=== PATIENT | female | born 1950 | race Caucasian/White ===

== ENCOUNTER → 2017-10-12 11:05 | Outpatient (CLI) | payer MEDICARE, SELFPAY ==
[2017-10-12 12:17] LABS: Absolute Lymphocyte Count 1.22 X10^3/ul (0.83-4.51); Basophil# 0.05 X10^3/uL; Eosinophil# 0.14 X10^3/uL; Eosinophils% 2.8 % (0-5); Hematocrit 42.9 % (37-47); Hemoglobin 14.4 g/dl (12.0-15.0); Lymphocyte # 1.22 X10^3/ul (4.0); Lymphocyte % 24.7 % (19-41); Mean Corp Hgb Conc 33.6 g/gl (32-36); Mean Corpuscular Hgb 34.4 pg (27.0-32.0); Mean Corpuscular Volume 102.4 fL (81-99); Mean Platelet Vol. 11.2 fl (6.2-12.0); Monocyte# 0.52 X10^3/uL; Monocyte% 10.5 % (0-10); Platelet Count 234 K/mm3 (150-450); RBC Distribution Width CV 14.5 % (11.6-14.6); RBC Distribution Width SD 53.6 fl (35.1-43.9); Red Blood Count 4.19 M/mm3 (4.2-5.4); White Blood Count 4.9 K/mm3 (4.4-11.0)
[2017-10-12 12:18] LABS: POSITIVE COUNT NO; POSITIVE DIFFERENTIAL NO; POSITIVE MORPHOLOGY NO
[2017-10-12 12:38] LABS: AST(SGOT) 18 U/L (15-37); Alanine Aminotransfer ALT/SGPT 19 U/L (13-56); Albumin, Serum 3.5 g/dL (3.2-5.0); Alkaline Phosphatase 55 U/L (45-117); Anion Gap 7 (5-15); BUN 15 mg/dL (7-18); BUN/Creat Ratio 20.1 RATIO (10-20); Calcium,Total 8.7 mg/dL (8.5-10.1); Chloride 107 mmol/L (98-107); Creatinine, Serum 0.75 mg/dL (0.55-1.02); EST Glomerular Filtration Rate 82 mL/min (>60); Est Glom Filt Rate - Afr Amer 99 mL/min (>60); Globulin 3.5 g/dL (2.2-4.2); Glucose 90 mg/dL (74-106); Potassium 3.6 mmol/L (3.5-5.1); Sodium Level 142 mmol/L (136-145)
== END ==
PROVIDERS: Visit Provider Internal Medicine Rheumatology
DX: M05.70 Rheumatoid arthritis with rheumatoid factor of unspecified site without organ or systems involvement (principal); M21.40 Flat foot [pes planus] (acquired), unspecified foot; I10 Essential (primary) hypertension; E78.5 Hyperlipidemia, unspecified; Z79.899 Other long term (current) drug therapy
CPT/HCPCS: 36415; 80053; 85025

== ENCOUNTER → 2017-12-27 12:41 | Outpatient (CLI) | payer MEDICARE, SELFPAY ==
--- NOTE | 2017-12-27 12:41 | DT_ITS ---
This patient was seen during an EMR downtime December 20, 2017 - December 27, 2017. This patient may have a combination of paper and electronic documentation or all paper documentation. All documentation is viewable within the e-chart portion of [facility] for each patient visit.
[2017-12-27 14:02] LABS: Absolute Lymphocyte Count 1.22 X10^3/ul (0.83-4.51); Absolute Neutrophil Count 3.7 X10^3/uL (2.0-7.7); Basophil# 0.04 X10^3/uL; Basophil% 0.7 % (0-1); Eosinophil# 0.16 X10^3/uL; Eosinophils% 2.8 % (0-5); Hematocrit 42.4 % (37-47); Hemoglobin 14.1 g/dl (12.0-15.0); Lymphocyte # 1.22 X10^3/ul (4.0); Lymphocyte % 21.3 % (19-41); Mean Corp Hgb Conc 33.3 g/gl (32-36); Mean Corpuscular Hgb 34.7 pg (27.0-32.0); Mean Corpuscular Volume 104.4 fL (81-99); Mean Platelet Vol. 11.1 fl (6.2-12.0); Monocyte# 0.66 X10^3/uL; Monocyte% 11.5 % (0-10); Neutrophil # 3.65 X10^3/uL (2.7-7.7); Neutrophil % 63.5 % (47-70); Platelet Count 219 K/mm3 (150-450); RBC Distribution Width CV 14.6 % (11.6-14.6); RBC Distribution Width SD 55.6 fl (35.1-43.9); Red Blood Count 4.06 M/mm3 (4.2-5.4); White Blood Count 5.7 K/mm3 (4.4-11.0)
[2017-12-27 14:05] LABS: POSITIVE COUNT NO; POSITIVE DIFFERENTIAL NO; POSITIVE MORPHOLOGY NO
[2017-12-27 14:16] LABS: ALB/GLOB Ratio 1.1 RATIO (0.9-2.4); AST(SGOT) 24 U/L (15-37); Alanine Aminotransfer ALT/SGPT 22 U/L (13-56); Albumin, Serum 3.7 g/dL (3.2-5.0); Alkaline Phosphatase 45 U/L (45-117); Anion Gap 8 (5-15); BUN 13 mg/dL (7-18); BUN/Creat Ratio 14.8 RATIO (10-20); Calcium,Total 9.4 mg/dL (8.5-10.1); Chloride 105 mmol/L (98-107); Creatinine, Serum 0.88 mg/dL (0.55-1.02); EST Glomerular Filtration Rate 68 mL/min (>60); Est Glom Filt Rate - Afr Amer 83 mL/min (>60); Globulin 3.5 g/dL (2.2-4.2); Glucose 88 mg/dL (74-106); Potassium 3.6 mmol/L (3.5-5.1); Protein, Total 7.2 g/dL (6.4-8.2); Sodium Level 142 mmol/L (136-145)
== END ==
PROVIDERS: Visit Provider Internal Medicine Rheumatology
DX: M05.70 Rheumatoid arthritis with rheumatoid factor of unspecified site without organ or systems involvement (principal); Z79.899 Other long term (current) drug therapy; M21.40 Flat foot [pes planus] (acquired), unspecified foot; I10 Essential (primary) hypertension; E78.5 Hyperlipidemia, unspecified
CPT/HCPCS: 36415; 80053; 85025

== ENCOUNTER → 2018-02-23 17:13 | Outpatient (CLI) | payer MEDICARE, SELFPAY ==
--- NOTE | 2018-02-23 17:16 | CT_ITS ---
STUDY: CT RIGHT SHOULDER REASON FOR EXAM: Female, 68 years old. Right shoulder pain. Impingement. RADIATION DOSAGE (If Supplied By Facility): CTDIvol = ( 26.03 ) mGy, DLP = ( 508.91 ) mGycm TECHNIQUE: The patient was scanned in a multi detector CT scanner. High resolution transaxial imaging was performed without the administration of intravenous contrast material. Sagittal and coronal images were reconstructed. Individualized dose optimization techniques were used for this CT. COMPARISON: None. 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 There is decreased subacromial space consistent with chronic rotator cuff tear. Normal glenoid rim, neck and visualized scapula. There is flattening of the superior medial humeral head with possible reverse Hill-Sachs deformity. There is spurring of the inferior medial humeral head Normal coracoid process. Normal visualized lateral clavicle. There is arthrosis with spurring of the acromioclavicular articulation. There is a Type II morphology (curved) acromion, with a neutral orientation. Normal visualized muscles and soft tissue structures. There is right lung granuloma and calcified mediastinal and right hilar lymph nodes. CT/Extremity Upper without Contra IMPRESSION: Glenohumeral and acromioclavicular arthrosis with decreased subacromial space consistent with chronic rotator cuff tear. Electronically Signed: Al Alvarado MD at 17:07 EDT , Service support ,
== END ==
PROVIDERS: Visit Provider Orthopaedic Surgery
DX: M75.41 Impingement syndrome of right shoulder (principal); M25.511 Pain in right shoulder; S43.421D Sprain of right rotator cuff capsule, subsequent encounter
CPT/HCPCS: 73200

== ENCOUNTER → 2018-03-24 10:43 | Outpatient (CLI) | payer MEDICARE, SELFPAY ==
[2018-03-24 12:29] LABS: Absolute Lymphocyte Count 0.99 X10^3/ul (0.83-4.51); Absolute Neutrophil Count 2.4 X10^3/uL (2.0-7.7); Basophil# 0.02 X10^3/uL; Basophil% 0.5 % (0-1); Eosinophils% 2.6 % (0-5); Hemoglobin 14.1 g/dl (12.0-15.0); Lymphocyte # 0.99 X10^3/ul (4.0); Lymphocyte % 25.9 % (19-41); Mean Corpuscular Hgb 32.8 pg (27.0-32.0); Mean Corpuscular Volume 102.3 fL (81-99); Mean Platelet Vol. 11.1 fl (6.2-12.0); Monocyte# 0.34 X10^3/uL; Monocyte% 8.9 % (0-10); Neutrophil # 2.37 X10^3/uL (2.7-7.7); Neutrophil % 62.1 % (47-70); Platelet Count 244 K/mm3 (150-450); RBC Distribution Width CV 14.7 % (11.6-14.6); White Blood Count 3.8 K/mm3 (4.4-11.0)
[2018-03-24 12:35] LABS: POSITIVE COUNT NO; POSITIVE DIFFERENTIAL NO; POSITIVE MORPHOLOGY NO
[2018-03-24 12:49] LABS: ALB/GLOB Ratio 1.1 RATIO (0.9-2.4); AST(SGOT) 32 U/L (15-37); Alanine Aminotransfer ALT/SGPT 29 U/L (13-56); Albumin, Serum 3.7 g/dL (3.2-5.0); Alkaline Phosphatase 50 U/L (45-117); Anion Gap 8 (5-15); BUN 13 mg/dL (7-18); BUN/Creat Ratio 15.6 RATIO (10-20); Calcium,Total 9.4 mg/dL (8.5-10.1); Chloride 104 mmol/L (98-107); Creatinine, Serum 0.83 mg/dL (0.55-1.02); EST Glomerular Filtration Rate 72 mL/min (>60); Est Glom Filt Rate - Afr Amer 87 mL/min (>60); Globulin 3.5 g/dL (2.2-4.2); Glucose 99 mg/dL (74-106); Potassium 3.8 mmol/L (3.5-5.1); Protein, Total 7.2 g/dL (6.4-8.2); Sodium Level 141 mmol/L (136-145)
[2018-03-26 16:07] LABS: Immunoglobulin E 5 IU/mL (0-100)
[2018-03-27 08:36] LABS: Eosinophil Ct. Urine No Eosinophils Seen % (.)
== END ==
PROVIDERS: Internal Medicine Pulmonary Disease; Visit Provider Internal Medicine Rheumatology
DX: M05.70 Rheumatoid arthritis with rheumatoid factor of unspecified site without organ or systems involvement (principal); M21.40 Flat foot [pes planus] (acquired), unspecified foot; I10 Essential (primary) hypertension; E78.5 Hyperlipidemia, unspecified; R05 Cough; Z79.899 Other long term (current) drug therapy
CPT/HCPCS: 36415; 80053; 82785; 85025; 87205

== ENCOUNTER 2018-06-21 10:36 | Outpatient (RCR) | payer MEDICARE, SELFPAY ==
[2018-05-04 13:48] VITALS: BMI 31.8
[2018-06-21 12:16] LABS: Absolute Lymphocyte Count 1.17 X10^3/ul (0.83-4.51); Absolute Neutrophil Count 3.2 X10^3/uL (2.0-7.7); Basophil# 0.03 X10^3/uL; Basophil% 0.6 % (0-1); Eosinophil# 0.16 X10^3/uL; Eosinophils% 3.2 % (0-5); Hematocrit 40.5 % (37-47); Hemoglobin 12.8 g/dl (12.0-15.0); Lymphocyte # 1.17 X10^3/ul (4.0); Lymphocyte % 23.1 % (19-41); Mean Corp Hgb Conc 31.6 g/gl (32-36); Mean Corpuscular Hgb 32.3 pg (27.0-32.0); Mean Corpuscular Volume 102.3 fL (81-99); Mean Platelet Vol. 10.9 fl (6.2-12.0); Monocyte% 9.9 % (0-10); Neutrophil % 63.2 % (47-70); Platelet Count 379 K/mm3 (150-450); RBC Distribution Width CV 14.8 % (11.6-14.6); RBC Distribution Width SD 55.8 fl (35.1-43.9); Red Blood Count 3.96 M/mm3 (4.2-5.4); White Blood Count 5.1 K/mm3 (4.4-11.0)
[2018-06-21 12:23] LABS: POSITIVE COUNT NO; POSITIVE DIFFERENTIAL NO; POSITIVE MORPHOLOGY NO
[2018-06-21 12:58] LABS: ALB/GLOB Ratio 0.9 RATIO (0.9-2.4); AST(SGOT) 24 U/L (15-37); Alanine Aminotransfer ALT/SGPT 20 U/L (13-56); Albumin, Serum 3.6 g/dL (3.2-5.0); Alkaline Phosphatase 57 U/L (45-117); Anion Gap 11 (5-15); BUN 16 mg/dL (7-18); BUN/Creat Ratio 21.3 RATIO (10-20); Calcium,Total 9.3 mg/dL (8.5-10.1); Chloride 103 mmol/L (98-107); Creatinine, Serum 0.75 mg/dL (0.55-1.02); EST Glomerular Filtration Rate 82 mL/min (>60); Est Glom Filt Rate - Afr Amer 99 mL/min (>60); Globulin 3.8 g/dL (2.2-4.2); Glucose 99 mg/dL (74-106); Potassium 3.7 mmol/L (3.5-5.1); Protein, Total 7.4 g/dL (6.4-8.2); Sodium Level 136 mmol/L (136-145)
== END 2018-06-21 11:00 | disposition home or self-care (01) ==
LOC: MTLAB 10:36
PROVIDERS: Referring Provider Internal Medicine Rheumatology; Visit Provider Internal Medicine Rheumatology
DX: M05.70 Rheumatoid arthritis with rheumatoid factor of unspecified site without organ or systems involvement (principal); M21.40 Flat foot [pes planus] (acquired), unspecified foot; I10 Essential (primary) hypertension; E78.5 Hyperlipidemia, unspecified; Z79.899 Other long term (current) drug therapy
CPT/HCPCS: 36415; 80053; 85025

== ENCOUNTER 2018-06-30 05:55 | Day surgery (SDC) | payer MEDICARE, SELFPAY ==
[2018-05-04 13:48] VITALS: BMI 31.8
--- NOTE | 2018-06-29 22:06 | HP.PCM_ITS ---
History and Physical Date of Admission: 06/30/18 HISTORY OF PRESENT ILLNESS 68 year old woman presents with lesions on her dorsum left hand near ulnar wrist by ring finger and small finger, on her volar ulnar aspect left forearm, proximal, and volar ulnar aspect left forearm, proximal and distal to other lesion that have increased in size over the last several months. Recent biopsy was done on 04/08/18. Pathology showed the lesion on the dorsum left hand near ulnar wrist by ring finger and small finger was a squamous cell carcinoma in situ. The lesion on her volar ulnar aspect left forearm, proximal, was an actinic keratosis. 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 On 04/19/18, the squamous cell carcinoma lesion volar ulnar aspect left forearm, proximal and distal to the actinic keratosis lesion, was re-excised by her PCP with a 4 mm margin. Repeat pathology showed no residual carcinoma seen. Since then the patient has noticed an erythematous lesion just ulnar to the healing incision. She presents today for further evaluation and treatment. PAST MEDICAL HISTORY Cancer of skin of forearm HTN (hypertension) Hypercholesterolemia Rheumatoid arthritis PAST SURGICAL HISTORY Left knee replacement Cataract surgery Left rotator cuff repair Right knee replacement brain aneurysm repair d & c MEDICATIONS Aspirin Methotrexate Triamterene Lisinopril albuterol sulfate benzonatate folic acid hydroxychloroquine metoprolol tartrate mirabegron ER omeprazole ALLERGIES No Known Allergies. FAMILY HISTORY Son - Hypertension SOCIAL HISTORY Smoking Status: Former smoker quit date: 07/19/90 pack-years: 30 second hand exposure: No alcohol intake: current alcohol intake frequency: holidays/special occasions only substance use type: does not use REVIEW OF SYSTEMS General - Denies fever and weight loss. Has fatigue. Eyes - Denies cataracts and glaucoma. ENT - Denies nasal congestion and sore throat. Endocrine - Denies excessive thirst and urination. Skin - Denies skin cancer. 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 Had recent shave biopsy lesion volar ulnar aspect left forearm, proximal, on 04/08/18 which showed an actinic keratosis. Had recent sha ve biopsy lesion volar ulnar aspect left forearm, proximal and distal to actinic keratosis lesion, on 04/08/18 which showed a squamous cell carcinoma. The squamous cell carcinoma lesion was re-excised 04/19/18. Musculoskeletal - Denies joint pain, joint stiffness, weakness of muscles and joints, back pain, and arthritis. Neuro - Denies headaches. Cardiovascular - Denies chest pain, fatigue, and shortness of breath with exertion. Psych - Denies anxiety and depression. Respiratory - Denies chronic cough and shortness of breath. Patient is a former smoker. Gastrointestinal - Denies nausea, vomiting, diarrhea, and constipation. Hematologic - Denies abnormal bruising and bleeding. Genitourinary - Denies hematuria and urinary frequency. PHYSICAL EXAMINATION General - Alert and Oriented. HEENT - PERRL. EOMI. Throat is clear. No suspicious lesions noted. Neck - Supple and nontender. No cervical adenopathy. No suspicious lesions noted. Lungs - Clear to auscultation. Heart - Regular rate and rhythm. Abdomen - Soft and nondistended. Extremities - FROM. No axillary adenopathy. Radial pulses are palpable. On the dorsum left hand near ulnar wrist by ring finger and small finger is a 1 cm healing scar from recent shave biopsy that showed a squamous cell carcinoma. On the volar ulnar aspect left forearm, proximal, is a 6 mm healing scar from recent shave biopsy that showed an actinic keratosis. On the volar ulnar aspect left forearm, proximal and distal to actinic keratosis lesion, is a 1.5 cm healing incision from recent re-excision squamous cell ca rcinoma. Just ulnar to this incision is an erythematous lesion that measures 4 mm. Slightly raised in configuration. Has irregular borders. No ulceration. Lesion is nontender. Neuro - CN II-XII grossly intact. Psych - Normal mood and affect. ASSESSMENT 1. 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 2. 6 mm actinic keratosis volar ulnar aspect left forearm, proximal. 3. 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 4. 4 mm erythematous lesion ulnar to squamous cell carcinoma scar left forearm. 5. Former smoker. 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 Reconstruction will be with skin grafting. Recommend re-excision of the actinic keratosis lesion volar ulnar aspect left forearm, proximal, and send it to Pathology for analysis to rule out carcinoma. If carcinoma is present then further excision will be done with skin flap reconstruction. The squamous cell carcinoma scar on volar ulnar aspect left forearm, proximal and distal to actinic keratosis lesion, was re-excised with a 4 mm margin and pathology showed no residual carcinoma seen. No further excision needs to be done. There is a new erythematous lesion just ulnar to the squamous cell carcinoma scar. Will excise this lesion as well and send to Pathology for analysis to rule out carcinoma. If carcinoma is present, then further excision will be done with skin flap reconstruction. Surgery will be done under local anesthesia and IV sedation on an outpatient basis. Patient was informed of the risks and complications of the procedure including alternatives to surgery. These were discussed with the patient personally. Patient voices understanding and wishes to proceed. Some of the risks and complications were included in a form from the [employer].
[2018-06-30] VITALS (8 sets, daily range): BP systolic 93–135; BP diastolic 55–78; PULSE 57–66; RESP 14–16; TEMP 36.7–36.8; O2SAT 99–100; BMI 31.4
--- NOTE | 2018-06-30 | LES_PTH ---
PATIENT: GEE BLAS LOC: [facility] [place] U#:[id number] AGE/SX: 68/F ROOM: RE06/30/[address]: Dr. Shaun Oneal MD : 1950 BED: DIS: 06/30/2018 SPEC #: [id number] RECD: 06/30/18 13:10 STATUS: LUCAS HERCULES #: [id number] TATI: 06/30/18 00:[address]: Shaun Oneal DEPT: SURGICAL PATHOLOGY RECD BY: Jalil Gamez ENTERED: 06/30/18 13:10 SP TYPE: Lesion OTHR DR: Antwon Licona Tissues: A - Skin of hand and finger, NOS B - Skin of forearm, NOS Procedures: Surgery Specimen Level IV HEADER OPERATION: Excision squamous cell cancer in situ dorsum left hand PRE-OP DIAGNOSIS: Squamous cell carcinoma in situ dorsum left hand near ulnar wrist; actinic keratosis left proximal volar ulnar forearm TISSUE SUBMITTED: A - Squamous cell carcinoma in situ dorsum left hand, B - Actinic keratosis left proximal volar ulnar forearm MICROSCOPIC DIAGNOSIS A. Squamous cell carcinoma in situ dorsum left hand, excisional biopsy: Actinic keratosis and hyperkeratosis. Extensive solar elastosis. Negative for malignancy. B. Actinic keratosis left proximal volar ulnar forearm, biopsy: Actinic keratosis and solar elastosis. Dermal fibrosis consistent with scar. SJ:lorie 07/01/18 MICROSCOPIC DESCRIPTION Slides are reviewed. 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 The specimen consists of a piece of ribera-white skin measuring 2.5 x 1.7 cm and up to 0.2 cm in thickness. A suture is noted presumed to be 12 o'clock position. The specimen is inked as follows: 12 o'clock margin - green, 6 o'clock margin - yellow, 3 o'clock margin - black and 9 o'clock margin - blue. The specimen is serially sectioned and submitted entirely in two cassettes as follows: 1 - 12 and 6 o'clock margin, 2 - rest of the specimen. B - Received in fixative is one container labeled with the patient's name and designated actinic keratosis left proximal volar ulnar forearm. The specimen consists of a fran-shaped piece of ribera-white skin measuring 1.8 x 1.5 cm and 0.3 cm in thickness. A suture is noted at presumed to be 12 o'clock margin. The specimen is inked as follows: 12 to 3 o'clock margin - black, 3 to 6 o'clock margin - blue, 6 to 9 o'clock margin - green and 9 to 12 o'clock margin - yellow. The specimen is serially sectioned and submitted entirely in two cassettes as follows: 1 - 3 and 9 o'clock tip, 2 - rest of the specimen. / SJ:rg 06/30/18 TC:5 CPT: 47205 x2
[2018-06-30] MEDS: Cefazolin 2 GM in 0.9% Normal Saline 100 ML IV (08:14)
[2018-06-30] MEDS: Mupirocin Ointment 22gm Tube 1 APPLIC (09:20)
--- NOTE | 2018-06-30 09:30 | OP.PN_ITS ---
Immediate Post-Op Note Date of Procedure: 06/30/18 Primary Surgeon/Physician: Shaun Oneal windows security analyst: Zachary White. Pre-Operative Diagnosis: 1. 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 2. 6 mm actinic keratosis volar ulnar aspect left forearm, proximal. 3. Former smoker. Post-Operative Diagnosis: Same. Surgery/Procedure Performed:: 1. 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 2. Excision 6 mm ac tinic keratosis volar ulnar aspect left forearm, proximal, with rhomboid transposition skin flap reconstruction (4 cm2). Description of Surgical Findings:: 68 year old woman presents with lesions on her dorsum left hand near ulnar wrist by ring finger and small finger, on her volar ulnar aspect left forearm, proximal, and volar ulnar aspect left forearm, proximal and distal to other lesion that have increased in size over the last several months. Recent biopsy was done on 04/08/18. Pathology showed the lesion on the dorsum left hand near ulnar wrist by ring finger and small finger was a squamous cell carcinoma in situ. The lesion on her volar ulnar aspect left forearm, proximal, was an actinic keratosis. 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 On 04/19/18, the squamous cell carcinoma lesion volar ulnar aspect left forearm, proximal and distal to the actinic keratosis lesion, was re-excised by her PCP with a 4 mm margin. Repeat pathology showed no residual carcinoma seen. Since then the patient has noticed an erythematous lesion just ulnar to the healing incision. Today that erythematous lesion has resolved. Today the patient underwent excision 1 cm 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 small finger with FTSG reconstruction from left lateral abdominal wall (5.5 cm2) and excision 6 mm actinic keratosis volar ulnar aspect left forearm, proximal, with rhomboid roland sposition skin flap reconstruction (4 cm2). Size of skin graft dorsum left hand near ulnar wrist by ring finger and small finger - 2.2 x 2.5 cm. Estimated Blood Loss: 10 ml. Specimen's removed: 1. Squamous cell carcinoma in situ dorsum left hand. 2. Actinic keratosis Drains: None. Type of Anesthesia:: Local MAC - xylocaine with epinephrine and IV sedation. - Admit VTE Documentation VTE Present on Admission: No VTE Mechan Device Prophylaxis: SCD's VTE Pharm Prophylaxis ordered?: No
--- NOTE | 2018-06-30 09:35 | PCM.DC ---
You will use the following diet at home:: No restrictions Discharge Activity: May not drive while taking narcotic pain medications., May Shower - in two days. wear plastic bag over left hand when showering., - - keep left arm elevated. no heavy lifting with left hand. May shower in (days): 2 - wear plastic bag over left hand when showering. May resume sexual activity in: No Restrictions Weight Bearing Status: Weight bearing as tolerated Lifting Restrictions: 10 lbs. Keep extremity elevated above heart level: Left Arm Call your doctor if your incision/area has: Continuous Slow Oozing, Sudden Increased Bleeding, Increased Pain/ Swelling, Increased Redness, Foul Smelling Discharge, Swelling at the incision site Call your doctor if you observe: Fever of 101 or Higher, Coldness, Increased Pain, Shortness of breath, Chest pain, Calf discomfort, Uncontrolled pain Suture Line Care: - - dry dressing daily to left lateral abdominal wall after operative dressing is removed in two days. Change Dressing in (Days):: 6 - will change left hand dressing in office. Allergies/Adverse Reactions: Allergies No Known Allergies Allergy (Verified 06/30/18 06:18) Medications to take at Discharge Methotrexate 15 mg PO QWEEK 02/04/14 Triamterene 75MG/Hctz 50MG [Maxzide] 0.5 tab PO DAILY 02/04/14 Lisinopril [Zestril] 10 mg PO DAILY 01/06/16 hydroxychloroquine 200 mg tablet 200 mg PO DAILY tab 03/30/18 metoprolol tartrate 100 mg tablet 100 mg PO DAILY tab 03/30/18 omeprazole 40 mg capsule,delayed release 40 mg PO DAILY 03/30/18 Oxybutynin [Ditropan] 5 mg PO BID 06/23/18 Cefadroxil [Duricef] 500 mg PO BID #14 cap 06/30/18 Lactobacillus Acidophilus [Acidophilus] 1 ea PO BID #20 cap 06/30/18 Oxycodone HCl/Acetaminophen [Percocet 5/325] 1 tab PO 4X/DAY PRN PRN 7 Days #30 tab 06/30/18 The following prescriptions were given: Oxycodone HCl/Acetaminophen [Percocet 5/325] 1 tab PO 4X/DAY PRN PRN 7 Days #30 tab PRN Reason: Pain Cefadroxil [Duricef] 500 mg PO BID #14 cap Lactobacillus Acidophilus [Acidophilus] 1 ea PO BID #20 cap Primary Care Physician: Antwon Licona [Primary Care Provider] - Test Results: Test results from this visit will be discussed in further detail at your follow-up appointment, if applicable. Please Follow Up With: Shaun Oneal MD When: one week. call [phone] for appt. Proposed Discharge Date: 06/30/18
--- NOTE | 2018-06-30 09:39 | DCINST_ITS ---
You will use the following diet at home:: No restrictions Discharge Activity: May not drive while taking narcotic pain medications., May Shower - in two days. wear plastic bag over left hand when showering., - - keep left arm elevated. no heavy lifting with left hand. May shower in (days): 2 - wear plastic bag over left hand when showering. May resume sexual activity in: No Restrictions Weight Bearing Status: Weight bearing as tolerated Lifting Restrictions: 10 lbs. Keep extremity elevated above heart level: Left Arm Call your doctor if your incision/area has: Continuous Slow Oozing, Sudden Increased Bleeding, Increased Pain/ Swelling, Increased Redness, Foul Smelling Discharge, Swelling at the incision site Call your doctor if you observe: Fever of 101 or Higher, Coldness, Increased Pain, Shortness of breath, Chest pain, Calf discomfort, Uncontrolled pain Suture Line Care: - - dry dressing daily to left lateral abdominal wall after operative dressing is removed in two days. Change Dressing in (Days):: 6 - will change left hand dressing in office. Allergies/Adverse Reactions: Allergies No Known Allergies Allergy (Verified 06/30/18 06:18) Medications to take at Discharge Methotrexate 15 mg PO QWEEK 02/04/14 Triamterene 75MG/Hctz 50MG [Maxzide] 0.5 tab PO DAILY 02/04/14 Lisinopril [Zestril] 10 mg PO DAILY 01/06/16 hydroxychloroquine 200 mg tablet 200 mg PO DAILY tab 03/30/18 metoprolol tartrate 100 mg tablet 100 mg PO DAILY tab 03/30/18 omeprazole 40 mg capsule,delayed release 40 mg PO DAILY 03/30/18 Oxybutynin [Ditropan] 5 mg PO BID 06/23/18 Cefadroxil [Duricef] 500 mg PO BID #14 cap 06/30/18 Lactobacillus Acidophilus [Acidophilus] 1 ea PO BID #20 cap 06/30/18 Oxycodone HCl/Acetaminophen [Percocet 5/325] 1 tab PO 4X/DAY PRN PRN 7 Days #30 tab 06/30/18 The following prescriptions were given: Oxycodone HCl/Acetaminophen [Percocet 5/325] 1 tab PO 4X/DAY PRN PRN 7 Days #30 tab PRN Reason: Pain Cefadroxil [Duricef] 500 mg PO BID #14 cap Lactobacillus Acidophilus [Acidophilus] 1 ea PO BID #20 cap Primary Care Physician: Antwon Licona [Primary Care Provider] - Test Results: Test results from this visit will be discussed in further detail at your follow- up appointment, if applicable. Please Follow Up With: Shaun Oneal MD When: one week. call [phone] for appt. Proposed Discharge Date: 06/30/18
--- NOTE | 2018-06-30 23:48 | PCM.OPRPT ---
Report of Operation Date of Procedure: 06/30/18 Pre-Operative Diagnosis: 1. 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 2. 6 mm actinic keratosis volar ulnar aspect left forearm, proximal. 3. Former smoker. Post-Operative Diagnosis: Same. Surgery/Procedure Performed:: 1. 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 2. Excision 6 mm actinic keratosis volar ulnar aspect left forearm, proximal, with rhomboid transposition skin flap reconstruction (4 cm2). Description of Surgical Findings:: 68 year old woman presents with lesions on her dorsum left hand near ulnar wrist by ring finger and small finger, on her volar ulnar aspect left forearm, proximal, and volar ulnar aspect left forearm, proximal and distal to other lesion that have increased in size over the last several months. Recent biopsy was done on 04/08/18. Pathology showed the lesion on the dorsum left hand near ulnar wrist by ring finger and small finger was a squamous cell carcinoma in situ. The lesion on her volar ulnar aspect left forearm, proximal, was an actinic keratosis. 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 On 04/19/18, the squamous cell carcinoma lesion volar ulnar aspect left forearm, proximal and distal to the actinic keratosis lesion, was re-excised by her PCP with a 4 mm margin. Repeat pathology showed no residual carcinoma seen. Since then the patient has noticed an erythematous lesion just ulnar to the healing incision. Today that erythematous lesion has resolved. Patient was informed of the risks and complications of the procedure including alternatives to surgery. These were discussed with the patient personally. Patient voices understanding and wishes to proceed. Some of the risks and complications were included in a form from the [employer]. Size of skin graft dorsum left hand near ulnar wrist by ring finger and small finger - 2.2 x 2.5 cm. 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 Type of Anesthesia:: Local MAC - xylocaine with epinephrine and IV sedation. Specimen's removed: 1. Squamous cell carcinoma in situ dorsum left hand. 2. Actinic keratosis Drains: None. Estimated Blood Loss (mL): 10 ml. Description of Procedure: Patient was taken to OR in supine position and was given IV sedation. The left hand and forearm and left lateral abdominal wall areas were prepped and draped in the usual fashion. SCD's were placed for DVT prophylaxis. Perioperative antibiotics were given intravenously. The lesions dorsum left hand near ulnar wrist by ring finger and small finger and volar ulnar aspect left forearm, proximal, and the donor area left lateral abdominal wall were infiltrated with xylocaine and epinephrine. After waiting 5 minutes for the anesthetic to take effect, the lesion dorsum left hand near ulnar wrist by ring finger and small finger was excised with a 6 mm margin down into the subcutaneous tissue. A suture was placed at 12 oclock position for pathology orientation and was sent to pathology for analysis to rule out carcinoma at the margins. Hemostasis was obtained with electrocautery. The size of the wound defect for the skin graft was 2.2 x 2.5 cm or 5.5 cm2. The lesion volar ulnar aspect left forearm, proximal, was excised in a rhomboid fashion with a 4 mm margin in all directions in case there is a focus of carcinoma on the pathology report. The rhomboid excision was done because of the proximity of the lesion to the antecubital area. A suture was placed at 12 oclock position for pathology orientation and was sent to Pathology for analysis to rule out carcinoma. A rhomboid flap was designed adjacent to the defect. Incisions were made and the rhomboid flap was raised on a subcutaneous pedicle. It was easily transposed into the defect with minimal tension and minimal distortion. Hemostasis was obtained with electrocautery. The flap was transposed into the defect and the wound was closed in a layered fashion with 4-0 Monocryl interrupted sutures for the deep dermis and subcutaneous tissue. The skin was approximated with 4-0 Prolene simple interrupted sutures. The size of the wound and the size of the flap needed to close the defect was about 4 cm2. Antibiotic ointment was applied to the suture line followed by gauze dressing. I then made an elliptical incision on the left lateral abdominal wall down into the subcutaneous tissue. The subcutaneous tissue was removed from the undersurface of the dermis thus fashioning a full thickness skin graft. The skin graft was placed in saline. Some additional subcutaneous tissue was removed to aid in wound closure. Hemostasis was obtained with electrocautery. The donor incision was closed in a layered fashion with 3-0 Monocryl figure of eight interrupted sutures for the Rachel's fascial layer. The deep dermis and subcutaneous tissue was approximated with 3-0 Monocryl interrupted sutures. The skin was approximated with 3-0 V lock unidirectional barbed running subcuticular suture. This was followed by Histoacryl skin tissue adhesive. A dry gauze dressing was applied. The skin graft was applied to the wound dorsum left hand near ulnar wrist by ring finger and small finger and secured to the skin edge with 3-0 Chromic simple interrupted sutures. 3-0 Chromic interrupted sutures were also used for central quilting stabilization. Xeroform gauze was applied to the skin graft followed by antibiotic ointment and cotton balls soaked in saline and secured with 3-0 Nylon tie over stent suture dressing. Gauze dressing was applied over the skin graft dressing followed by a compression FRANCES wrap. Patient tolerated the procedure well and was sent to PACU in satisfactory condition. Patient will be sent home on antibiotics and pain medication. She will keep her left hand elevated during the inital postop period. Patient will followup in a week for a wound check and for takedown of the skin graft dressing and for discussion of the pathology report and for removal of the sutures. Grafts/Implants Used: None. - Complications None. - Admit VTE Documentation VTE Present on Admission: No VTE Mechan Device Prophylaxis: SCD's VTE Pharm Prophylaxis ordered?: No Code Visit Surgery Charges CPT - 41908 ICD-10 - D04.62, Z87.891 71712 D04.62, Z87.891 80099 L57.0, Z85.828, Z87.891
--- OUTSIDE RECORDS SUMMARY | 2018-08-16 00:13 | XMS RPT_ITS ---
:1950 Author Organization OHIP Support Name Relationship Address Phone DEVORA MCNALLY Unavailable [address] + [place] [address] FATZINGER, JOEL Unavailable [address] [place] [address] + [place] [address] R Unavailable Unavailable Unavailable FATZINGER DEVORA Unavailable [address] + [place] [address] FATZINGER, JOEL Unavailable [address] [place] [address] + [place] [address] R Unavailable Unavailable Unavailable FATZINGER DEVORA Unavailable [address] + [place] [address] FATZINGER, JOEL Unavailable [address] [place] [address] + [place] [address] R Unavailable Unavailable Unavailable FATZINGER DEVORA Unavailable [address] + [place] [address] FATZINGER, JOEL Unavailable [address] [place] [address] + [place] [address] R Unavailable Unavailable Unavailable FATZINGER, DEVORA Unavailable [address] + [place] [address] FATZINGER, JOEL Unavailable [address] [place] [address] + [place] [address] R Unavailable Unavailable Unavailable FATZINGER, DEVORA Unavailable [address] + [place] [address] FATZINGER, JOEL Unavailable [address] [place] [address] + [place] [address] R Unavailable Unavailable Unavailable FATZINGER, DEVORA Unavailable [address] + [place] [address] FATZINGER, JOEL Unavailable [address] [place] [address] + [place] [address] R Unavailable Unavailable Unavailable FATZINGER, DEVORA Unavailable [address] + [place] [address] FATZINGER, JOEL Unavailable [address] [place] [address] + [place] [address] R Unavailable Unavailable Unavailable FATZINGER, DEVORA Unavailable [address] + [place] [address] FATZINGER, JOEL Unavailable [address] [place] [address] + [place] [address] R Unavailable Unavailable Unavailable FATZINGER, DEVORA Unavailable [address] + [place] [address] FATZINGER, JOEL Unavailable [address] [place] [address] + [place] [address] R Unavailable Unavailable Unavailable FATZINGER, DEVORA Unavailable [address] + [place] [address] FATZINGER, JOEL Unavailable [address] [place] [address] + [place] [address] R Unavailable Unavailable Unavailable FATZINGER, DEVORA Unavailable [address] + [place] [address] FATZINGER, JOEL Unavailable [address] [place] [address] + [place] [address] R Unavailable Unavailable Unavailable FATZINGER, DEVORA Unavailable [address] + [place] [address] FATZINGER, JOEL Unavailable [address] [place] [address] + [place] [address] R Unavailable Unavailable Unavailable FATZINGER, DEVORA Unavailable [address] + [place] [address] FATZINGER, JOEL Unavailable [address] [place] [address] + [place] [address] R Unavailable Unavailable Unavailable Care Team Providers Name Role Phone Ranjana Tristan Attending Unavailable Ranjana Tristan Referring Unavailable Antwon Licona Primary Care Unavailable Ranjana Tristan Attending Unavailable Vellanki, Ranjana Referring Unavailable Livan, Antwon Primary Care Unavailable AVERY KIRBY Attending Unavailable MIRTA, AVERY Referring Unavailable Livan, Antwon Primary Care Unavailable Vellanki, Ranjana Attending Unavailable Vellanki, Ranjana Referring Unavailable Livan, Antwon Primary Care Unavailable Olbrych, Nadia Consulting Unavailable Xiomara Davalos Attending Unavailable Ethan Morris Attending Unavailable Livan, Antwon Referring Unavailable Slaby, Shaun Attending Unavailable Livan, Antwon Referring Unavailable Slaby, Shaun Attending Unavailable Slaby, Shaun Referring Unavailable Livan, Antwon Primary Care Unavailable Vellanki, Ranjana Attending Unavailable Vellanki, Ranjana Referring Unavailable Livan, Antwon Primary Care Unavailable Slaby, Shaun Attending Unavailable Slaby, Shaun Referring Unavailable Livan, Antwon Primary Care Unavailable Slaby, Shaun Consulting Unavailable Slaby, Shaun Attending Unavailable Livan, Antwon Primary Care Unavailable Slaby, Shaun Consulting Unavailable Livan, Antwon Referring Unavailable Slaby, Shaun Attending Unavailable Livan, Antwon Referring Unavailable Denise Beck Attending Unavailable Livan, Antwon Referring Unavailable Vellanki, Ranjana Attending Unavailable Vellanki, Ranjana Referring Unavailable Livan, Antwon Primary Care Unavailable HILDA ROLDAN (DANYELL) Referring Unavailable NADIA GIL Attending Unavailable OLBRYCH, NADIA Referring Unavailable MirtaAvery gallegos Attending Unavailable Livan, Antwon G Primary Care Unavailable Avery Kirby L Admitting Unavailable MirtaAvery gallegos Attending Unavailable Livan, Antwon G Primary Care Unavailable Livan, Antwon G Attending Unavailable Livan, Antwon G Attending Unavailable Mirta, Avery L Attending Unavailable Livan, Antwon G Primary Care Unavailable PROBLEMS PROBLEMS DATE TYPE CONDITION / CODE ATTENDING STATUS SOURCE 07/06/2018 Unknown D04.62 - Carcinoma Shaun Oneal Active [place] in situ of skin of [facility] left upper limb, Hospital including shoulder / Repository D04.62(ICD-10) 07/03/2018 Unknown G89.18 - Other acute Shaun Oneal Active [place] postprocedural pain [facility] / G89.18(ICD-10) Hospital Repository 07/18/2018 Unknown M05.70 - Rheumatoid Kun Active [place] arthritis with [facility] rheumatoid factor of Hospital unspecified site Repository without organ or systems involvement / M05.70(ICD-10) 07/18/2018 Unknown M21.40 - Flat foot Vellanki, Active [place] [pes planus] [facility] (acquired), Hospital unspecified foot / Repository M21.40(ICD-10) 07/18/2018 Unknown I10 - Essential Vellanleandro, Active [place] (primary) [facility] hypertension / Hospital I10(ICD-10) Repository 07/18/2018 Unknown E78.5 - Vellanleandro, Active [place] Hyperlipidemia, [facility] unspecified / Hospital E78.5(ICD-10) Repository 06/01/2018 Admitting Unknown / Mirta, Active [facility] Medical diagnosis UNK(Unknown) [facility] Repository 04/13/2018 Active Cough / R05(ICD-10) NA Active [facility] Other [place] Repository 03/24/2018 Unknown Z79.899 - Other long Kun, Active [place] term (current) drug [facility] therapy / Hospital Z79.899(ICD-10) Repository 03/24/2018 Active Chronic obstructive NA Active [place] pulmonary disease, [facility] unspecified / [place] J44.9(ICD-10) Repository PROCEDURES PROCEDURES No Procedure Records FoundRESULTS RESULTS PLASTIC SURGERY Observed: 07/20/2018 Status: F Source: [facility] VISIT REPORT 11:44 AM [facility] REPOSITORY [facility] [address] [place] [address] OFFICE VISIT Date of Service: 07/15/18 MR#: [id number] Acct: [id number] Name: MAYRA MCNALLY Rep #: [id number] : 1950 Provider: HUONG Beck Age/Sex: 68/F Location: [facility] Status: Signed Intake Vital Signs07/15/18 Body Mass Index (BMI) 31.4 07/15/18 Weight: 189 lb 4 oz 07/15/18 Blood Pressure 127/84 H 07/15/18 Blood Pressure Location Lt brachial 07/15/18 Blood Pressure Position Sitting Intake Visit Reasons: post op surgery 06/30/18 Allergies No Known Allergies Allergy (Verified 07/07/18 13:27) Medications Methotrexate 15 mg PO QWEEK 02/04/14 [History Confirmed 07/07/18] Triamterene 75MG/Hctz 50MG [Maxzide] 0.5 tab PO DAILY 02/04/14 [History Confirmed 07/07/18] Lisinopril [Zestril] 10 mg PO DAILY 01/06/16 [History Confirmed 07/07/18] hydroxychloroquine 200 mg tablet 200 mg PO DAILY tab 03/30/18 [History Confirmed 07/07/18] metoprolol tartrate 100 mg tablet 100 mg PO DAILY tab 03/30/18 [History Confirmed 07/07/18] omeprazole 40 mg capsule,delayed release 40 mg PO DAILY 03/30/18 [History Confirmed 07/07/18] Oxybutynin [Ditropan] 5 mg PO BID 06/23/18 [History Confirmed 07/07/18] Cefadroxil [Duricef] 500 mg PO BID #14 cap 06/30/18 [Rx Confirmed 07/07/18] Lactobacillus Acidophilus [Acidophilus] 1 ea PO BID #20 cap 06/30/18 [Rx Confirmed 07/07/18] PFSH Medical History Cancer of skin of forearm (Acute) HTN (hypertension) (Chronic) Hypercholesterolemia (Chronic) Rheumatoid arthritis (Chronic) Surgical History History of left knee replacement (Resolved) Hx of cataract surgery (Resolved) S/P left rotator cuff repair (Resolved) Status post right knee replacement (Resolved) brain aneurysm repair (Resolved) d AND c (Resolved) Family History Son Hypertension Social History Smoking Status: Former smoker quit date: 07/19/90 pack-years: 30 second hand exposure: No alcohol intake: current alcohol intake frequency: holidays/special occasions only substance use type: does not use HPI post op surgery 06/30/18: Details: Postop visit from her recent surgery on 06/30/18 where she underwent excision 1 cm 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 Patient denies any complaints. Skin graft is healing well. Apply antibiotic ointment daily to the skin graft for another couple of weeks. Left lateral abdominal wall donor incision is dry and intact and healing satisfactory. She will keep it covered with gauze so that her clothes do not rub against it causing discomfort. Incision volar ulnar aspect left forearm, proximal, is dry and intact. Flap is healing satisfactory. She has good range of motion of left hand and forearm. Pathology showed squamous cell carcinoma in situ lesion dorsum left hand near ulnar wrist by ring finger and small finger showed an actinic keratosis and hyperkeratosis with extensive solar elastosis and negative for residual malignancy. The lesion volar ulnar aspect left forearm, proximal, showed actinic keratosis and solar elastosis and dermal fibrosis consistent with scar. Massage the skin flap volar ulnar aspect left forearm, proximal, and the donor incision left lateral abdominal wall with skin lotion daily to help soften up the scars. Followup two weeks if she is still in town. She has plans to go to [place] until the Spring. If she has already left for [place] at that time, then she will follow up in the Spring (September or October) for a TBSE. Assessment AND Plan Problems 1. 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 Actinic keratosis L57.0 3. Personal history of skin cancer Z85.828 4. 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 Actinic keratosis L57.0 Personal history of skin cancer Z85.828 Former smoker Z87.891 07/20/18 1144 <Electronically signed by Denise BORJA> Date Denise BORJA 07/19/182120<Electronically signed by Shaun Oneal MD> Cosigner Signature: Date (if applicable) Shaun Oneal MD CC: PLASTIC SURGERY Observed: 07/12/2018 Status: F Source: [facility] VISIT REPORT 8:00 PM [facility] REPOSITORY [facility] [address] [place] [address] OFFICE VISIT Date of Service: 07/07/18 MR#: [id number] Acct: [id number] Name: MAYRA MCNALLY Rep #: [id number] : 1950 Provider: Shaun Oneal MD Age/Sex: 68/F [place] [facility] Status: Signed Intake Vital Signs07/07/18 Body Mass Index (BMI) 31.4 07/07/18 Respiratory Rate 16 Intake Visit Reasons: post op surgery 06/30/18 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 Accompanied by: None Is patient in pain?: No Allergies No Known Allergies Allergy (Verified 07/07/18 13:27) Medications Methotrexate 15 mg PO QWEEK 02/04/14 [History Confirmed 07/07/18] Triamterene 75MG/Hctz 50MG [Maxzide] 0.5 tab PO DAILY 02/04/14 [History Confirmed 07/07/18] Lisinopril [Zestril] 10 mg PO DAILY 01/06/16 [History Confirmed 07/07/18] hydroxychloroquine 200 mg tablet 200 mg PO DAILY tab 03/30/18 [History Confirmed 07/07/18] metoprolol tartrate 100 mg tablet 100 mg PO DAILY tab 03/30/18 [History Confirmed 07/07/18] omeprazole 40 mg capsule,delayed release 40 mg PO DAILY 03/30/18 [History Confirmed 07/07/18] Oxybutynin [Ditropan] 5 mg PO BID 06/23/18 [History Confirmed 07/07/18] Cefadroxil [Duricef] 500 mg PO BID #14 cap 06/30/18 [Rx Confirmed 07/07/18] Lactobacillus Acidophilus [Acidophilus] 1 ea PO BID #20 cap 06/30/18 [Rx Confirmed 07/07/18] Is last menstrual period known: No Post menopausal: Yes Patient : No PFSH Medical History Cancer of skin of forearm (Acute) HTN (hypertension) (Chronic) Hypercholesterolemia (Chronic) Rheumatoid arthritis (Chronic) Surgical History History of left knee replacement (Resolved) Hx of cataract surgery (Resolved) S/P left rotator cuff repair (Resolved) Status post right knee replacement (Resolved) brain aneurysm repair (Resolved) d AND c (Resolved) Family History Son Hypertension Social History Smoking Status: Former smoker quit date: 07/19/90 pack-years: 30 second hand exposure: No alcohol intake: current alcohol intake frequency: holidays/special occasions only substance use type: does not use HPI post op surgery 06/30/18: Details: Postop visit from her recent surgery on 06/30/18 where she underwent excision 1 cm 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 Patient denies any complaints. Skin graft dressing removed from dorsum left hand. Skin graft shows 100% take and good adherence and good vascular ingrowth. Apply antibiotic ointment daily to the skin graft. Left lateral abdominal wall donor incision is dry and intact and healing satisfactory. She will keep it covered with gauze so that her clothes do not rub against it. Incision volar ulnar aspect left forearm, proximal, is dry and intact. Flap is healing satisfactory. Discussed pathology with the patient. The squamous cell carcinoma in situ lesion dorsum left hand near ulnar wrist by ring finger and small finger showed an actinic keratosis and hyperkeratosis with extensive solar elastosis and negative for residual malignancy. The lesion volar ulnar aspect left forearm, proximal, showed actinic keratosis and solar elastosis and dermal fibrosis consistent with scar. Sutures were removed today without difficulty. Massage the skin flap volar ulnar aspect left forearm, proximal, and the donor incision left lateral abdominal wall with skin lotion daily to help soften up the scars. Followup one week as she will be leaving for [place] in early July for the Winter. Assessment AND Plan Problems 1. 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 Actinic keratosis L57.0 3. Personal history of skin cancer Z85.828 4. 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 Actinic keratosis L57.0 Personal history of skin cancer Z85.828 Former smoker Z87.891 07/12/18 1337 <Electronically signed by Shaun Oneal MD> Date Shaun Oneal MD 07/12/181999<Electronically signed by Denise BORJA> Cosigner Signature: Date (if applicable) Denise Beck CC: OPERATIVE REPORT Observed: 07/04/2018 Status: F Source: [facility] 5:40 PM [facility] REPOSITORY [facility] Medical Records Department [address] [facility] [place] [address] Operative Report 06/30/18 2348 MR#: [id number] Acct: [id number] Name: MAYRA MCNALLY Rep #: [id number] : 1950 68 From: Shaun Oneal MD PCP: Antwon Licona Status: [facility] Location[place] [facility] [place] Report of Operation Date of Procedure: 06/30/18 Pre-Operative Diagnosis: 1. 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 2. 6 mm actinic keratosis volar ulnar aspect left forearm, proximal. 3. Former smoker. Post-Operative Diagnosis: Same. Surgery/Procedure Performed:: 1. 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 2. Excision 6 mm actinic keratosis volar ulnar aspect left forearm, proximal, with rhomboid transposition skin flap reconstruction (4 cm2). Description of Surgical Findings:: 68 year old woman presents with lesions on her dorsum left hand near ulnar wrist by ring finger and small finger, on her volar ulnar aspect left forearm, proximal, and volar ulnar aspect left forearm, proximal and distal to other lesion that have increased in size over the last several months. Recent biopsy was done on 04/08/18. Pathology showed the lesion on the dorsum left hand near ulnar wrist by ring finger and small finger was a squamous cell carcinoma in situ. The lesion on her volar ulnar aspect left forearm, proximal, was an actinic keratosis. 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 On 04/19/18, the squamous cell carcinoma lesion volar ulnar aspect left forearm, proximal and distal to the actinic keratosis lesion, was re-excised by her PCP with a 4 mm margin. Repeat pathology showed no residual carcinoma seen. Since then the patient has noticed an erythematous lesion just ulnar to the healing incision. Today that erythematous lesion has resolved. Patient was informed of the risks and complications of the procedure including alternatives to surgery. These were discussed with the patient personally. Patient voices understanding and wishes to proceed. Some of the risks and complications were included in a form from the [employer]. Size of skin graft dorsum left hand near ulnar wrist by ring finger and small finger - 2.2 x 2.5 cm. hyster machine operator: Zachary White. Type of Anesthesia:: Local MAC - xylocaine with epinephrine and IV sedation. Specimen's removed: 1. Squamous cell carcinoma in situ dorsum left hand. 2. Actinic keratosis Drains: None. Estimated Blood Loss (mL): 10 ml. Description of Procedure: Patient was taken to OR in supine position and was given IV sedation. The left hand and forearm and left lateral abdominal wall areas were prepped and draped in the usual fashion. SCD's were placed for DVT prophylaxis. Perioperative antibiotics were given intravenously. The lesions dorsum left hand near ulnar wrist by ring finger and small finger and volar ulnar aspect left forearm, proximal, and the donor area left lateral abdominal wall were infiltrated with xylocaine and epinephrine. After waiting 5 minutes for the anesthetic to take effect, the lesion dorsum left hand near ulnar wrist by ring finger and small finger was excised with a 6 mm margin down into the subcutaneous tissue. A suture was placed at 12 oclock position for pathology orientation and was sent to pathology for analysis to rule out carcinoma at the margins. Hemostasis was obtained with electrocautery. The size of the wound defect for the skin graft was 2.2 x 2.5 cm or 5.5 cm2. The lesion volar ulnar aspect left forearm, proximal, was excised in a rhomboid fashion with a 4 mm margin in all directions in case there is a focus of carcinoma on the pathology report. The rhomboid excision was done because of the proximity of the lesion to the antecubital area. A suture was placed at 12 oclock position for pathology orientation and was sent to Pathology for analysis to rule out carcinoma. A rhomboid flap was designed adjacent to the defect. Incisions were made and the rhomboid flap was raised on a subcutaneous pedicle. It was easily transposed into the defect with minimal tension and minimal distortion. Hemostasis was obtained with electrocautery. The flap was transposed into the defect and the wound was closed in a layered fashion with 4-0 Monocryl interrupted sutures for the deep dermis and subcutaneous tissue. The skin was approximated with 4-0 Prolene simple interrupted sutures. The size of the wound and the size of the flap needed to close the defect was about 4 cm2. Antibiotic ointment was applied to the suture line followed by gauze dressing. I then made an elliptical incision on the left lateral abdominal wall down into the subcutaneous tissue. The subcutaneous tissue was removed from the undersurface of the dermis thus fashioning a full thickness skin graft. The skin graft was placed in saline. Some additional subcutaneous tissue was removed to aid in wound closure. Hemostasis was obtained with electrocautery. The donor incision was closed in a layered fashion with 3-0 Monocryl figure of eight interrupted sutures for the Rachel's fascial layer. The deep dermis and subcutaneous tissue was approximated with 3-0 Monocryl interrupted sutures. The skin was approximated with 3-0 V lock unidirectional barbed running subcuticular suture. This was followed by Histoacryl skin tissue adhesive. A dry gauze dressing was applied. The skin graft was applied to the wound dorsum left hand near ulnar wrist by ring finger and small finger and secured to the skin edge with 3-0 Chromic simple interrupted sutures. 3-0 Chromic interrupted sutures were also used for central quilting stabilization. Xeroform gauze was applied to the skin graft followed by antibiotic ointment and cotton balls soaked in saline and secured with 3-0 Nylon tie over stent suture dressing. Gauze dressing was applied over the skin graft dressing followed by a compression FRANCES wrap. Patient tolerated the procedure well and was sent to PACU in satisfactory condition. Patient will be sent home on antibiotics and pain medication. She will keep her left hand elevated during the inital postop period. Patient will followup in a week for a wound check and for takedown of the skin graft dressing and for discussion of the pathology report and for removal of the sutures. Grafts/Implants Used: None. - Complications None. - Admit VTE Documentation VTE Present on Admission: No VTE Mechan Device Prophylaxis: SCD's VTE Pharm Prophylaxis ordered?: No Code Visit Surgery Charges CPT - 97175 ICD-10 - D04.62, Z87.891 52054 D04.62, Z87.891 71787 L57.0, Z85.828, Z87.891 07/04/18 1740 <Electronically signed by Shaun Oneal MD> Date Shaun Oneal MD CC: Antwon Licona; Shaun Oneal MD; Antwon Licona MD Signed HISTORY AND PHYSICAL Observed: 07/03/2018 Status: F Source: [facility] EXAM 1:03 AM [facility] REPOSITORY [facility] Medical Records Department [address] [place] [address] History and Physical 06/29/18 2205 MR#: [id number] Acct: [id number] Name: MAYRA MCNALLY Rep #: [id number] : 1950 68 From: Shaun Oneal MD PCP: Antwon Licona Status: [facility] Location[place] [facility] [place] History and Physical Date of Admission: 06/30/18 HISTORY OF PRESENT ILLNESS 68 year old woman presents with lesions on her dorsum left hand near ulnar wrist by ring finger and small finger, on her volar ulnar aspect left forearm, proximal, and volar ulnar aspect left forearm, proximal and distal to other lesion that have increased in size over the last several months. Recent biopsy was done on 04/08/18. Pathology showed the lesion on the dorsum left hand near ulnar wrist by ring finger and small finger was a squamous cell carcinoma in situ. The lesion on her volar ulnar aspect left forearm, proximal, was an actinic keratosis. 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 On 04/19/18, the squamous cell carcinoma lesion volar ulnar aspect left forearm, proximal and distal to the actinic keratosis lesion, was re-excised by her PCP with a 4 mm margin. Repeat pathology showed no residual carcinoma seen. Since then the patient has noticed an erythematous lesion just ulnar to the healing incision. She presents today for further evaluation and treatment. PAST MEDICAL HISTORY Cancer of skin of forearm HTN (hypertension) Hypercholesterolemia Rheumatoid arthritis PAST SURGICAL HISTORY Left knee replacement Cataract surgery Left rotator cuff repair Right knee replacement brain aneurysm repair d AND c MEDICATIONS Aspirin Methotrexate Triamterene Lisinopril albuterol sulfate benzonatate folic acid hydroxychloroquine metoprolol tartrate mirabegron ER omeprazole ALLERGIES No Known Allergies. FAMILY HISTORY Son - Hypertension SOCIAL HISTORY Smoking Status: Former smoker quit date: 07/19/90 pack-years: 30 second hand exposure: No alcohol intake: current alcohol intake frequency: holidays/special occasions only substance use type: does not use REVIEW OF SYSTEMS General - Denies fever and weight loss. Has fatigue. Eyes - Denies cataracts and glaucoma. ENT - Denies nasal congestion and sore throat. Endocrine - Denies excessive thirst and urination. Skin - Denies skin cancer. 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 Had recent shave biopsy lesion volar ulnar aspect left forearm, proximal, on 04/08/18 which showed an actinic keratosis. Had recent shave biopsy lesion volar ulnar aspect left forearm, proximal and distal to actinic keratosis lesion, on 04/08/18 which showed a squamous cell carcinoma. The squamous cell carcinoma lesion was re-excised 04/19/18. Musculoskeletal - Denies joint pain, joint stiffness, weakness of muscles and joints, back pain, and arthritis. Neuro - Denies headaches. Cardiovascular - Denies chest pain, fatigue, and shortness of breath with exertion. Psych - Denies anxiety and depression. Respiratory - Denies chronic cough and shortness of breath. Patient is a former smoker. Gastrointestinal - Denies nausea, vomiting, diarrhea, and constipation. Hematologic - Denies abnormal bruising and bleeding. Genitourinary - Denies hematuria and urinary frequency. PHYSICAL EXAMINATION General - Alert and Oriented. HEENT - PERRL. EOMI. Throat is clear. No suspicious lesions noted. Neck - Supple and nontender. No cervical adenopathy. No suspicious lesions noted. Lungs - Clear to auscultation. Heart - Regular rate and rhythm. Abdomen - Soft and nondistended. Extremities - FROM. No axillary adenopathy. Radial pulses are palpable. On the dorsum left hand near ulnar wrist by ring finger and small finger is a 1 cm healing scar from recent shave biopsy that showed a squamous cell carcinoma. On the volar ulnar aspect left forearm, proximal, is a 6 mm healing scar from recent shave biopsy that showed an actinic keratosis. On the volar ulnar aspect left forearm, proximal and distal to actinic keratosis lesion, is a 1.5 cm healing incision from recent re-excision squamous cell carcinoma. Just ulnar to this incision is an erythematous lesion that measures 4 mm. Slightly raised in configuration. Has irregular borders. No ulceration. Lesion is nontender. Neuro - CN II-XII grossly intact. Psych - Normal mood and affect. ASSESSMENT 1. 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 2. 6 mm actinic keratosis volar ulnar aspect left forearm, proximal. 3. 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 4. 4 mm erythematous lesion ulnar to squamous cell carcinoma scar left forearm. 5. Former smoker. 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 Reconstruction will be with skin grafting. Recommend re-excision of the actinic keratosis lesion volar ulnar aspect left forearm, proximal, and send it to Pathology for analysis to rule out carcinoma. If carcinoma is present then further excision will be done with skin flap reconstruction. The squamous cell carcinoma scar on volar ulnar aspect left forearm, proximal and distal to actinic keratosis lesion, was re-excised with a 4 mm margin and pathology showed no residual carcinoma seen. No further excision needs to be done. There is a new erythematous lesion just ulnar to the squamous cell carcinoma scar. Will excise this lesion as well and send to Pathology for analysis to rule out carcinoma. If carcinoma is present, then further excision will be done with skin flap reconstruction. Surgery will be done under local anesthesia and IV sedation on an outpatient basis. Patient was informed of the risks and complications of the procedure including alternatives to surgery. These were discussed with the patient personally. Patient voices understanding and wishes to proceed. Some of the risks and complications were included in a form from the [employer]. 07/03/18 0103 <Electronically signed by Shaun Oneal MD> Date Shaun Oneal MD Cosigner Signature: Date (if applicable) CC: Antwon Licona; Shaun Oneal MD; Antwon Licona MD Signed DISCHARGE INSTRUCTION Observed: 06/30/2018 Status: F Source: [place] 9:39 AM [facility] REPOSITORY [facility] Medical Records Department [address] [place] [id number] Instructions for Home/Discharge Instructions 06/30/18 0935 MR#: [id number] Acct: [id number] Name: MAYRA MCNALLY Rep #: [id number] : 1950 68 From: Shaun Oneal MD PCP: Antwon Licona Status: [place] [facility] [place] You will use the following diet at home:: No restrictions Discharge Activity: May not drive while taking narcotic pain medications., May Shower - in two days. wear plastic bag over left hand when showering., - - keep left arm elevated. no heavy lifting with left hand. May shower in (days): 2 - wear plastic bag over left hand when showering. May resume sexual activity in: No Restrictions Weight Bearing Status: Weight bearing as tolerated Lifting Restrictions: 10 lbs. Keep extremity elevated above heart level: Left Arm Call your doctor if your incision/area has: Continuous Slow Oozing, Sudden Increased Bleeding, Increased Pain/ Swelling, Increased Redness, Foul Smelling Discharge, Swelling at the incision site Call your doctor if you observe: Fever of 101 or Higher, Coldness, Increased Pain, Shortness of breath, Chest pain, Calf discomfort, Uncontrolled pain Suture Line Care: - - dry dressing daily to left lateral abdominal wall after operative dressing is removed in two days. Change Dressing in (Days):: 6 - will change left hand dressing in office. Allergies/Adverse Reactions: Allergies No Known Allergies Allergy (Verified 06/30/18 06:18) Medications to take at Discharge Methotrexate 15 mg PO QWEEK 02/04/14 Triamterene 75MG/Hctz 50MG [Maxzide] 0.5 tab PO DAILY 02/04/14 Lisinopril [Zestril] 10 mg PO DAILY 01/06/16 hydroxychloroquine 200 mg tablet 200 mg PO DAILY tab 03/30/18 metoprolol tartrate 100 mg tablet 100 mg PO DAILY tab 03/30/18 omeprazole 40 mg capsule,delayed release 40 mg PO DAILY 03/30/18 Oxybutynin [Ditropan] 5 mg PO BID 06/23/18 Cefadroxil [Duricef] 500 mg PO BID #14 cap 06/30/18 Lactobacillus Acidophilus [Acidophilus] 1 ea PO BID #20 cap 06/30/18 Oxycodone HCl/Acetaminophen [Percocet 5/325] 1 tab PO 4X/DAY PRN PRN 7 Days #30 tab 06/30/18 The following prescriptions were given: Oxycodone HCl/Acetaminophen [Percocet 5/325] 1 tab PO 4X/DAY PRN PRN 7 Days #30 tab PRN Reason: Pain Cefadroxil [Duricef] 500 mg PO BID #14 cap Lactobacillus Acidophilus [Acidophilus] 1 ea PO BID #20 cap Primary Care Physician: Antwon Licona [Primary Care Provider] - Test Results: Test results from this visit will be discussed in further detail at your follow-up appointment, if applicable. Please Follow Up With: Shaun Oneal MD When: one week. call [phone] for appt. Proposed Discharge Date: 06/30/18 06/30/18938 <Electronically signed by Shaun Oneal MD> Date Shaun Oneal MD CC: Antwon Licona; Antwon Licona MD LESION (CHOOSE SITE) Observed: 06/30/2018 Status: F Source: [place] 12:00 AM [facility] REPOSITORY Patient: MAYRA MCNALLY : 1950 (68/F) Acct Num: [id number] Phys: Kimmy VÁZQUEZ,Shaun Unit Num: [id number] Loc: [facility] [place] Specimen: [id number] Received: 06/30/181309 Spec Type: Lesion TISSUES 1 TISSUES: A. Skin of hand and finger, NOS B. 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 The specimen consists of a piece of riebra-white skin measuring 2.5 x 1.7 cm and up to 0.2 cm in thickness. A suture is noted presumed to be 12 o'clock position. The specimen is inked as follows: 12 o'clock margin - green, 6 o'clock margin - yellow, 3 o' clock margin - black and 9 o'clock margin - blue. The specimen is serially sectioned and submitted entirely in two cassettes as follows: 1 - 12 and 6 o' clock margin, 2 - rest of the specimen. B - Received in fixative is one container labeled with the patient's name and designated actinic keratosis left proximal volar ulnar forearm. The specimen consists of a fran-shaped piece of ribera-white skin measuring 1.8 x 1.5 cm and 0.3 cm in thickness. A suture is noted at presumed to be 12 o'clock margin. The specimen is inked as follows: 12 to 3 o'clock margin - black, 3 to 6 o' clock margin - blue, 6 to 9 o'clock margin - green and 9 to 12 o'clock margin - yellow. The specimen is serially sectioned and submitted entirely in two cassettes as follows: 1 - 3 and 9 o'clock tip, 2 - rest of the specimen. / YAMILE: lorie 06/30/18 TC:5 CPT: 81526 x2 HEADER OPERATION: Excision squamous cell cancer in situ dorsum left hand PRE-OP DIAGNOSIS: Squamous cell carcinoma in situ dorsum left hand near ulnar wrist; actinic keratosis left proximal volar ulnar forearm TISSUE SUBMITTED: A - Squamous cell carcinoma in situ dorsum left hand, B - Actinic keratosis left proximal volar ulnar forearm MICROSCOPIC DESCRIPTION Slides are reviewed. MICROSCOPIC DIAGNOSIS A. Squamous cell carcinoma in situ dorsum left hand, excisional biopsy: Actinic keratosis and hyperkeratosis. Extensive solar elastosis. Negative for malignancy. B. Actinic keratosis left proximal volar ulnar forearm, biopsy: Actinic keratosis and solar elastosis. Dermal fibrosis consistent with scar. SJ:lorie 07/01/18 Signed Gama Burns 07/01/18 <signature on file> Performed By: #### PLES #### [facility] [address] [place], [address] CBC W/DIFF, AUTOMATED Collected: 06/21/2018 Status: F Source: [place] 10:45 AM [facility] REPOSITORY TYPE CODE TESTS RESULT OUT OF RANGE REFERENCE UNITS LAB L100.1000 4.4-11.0 K/mm3 Normal WBC 5.1 LAB L100.1200 4.2-5.4 M/mm3 Low RBC 3.96 LAB L100.1300 12.0-15.0 g/dl Normal HGB 12.8 LAB L100.1400 37-47 % Normal HCT 40.5 LAB L100.1500 81-99 fL High MCV 102.3 LAB L100.1600 27.0-32.0 pg High MCH 32.3 LAB L100.1700 32-36 g/gl Low MCHC 31.6 LAB L100.1810 11.6-14.6 % High RDW CV 14.8 LAB L100.1820 35.1-43.9 fl High RDW SD 55.8 LAB L100.1900 150-450 K/mm3 Normal PLT 379 LAB L100.2000 6.2-12.0 fl Normal MPV 10.9 LAB L100.2100 47-70 % Normal NEUT% 63.2 LAB L100.2200 19-41 % Normal LY% 23.1 LAB L100.2300 0-10 % Normal MONO% 9.9 LAB L100.2400 0-5 % Normal EO% 3.2 LAB L100.2500 0-1 % Normal BASO% 0.6 LAB L100.2550 0.0-0.9 % Normal IM GRAN % 0.000 Result Comment: IG% - Immature Granulocytes (promyelocytes, myelocytes and metamyelocytes) > 1% indicates that a LEFT SHIFT is Present. LAB L100.2620 2.0-7.7 X10 3/uL Normal Absolute Neut 3.2 LAB L100.2720 0.83-4.51 X10 3/ul Normal Absolute Lymph 1.17 Performed By: #### L100.0100 #### [facility] [address] [place], [address] COMPREHENSIVE METABOLIC Collected: 06/21/2018 Status: F Source: [facility] 10:45 AM [facility] REPOSITORY TYPE CODE TESTS RESULT OUT OF RANGE REFERENCE UNITS LAB L501.0100 74-106 mg/dL Normal GLU 99 Result Comment: Please note revised GLUCOSE reference range effective 2017. LAB L501.1000 7-18 mg/dL Normal BUN 16 LAB L501.1100 0.55-1.02 mg/dL Normal CREAT,SERUM 0.75 Result Comment: The validity of the calculated GFR AND GFRAA in patients over 70 years has not been determined. Clinical correlation is essential. LAB L501.1110 >60 mL/min Normal EST GFR 82 Result Comment: Non- GFR Calc LAB L501.1115 >60 mL/min Normal EST GFR - AA 99 Result Comment: GFR Calc LAB L501.1300 10-20 RATIO High BUN/CRE 21.3 LAB L501.1500 6.4-8.2 g/dL T Normal PROT 7.4 LAB L501.1800 3.2-5.0 g/dL Normal ALB 3.6 LAB L501.1950 2.2-4.2 g/dL Normal GLOB 3.8 LAB L501.2000 0.9-2.4 RATIO Normal A/G 0.9 LAB L501.2200 8.5-10.1 mg/dL CA Normal 9.3 LAB L501.4100 15-37 U/L Normal AST 24 LAB L501.4305 45-117 U/L Normal ALK P 57 LAB L501.4405 13-56 U/L Normal ALT 20 LAB L501.4600 0.20-1.00 mg/dL T Normal BILI 0.70 LAB L501.5300 136-145 mmol/L NA Normal 136 LAB L501.5600 3.5-5.1 mmol/L K Normal 3.7 LAB L501.5900 98-107 mmol/L CL Normal 103 LAB L501.6100 21.0-32.0 mmol/L Normal CO2 22.0 LAB L501.6200 5-15 Normal GAP 11 Performed By: #### L500.4050 #### [facility] [address] [place], [address] OTDS Observed: 06/03/2018 Status: UNK Source: [facility] 10:56 AM [facility] Occupational Therapy Inpatient Last Visit Note The inpatient Occupational Therapy care is discontinued at this time for the following reasons: Discharge from hospital. Goals Met. FOR HOMEGOING W/ AND 24 HOUR ASSIST AM-PAC Daily Activities: Putting On/Taking Off Lower Body Clothing: A little help needed Bathing:: A little help needed Toileting: A little help needed Putting On/Taking Off Upper Body Clothing: A lot of help needed Grooming: A little help needed Eating a Meal: No help needed Raw Score = 18 , AM-PAC t-Scale Score = 38.66and G-Code Modifier = CK Interventions: Self Care/Home Management: TRANSFERS, TOILETING, ADAPTIVE BATHING / DRESSING IN STREET CLOTHES, SOCKS, SHOES, FAMILY INSTRUCTION W/ Therapeutic Exercise: PENDULLUM EXS DEMONSTRATION, EXS PROGRESSING EDUCATION, PATIENT COMPL;ETED EXS X 10 REPS W/ REST BREAKS, MAX V/CS FOR NOT ACTIVELY MOVING SHOULDER ALLOWING BODY TO MOVE SHOULDER, RUE NWB EDUCATION, SLING MANAGEMENT, Education: Education Provided: Precautions. Plan of care. Safety issues and interventions. Fall protocol. Impulsivity. Repeated re-orientation. Altered mental status. Supervision requirements. Use of adaptive devices. Activities of daily living. Bed mobility. Functional transfers. Home exercise/activity plan. Audience: Patient and significant other. Mode: Explanation. Demonstration. Response: Needs practice. Needs reinforcement. Applied knowledge. Verbalized understanding. Recommendations: Upon acute care discharge, the following is currently recommended: Home exercise program. Activity/Participation Problem List and Goals: No updates at this time. Treatment Goals: TREATMENT GOAL REVIEW: 1. UBD adls min A - Not Met: ONGOING 2. toileting with set up A - Met 3. functional mobility and transfers with sba (no LOB) - Met 4. sba with HEP to increase strength and activity tolerance to good for increased (I) with adls and functional mobility - Not Met ONGOING Time frame to achieve treatment goal(s): 1 wk If there are any questions regarding this service, please contact the Acute [facility] REC #: [id number] [place] [address] ADMIT DATE: 06/01/18 SERVICE DATE: 06/03/18 Occup. Therapy Discharge Summary ATTENDING PHY: Avery Kirby DO Therapy Department at extension [phone] Services: Total Billed: 60 minutes (Timed: 60, Untimed: 0) 45.00 Timed: [34490] ADL-HOME MANAGEMENT EA 15 MIN 15.00 Timed: [24669] THERAPEUTIC EXERCISE EA 15 MIN 0.00 Untimed: [] OT Treatment General ORDER Signed by: KRISTIE CLAUDIO/Leoncio 06/03/2018 11:34:09 - CoSigned By: AMANDA RANDOLPH/Leoncio 06/03/2018 12:38:49 PM [facility] PATIENT NAME: MAYRA MCNALLY Selina Shaikh MEDICAL REC #: [id number] [place] [address] ADMIT DATE: 06/01/18 SERVICE DATE: 06/03/18 Occup. Therapy Discharge Summary ATTENDING PHY: Avery Kirby DO CBC Collected: 06/03/2018 Status: F Source: [facility] 8:23 AM [facility] Order Comment: [place]: M TYPE CODE TESTS RESULT OUT OF RANGE REFERENCE UNITS LAB L200.03260 4.5-11.0 K/CU MM Normal WBC 6.9 LAB L200.23848 3.90-5.30 M/CU MM Low RBC 2.98 LAB L200.43281 11.5-15.5 G/DL Low HGB 10.0 LAB L200.69946 35.0-47.0 % Low HCT 29.9 LAB L200.63417 80.0-99.0 fl High MCV 100.3 LAB L200.60050 32.0-36.0 GM/DL Normal MCHC 33.4 LAB L200.51977 11-14.5 High RDW 14.8 LAB L200.79612 9.4-12.4 Normal MPV 10.7 LAB L200.54479 150-450 K/CU MM Normal PLT 186 LAB L200.66519 Less than 1 % Normal NRBC 0.0 Performed By: #### L200.62172 #### [facility] [address] [place] [address]# [phone] OTPN Observed: 06/02/2018 Status: UNK Source: [facility] 3:59 PM [facility] Occupational Therapy Inpatient Treatment Note Medical Diagnosis: s/p right reverse TSA performed by Dr. Kirby on 06/01/2018 OCCUPATIONAL PROFILE AND HISTORY Demographics: Age: 68Y Gender: Female Primary Language: Bangladeshi Preferred Language: Bangladeshi Referring Service/Team: Orthopedics Rehabilitation Precautions/Restrictions: No restrictions in ROM, NWB RUE, Sling and swathe except for exercise Patient Report: I am just in so much pain Patient/Caregiver Goals: To go home Pain: Patient currently has pain. Patient reports a pain level of 10 out of 10. Interventions: Repositioned patient. Patient medicated. pt provided pain meds prior to OT tx session OBJECTIVE / OCCUPATIONAL PERFORMANCE General Observation: pt was greeted while sitting UIC. pt with sling donned to RUE and pilliow supporting Activities of Daily Living: Current Status Previous Status ADLs Feeding Modified independent Modified independent Grooming Supervision Supervision Bathing-UE Moderate assistance Maximal assistance Bathing-LE Supervision Maximal assistance Dressing-UE Maximal assistance Maximal assistance Dressing-LE Supervision Maximal assistance Toileting Supervision Maximal assistance Homemaking Minimal assistance Maximal assistance AM-PAC Daily Activities: Putting On/Taking Off Lower Body Clothing: A little help needed Bathing:: A lot of help needed Toileting: A little help needed Putting On/Taking Off Upper Body Clothing: A lot of help needed Grooming: A little help needed Eating a Meal: No help needed Raw Score = 17 , AM-PAC t-Scale Score = 37.26 and G-Code Modifier = CK [facility] PATIENT NAME: MAYRA MCNALLY [address] [facility] [facility] [address] Shaikh MEDICAL REC #: [id number] [place] [address] ADMIT DATE: 06/01/18 SERVICE DATE: 06/02/18 Occupational Therapy Progress Note ATTENDING PHY: Avery Kirby DO Functional Mobility: Bed Mobility: Not assessed. pt greeted while seated [facility]. pt reported limited diffiuclty with bed mobility Transfers: Patient transferred sit to/from stand requiring stand by assistance. No equipment was used. Locomotion/Gait/Ambulation: Not assessed/applicable Interventions: Therapeutic Exercise: pt completed RUE ther ex/HEP to increase RUE strength to good and increase mobility (1x10). pt required increased v/c's and increased encouragment to participate; pt with increased pain 10/10 R shoulder. Pain Reassessment: Increase in pain during session. R shoulder pain, limited pt during OT tx session Education: Learning Preference: Explanation, Demonstration, Printed materials Barriers to Learning: R shoulder pain Learning Needs: Functional activities/mobility, Pain management, Precautions, Rehabilitation techniques and procedures, Safety Education Provided: Activities of daily living. Functional transfers. Precautions. Safety issues and interventions. Fall protocol. Pain management. Pain scale. Audience: Patient. Mode: Explanation. Response: Needs practice. ASSESSMENT Response to Visit: pt tolerated OT eval session fair. pt educated on pacing, additional ECTs, RUE NWB, and safety awareness. pt will require reinforcement of education. Functional t/f's with sba (no device). pt is limited by decreased activity tolerance, R shoulder pain and generalized muscle weakness which is impacting the pt performance with adls and functional mobility. OT will follow while in house. Activity/Participation Problem List and Goals: No updates at this time. Progress Toward Goals: TREATMENT GOAL REVIEW: 1. UBD adls min A - Not Met: ongoing 2. toileting with set up A - Met 3. functional mobility and transfers with sba (no LOB) - Met 4. sba with HEP to increase strength and activity tolerance to good for increased (I) with adls and functional mobility - Not Met increased R shoulder pain Time frame to achieve treatment goal(s): 1 wk PLAN [facility] PATIENT NAME: MAYRA MCNALLY [address] [facility] [address] Shaikh MEDICAL REC #: [id number] [place] [address] ADMIT DATE: 06/01/18 SERVICE DATE: 06/02/18 Occupational Therapy Progress Note ATTENDING PHY: Avery Kirby DO Treatment Frequency, Duration and Interventions: Occupational Therapy is recommended for 5x/wk Occupational Therapy treatment is to include: ther ex, ther act, adls and neuro re-ed Recommended Occupational Therapy Follow Up: Upon acute care discharge, the following is currently recommended: Outpatient Occupational Therapy. Equipment Recommended: TBD Recommended Consults: None currently. Development of Plan of Care: Patient participated in plan of care development today. If there are any questions regarding this service, please contact the Acute Therapy Department at extension [phone] Communication to Nursing: No updates at this time. Location of Patient at End of Therapy Session: In chair, call light within reach Services: Total Billed: 20 minutes (Timed: 20, Untimed: 0) 20.00 Timed: [98426] THERAPEUTIC EXERCISE EA 15 MIN Signed by: Avery Anderson, 06/02/2018 16:15:29 [facility] PATIENT NAME: MAYRA MCNALLY [address] [facility] [address] Shaikh MEDICAL REC #: [id number] [place] [address] ADMIT DATE: 06/01/18 SERVICE DATE: 06/02/18 Occupational Therapy Progress Note ATTENDING PHY: Avery Kirby DO PTDS Observed: 06/02/2018 Status: UNK Source: [facility] 3:29 PM [facility] Physical Therapy Inpatient Last Visit Note The inpatient Physical Therapy services are discontinued at this time for the following reasons: Goals Met. [employer] has assisted with documenting discharge plan and recommendations under the direction of supervising therapist. Therapist's co-signature denotes agreement with planned discharge from acute physical therapy. AM-PAC Basic Mobility: Turning Over in Bed: A little difficulty Sitting/Standing Chair with Arms: No difficulty Lying on Back to Sitting on Side of Bed: No difficulty Moving To/From Bed to Chair: No help needed Walking in Hospital Room: A little help needed Climbing 3-5 Steps with Railing: A little help needed Raw Score = 21 , AM-PAC t-Scale Score = 50.25 and G-Code Modifier = CJ Interventions: Gait Training: Functional transfers: supine to sit- supervision, sit to stand- Mod Independent, toilet transfer- Mod I, independent hygiene; gait training: pt ambulated 100' x 2 w/ no assistive device, step negotiation: 2-3 training steps x 2 trials w/ one rail- SBA Educated on home safety. No pt questions, limited by pain. . Education: Education Provided: Stair/curb/environmental barrier negotiation. Functional transfers. Gait. Audience: Patient. Mode: Explanation. Response: Verbalized understanding. Demonstrated skill. Recommendations: Upon acute care discharge, the following is currently recommended: Outpatient Physical Therapy. Activity/Participation Problem List and Goals: No updates at this time. Treatment Goals: Time frame to achieve treatment goal(s): 2 weeks 1. Complete 50 feet supv MET 2. Complete 2 steps with SBA MET Discharge Plan: The patient's status and plan was discussed with patient and agreed upon. If there are any questions regarding this service, please contact the Acute Therapy Department at extension [phone] [facility] PATIENT NAME: MAYRA [facility] [facility] MED[facility] REC #: [id number] [place] [address] ADMIT DATE: 06/01/18 SERVICE DATE: 06/02/18 Physical Therapy Discharge Summary ATTENDING PHY: Avery Kirby DO Services: Total Billed: 18 minutes (Timed: 18, Untimed: 0) 18.00 Timed: [72666] GAIT TRAIN EA 15 MIN 0.00 Untimed: [] PT Treatment- General ORDER Signed by: Xiomara Raygoza, 06/02/2018 15:54:01 - CoSigned By: SIERRA CRANDALL PTA 06/02/2018 3:58:31 PM - CoSigned By: Allison Garsia 06/02/2018 4:36:41 PM [facility] PAT[facility]: [id number] [place] [address] ADMIT DATE: 06/01/18 SERVICE DATE: 06/02/18 Physical Therapy Discharge Summary ATTENDING PHY: Avery Kirby Observed: 06/02/2018 Status: UNK Source: [facility] 1:30 PM [facility] REPOSITORY Occupational Therapy Inpatient Evaluation Medical Diagnosis: s/p right reverse TSA performed by Dr. Kirby on 06/01/2018 OCCUPATIONAL PROFILE AND HISTORY Therapy Diagnosis: Rank Code Description 1 Z74.1 Need for assistance with personal care 2 R26.81 Unsteadiness on feet 3 M62.81 Muscle weakness (generalized) Demographics: Age: 68Y Gender: Female Primary Language: Bangladeshi Preferred Language: Bangladeshi Referring Service/Team: Orthopedics Past Medical History: hypertension, hyperlipidemia, rheumatoid arthritis, acid reflux, brain aneurysms Past Surgical History Right and left knee replacements, left shoulder replacement, two brain aneurysm surgeries. History of Present Illness: Date of Surgery: 06/01/18. Additional Information: This is a pleasent 68yo female patient of Dr Licona with history of hypertension, hyperlipidemia, rheumatoid arthritis, acid reflux, brain aneurysms, who presented to [facility] for a right reverse total shoulder by Dr Kirby. We have been asked to see for medical management. Patient was evaluated in the PACU. States that she had right shoulder pain for a year unresolved with conservative management. She denies any chest pain, shortness of breath, recent fever, chills, nausea or vomiting. Right arm dressing is intact, dry, 1+ edema noted to right shoulder with mild bruising, right arm is in a sling fingers are warm and mobile. (per HandP) Date of Admission: 06/01/2018 6:00:00 AM Rehabilitation Precautions/Restrictions: No restrictions in ROM, NWB RUE, Sling and swathe except for exercise Imaging/Testing Results from Chart: N/A Prior Level of Functioning: Self Care: Patient completed the activities by him/herself, with or without an assistive device, with no assistance from a helper. [facility] PATIENT NAME: MAYRA MCNALLY [address] [facility] [facility] MEDICAL REC #: [id number] [place] [id number] ADMIT DATE: 06/01/18 SERVICE DATE: 06/02/18 Occupational Therapy Assessment ATTENDING DIANNA: Avery Kirby DO Functional Cognition: Patient completed the activities by him/herself, with or without an assistive device, with no assistance from a helper. Branch Patient/Caregiver Goals: Patient's functional goals: To go home Pain: Patient currently has pain. Location: R shoulder Type: Acute Quality: Sharp. Stabbing. Pain Scale: Visual Analog (VAS). Patient reports a pain level of 10 out of 10. Patient's acceptable level of pain 2 out of 10. Interferes with physical activity. Pain is alleviated by: RN provided pt IV pain meds during OT eval session. attempted to reposition pt in recliner Pain is exacerbated by: everything per pt report Interventions: Patient medicated. pls see RN documentaton for full details. pt with limited participation in OT eval session 2/2 increased R shoulder pain Home Environment: Patient lives with , who is able to assist patient at discharge. Patient lives in a single family home. Home is single level. Patient is not required to manage stairs within the home. First floor full bathroom setup available. There are 2 steps to enter the home, with no hand railings. There is no ramp available to enter home. 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 MED[facility] REC #: [id number] [place] [address] ADMIT DATE: 06/01/18 SERVICE DATE: 06/02/18 Occupational Therapy Assessment ATTENDING DIANNA: Avery Kirby DO Bathing:: A lot of help needed Toileting: A lot of help needed Putting On/Taking Off Upper Body Clothing: A lot of help needed Grooming: A little help needed Eating a Meal: No help needed Raw Score = 15 , AM-PAC t-Scale Score = 34.69 and G-Code Modifier = CK (scores Functional Mobility: Bed Mobility: Not assessed. Transfers: Transfers not assessed. Locomotion/Gait/Ambulation: Not assessed/applicable Range of Motion Upper Extremity: Not within functional limits LUE: WFL RUE: in sling Strength Upper Extremity: Not within functional limits LUE: WFL RUE MMT deferred Balance: Dynamic balance in a seated position is good. Tone/Spasticity: Within Functional Limits throughout. Sensation: Grossly intact. Fine Motor Coordination: Bilateral Hands: Fine motor coordination is not impaired. Gross Motor Coordination: Upper extremity gross motor coordination is intact. Edema: No edema is present. Lower Extremity Function: pls see PT documentation for full details Vision: Within functional limits. Cognition: Within functional limits. Perceptual Skills: Within functional limits. Psychosocial: Within normal limits Interventions: Evaluation LOW Complexity No treatment provided today. Pain Reassessment: Increase in pain during session. pt c/o R shoulder pain Education: The patient's preferred learning method is: Explanation, Demonstration Barriers to Learning: Mobility, R shoulder pain Learning Needs: Precautions. Pain management. Plan of care. Rehabilitation techniques and procedures. [facility] PATIENT NAME: [facility]LLY [facility] #: [id number] [place] [address] ADMIT DATE: 06/01/18 SERVICE DATE: 06/02/18 Occupational Therapy Assessment ATTENDING PHY: Avery Kirby DO Functional activities/mobility. Education Provided: Safety issues and interventions. Fall protocol. Precautions. Audience: Patient. Mode: Explanation. Response: Needs practice. ASSESSMENT Clinical Performance Deficits: Impaired ADLs, Impaired instrumental ADLs, Impaired functional mobility, Decreased strength, Decreased ROM, Limited activity tolerance, Impaired balance, Pain, Impaired transfers Equipment Recommended: TBD Rehabilitation Potential: Good Motivation/Commitment to Therapy: Good. Response to Evaluation: pt tolerated OT eval session poor. pt educated on pacing, additional ECTs, RUE NWB, and safety awareness. pt will require reinforcement of education. Functional t/f's not assesssed 2/2 R shoulder pain. pt is limited by decreased activity tolerance, R shoulder pain and generalized muscle weakness which is impacting the pt performance with adls and functional mobility. OT will follow while in house. Activity/Participation Problem List and Goals: Functional Impairment: Self Care Modifier: A2292-LF (at least 80%, but less than 100% impaired, limited, or restricted) Goal: UBD with min A Goal Modifier: G9296-JL (at least 20%, but less than 40% impaired, limited, or restricted) Treatment Goals: Time frame to achieve treatment goal(s): 1 wk 1. UBD adls min A 2. toileting with set up A 3. functional mobility and transfers with sba (no LOB) 4. sba with HEP to increase strength and activity tolerance to good for increased (I) with adls and functional mobility PLAN Treatment Frequency, Duration and Interventions: Occupational Therapy is recommended for 5x/wk Occupational Therapy treatment is to include: ther ex, ther act, adls and neuro re-ed Recommended Occupational Therapy Follow Up: Upon acute care discharge, the following is currently recommended: Outpatient Occupational Therapy. Recommended Consults: None currently. [facility] PATIENT NAME: MAYRA MCNALLY [address] [facility] MEDICAL REC #: [id number] [place] [address] ADMIT DATE: 06/01/18 SERVICE DATE: 06/02/18 Occupational Therapy Assessment ATTENDING PHY: Avery Kirby DO Development of Plan of Care: Patient participated in plan of care development today. If there are any questions regarding this service, please contact the Acute Therapy Department at extension [phone] CARE WILL BE TRANSFERRED TO THE (CHOICE OF ACUTE OR REHAB) OCCUPATIONAL THERAPIST Communication to Nursing: No updates at this time. Location of Patient at End of Therapy Session: In chair, call light within reach Services: Total Billed: 0 minutes (Timed: 0, Untimed: 0) 0.00 Untimed: [97796] OT-EVALUATION LOW COMPLEXITY 0.00 Untimed: [] OT Evaluation ORDER 0.00 Untimed: [] OT Treatment General ORDER 0.00 Untimed: [G8987] OT-Self Care-CM 0.00 Untimed: [G8988] PH-Grgo-Kmqr Care-CJ Signed by: Avery Anderson, 06/02/2018 13:58:46 [facility] PATIENT NAME: [facility]LLY [facility] REC #: [id number] [place] [address] ADMIT DATE: 06/01/18 SERVICE DATE: 06/02/18 Occupational Therapy Assessment ATTENDING PHY: Avery Kirby DO CBC Collected: 06/02/2018 Status: F Source: [facility] 4:41 AM [facility] REPOSITORY Order Comment: [place]: TYPE CODE TESTS RESULT OUT OF RANGE REFERENCE UNITS LAB L200.60620 4.5-11.0 K/CU MM Normal WBC 9.7 LAB L200.69716 3.90-5.30 M/CU MM Low RBC 2.96 LAB L200.36587 11.5-15.5 G/DL Low HGB 9.9 LAB L200.18128 35.0-47.0 % Low HCT 29.8 LAB L200.68590 80.0-99.0 fl High MCV 100.7 LAB L200.43063 32.0-36.0 GM/DL Normal MCHC 33.2 LAB L200.83793 11-14.5 Normal RDW 14.5 LAB L200.67209 9.4-12.4 Normal MPV 10.9 LAB L200.96299 150-450 K/CU MM Normal PLT 181 LAB L200.12588 Less than 1 % Normal NRBC 0.0 Performed By: #### L200.47424 #### [facility] [place] [address] BMP Collected: 06/02/2018 Status: F Source: [facility] 4:41 AM [facility] REPOSITORY Order Comment: [place]: TYPE CODE TESTS RESULT OUT OF RANGE REFERENCE UNITS LAB L500.72770 136-145 MMOL/L Normal NA 143 LAB L500.79403 3.5-5.1 MMOL/L Normal K 3.9 LAB L500.59540 98-107 MMOL/L High CL 110 LAB L500.35178 21-32 MMOL/L Normal CO2 24 LAB L500.50968 5-16 MMOL/L Normal AGAP 9 LAB L500.86423 70-100 MG/DL High GLU 116 Result Comment: 70-100- Normal Fasting; 100-125 Impaired Fasting; greater than 126 on more than one result- Diabetes. ADA guidelines. Results may be falsely elevated after the administration of Sulfapyridine. Results may be falsely depressed after the administration of Sulfasalazine. LAB L500.46531 7-26 MG/DL Normal BUN 14 LAB L500.64686 0.510-0.950 MG/DL Normal CREAT 0.797 Result Comment: Patients receiving either N-Acetylcysteine (NAC) or Metamizole prior to venipuncture, may have falsely depressed results. LAB L500.05008 15-24 Normal BUN/CREA 17 LAB L500.42904 8.5-10.1 MG/DL Normal CALCIUM TOTAL 8.6 Performed By: #### L500.83676, L500.24357, L500.16348, L500.33847 #### [facility] [address] [place] [address] GFR EST Collected: 06/02/2018 Status: F Source: [facility] 4:41 AM [facility] REPOSITORY Order Comment: [place]: M TYPE CODE TESTS RESULT OUT OF RANGE REFERENCE UNITS LAB L500.48112 ML/MIN Normal IF non-AFR Greater than AMER 60 LAB L500.41466 ML/MIN Normal IF Greater than AMER 60 Performed By: #### L500.06780, L500.75396, L500.13832, L500.81828 #### [facility] [address] [place] [address] IRON PANEL Collected: 06/02/2018 Status: F Source: [facility] 4:41 AM [facility] REPOSITORY Order Comment: [place]: M TYPE CODE TESTS RESULT OUT OF RANGE REFERENCE UNITS LAB L500.76677 50-170 UG/DL Low IRON 27 Result Comment: Patients treated with metal-binding drugs (e.g.deferoxamine) may have depressed iron values, as chelated iron may not properly react in the Siemens iron assay. LAB L500.31818 221-481 UG/DL Normal TIBC 259 LAB L500.37861 22-44 % Low IRON SAT 10 Performed By: #### L500.49151, L500.74508, L500.65868, L500.64573 #### [facility] [address] [place] [address] FERR Collected: 06/02/2018 Status: F Source: [facility] 4:41 AM [facility] REPOSITORY Order Comment: [place]: M TYPE CODE TESTS RESULT OUT OF RANGE REFERENCE UNITS LAB L500.06478 8.0-307.0 NG/ML Normal FERR 60.3 Performed By: #### L500.25189, L500.73680, L500.67862, L500.65173 #### [facility] [address] [place] [address] PTAR Observed: 06/01/2018 Status: UNK Source: [facility] 6:27 PM [facility] Physical Therapy Inpatient Evaluation Medical Diagnosis: s/p right reverse TSA performed by Dr. Kirby on 06/01/2018 Therapy Diagnosis: Rank Code Description 1 R26.81 Unsteadiness on feet 2 M62.81 Muscle weakness (generalized) Demographics: Age: 68Y Gender: Female Primary Language: Bangladeshi Preferred Language: Bangladeshi Referring Service/Team: Orthopedics Past Medical History: hypertension, hyperlipidemia, rheumatoid arthritis, acid reflux, brain aneurysms Past Surgical History Right and left knee replacements, left shoulder replacement, two brain aneurysm surgeries. History of Present Illness: Date of Surgery: 06/01/2018 Additional Information: As above Date of Admission: 06/01/2018 6:00:00 AM Rehabilitation Precautions/Restrictions: No restrictions in ROM, NWB RUE, Sling and swathe except for exercise Imaging/Testing Results from Chart: N/a SUBJECTIVE Prior Level of Functioning: Indoor Mobility: Patient completed the activities by him/herself, with or without an assistive device, with no assistance from a helper. Stairs: Patient completed the activities by him/herself, with or without an assistive device, with no assistance from a helper. [employer] indep with ADL. Indep with cooking and cleaning Prior Device Use: Performance GG110. Prior Device None of Above Yes Patient/Caregiver Goals: Patient's functional goals: To go home Pain: Patient currently without complaints of pain. Home Environment: Patient lives with , who is able to assist patient at discharge. Patient lives in a single family home. Home is single level. Patient [facility] PATIENT NAME: MAYRA MCNALLY [facility] [address] [facility] MEDICAL REC #: [id number] [place] [address] ADMIT DATE: 06/01/18 SERVICE DATE: 06/01/18 Physical Therapy Assessment Report ATTENDING PHY: Avery Kirby DO is not required to manage stairs within the home. First floor full bathroom setup available. There are 2 steps to enter the home, with no hand railings. There is no ramp available to enter home. Basement pt does not have to access Equipment Owned: Cane Social History: Marital Status: Children: It is unknown whether patient has children Employment Status: Retired Recreational Activities/Hobbies: TV, OBJECTIVE Cognitive Screen Responsiveness: Alert. Orientation: Oriented to person, place, time, and situation. Following Commands: Patient is able to follow 3-step commands. Range of Motion Upper Extremity: Not within functional limits RUE in sling Lower Extremity: Grossly within functional limits Strength Upper Extremity: Not within functional limits RUE MMT deferred Lower Extremity: Grossly within functional limits Tone/Spasticity: Within Normal Limits throughout. Sensation: RUE numbness Balance: Dynamic balance in a standing position is good. CGA Therapeutic/Functional Activities: Bed Mobility: Not assessed. Transfers: Patient transferred sit to/from stand requiring contact guard assistance of 1 person. Verbal cues for hand placement Locomotion/Gait/Ambulation: Patient was stand by assist with gait/ambulation for 500 feet . No assistive devices were required. Narrow base of support, unsteady with increase lateral translation, Gait Deviations: No gait deviations. Stairs: Not assessed. AM-PAC Basic Mobility: Turning Over in Bed: No difficulty Sitting/Standing Chair with Arms: A little difficulty Lying on Back to Sitting on Side of Bed: No difficulty Moving To/From Bed to Chair: A little help needed Walking in Hospital Room: A little help needed Climbing 3-5 Steps with Railing: A little help needed Raw Score = 20 , AM-PAC t-Scale Score = 47.67 and G-Code Modifier = CJ Vital Signs: [facility] PATIENT NAME: MAYRA MCNALLY [address] [facility] [address] [facility] MEDICAL REC #: [id number] [place] [address] ADMIT DATE: 06/01/18 SERVICE DATE: 06/01/18 Physical Therapy Assessment Report ATTENDING PHY: Avery Kirby DO Not assessed. Interventions: Evaluation LOW Complexity Pain Reassessment: No pain at onset or during treatment, which does not warrant reassessment. Education: The patient's preferred learning method is: Explanation, Demonstration Barriers to Learning: Acuity of illness Learning Needs: Precautions. Pain management. Plan of care. Rehabilitation techniques and procedures. Safety. Education Provided: No education provided this session. ASSESSMENT Problem List: Decreased endurance, Impaired ambulation, Impaired balance, Impaired stair/curb negotiation Strengths: Independent premorbid function Rehabilitation Potential: Excellent Pt agreeable Motivation/Commitment to Therapy: Good. Response to Evaluation: Pt tolerated PT eval well. Pt completed 500 feet ambulation with CGA/SBA with unsteady intermittently. Implement acute care PT to address thera act and balance and steps. Recommend home Activity/Participation Problem List and Goals: Functional Impairment: Mobility: Walking and Moving Around. Modifier: R5649-TN (at least 20%, but less than 40% impaired, limited, or restricted) Goal: Complete 50 feet uspv w Goal Modifier: B4538-AK (at least 1%, but less than 20% impaired, limited or restricted) Treatment Goals: Time frame to achieve treatment goal(s): 2 weeks 1. Complete 50 feet supv 2. Complete 2 steps with SBA PLAN Treatment Frequency, Duration and Interventions: Physical Therapy is recommended for Gait, balance, Physical Therapy treatment is to include: qd Recommended Physical Therapy Follow Up: Upon acute care discharge, the following is currently recommended: Home exercise program. Recommended Equipment: Straight cane. CANE TB . Straight cane. Recommended Consults: None currently. Development of Plan of Care: Patient participated in plan of care development [facility] PATIENT NAME: MAYRA MCNALLY [address] [facility] [address] Shaikh MEDICAL REC #: [id number] [place] [address] ADMIT DATE: 06/01/18 SERVICE DATE: 06/01/18 Physical Therapy Assessment Report ATTENDING PHY: Avery Kirby DO today. Pt agreeable If there are any questions regarding this service, please contact the Acute Therapy Department at extension [phone] Communication to Nursing: Walking: CGA Location of Patient at End of Therapy Session: In chair, call light within reach Services: Total Billed: 0 minutes (Timed: 0, Untimed: 0) 0.00 Untimed: [34842] PT-EVALUATION LOW COMPLEXITY 0.00 Untimed: [] PT Evaluation ORDER 0.00 Untimed: [] PT Treatment- General ORDER 0.00 Untimed: [G8978] PT-Mobility: Walking and Moving Around-CJ 0.00 Untimed: [G8979] HI-Srzr-Ynjqsmpc: Walking and Moving Around-CI Signed by: Allison Garsia, 06/01/2018 18:34:59 [facility] PATIENT NAME: MAYRA MCNALLY [facility] [address] [facility] MEDICAL REC #: [id number] [place] [address] ADMIT DATE: 06/01/18 SERVICE DATE: 06/01/18 Physical Therapy Assessment Report ATTENDING PHY: Avery Kirby DO HP.IMS.CON Observed: 06/01/2018 Status: UNK Source: [facility] 10:39 AM [facility] Patient Name: MAYRA MCNALLY [facility] Date of : [address] [place] [address] Unit Number: [id number] CONSULTATION-HandP Patient Status: ADM IN Attending Doctor: Avery Kirby DO Service Date: 06/01/18 1039 CHLOE ALEXANDRE 06/01/18 1039: History of Present Illness Referring Physician Avery Kirby DO Consulted Provider Brianna Mack MD Reason for Consult MEDICAL MANAGEMENT OF HYPERTENSION, HYPERLIPIDEMIA, RA, ACID REFLUX History of Present Illness This is a pleasent 68yo female patient of Dr Licona with history of hypertension, hyperlipidemia, rheumatoid arthritis, acid reflux, brain aneurysms, who presented to [facility] for a right reverse total shoulder by Dr Kirby. We have been asked to see for medical management. Patient was evaluated in the PACU. States that she had right shoulder pain for a year unresolved with conservative management. She denies any chest pain, shortness of breath, recent fever, chills, nausea or vomiting. Right arm dressing is intact, dry, 1+ edema noted to right shoulder with mild bruising, right arm is in a sling fingers are warm and mobile. Past Medical/Surgical Hx Past Medical History hypertension, hyperlipidemia, rheumatoid arthritis, acid reflux, brain aneurysms Past Surgical History Right and left knee replacements, left shoulder replacement, two brain aneurysm surgeries. Family/Social History Family History FATHER (BLOOD CLOT TO THE BRAIN). . MOTHER (RENAL FAILURE). . Family Hx Other/Comment Father and Moter both . Patient is unsure of their medical history. Social Hx Former smoker, smoked a pack per day and quit 30 years ago. Occasional alcohol use, drinks once a month. Denies any drug use. Lives at home with . Advance Directives Advance Directives Full Code Allergies/Home Medications Home Medications Cyanocobalamin* (Vitamin B12 (1,000MCG) Tab*) 1,000 MCG TABLET 1,000 MCG PO QDAY, Ref 0 (Reported) Entered as Reported by PANCHITO NOLAND on 03/31/18 1506 Last Action: Held on 06/01/181125 by CHLOE ALEXANDRE Folic Acid* (Folvite 1MG Tab*) 1 MG TABLET 1 MG PO BID, Ref 0 (Reported) Entered as Reported by PANCHITO NOLAND on 03/31/18 1502 Last Action: Held on 06/01/18 1127 by CHLOE ALEXANDRE HydroxyCHLOROQUINE SULFATE* (Plaquenil 200MG Tab*) 200 MG TAB 200 MG PO BID, Ref 0 ( Reported) Entered as Reported by PANCHITO NOLAND on 03/31/18 1506 Last Action: Held on 06/01/18 1126 by CHLOE ALEXANDRE Leucovorin Calcium 10 MG TABLET 10 MG PO WEEKLY, Ref 0 (Reported) Entered as Reported by PANCHITO NOLAND on 03/31/18 1505 Last Action: Held on 06/01/181126 by CHLOE ALEXANDRE Lisinopril* (Zestril 10MG Tab*) 10 MG TABLET 10 MG PO QDAY, Ref 0 (Reported) Entered as Reported by PANCHITO NOLAND on 03/31/18 1500 Last Action: Continued on 06/01/181125 by CHLOE ALEXANDRE Methotrexate Sodium* (Methotrexate 2.5MG Tab*) 2.5 MG TABLET 15 MG PO MONDAYS, Ref 0 ( Reported) INSTRUCTED TO CK WITH ORDERING DR ON LAST DOSE Entered as Reported by PANCHITO NOLAND on 03/31/18 1504 Last Action: Held on 06/01/181125 by CHLOE ALEXANDRE metoprolol TARTRATE* (Lopressor 100MG Tab*) 100 MG TABLET 100 MG PO QDAY, Ref 0 ( Reported) Entered as Reported by PANCHITO NOLAND on 03/31/18 1500 Last Taken: 06/01/18 040 Last Action: Continued on 06/01/181125 by CHLOE ALEXANDRE Omeprazole (PrilOSEC cap) 40 MG CAPSULE.DR 40 MG PO QDAY, Ref 0 (Reported) Entered as Reported by PANCHITO NOLAND on 03/31/18 1501 Last Taken: 06/01/18 040 Last Action: Continued on 06/01/181125 by CHLOE ALEXANDRE Oxybutynin Chloride (Ditropan XL) 5 MG TAB.ER.24 5 MG PO BID, Ref 0 (Reported) Entered as Reported by PANCHITO NOLAND on 03/31/18 150 Last Taken: 06/01/18 0400 Last Action: Continued on 06/01/181125 by CHLOE ALEXANDRE Triamterene/Hctz* (Maxzide 75/50 Tab*) 1 UDTAB UDTAB 0.5 TAB PO QDAY, Ref 0 (Reported) Entered as Reported by PANCHITO NOLAND on 03/31/18 1457 Last Action: Continued on 06/01/181125 by CHLOE ALEXANDRE Review of Systems ROS: Other ROS: Constitutional - Denies any fever, chills, fatigue. Eyes - Denies any blurred vision or double vision. HEENT - Denies difficulty hearing, difficulty swallowing, headaches, or sore throat. Cardiovascular - Denies any chest pain, palpitations, chest pressure or dizziness. Respiratory - Denies cough, hemoptysis, shortness of breath. Gastrointestinal - Denies any abdominal pain, diarrhea, nausea, vomiting. Genitourinary - Denies any dysuria, hematuria. Skin - Denies jaundice, rash. Neurologis - Denies any blurred vision, double vision, slurred speech, headaches. Numbness and tingling of the right arm, fingers are warm and mobile. Psychiatric - Deneis any anxiety or depression. Physical Exam Vital Signs Vital Signs in the PACU as follows: HR 71, BP 131/64, 95% on room air. PHYSICAL EXAM: Constitutional - Patient is alert and appropriate lying in bed. Eyes - Anicteric, normal conjunctiva. ENT - Head normocephalic, atraumatic. Oral mucosa pink and moist. Neck supple, trachea midlinle. Cardiovascular - Heart is regular rhythm and rate. No gallops, rubs or murmurs noted. No evidence of carotid bruit heard. Respiratory - Nonlabored, regular, even. Clear to auscultation. Skin - Appears warm, dry intact. Dressing to the right shoulder is clean, dry. Right arm is in a sling and right shoulder has reddness and swelling 1+ Gastrointestinal - Abdomen soft, bowel sounds present, nontender. No guarding or rebounding noted. Genitourinary - Not examined. Lymch - No gross lymphadenopathy noted. Musculoskeletal - Right arm in sling. Fingers are warm and mobile. Reddness and swelling noted to the right shoulder. Pulses are +2. Neurologic - Patient is alert and oriented and appropiate x3. Speech is clear. No facial droop noted. Psychiatric - Patients appears calm, no anxiety or depression noted. Conclusion / Plan Conclusion 1. Hypertension Continue home lisinopril, metoprolol, triamterene/HCTZ. Will add hydralazine as needed for BP> 160. 2. Hyperlipidemia Will continue home lovastatin. 3. Rheumatoid arthritis Will continue home methotrexate when ok with surgeon. 4. Acid reflux Will continue home omeprazole. 5. Arthritis of right shoulder region Status post right shoulder replacement. Surgery is following. DVT and GI prophylaxis per surgeon. Encourage IS. Thank you for allowing us to participate in the medical management of this patient. We will continue to follow as needed. Collaborating Physician Brianna Mack MD, RASHMI 06/01/18 1617: Allergies/Home Medications Allergies Coded Allergies: NO KNOWN DRUG ALLERGIES (06/01/18) Uncoded Allergies: NKA (03/31/18) Disclaimer This dictation was created using voice recognition software. Phonetic and/or minor grammatical errors may exist. eSign Date and Time Brianna Mack MD Verified/Reviewed by 06/01/18 1618 Chloe Alexandre CNVerified/Reviewed by 06/01/18 1128 TS Collected: 06/01/2018 Status: F Source: [facility] 6:25 AM [place] [facility] REPOSITORY Order Comment: [place]: M Patient transfused or in the past 3 months: NO Is This Patient Going To Surgery? Y Surgery Date: 06/01/18 TYPE CODE TESTS RESULT OUT OF RANGE REFERENCE UNITS LAB B100.0400 A Normal BLOOD TYPE POSITIVE LAB B100.0680 Normal ANTIBODY TNP SCREEN Result Comment: Patient was NOT transfused or in the past 3 months. Antibody screen not indicated. OR Observed: 06/01/2018 Status: UNK Source: [facility] 5:15 AM [facility] REPOSITORY DATE OF SERVICE: 06/01/2018 TIME: 9 a.m. PREOPERATIVE DIAGNOSIS: Rotator cuff arthropathy, avascular necrosis of the humeral head, right shoulder. POSTOPERATIVE DIAGNOSIS: Rotator cuff arthropathy, avascular necrosis of the humeral head, right shoulder. OPERATION: Reverse shoulder arthroplasty utilizing Tornier system, size 4 stem, a 36 mm Glenosphere, an offset base, and a 6 mm polyethylene insert, and also multiple screws for the baseplate. SURGEON: Dr. Avery Kirby ROUNDER AND BACKER: Daisy Cespedes PA-C, Dr. Darío Cerna, orthopedic resident, Dr. Evgeny Byrd, orthopedic resident. ANESTHESIA: General with interscalene block for postoperative pain management. BLOOD LOSS: 100 mL. COMPLICATIONS: None. HISTORY: Mayra is a 68-year-old white female who has just been having progressive difficulty with any use of her right shoulder, has avascular necrosis on the humeral head, rotator cuff arthropathy. She is here for a reverse shoulder arthroplasty. We discussed that procedure with her. The risks, the rehabilitation, the benefits, the goals she is aware, and a consent signed. PROCEDURE: The patient was brought down to the OR and placed in a supine position. After induction of general anesthesia, she was placed in a beach chair position. The deltopectoral groove was infiltrated with 0.5% Marcaine with epinephrine 10 mL for bleeding during the initial part of the case. The shoulder was then sterilely prepped and draped in the usual orthopedic fashion. A deltopectoral approach was made approximately 10 cm in length, the same for the split of the deltoid. Conjoint tendon was protected medially. Humeral head retractor was placed laterally. We went through the bicipital groove, reflecting anterior structures medially. We also revealed a severely atrophic and torn supraspinatus and infraspinatus tendons. These were debrided at this time. The shoulder was dislocated. The humeral head was collapsed centrally severely greater than 3 cm. We then used our alignment guide and then did an osteotomy through the head, broached and trialed, and then put a protective baseplate on. We then exposed the glenoid. Once we had the proper placement, we went ahead and reamed it. We attached our baseplate with one 40 mm [facility] PATIENT NAME: MAYRA MCNALLY [address] [facility] [address] Shaikh MEDICAL REC #: [id number] [place] [address] ADMIT DATE: 06/01/18 DISCHARGE DATE: OPERATIVE REPORT ATTENDING DIANNA: Avery Kirby DO centralizing screw and then superior 30 mm locking screw, and a 34 mm inferior locking screw. We then attached the Glenosphere by impacting and fixating with the centralized screw. We trialed and then inserted our No. 4 humeral stem, attached the 6 mm insert, and then reduced the shoulder. Excellent stability, no dislocation. Able to internally rotate to the belly and externally rotate to 45 degrees. We then irrigated with multiple Irrisept solution, saline, and closed the interval with 0 Vicryl suture. The dermis was closed with 2-0 Vicryl, ree, and silver dressing to protect the repair. She was placed in a simple sling, tolerated the procedure well, brought up out of anesthesia, transported to her bed, and to the recovery room in stable condition. Daisy Cespedes PA-C assisted with proper preoperative positioning, determining availability of proper implants, prepping and draping of patient, manipulation placement of instruments, protection of ligaments and vital soft tissue structures, assistance in maintaining hemostasis with assistance with closure of wound. Her skills and knowledge of the steps of the operation and the desired outcome of each surgical step was crucial, allowing for an efficient surgical procedure, and closure of the wound which lead to reduced surgical time, less blood loss, and less risk of complications for the patient. DO BASIL Ragsdale/[id number] SSI File#: [id number] Verified/Reviewed by 06/01/18 Jatin REED [facility] PATIENT NAME: MAYRA MCNALLY [address] [facility] [address] Shaikh MEDICAL REC #: [id number] [place] [address] ADMIT DATE: 06/01/18 DISCHARGE DATE: OPERATIVE REPORT ATTENDING PHY: Avery Kirby DO Observed: 05/16/2018 Status: F Source: [facility] URINE CULTURE 11:55 AM [facility] REPOSITORY Order Comment: [place]: URINE RESULT 20-30,000 COL/ML MIXED KALIE-PLEASE REPEAT-POSSIBLE CONTAMIN Performed By: #### M100.98111 #### [facility] [address] [place] [address] CBC W/DIFF Collected: 05/16/2018 Status: F Source: [facility] 11:45 AM [facility] REPOSITORY Order Comment: [place]: TYPE CODE TESTS RESULT OUT OF RANGE REFERENCE UNITS LAB L200.24417 4.5-11.0 K/CU MM WBC Normal 5.2 LAB L200.30617 3.90-5.30 M/CU MM RBC Normal 4.32 LAB L200.03077 11.5-15.5 G/DL HGB Normal 14.4 LAB L200.77216 35.0-47.0 % HCT Normal 43.3 LAB L200.75493 80.0-99.0 fl High MCV 100.2 LAB L200.99245 32.0-36.0 GM/DL MCHC Normal 33.3 LAB L200.80550 11-14.5 RDW Normal 14.3 LAB L200.78873 9.4-12.4 MPV Normal 10.8 LAB L200.54106 150-450 K/CU MM PLT Normal 229 LAB L200.02556 45-75 % NEUTROPHILS Normal % 58.7 LAB L200.85688 Less than 2 % IMMATURE Normal GRAN % 0.2 LAB L200.59276 20-40 % LYMPH % Normal 23.4 LAB L200.80758 2-10 % High MONOCYTE % 12.3 LAB L200.86566 0-5 % EOSINOPHIL Normal % 4.4 LAB L200.85096 0-2 % BASOPHIL % Normal 1.0 LAB L200.78943 2.0-8.3 K/CU MM NEUTROPHIL Normal ABS 3.10 LAB L200.06952 Less than 2 K/CU MM IMMATR GRAN Normal ABS 0.00 LAB L200.99462 0.9-4.4 K/CU MM LYMPH ABS Normal 1.20 LAB L200.37868 0.1-1.1 K/CU MM MONO ABS Normal 0.60 LAB L200.76528 0-0.5 K/CU MM EOS ABS Normal 0.20 LAB L200.37334 0-0.2 K/CU MM BASO ABS Normal 0.10 LAB L200.10819 Less than 1 % NRBC Normal 0.0 Performed By: #### L200.29818 #### [facility] [address] [place] [address] BMP Collected: 05/16/2018 Status: F Source: [facility] 11:45 AM [facility] REPOSITORY Order Comment: [place]: M TYPE CODE TESTS RESULT OUT OF RANGE REFERENCE UNITS LAB L500.12100 136-145 MMOL/L Normal NA 141 LAB L500.94050 3.5-5.1 MMOL/L Normal K 4.5 LAB L500.99772 98-107 MMOL/L Normal CL 106 LAB L500.32602 21-32 MMOL/L Normal CO2 29 LAB L500.71651 5-16 MMOL/L Normal AGAP 6 LAB L500.12812 70-100 MG/DL Low GLU 68 Result Comment: 70-100- Normal Fasting; 100-125 Impaired Fasting; greater than 126 on more than one result- Diabetes. ADA guidelines. Results may be falsely elevated after the administration of Sulfapyridine. Results may be falsely depressed after the administration of Sulfasalazine. LAB L500.62698 7-26 MG/DL Normal BUN 14 LAB L500.81605 0.510-0.950 MG/DL Normal CREAT 0.925 Result Comment: Patients receiving either N-Acetylcysteine (NAC) or Metamizole prior to venipuncture, may have falsely depressed results. LAB L500.65304 15-24 Normal BUN/CREA 15 LAB L500.34392 8.5-10.1 MG/DL Normal CALCIUM TOTAL 9.9 Performed By: #### L500.94814, L500.82348 #### [facility] [address] [place] [address] GFR EST Collected: 05/16/2018 Status: F Source: [facility] 11:45 AM [facility] REPOSITORY Order Comment: [place]: M TYPE CODE TESTS RESULT OUT OF RANGE REFERENCE UNITS LAB L500.72912 ML/MIN Normal IF non-AFR 60 AMER LAB L500.73356 ML/MIN Normal IF Greater than AMER 60 Performed By: #### L500.34747, L500.51386 #### [facility] [address] [place], [place] [id number] PT Collected: 05/16/2018 Status: F Source: [facility] 11:45 AM [place] [facility] REPOSITORY Order Comment: [place]: M TYPE CODE TESTS RESULT OUT OF RANGE REFERENCE UNITS LAB L300.75442 0.9-1.1 Normal INR 0.99 Result Comment: Recommended PT INR therapeutic range for cyber systems administrator and prophylactic therapy is 2.0 - 3.0. For heart valve and shunt patients the range is 2.5 - 3.5. LAB L300.34973 9.5-12.0 SECONDS Normal PTS 10.6 Performed By: #### L300.27214, L300.63705 #### [facility] [address] [phone] PTT Collected: 05/16/2018 Status: F Source: [facility] 11:45 AM [facility] REPOSITORY Order Comment: [place]: M TYPE CODE TESTS RESULT OUT OF RANGE REFERENCE UNITS LAB L300.55547 22.0-31.5 SECONDS Normal PTT 28.1 Result Comment: Therapeutic Heparin Reference Range: High Dose: 46-75 seconds (DVT/PE) Low Dose: 39-60 seconds (Acute Coronary Syndrome) For low molecular weight heparin or danaparoid, monitoring is often NOT necessary, but the heparin assay, Xa inhibition assay (send-out) may be used in certain circumstances, as the PTT is generally insensitive to the effect of these agents. Direct thrombin inhibitors are becoming more widely utilized and these drugs are often monitored using the PTT. Performed By: #### L300.70861, L300.95419 #### [facility] [address] [phone] ABO/RH NC Collected: 05/16/2018 Status: F Source: [facility] 11:45 AM [facility] REPOSITORY Order Comment: [place]: M Is This Patient Going To Surgery? Y Surgery Date: 06/01/18 TYPE CODE TESTS RESULT OUT OF RANGE REFERENCE UNITS LAB B100.0400 A Normal BLOOD POSITIVE TYPE ANTIBODY SCREEN Collected: 05/16/2018 Status: F Source: [facility] 11:45 AM [facility] REPOSITORY Order Comment: [place]: M Is This Patient Going To Surgery? Y Surgery Date: 06/01/18 TYPE CODE TESTS RESULT OUT OF RANGE REFERENCE UNITS LAB B100.0680 Normal ANTIBODY NEGATIVE SCREEN MRSA PCR Collected: 05/16/2018 Status: F Source: [facility] 11:45 AM [facility] REPOSITORY Order Comment: [place]: M TYPE CODE TESTS RESULT OUT OF RANGE REFERENCE UNITS LAB L770.20122 NEGATIVE Normal MRSA NEGATIVE PCR Result Comment: PLEASE NOTE: TESTING DONE BY [employer]. The SA Nasal complete MRSA assay on the Cepheid GeneXpert has not been validated for use on patients under 21 years of age. All patients under 21 years of age, run on the GeneXpert will be confirmed by a Blood Amistad plate, followed by an JASPREET, to confirm MRSA. LAB L770.78086 NEGATIVE Normal NEGATIVE SA PCR Result Comment: PLEASE NOTE: TESTING DONE BY [employer]. Performed By: #### L770.42395 #### [facility] [address] [place] [address] PLASTIC SURGERY Observed: 05/08/2018 Status: F Source: [facility] VISIT REPORT 6:52 PM [facility] REPOSITORY [facility] [address] [facility] [address] [facility] [address] [place] [address] OFFICE VISIT Date of Service: 05/04/18 MR#: [id number] Acct: [id number] Name: MAYRA MCNALLY Rep #: [id number] : 1950 Provider: Shaun Oneal MD Age/Sex: 68/F Location: [facility] Status: Signed Intake Vital Signs05/04/18 Height 5 ft 5 in 05/04/18 Weight: 191 lb Intake Visit Reasons: evaluation 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 small finger 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 Accompanied by: None Is patient in pain?: No Allergies No Known Allergies Allergy (Verified 05/04/18 13:55) Medications Aspirin [Aspirin, Baby] 81 mg PO DAILY 02/04/14 [History Confirmed 05/04/18] Methotrexate 15 mg PO QWEEK 02/04/14 [History Confirmed 05/04/18] Triamterene 75MG/Hctz 50MG [Maxzide] 0.5 tab PO DAILY 02/04/14 [History Confirmed 05/04/18] Lisinopril [Zestril] 10 mg PO DAILY 01/06/16 [History Confirmed 05/04/18] albuterol sulfate HFA 90 mcg/actuation aerosol inhaler 2 puff INHALATION Q6H PRN 03/30/18 [History Confirmed 05/04/18] benzonatate 200 mg capsule 200 mg PO TID PRN 03/30/18 [History Confirmed 05/04/18] folic acid 800 mcg tablet 1 mg PO ONCE tab 03/30/18 [History Confirmed 05/04/18] hydroxychloroquine 200 mg tablet 200 mg PO DAILY tab 03/30/18 [History Confirmed 05/04/18] metoprolol tartrate 100 mg tablet 100 mg PO ONCE tab 03/30/18 [History Confirmed 05/04/18] mirabegron ER 50 mg tablet,extended release 24 hr 50 mg PO DAILY 03/30/18 [History Confirmed 05/04/18] omeprazole 40 mg capsule,delayed release 40 mg PO DAILY 03/30/18 [History Confirmed 05/04/18] Is last menstrual period known: No Post menopausal: Yes Patient : No PFSH Medical History Cancer of skin of forearm (Acute) HTN (hypertension) (Chronic) Hypercholesterolemia (Chronic) Rheumatoid arthritis (Chronic) Surgical History History of left knee replacement (Resolved) Hx of cataract surgery (Resolved) S/P left rotator cuff repair (Resolved) Status post right knee replacement (Resolved) brain aneurysm repair (Resolved) d AND c (Resolved) Family History Son Hypertension Social History Smoking Status: Former smoker quit date: 07/19/90 pack-years: 30 second hand exposure: No alcohol intake: current alcohol intake frequency: holidays/special occasions only substance use type: does not use HPI evaluation 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 Recent biopsy was done on 04/08/18. Pathology showed the lesion on the dorsum left hand near ulnar wrist by ring finger and small finger was a squamous cell carcinoma in situ. The lesion on her volar ulnar aspect left forearm, proximal, was an actinic keratosis. 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 On 04/19/18, the squamous cell carcinoma lesion volar ulnar aspect left forearm, proximal and distal to the actinic keratosis lesion, was re-excised by her PCP with a 4 mm margin. Repeat pathology showed no residual carcinoma seen. Since then the patient has noticed an erythematous lesion just ulnar to the healing incision. She presents today for further evaluation and treatment. REVIEW OF SYSTEMS General - Denies fever and weight loss. Has fatigue. Eyes - Denies cataracts and glaucoma. ENT - Denies nasal congestion and sore throat. Endocrine - Denies excessive thirst and urination. Skin - Denies skin cancer. 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 Had recent shave biopsy lesion volar ulnar aspect left forearm, proximal, on 04/08/18 which showed an actinic keratosis. Had recent shave biopsy lesion volar ulnar aspect left forearm, proximal and distal to actinic keratosis lesion, on 04/08/18 which showed a squamous cell carcinoma. The squamous cell carcinoma lesion was re-excised 04/19/18. Musculoskeletal - Denies joint pain, joint stiffness, weakness of muscles and joints, back pain, and arthritis. Neuro - Denies headaches. Cardiovascular - Denies chest pain, fatigue, and shortness of breath with exertion. Psych - Denies anxiety and depression. Respiratory - Denies chronic cough and shortness of breath. Patient is a former smoker. Gastrointestinal - Denies nausea, vomiting, diarrhea, and constipation. Hematologic - Denies abnormal bruising and bleeding. Genitourinary - Denies hematuria and urinary frequency. PHYSICAL EXAMINATION General - Alert and Oriented. HEENT - PERRL. EOMI. Throat is clear. No suspicious lesions noted. Neck - Supple and nontender. No cervical adenopathy. No suspicious lesions noted. Lungs - Clear to auscultation. Heart - Regular rate and rhythm. Abdomen - Soft and nondistended. Extremities - FROM. No axillary adenopathy. Radial pulses are palpable. On the dorsum left hand near ulnar wrist by ring finger and small finger is a 1 cm healing scar from recent shave biopsy that showed a squamous cell carcinoma. On the volar ulnar aspect left forearm, proximal, is a 6 mm healing scar from recent shave biopsy that showed an actinic keratosis. On the volar ulnar aspect left forearm, proximal and distal to actinic keratosis lesion, is a 1.5 cm healing incision from recent re-excision squamous cell carcinoma. Just ulnar to this incision is an erythematous lesion that measures 4 mm. Slightly raised in configuration. Has irregular borders. No ulceration. Lesion is nontender. Neuro - CN II-XII grossly intact. Psych - Normal mood and affect. ASSESSMENT 1. 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 2. 6 mm actinic keratosis volar ulnar aspect left forearm, proximal. 3. 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 4. 4 mm erythematous lesion ulnar to squamous cell carcinoma scar left forearm. 5. Former smoker. 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 Reconstruction will be with skin grafting. Recommend re-excision of the actinic keratosis lesion volar ulnar aspect left forearm, proximal, and send it to Pathology for analysis to rule out carcinoma. If carcinoma is present then further excision will be done with skin flap reconstruction. The squamous cell carcinoma scar on volar ulnar aspect left forearm, proximal and distal to actinic keratosis lesion, was re-excised with a 4 mm margin and pathology showed no residual carcinoma seen. No further excision needs to be done. There is a new erythematous lesion just ulnar to the squamous cell carcinoma scar. Will excise this lesion as well and send to Pathology for analysis to rule out carcinoma. If carcinoma is present, then further excision will be done with skin flap reconstruction. Surgery will be done under local anesthesia and IV sedation on an outpatient basis. Patient was informed of the risks and complications of the procedure including alternatives to surgery. These were discussed with the patient personally. Patient voices understanding and wishes to proceed. Some of the risks and complications were included in a form from the [employer]. Assessment AND Plan Problems 1. 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 Actinic keratosis L57.0 3. Squamous cell cancer of skin of left forearm C44.629 4. Neoplasm of skin of forearm D49.2 5. 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 8:00 AM [facility] REPOSITORY Patient: MAYRA MCNALLY F SPECIMEN: [id number] Collection Date: 04/19/18799 Received: 04/20/18 Status: LUCAS Castro Dr.: Antwon Licona MD Ph# Material for Examination: A LEFT LOWER FOREARM LESION PRE-OP DIAGNOSIS: SQUAMOUS CELL CARCINOMA OF LEFT FOREARM POST-OP DIAGNOSIS: INVASIVE SQUAMOUS CELL CARCINOMA SURGICAL PROCEDURE: REPEAT WIDE EXCISION OF LESION DIAGNOSIS A. Left lower forearm lesion (repeat wide excision of lesion): No residual squamous cell carcinoma identified. Previous biopsy site showing ulceration, chronic inflammation and granulation tissue formation. GROSS DESCRIPTION The specimen is received in formalin and labeled with the patient's name, ID and not designated, is a ribera, somewhat irregular, oval-shaped portion of skin, 1.3 x 0.7 x 0.5 cm. On the surface of the skin is a ribera encrusted area, 0.4 x 0.2 cm. The specimen is not oriented. One half of the specimen is inked blue and the other half of the specimen is inked black. The specimen is serially sectioned and is somewhat friable. Cut section has a ribera-hillman appearance. Entirely submitted in cassettes A1 through A2. SECTION SUMMARY: A1. Ends A2. Mid portion MICROSCOPIC DESCRIPTION 4 Helen stained sections examined. Signed Verified/Reviewed by RICHY SERRANO M.D. 04/21/18 This dictation was created using voice recognition software. Phonetic and/or minor grammatical errors may exist. [facility] NAME: FAIZAYASMINEMAYRA Anuradha Pathology and Laboratory Medicine UNIT#: [id number] LOC: MAU Escrow Agent: Karen Rasmussen M.D. [facility] [id number] ROOM/BED: [facility] : 50 AGE/SEX: 68/F ORD.Antwon Ogden MD END OF REPORT PROGRESS Observed: 04/12/2018 Status: COMPLETED Source: [place] 9:36 AM [facility] REPOSITORY HNO ID: [id number] Author: Nadia Gil Service: (none) Author Type: Physician Type: Progress Notes Filed: 04/12/2018 9:38 AM Note Text: [facility], 03/24/2018: Total IgE 5 (0?100 IU.mL) Methacholine Inhalation Challenge scheduled tomorrow. I will communicate both results to patient once JASPREET report available. Nadia Gil MD, [facility] Respiratory [place] SURG Observed: 04/08/2018 Status: F Source: [facility] 9:20 AM [facility] REPOSITORY Patient: MAYRA MCNALLY F SPECIMEN: [id number] Collection Date: 04/08/18919 Received: 04/11/18 Status: LUCAS [address] Dr.: Antwon Licona MD Ph# Material for Examination: A LESION LEFT WRIST B LESION LEFT FOREARM DORSAL C LESION LEFT FOREARM VENTRAL LOWER D LESION LEFT FOREARM VENTRAL UPPER PRE-OP DIAGNOSIS: LEFT FOREARM SKIN LESION, SUSPICIOUS FOR BASAL CELL CARCINOMA POST-OP DIAGNOSIS: SUSPICIOUS SKIN LESION FOR BCC SURGICAL PROCEDURE: NONE GIVEN DIAGNOSIS A. Lesion left wrist, biopsy: SQUAMOUS CELL CARCINOMA IN SITU Carcinoma in situ extends to the margins. Background solar elastosis. B. Lesion left forearm dorsal, biopsy: Squamous papilloma Background solar elastosis. C. Lesion left forearm ventral lower, biopsy: SQUAMOUS CELL CARCINOMA, WELL-DIFFERENTIATED, KERATINIZING, INVASIVE. Carcinoma focally involves the deep margin and one of the lateral margins. Background solar elastosis. D. Lesion left forearm ventral upper, biopsy: Actinic keratosis GROSS DESCRIPTION A. The specimen is received in formalin and labeled with the patient's name, ID and designated left wrist, is a shave biopsy of slightly roughened, unoriented, ribera-brown skin measuring 0.7 cm greatest dimension. The resection margin is inked in black. Specimen is bisected and entirely submitted in cassette A1. B. The specimen is received in formalin, and labeled with the patient's name, ID and designated left FA dorsum, are 2 irregular fragments of ribera tissue measuring 0.3 and 0.4 cm in greatest dimension respectively. Entirely submitted in cassette B1. C. The specimen is received in formalin, and labeled with the patient's name, ID and designated left lower FA ventral, is a small ellipse of white- ribera skin measuring 0.7 x 0.5 x 0.2 cm. Near the center of the skin surface, there is a slightly raised, round hypo-pigmented lesion measuring 0.3 cm greatest dimension. One side of the ellipse is inked in blue, the other in black. It is serially sectioned and entirely submitted in cassette [facility] NAME: MAYRA MCNALLY Pathology and Laboratory Medicine UNIT#: [id number] LOC: [facility] Escrow Agent: Karen Rasmussen M.D. [facility] [id number] ROOM/BED: [employer] [facility] : 50 AGE/SEX: 68/F ORD.Antwon Ogden MD CONTINUED ON NEXT PAGE Patient: MAYRA MCNALLY Unit#: [id number] (continued) SPECIMEN: [id number] GROSS DESCRIPTION C1. D. The specimen is received in formalin, and labeled with the patient's name, ID and designated left upper FA ventral, are 3 friable fragments of white-ribera possible skin ranging in size from 0.1-0.3 cm greatest dimension. Entirely submitted in cassette D1. MICROSCOPIC DESCRIPTION Eight Helen stained slides examined. Signed Verified/Reviewed by BRENDA LEWIS MD 04/13/18 This dictation was created using voice recognition software. Phonetic and/or minor grammatical errors may exist. [facility] NAME: MAYRA MCNALLY Pathology and Laboratory Medicine UNIT#: [id number] LOC: [facility] Escrow Agent: Karen Rasmussen M.D. [facility] [id number] ROOM/BED: [facility] : 50 AGE/SEX: 68/F ORD.DR. Licona,Antwon Ho MD END OF REPORT Observed: 04/05/2018 Status: F Source: [facility] URINE CULTURE 10:40 AM [facility] REPOSITORY Order Comment: [place]: M URINE RESULT >100,000 COL/ML MIXED KALIE-PLEASE REPEAT-POSSIBLE CONTAMIN Performed By: #### M100.64696 #### [facility] [address] [place] [address] HGB A1C GLYCOHB Collected: 04/05/2018 Status: F Source: [facility] 10:00 AM [facility] REPOSITORY Order Comment: [place]: M TYPE CODE TESTS RESULT OUT OF RANGE REFERENCE UNITS LAB L550.90383 4.3-6.0 % Normal HGB A1C 4.7 GLYCOHB Performed By: #### L550.65627 #### [facility] [address] [place] [address] PBNP TEST Collected: 04/05/2018 Status: F Source: [facility] 9:45 AM [facility] REPOSITORY Order Comment: [place]: M TYPE CODE TESTS RESULT OUT OF RANGE REFERENCE UNITS LAB L500.47261 0-900 PG/ML Normal PBNP TEST 261 Result Comment: NT-proBNP results of less than 300 pg/ml effectively rules out acute congestive heart failure with 99% negative predictive value. Performed By: #### L500.38189 #### [facility] [address] [place] [address] ABO/RH NC Collected: 04/05/2018 Status: F Source: [facility] 9:45 AM [facility] REPOSITORY Order Comment: [place]: M Is This Patient Going To Surgery? Y Surgery Date: 04/20/18 TYPE CODE TESTS RESULT OUT OF RANGE REFERENCE UNITS LAB B100.0400 A Normal BLOOD POSITIVE TYPE PATIENT RETYPE Collected: 04/05/2018 Status: F Source: [facility] 9:45 AM [facility] REPOSITORY Order Comment: [place]: M Is This Patient Going To Surgery? Y Surgery Date: 04/20/18 TYPE CODE TESTS RESULT OUT OF RANGE REFERENCE UNITS LAB B100.31090 A Normal RETYPE POSITIVE INTERP ANTIBODY SCREEN Collected: 04/05/2018 Status: F Source: [facility] 9:45 AM [facility] REPOSITORY Order Comment: [place]: M Is This Patient Going To Surgery? Y Surgery Date: 04/20/18 TYPE CODE TESTS RESULT OUT OF RANGE REFERENCE UNITS LAB B100.0680 Normal ANTIBODY NEGATIVE SCREEN PT Collected: 04/05/2018 Status: F Source: [facility] 9:45 AM [facility] REPOSITORY Order Comment: [place]: M TYPE CODE TESTS RESULT OUT OF RANGE REFERENCE UNITS LAB L300.25291 0.9-1.1 Normal INR 0.98 Result Comment: Recommended PT INR therapeutic range for cyber systems administrator and prophylactic therapy is 2.0 - 3.0. For heart valve and shunt patients the range is 2.5 - 3.5. LAB L300.58649 9.5-12.0 SECONDS Normal PTS 10.5 Performed By: #### L300.65651, L300.27617 #### [facility] [address] [place] [address] PTT Collected: 04/05/2018 Status: F Source: [facility] 9:45 AM [facility] REPOSITORY Order Comment: [place]: M TYPE CODE TESTS RESULT OUT OF RANGE REFERENCE UNITS LAB L300.82840 22.0-31.5 SECONDS Normal PTT 26.9 Result Comment: Therapeutic Heparin Reference Range: High Dose: 46-75 seconds (DVT/PE) Low Dose: 39-60 seconds (Acute Coronary Syndrome) For low molecular weight heparin or danaparoid, monitoring is often NOT necessary, but the heparin assay, Xa inhibition assay (send-out) may be used in certain circumstances, as the PTT is generally insensitive to the effect of these agents. Direct thrombin inhibitors are becoming more widely utilized and these drugs are often monitored using the PTT. Performed By: #### L300.97980, L300.05877 #### [facility] [address] [place] [address] # [phone] MRSA PCR Collected: 04/05/2018 Status: F Source: [facility] 9:45 AM [facility] REPOSITORY Order Comment: [place]: M TYPE CODE TESTS RESULT OUT OF RANGE REFERENCE UNITS LAB L770.68977 NEGATIVE Normal MRSA NEGATIVE PCR Result Comment: PLEASE NOTE: TESTING DONE BY PCR [employer]CHN[employer]. The SA Nasal complete MRSA assay on the [employer] GeneXpert has not been validated for use on patients under 21 years of age. All patients under 21 years of age, run on the GeneXpert will be confirmed by a Blood Amistad plate, followed by an JASPREET, to confirm MRSA. LAB L770.85749 NEGATIVE Normal NEGATIVE SA PCR Result Comment: PLEASE NOTE: TESTING DONE BY [employer]. Performed By: #### L770.40826 #### [facility] [address] [place] [address] EKG Observed: 04/05/2018 Status: UNK Source: [facility] 8:44 AM [facility] REPOSITORY Procedure Date and Time: 04/05/18 0949 Test Reason : Blood Pressure : / mmHG Vent. Rate : 058 BPM Atrial Rate : 058 BPM P-R Int : 156 ms QRS Dur : 094 ms QT Int : 456 ms P-R-T Axes : 043 048 052 degrees QTc Int : 447 ms Sinus bradycardia Nonspecific T wave abnormality Abnormal ECG When compared with ECG of 05-SEP-1991 20:24, No significant change was found Confirmed by ROSEANNE DE LEON A. ([id number]) on 04/05/2018 9:14:04 PM Referred By: Avery Kirby Confirmed By:Lorenzo DE LEON M.D.FACC Manuel DDandT: 04/05/18 0949 TDandT: [facility] PATIENT NAME: MAYRA MCNALLY [facility] [address] MEDICAL REC #: [id number] [place] [address] ADMIT DATE: DISCHARGE DATE: ATTENDING PHY: Avery Kirby DO ELECTROCARDIOGRAM REPORT CLB cc: [facility] PATIENT NAME: MAYRA MCNALLY [facility] [address] MEDICAL REC #: [id number] [place] [address] ADMIT DATE: DISCHARGE DATE: ATTENDING PHY: Avery Kirby DO ELECTROCARDIOGRAM REPORT EOSINOPHIL CT. URINE Collected: 03/24/2018 Status: F Source: [place] 10:50 AM [facility] REPOSITORY TYPE CODE TESTS RESULT OUT OF RANGE REFERENCE UNITS LAB L3100.6600 . % No Normal EOS CT Eosinophils Seen [id number] Result Comment: <5% few or none seen Performed at: - [address] [id number] Child Welfare Specialist: Evgeny Jernigan MD, Phone: [phone] Performed at: [facility] [address] [id number] Child Welfare Specialist: Donny Farmer PhD, Phone: [phone] Performed By: #### L3100.6600, L3200.1600 #### [facility] (refer to report for specific site) refer to report for address and phone number IMMUNOGLOBULIN E Collected: 03/24/2018 Status: F Source: [place] 10:50 AM [facility] REPOSITORY TYPE CODE TESTS RESULT OUT OF RANGE REFERENCE UNITS LAB L3200.1600 0-100 IU/mL Normal IMMUNO E 5 Performed By: #### L3100.6600, L3200.1600 #### [facility] (refer to report for specific site) refer to report for address and phone number CBC W/DIFF, AUTOMATED Collected: 03/24/2018 Status: F Source: [place] 10:48 AM [facility] REPOSITORY TYPE CODE TESTS RESULT OUT OF RANGE REFERENCE UNITS LAB L100.1000 4.4-11.0 K/mm3 Low WBC 3.8 LAB L100.1200 4.2-5.4 M/mm3 Normal RBC 4.30 LAB L100.1300 12.0-15.0 g/dl Normal HGB 14.1 LAB L100.1400 37-47 % Normal HCT 44.0 LAB L100.1500 81-99 fL High MCV 102.3 LAB L100.1600 27.0-32.0 pg High MCH 32.8 LAB L100.1700 32-36 g/gl Normal MCHC 32.0 LAB L100.1810 11.6-14.6 % High RDW CV 14.7 LAB L100.1820 35.1-43.9 fl High RDW SD 55.0 LAB L100.1900 150-450 K/mm3 Normal PLT 244 LAB L100.2000 6.2-12.0 fl Normal MPV 11.1 LAB L100.2100 47-70 % Normal NEUT% 62.1 LAB L100.2200 19-41 % Normal LY% 25.9 LAB L100.2300 0-10 % Normal MONO% 8.9 LAB L100.2400 0-5 % Normal EO% 2.6 LAB L100.2500 0-1 % Normal BASO% 0.5 LAB L100.2550 0.0-0.9 % Normal IM GRAN % 0.000 Result Comment: IG% - Immature Granulocytes (promyelocytes, myelocytes and metamyelocytes) > 1% indicates that a LEFT SHIFT is Present. LAB L100.2620 2.0-7.7 X10 3/uL Normal Absolute Neut 2.4 LAB L100.2720 0.83-4.51 X10 3/ul Normal Absolute Lymph 0.99 Performed By: #### L100.0100 #### [facility] [place], [address] COMPREHENSIVE METABOLIC Collected: 03/24/2018 Status: F [facility] REPOSITORY TYPE CODE TESTS RESULT OUT OF RANGE REFERENCE UNITS LAB L501.0100 74-106 mg/dL Normal GLU 99 Result Comment: Please note revised GLUCOSE reference range effective 2017. LAB L501.1000 7-18 mg/dL Normal BUN 13 LAB L501.1100 0.55-1.02 mg/dL Normal CREAT,SERUM 0.83 Result Comment: The validity of the calculated GFR AND GFRAA in patients over 70 years has not been determined. Clinical correlation is essential. LAB L501.1110 >60 mL/min Normal EST GFR 72 Result Comment: Non- GFR Calc LAB L501.1115 >60 mL/min Normal EST GFR - AA 87 Result Comment: GFR Calc LAB L501.1300 10-20 RATIO Normal BUN/CRE 15.6 LAB L501.1500 6.4-8.2 g/dL T Normal PROT 7.2 LAB L501.1800 3.2-5.0 g/dL Normal ALB 3.7 LAB L501.1950 2.2-4.2 g/dL Normal GLOB 3.5 LAB L501.2000 0.9-2.4 RATIO Normal A/G 1.1 LAB L501.2200 8.5-10.1 mg/dL CA Normal 9.4 LAB L501.4100 15-37 U/L Normal AST 32 LAB L501.4305 45-117 U/L Normal ALK P 50 LAB L501.4405 13-56 U/L Normal ALT 29 LAB L501.4600 0.20-1.00 mg/dL T Normal BILI 0.70 LAB L501.5300 136-145 mmol/L NA Normal 141 LAB L501.5600 3.5-5.1 mmol/L K Normal 3.8 LAB L501.5900 98-107 mmol/L CL Normal 104 LAB L501.6100 21.0-32.0 mmol/L Normal CO2 29.0 LAB L501.6200 5-15 Normal GAP 8 Performed By: #### L500.4050 #### [facility] [address] [place], [address] CNOV Observed: 03/24/2018 Status: COMPLETED Source: [place] 9:30 AM [facility] REPOSITORY Office Visit (PULMWS) MAYRA MCNALLY ([id number]) 1950 F Date Time Provider Department 03/24/18 9:30 AM NADIA GIL During your visit today, we recorded the following information about you: Pulse Respiration Blood pressure Weight 80/minute 16/minute 138/78 86.6 kg Height 1.67 m Irina Medina LPN 03/24/2018 8:54 AM Signed Intake information documented in the prior visit with Lizbet Ramirez CRT today. Irina Medina LPN 03/24/2018 9:06 AM Signed ROS: General: Generally feels cough x4 months, dry and hacking. Has used Doxycyline and Zithromax/Prednisone without much relief. Appetite good. Eyes, Ears, nose, throat: denies post nasal drip. denies rhinorrhea. denies purulent nasal discharge. denies epistaxis. denies hoarseness. Vision stable. Cardiac: denies angina, denies edema, denies orthopnea. GI: denies heartburn. denies dysphagia. denies diarrhea. Uro/CYBER SYSTEMS ADMINISTRATOR: denies dysuria. denies hesitancy. denies nocturia. Menses: post menopausal Musculoskeletal: denies pain. Neuro: denies headache, denies focal weakness. denies tremor. Skin: denies rash. Otherwise negative. Nadia Gil MD 03/25/2018 9:21 AM Addendum [facility] Res[facility] [place] Consultation Note, 03/24/18: Introduction: The patient is seen in consultation today for evaluation of cough. This consultation is requested by the patient. A copy of this encounter will be made available as a report to her Primary Care Physician, Antwon Licona MD via letter/FAX. HPI: Just the cough. This is the 3rd year in a row I've got it. Nothing bothers me. Previously attributed to just a bug. No response to ATB from Primary Care Physician. Better relief with Rx from Urgent Care. Cough characteristics: dry, occasionally productive of clear sputum, no hemoptysis, worse at night, I cough all night long, and it will waken from sleep. Triggers include: laying down, laughing. I get it every spring for the last 3 years. No such trouble in years past. Cough is not triggered by animal exposure, dust, weather extremes, espiratory infections, smoke exposure, fumes/colognes, exertion, eating. No short of breath at rest or with exertion. Wheezing overnight. Has noted relief with previously prescribed inhalers (Ventolin), recent prednisone taper and azithromycin. Has not noted relief with over the counter medications. [place] Basement is dry. Gas forced air heat. Central A/C. Bedroom josiane is wall to wall carpet. 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 No farming No stable work. No birding. 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 No asbestos exposure. No work in manufacturing or processing of adhesives, paint, plastics, wood products. No baking. Currently on Methotrexate for 5-6 years secondary to arthritis. No sustained Rx with Amiodarone, Nitrofurantoin, cancer chemotherapy. No external beam radiation therapy. No prior diagnosis of Pulmonary disease. PAST MEDICAL HISTORY Diagnosis Date - Female stress incontinence - Hypercholesterolemia - Hypertension - Urethrocele(618.03) PAST SURGICAL HISTORY Procedure Laterality Date - REMV CATARACT EXTRACAP,INSERT LENS 1999 - REPAIR A-V ANEURYSM,PLASTIC - TOTAL KNEE REPLACEMENT 2007 right knee No family history on file. Social History Marital status: Spouse name: Years of education: Number of children: Social History Main Topics Smoking status: Former Smoker Packs/day: 0.00 Years: 0.00 Smokeless tobacco: Never Used Alcohol use: Yes There is no immunization history on file for this patient. MEDICATIONS and ALLERGIES: Reviewed, updated and reconciled with the patient today, as noted in the medication and allergy sections of the encounter. ROS: General: Generally feels good besides. Appetite good. Weight stable. Eyes, Ears, nose, throat: No post nasal drip, rhinorrhea, purulent nasal discharge, epistaxis. No hoarseness. Vision stable. Cardiac: No angina, edema, orthopnea. GI: No heartburn, dysphagia. No diarrhea. Uro/CYBER SYSTEMS ADMINISTRATOR: Bladder incontinence. Musculoskeletal: No pain. Neuro: No headache, focal weakness, tremor. Skin: No rash. Otherwise negative. Reviewed with patient, confirmed as documented by Irina Medina LPN. TO PHYSICAL EXAMINATION: BP 138/78 Pulse 80 Resp 16 Ht 5' 5.75 (1.67m) Wt 191 lb (86.6kg) SpO2 95% BMI 31.06 kg/(m2). Gen: No acute distress. Cooperative with examination. ENT: Sclerae clear. Nares clear. Oral hygeine and dentition good. Pharynx clear. Resp: No stridor, accessory respiratory muscle use, supra- sternal or intercostal retractions. A-P diameter normal. No crackles, wheezes. CV: Regular rythm. Heart tones normal. No JVP, HJR. No carotid bruit. Radial pulses normal. Abd: Not distended. MSK: No kyphoscoliosis. No joint deformities of the extremities. Ext: Warm and well perfused. No clubbing. No cyanosis. No edema. No sclerodactyly. No Raynaud's. Skin: No rash, eczema, urticaria, telangiectasia. Lymph: No adenopathy in neck, supra-clavicular fossae. Endo: No goiter. No exophthalmos, onycholysis. Neuro: Mental status normal. No tremor. DATA REVIEW: DATE: 03/24/18 FVC 3.06, 93% FEV1 2.60, 104% FEV1/FVC 0.85 CXR, 02/21/18 IMPRESSION: No acute radiographic abnormality. RESULT: Lines, tubes, and devices: ?None. Lungs and pleura: ?Calcified granuloma right upper lung zone. No consolidation. No pleural effusion. No pneumothorax. Cardiomediastinal silhouette: ?Normal cardiomediastinal silhouette. Other: ?Suture anchor left humeral head. I have personally and independently reviewed these CXR images and I concur with the findings as described. TO CT CHEST 02/24/10 Thre is an 8-mm calcified granuloma in the posterior right upper lobe with adjacent scarring. There is a 5-mm calcified granuloma in the left upper lobe. There are peripheral emphysematous blebs in the bilateral upper lobes. There are no pulmonary infiltrates. There are no pleural effusions. There are calcified mediastinal lymph nodes. There are calcified right hilar lymph nodes. There are calcified subcarinal hilar lymph nodes. I have NOT personally and independently reviewed the above chest CT images. TO IMPRESSION/RECOMMEND: I discussed the differential diagnosis of chronic cough: asthma, post nasal drip, gastro-esophageal reflux disease, medications, aspiration, malignancy, infections, cardiac disease, and other less common causes. Chronic bronchitis/COPD unlikely in absence of smoking history. Seasonality and recurrence suggest asthma. Nasal symptoms suggest allergic or non-allergic post nasal drip. Must keep gastroesophageal reflux in differential diagnosis, unless another cause is identified. - Check for asthma with Methacholine Inhalation Challenge. - Screen for allergy with IgE and eosinophil count. - Further recommendations to follow these results. I addressed the questions of the patient, and she expressed understanding and acceptance of my answers. Nadia Gil MD, [facility] [place] [id number] P: [phone] F: [phone] [email or web address] Addendum 03/25/2018: [facility] labs, 03/24/2018: Glucose BUN 13 Creat 0.83 Ca 9.4 Na 141 K 3.8 Cl 104 CO2 29 WBC 3.8 Eos% 2.6 Hgb 14.1 Hct 44.0 Plt 244 I have received and reviewed the outside records noted above. Nadia Gil MD, [facility] Nadia Gil MD 03/24/2018 10:09 AM Signed I discussed the differential diagnosis of chronic cough: asthma, post nasal drip, gastro-esophageal reflux disease, medications, aspiration, malignancy, infections, cardiac disease, and other less common causes. - Check for asthma with Methacholine Inhalation Challenge. - Screen for allergy with IgE and eosinophil count. - Further recommendations to follow these results. Nadia Gil MD, [facility] [address] [address] P: [phone] F: [phone] [email or web address] Referring Provider: SELF [200] Allergies As of Date: 03/24/2018 (No Known Allergies) Date Reviewed: 03/24/2018 Reviewed by: Nadia Gil - Fully Assessed Reason for Visit: Cough [28] Cmt: Every spring for the last 3 years. Primary Visit Diagnosis:Chronic cough [R05] Other Visit Diagnoses:Post-nasal drip [R09.82] Gastroesophageal reflux disease, esophagitis presence not specified [K21.9] Order(s):METHACHOLINE CHALLENGE [[id number]] Order #: [id number] FUTURE IGE BLD [SQIGE] Order #: [id number] FUTURE EOSINOPHIL ABS COUNT [SQABEOS] Order #: [id number] FUTURE COMPOUNDED PRESCRIPTIONPlease draw total eosinophil count and total IgE. Fax results to [phone]: 1 EachRfl: 0 Prescriptions as of 03/24/2018 Sig: VENTOLIN HFA 90 MCG/ACTUATION* OXYBUTYNIN CHLORIDE 5 MG TABL* Take 1 tablet by mouth twice * OMEPRAZOLE 40 MG CAPSULE,OSVALDO* Take 1 capsule by mouth once * METOPROLOL TARTRATE 100 MG TA* Take 1 tablet by mouth once d* METHOTREXATE SODIUM 2.5 MG TA* Take 6 tablets by mouth once * LEUCOVORIN CALCIUM 10 MG TABL* Take 1 tablet by mouth once e* * LOVASTATIN 40 MG TABLET once daily * TRIAMTERENE 75 MG-HYDROCHLORO* 1/2 daily * ADULT ASPIRIN EC LOW STRENGTH* once daily COMPOUNDED PRESCRIPTION Please draw total eosinophil * * MONOPRIL 20 MG TABLET once daily * CALCIUM 500 MG TABLET once daily Problem List As Of Date 03/24/2018 Noted Resolved 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] INVALID FOR*12/09/2007 KNEE JOINT REPLACEMENT STATUS [Z96.659] INVALID FOR*12/09/2007 Female Stress Incontinence [N39.3] INVALID FOR* Urethrocele [N36.8] INVALID FOR* Hypertension [I10] INVALID FOR* Hypercholesterolemia [E78.00] INVALID FOR* Multiple thyroid nodules [E04.2] INVALID FOR* GERD (gastroesophageal reflux disease) [K21.9] INVALID FOR* Dysmetabolic syndrome [E88.81] INVALID FOR* Notes for Staff Call patient with results Other instructions from your clinician: I discussed the differential diagnosis of chronic cough: asthma, post nasal drip, gastro-esophageal reflux disease, medications, aspiration, malignancy, infections, cardiac disease, and other less common causes. - Check for asthma with Methacholine Inhalation Challenge. - Screen for allergy with IgE and eosinophil count. - Further recommendations to follow these results. Nadia Gil MD, [facility] [place] [facility] [address] [place] [id number] P: [phone] F: [phone] Visit Notes: >> Irina Sagepaul GONZALEZ [facility] Mar 24, 2018 8:54 AM Status: Signed Intake information documented in the prior visit with Lizbet Ramirez, SABI today. >> Irina Carol GONZALEZ [facility] Mar 24, 2018 9:04 AM Status: Signed ROS: General: Generally feels cough x4 months, dry and hacking. Has used Doxycyline and Zithromax/Prednisone without much relief. Appetite good. Eyes, Ears, nose, throat: denies post nasal drip. denies rhinorrhea. denies purulent nasal discharge. denies epistaxis. denies hoarseness. Vision stable. Cardiac: denies angina, denies edema, denies orthopnea. GI: denies heartburn. denies dysphagia. denies diarrhea. Uro/CYBER SYSTEMS ADMINISTRATOR: denies dysuria. denies hesitancy. denies nocturia. Menses: post menopausal Musculoskeletal: denies pain. Neuro: denies headache, denies focal weakness. denies tremor. Skin: denies rash. Otherwise negative. Prescriptions ordered this encounter Disp Refills Start End COMPOUNDED PRESCRIPTION 1 Ea* 0 03/24/2018 Class: Print RX Sig: Please draw total eosinophil count and total IgE. Fax results to [phone] Medications Discontinued During This Encounter omeprazole (PRILOSEC) 20 mg ORAL cap* 0 05/09/2010 03/24/2018 Class: OTC Route: ORAL Sig: Take one(1) capsule daily on empty stomach (break up pill before you take it) Disc: Dosage adjustment ACEBUTOLOL 400 MG CAP 0 04/09/2009 03/24/2018 Class: Med Update Route: ORAL Sig: once daily Disc: Course of therapy completed Benzonatate 200 mg capsule 02/08/2018 03/24/2018 Class: Historical Med Route: ORAL Sig: Take 1 capsule by mouth twice daily. Disc: Course of therapy completed Follow Up: Call patient with results Follow-up and Disposition History Recorded Encounter Status:Closed by NADIA GIL MD on 03/24/18 PROGRESS Observed: 03/24/2018 Status: COMPLETED Source: [place] 9:09 AM [facility] REPOSITORY HNO ID: [id number] Author: Nadia Gil Service: (none) Author Type: Physician Type: Progress Notes Filed: 03/25/2018 9:21 AM Note Text: [facility] [place] Consultation Note, 03/24/18: Introduction: The patient is seen in consultation today for evaluation of cough. This consultation is requested by the patient. A copy of this encounter will be made available as a report to her Primary Care Physician, Antwon Licona MD via letter/FAX. HPI: Just the cough. This is the 3rd year in a row I've got it. Nothing bothers me. Previously attributed to just a bug. No response to ATB from Primary Care Physician. Better relief with Rx from Urgent Care. Cough characteristics: dry, occasionally productive of clear sputum, no hemoptysis, worse at night, I cough all night long, and it will waken from sleep. Triggers include: laying down, laughing. I get it every spring for the last 3 years. No such trouble in years past. Cough is not triggered by animal exposure, dust, weather extremes, espiratory infections, smoke exposure, fumes/colognes, exertion, eating. No short of breath at rest or with exertion. Wheezing overnight. Has noted relief with previously prescribed inhalers (Ventolin), recent prednisone taper and azithromycin. Has not noted relief with over the counter medications. [place] Basement is dry. Gas forced air heat. Central A/C. Bedroom josiane is wall to wall carpet. 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 No farming No stable work. No birding. 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 No asbestos exposure. No work in manufacturing or processing of adhesives, paint, plastics, wood products. No baking. Currently on Methotrexate for 5-6 years secondary to arthritis. No sustained Rx with Amiodarone, Nitrofurantoin, cancer chemotherapy. No external beam radiation therapy. No prior diagnosis of Pulmonary disease. PAST MEDICAL HISTORY Diagnosis Date - Female stress incontinence - Hypercholesterolemia - Hypertension - Urethrocele(618.03) PAST SURGICAL HISTORY Procedure Laterality Date - REMV CATARACT EXTRACAP,INSERT LENS 1999 - REPAIR A-V ANEURYSM,PLASTIC - TOTAL KNEE REPLACEMENT 2008 right knee No family history on file. Social History Marital status: Spouse name: Years of education: Number of children: Social History Main Topics Smoking status: Former Smoker Packs/day: 0.00 Years: 0.00 Smokeless tobacco: Never Used Alcohol use: Yes There is no immunization history on file for this patient. MEDICATIONS and ALLERGIES: Reviewed, updated and reconciled with the patient today, as noted in the medication and allergy sections of the encounter. ROS: General: Generally feels good besides. Appetite good. Weight stable. Eyes, Ears, nose, throat: No post nasal drip, rhinorrhea, purulent nasal discharge, epistaxis. No hoarseness. Vision stable. Cardiac: No angina, edema, orthopnea. GI: No heartburn, dysphagia. No diarrhea. Uro/CYBER SYSTEMS ADMINISTRATOR: Bladder incontinence. Musculoskeletal: No pain. Neuro: No headache, focal weakness, tremor. Skin: No rash. Otherwise negative. Reviewed with patient, confirmed as documented by Irina Medina LPN. TO PHYSICAL EXAMINATION: BP 138/78 Pulse 80 Resp 16 Ht 5' 5.75 (1.67m) Wt 191 lb (86.6kg) SpO2 95% BMI 31.06 kg/(m2). Gen: No acute distress. Cooperative with examination. ENT: Sclerae clear. Nares clear. Oral hygeine and dentition good. Pharynx clear. Resp: No stridor, accessory respiratory muscle use, supra- sternal or intercostal retractions. A-P diameter normal. No crackles, wheezes. CV: Regular rythm. Heart tones normal. No JVP, HJR. No carotid bruit. Radial pulses normal. Abd: Not distended. MSK: No kyphoscoliosis. No joint deformities of the extremities. Ext: Warm and well perfused. No clubbing. No cyanosis. No edema. No sclerodactyly. No Raynaud's. Skin: No rash, eczema, urticaria, telangiectasia. Lymph: No adenopathy in neck, supra-clavicular fossae. Endo: No goiter. No exophthalmos, onycholysis. Neuro: Mental status normal. No tremor. DATA REVIEW: DATE: 03/24/18 FVC 3.06, 93% FEV1 2.60, 104% FEV1/FVC 0.85 CXR, 02/21/18 IMPRESSION: No acute radiographic abnormality. RESULT: Lines, tubes, and devices: ?None. Lungs and pleura: ?Calcified granuloma right upper lung zone. No consolidation. No pleural effusion. No pneumothorax. Cardiomediastinal silhouette: ?Normal cardiomediastinal silhouette. Other: ?Suture anchor left humeral head. I have personally and independently reviewed these CXR images and I concur with the findings as described. TO CT CHEST 02/24/10 Thre is an 8-mm calcified granuloma in the posterior right upper lobe with adjacent scarring. There is a 5-mm calcified granuloma in the left upper lobe. There are peripheral emphysematous blebs in the bilateral upper lobes. There are no pulmonary infiltrates. There are no pleural effusions. There are calcified mediastinal lymph nodes. There are calcified right hilar lymph nodes. There are calcified subcarinal hilar lymph nodes. I have NOT personally and independently reviewed the above chest CT images. TO IMPRESSION/RECOMMEND: I discussed the differential diagnosis of chronic cough: asthma, post nasal drip, gastro-esophageal reflux disease, medications, aspiration, malignancy, infections, cardiac disease, and other less common causes. Chronic bronchitis/COPD unlikely in absence of smoking history. Seasonality and recurrence suggest asthma. Nasal symptoms suggest allergic or non-allergic post nasal drip. Must keep gastroesophageal reflux in differential diagnosis, unless another cause is identified. - Check for asthma with Methacholine Inhalation Challenge. - Screen for allergy with IgE and eosinophil count. - Further recommendations to follow these results. I addressed the questions of the patient, and she expressed understanding and acceptance of my answers. Nadia Gil MD, [facility] [place] [facility] [address] [place] [id number] P: [phone] F: [phone] Addendum 03/25/2018: [facility] labs, 03/24/2018: Glucose BUN 13 Creat 0.83 Ca 9.4 Na 141 K 3.8 Cl 104 CO2 29 WBC 3.8 Eos% 2.6 Hgb 14.1 Hct 44.0 Plt 244 I have received and reviewed the outside records noted above. Nadia Gil MD, [facility] Observed: 03/24/2018 Status: COMPLETED Source: [place] 12:00 AM [facility] REPOSITORY Letter Text Mayra Mcnally Nadia Gil MD, [facility] [place] March 24, 2018 Antwon Licona MD RE: Mayra Mcnally : 1950 CC#: [id number] Dear Dr. Licona, It was my pleasure to evaluate your patient today in the [facility] I have enclosed a copy of the visit summary for your review and records. If you have any questions regarding this report, please feel free to contact me. Sincerely, Nadia Gil MD, [facility] [address] [place] [address] P: [phone] F: [phone] [email or web address] Enclosure EXTREMITY UPPER Observed: 02/23/2018 Status: F Source: [place] WITHOUT CONTRA 5:16 PM [facility] REPOSITORY [facility] Imaging Services [address] [place] [address] Extremity Upper without Contra MR#: [id number] Acct: [id number] Name: MAYRA MCNALLY Rep #: [id number] : 1950 F 68 From: Al Alvarado MD PCP: Antwon Licona Status: REG CLI Study: Extremity Upper without Contra Date of Exam: 02/23/18 Exam# [id number] Ordering Dr: AVERY KIRBY DO STUDY: CT RIGHT SHOULDER REASON FOR EXAM: Female, 68 years old. Right shoulder pain. Impingement. RADIATION DOSAGE (If Supplied By Facility): CTDIvol = ( 26.03 ) mGy, DLP = ( 508.91 ) mGycm TECHNIQUE: The patient was scanned in a multi detector CT scanner. High resolution transaxial imaging was performed without the administration of intravenous contrast material. Sagittal and coronal images were reconstructed. Individualized dose optimization techniques were used for this CT. COMPARISON: None. 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 There is decreased subacromial space consistent with chronic rotator cuff tear. Normal glenoid rim, neck and visualized scapula. There is flattening of the superior medial humeral head with possible reverse Hill-Sachs deformity. There is spurring of the inferior medial humeral head Normal coracoid process. Normal visualized lateral clavicle. There is arthrosis with spurring of the acromioclavicular articulation. There is a Type II morphology (curved) acromion, with a neutral orientation. Normal visualized muscles and soft tissue structures. There is right lung granuloma and calcified mediastinal and right hilar lymph nodes. CT/Extremity Upper without Contra IMPRESSION: Glenohumeral and acromioclavicular arthrosis with decreased subacromial space consistent with chronic rotator cuff tear. Electronically Signed: Al Alvarado MD at 17:07 EDT , Service support , CC: Antwon Licona; AVERY KIRBY Video Game Engineer: Signed PROGRESS Observed: 02/21/2018 Status: COMPLETED Source: [place] 1:08 PM [facility] REPOSITORY HNO ID: [id number] Author: Michi Avelar (Tech) Service: (none) Author Type: Director Of Application Development Type: Progress Notes Filed: 02/21/2018 1:08 PM Note Text: Radiology Service Progress Note PATIENT NAME: Mayra Mcnally DATE OF SERVICE: February 21, 2018 TIME: 1:08 PM PATIENT IDENTITY VERIFICATION COMPLETED USING TWO (2) METHODS: Patient confirmed name verbally and Date of . PATIENT GENDER DATA: Female. status: : No status: NO. PATIENT RELEVANT IMPLANT DATA REVIEWED: Not Applicable RADIOLOGY DEPARTMENT: General X-ray: Exam(s) Completed: Chest X-Ray PERIPHERAL IV DATA: Not applicable SIGNED BY: Michi Greenwood February 21, 2018 1:08 PM XR CHEST 2V FRONTAL/LAT Observed: 02/21/2018 Status: F Source: [place] 1:07 PM [facility] REPOSITORY * * *Final Report* * * DATE OF EXAM: Feb 21 2018 1:07PM WOX [id number] - XR CHEST 2V FRONTAL/LAT / PROCEDURE REASON: Cough * * * * Physician Interpretation * * * * EXAMINATION: CHEST RADIOGRAPH (2 VIEW FRONTAL and LATERAL) Clinical History: Cough MQ: XC2_5 Comparison: None. RESULT: Lines, tubes, and devices: None. Lungs and pleura: Calcified granuloma right upper lung zone. No consolidation. No pleural effusion. No pneumothorax. Cardiomediastinal silhouette: Normal cardiomediastinal silhouette. Other: Suture anchor left humeral head. IMPRESSION: No acute radiographic abnormality. Video Game Engineer: PSCPaulie Transcribe Date/Time: Feb 21 2018 1:22P Dictated by : BHUPENDRA RESTREPO MD This examination was interpreted and the report reviewed and electronically signed by: BHUPENDRA RESTREPO MD on Feb 21 2018 1:24PM EST [id number] PROGRESS Observed: 02/21/2018 Status: COMPLETED Source: [place] 11:58 AM [facility] REPOSITORY HNO ID: [id number] Author: Hilda Roldan Service: (none) Author Type: Nurse Practitioner Type: Progress Notes Filed: 02/21/2018 5:43 PM Note Text: Subjective HPI HPI Mayra Nieveser is a 68 year old female who presents today for CC of cough. This started 1 month ago, treated by pcp, rx doxycycline. Symptoms are worsened by nothing known. Risk factors gets this once a year. nonsmoker No new medications .No chief complaint on file. PAST MEDICAL HISTORY Diagnosis Date - Female stress incontinence - Hypercholesterolemia - Hypertension - Urethrocele(618.03) PAST SURGICAL HISTORY Procedure Laterality Date - REMV CATARACT EXTRACAP,INSERT LENS 1999 - REPAIR A-V ANEURYSM,PLASTIC - TOTAL KNEE REPLACEMENT 2007 right knee ALLERGIES Patient has no known allergies. MEDICATIONS VENTOLIN HFA 90 mcg/actuation inhaler oxybutynin (DITROPAN) 5 mg tablet Take 1 tablet by mouth twice daily. Omeprazole 40 mg capsule Take 1 capsule by mouth once daily. metoprolol tartrate, short acting, (LOPRESSOR) 100 mg tablet Take 1 tablet by mouth once daily. methotrexate 2.5 mg tablet Take 6 tablets by mouth once each week. On Wednesday. leucovorin calcium 10 mg tablet Take 1 tablet by mouth once each week. On Wednesday. ACEBUTOLOL 400 MG CAP once daily fosinopril sodium(MONOPRIL 20 MG TAB) once daily TRIAMTERENE-HYDROCHLOROTHIAZIDE 75 MG-50 MG TAB 1/2 daily aspirin(ADULT ASPIRIN EC LOW STRENGTH 81 MG TAB, DELAYED RELEASE) once daily CALCIUM 500 MG TAB once daily doxycycline hyclate (VIBRAMYCIN) 100 mg capsule Take 1 capsule by mouth twice daily. Benzonatate 200 mg capsule Take 1 capsule by mouth twice daily. omeprazole (PRILOSEC) 20 mg ORAL capsule Take one(1) capsule daily on empty stomach (break up pill before you take it) LOVASTATIN 40 MG TAB once daily No family history on file. Social History Substance Use Topics - Smoking status: Former Smoker - Smokeless tobacco: Never Used - Alcohol use Yes Review of Systems Constitutional: Negative for chills, fever and weight loss. HENT: Positive for congestion and sore throat. Negative for ear pain and nosebleeds. Respiratory: Positive for cough. Negative for shortness of breath and wheezing. Musculoskeletal: Negative for neck pain. Objective Blood pressure 110/76, pulse 81, temperature 36.1 ?C (97 ?F), temperature source Right Tympanic, resp. rate 20, weight 85.5 kg (188 lb 9.6 oz), SpO2 97 %. Physical Exam Constitutional: She is oriented to person, place, and time and well-developed, well-nourished, and in no distress. Non-toxic appearance. She does not have a sickly appearance. No distress. HENT: Head: Normocephalic and atraumatic. Right Ear: Hearing, tympanic membrane, external ear and ear canal normal. Left Ear: Hearing, tympanic membrane, external ear and ear canal normal. Nose: Nose normal. Mouth/Throat: Uvula is midline, oropharynx is clear and moist and mucous membranes are normal. Eyes: Conjunctivae and lids are normal. Pupils are equal, round, and reactive to light. Right eye exhibits no discharge. Left eye exhibits no discharge. No scleral icterus. Neck: Trachea normal and normal range of motion. Neck supple. Cardiovascular: Normal rate, regular rhythm and normal heart sounds. Pulmonary/Chest: Effort normal and breath sounds normal. Harsh, loose cough during exam. Lymphadenopathy: She has no cervical adenopathy. Neurological: She is alert and oriented to person, place, and time. Skin: No rash noted. She is not diaphoretic. ASSESSMENT/PLAN: 1. Cough - ICD9: 786.2, ICD10: R05 -will call radiologist read of xray -If you experience chest pain/shortness of breath go to ER - XR CHEST 2V FRONTAL/LAT - Dictated by : BHUPENDRA RESTREPO MD Impression IMPRESSION: No acute radiographic abnormality. Prescription instructions reviewed with patient as applicable. Patient advised if symptoms do not improve or if symptoms worsen sooner, to contact the office for further evaluation by their primary care physician. Potential red flag symptoms discussed with the patient. Reviewed appropriate action plan to take if red flag symptoms occur. Patient agreeable to treatment plan. Hilda Roldan APRN.CNP CNOV Observed: 02/21/2018 Status: COMPLETED Source: [place] 11:45 AM [facility] REPOSITORY Office Visit ([facility]) MAYRA MCNALLY ([id number]) 1950 F Date Time Provider Department 02/21/18 11:45 AM HILDA ROLDAN ([facility]) [facility] During your visit today, we recorded the following information about you: Temperature Pulse Respiration Blood pressure 97 degrees 81/minute 20/minute 110/76 Weight 85.5 kg Hilda Roldan APRN.CNP 02/21/2018 5:43 PM Signed Subjective HPI HPI Mayra Mcnally is a 68 year old female who presents today for CC of cough. This started 1 month ago, treated by pcp, rx doxycycline. Symptoms are worsened by nothing known. Risk factors gets this once a year. nonsmoker No new medications .No chief complaint on file. PAST MEDICAL HISTORY Diagnosis Date - Female stress incontinence - Hypercholesterolemia - Hypertension - Urethrocele(618.03) PAST SURGICAL HISTORY Procedure Laterality Date - REMV CATARACT EXTRACAP,INSERT LENS 1999 - REPAIR A-V ANEURYSM,PLASTIC - TOTAL KNEE REPLACEMENT 2007 right knee ALLERGIES Patient has no known allergies. MEDICATIONS VENTOLIN HFA 90 mcg/actuation inhaler oxybutynin (DITROPAN) 5 mg tablet Take 1 tablet by mouth twice daily. Omeprazole 40 mg capsule Take 1 capsule by mouth once daily. metoprolol tartrate, short acting, (LOPRESSOR) 100 mg tablet Take 1 tablet by mouth once daily. methotrexate 2.5 mg tablet Take 6 tablets by mouth once each week. On Wednesday. leucovorin calcium 10 mg tablet Take 1 tablet by mouth once each week. On Wednesday. ACEBUTOLOL 400 MG CAP once daily fosinopril sodium(MONOPRIL 20 MG TAB) once daily TRIAMTERENE-HYDROCHLOROTHIAZIDE 75 MG-50 MG TAB 1/2 daily aspirin(ADULT ASPIRIN EC LOW STRENGTH 81 MG TAB, DELAYED RELEASE) once daily CALCIUM 500 MG TAB once daily doxycycline hyclate (VIBRAMYCIN) 100 mg capsule Take 1 capsule by mouth twice daily. Benzonatate 200 mg capsule Take 1 capsule by mouth twice daily. omeprazole (PRILOSEC) 20 mg ORAL capsule Take one(1) capsule daily on empty stomach (break up pill before you take it) LOVASTATIN 40 MG TAB once daily No family history on file. Social History Substance Use Topics - Smoking status: Former Smoker - Smokeless tobacco: Never Used - Alcohol use Yes Review of Systems Constitutional: Negative for chills, fever and weight loss. HENT: Positive for congestion and sore throat. Negative for ear pain and nosebleeds. Respiratory: Positive for cough. Negative for shortness of breath and wheezing. Musculoskeletal: Negative for neck pain. Objective Blood pressure 110/76, pulse 81, temperature 36.1 ?C (97 ?F), temperature source Right Tympanic, resp. rate 20, weight 85.5 kg (188 lb 9.6 oz), SpO2 97 %. Physical Exam Constitutional: She is oriented to person, place, and time and well-developed, well-nourished, and in no distress. Non-toxic appearance. She does not have a sickly appearance. No distress. HENT: Head: Normocephalic and atraumatic. Right Ear: Hearing, tympanic membrane, external ear and ear canal normal. Left Ear: Hearing, tympanic membrane, external ear and ear canal normal. Nose: Nose normal. Mouth/Throat: Uvula is midline, oropharynx is clear and moist and mucous membranes are normal. Eyes: Conjunctivae and lids are normal. Pupils are equal, round, and reactive to light. Right eye exhibits no discharge. Left eye exhibits no discharge. No scleral icterus. Neck: Trachea normal and normal range of motion. Neck supple. Cardiovascular: Normal rate, regular rhythm and normal heart sounds. Pulmonary/Chest: Effort normal and breath sounds normal. Harsh, loose cough during exam. Lymphadenopathy: She has no cervical adenopathy. Neurological: She is alert and oriented to person, place, and time. Skin: No rash noted. She is not diaphoretic. ASSESSMENT/PLAN: 1. Cough - ICD9: 786.2, ICD10: R05 -will call radiologist read of xray -If you experience chest pain/shortness of breath go to ER - XR CHEST 2V FRONTAL/LAT - Dictated by : BHUPENDRA RESTREPO MD Impression IMPRESSION: No acute radiographic abnormality. Prescription instructions reviewed with patient as applicable. Patient advised if symptoms do not improve or if symptoms worsen sooner, to contact the office for further evaluation by their primary care physician. Potential red flag symptoms discussed with the patient. Reviewed appropriate action plan to take if red flag symptoms occur. Patient agreeable to treatment plan. Hilda Roldan APRN.TERESA Roldan APRN.CNP 02/21/2018 1:10 PM Signed ASSESSMENT/PLAN: 1. Cough - ICD9: 786.2, ICD10: R05 -will call radiologist read of xray -If you experience chest pain/shortness of breath go to ER - XR CHEST 2V FRONTAL/LAT Referring Provider: SELF [[id number]] Allergies As of Date: 02/21/2018 (No Known Allergies) Date Reviewed: 02/21/2018 Reviewed by: Hilda (Teresa) - Fully Assessed Primary Visit Diagnosis:Bronchitis [J40] Other Visit Diagnosis:Cough [R05] Order(s):XR CHEST 2V FRONTAL/LAT [[id number]] Order #: [id number] #:[id number] azithromycin (ZITHROMAX Z-ANNIE) 250 mg tabletTake 2 tablets day one, then, 1 tablet daily until gone.Disp: 1 PackageRfl: 0 predniSONE (DELTASONE) 20 mg tabletTake 2 tablets by mouth once daily for 5 days.Disp: 10 tabletRfl: 0 Prescriptions as of 02/21/2018 Sig: VENTOLIN HFA 90 MCG/ACTUATION* OXYBUTYNIN CHLORIDE 5 MG TABL* Take 1 tablet by mouth twice * OMEPRAZOLE 40 MG CAPSULE,OSVALDO* Take 1 capsule by mouth once * METOPROLOL TARTRATE 100 MG TA* Take 1 tablet by mouth once d* METHOTREXATE SODIUM 2.5 MG TA* Take 6 tablets by mouth once * LEUCOVORIN CALCIUM 10 MG TABL* Take 1 tablet by mouth once e* * ACEBUTOLOL 400 MG CAPSULE once daily * MONOPRIL 20 MG TABLET once daily * TRIAMTERENE 75 MG-HYDROCHLORO* 1/2 daily * ADULT ASPIRIN EC LOW STRENGTH* once daily * CALCIUM 500 MG TABLET once daily BENZONATATE 200 MG CAPSULE Take 1 capsule by mouth twice* AZITHROMYCIN 250 MG TABLET Take 2 tablets day one, then,* PREDNISONE 20 MG TABLET Take 2 tablets by mouth once * OMEPRAZOLE 20 MG CAPSULE,OSVALDO* Take one(1) capsule daily on * * LOVASTATIN 40 MG TABLET once daily Problem List As Of Date 02/21/2018 Noted Resolved 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 Cough - ICD9: 786.2, ICD10: R05 -will call radiologist read of xray -If you experience chest pain/shortness of breath go to ER - XR CHEST 2V FRONTAL/LAT Prescriptions ordered this encounter Disp Refills Start End AZITHROMYCIN 250 MG TABLET 1 Pa* 0 02/21/2018 02/26/2018 Sig: Take 2 tablets day one, then, 1 tablet daily until gone. PREDNISONE 20 MG TABLET 10 t* 0 02/21/2018 02/26/2018 Route: ORAL Sig: Take 2 tablets by mouth once daily for 5 days. Medications Discontinued During This Encounter doxycycline hyclate (VIBRAMYCIN) 100* 01/18/2018 02/21/2018 Class: Historical Med Route: ORAL Sig: Take 1 capsule by mouth twice daily. Disc: Discontinued by another Health Care Provider Encounter Status:Closed by HILDA ROLDAN CNP on 02/21/18 DOWNTIME REPORT Observed: 01/06/2018 Status: F Source: [place] 1:17 PM [facility] REPOSITORY [facility] Medical Records Department [address] [place] [address] Downtime Report MR#: [id number] Acct: [id number] Name: MAYRA MCNALLY Rep #: [id number] : 1950 67 From: Jerry Carrington PCP: Antwon Licona Status: REG CLI This patient was seen during an EMR downtime December 20, 2017 - December 27, 2017. This patient may have a combination of paper and electronic documentation or all paper documentation. All documentation is viewable within the e-chart portion of [employer] for each patient visit. COMPREHENSIVE METABOLIC Collected: 12/27/2017 Status: F Source: [facility] 12:47 PM [facility] REPOSITORY TYPE CODE TESTS RESULT OUT OF RANGE REFERENCE UNITS LAB L501.0100 74-106 mg/dL Normal GLU 88 Result Comment: Please note revised GLUCOSE reference range effective 2017. LAB L501.1000 7-18 mg/dL Normal BUN 13 LAB L501.1100 0.55-1.02 mg/dL Normal CREAT,SERUM 0.88 Result Comment: The validity of the calculated GFR AND GFRAA in patients over 70 years has not been determined. Clinical correlation is essential. LAB L501.1110 >60 mL/min Normal EST GFR 68 Result Comment: Non- GFR Calc LAB L501.1115 >60 mL/min Normal EST GFR - AA 83 Result Comment: GFR Calc LAB L501.1300 10-20 RATIO Normal BUN/CRE 14.8 LAB L501.1500 6.4-8.2 g/dL T Normal PROT 7.2 LAB L501.1800 3.2-5.0 g/dL Normal ALB 3.7 LAB L501.1950 2.2-4.2 g/dL Normal GLOB 3.5 LAB L501.2000 0.9-2.4 RATIO Normal A/G 1.1 LAB L501.2200 8.5-10.1 mg/dL CA Normal 9.4 LAB L501.4100 15-37 U/L Normal AST 24 LAB L501.4305 45-117 U/L Normal ALK P 45 LAB L501.4405 13-56 U/L Normal ALT 22 LAB L501.4600 0.20-1.00 mg/dL T Normal BILI 0.70 LAB L501.5300 136-145 mmol/L NA Normal 142 LAB L501.5600 3.5-5.1 mmol/L K Normal 3.6 LAB L501.5900 98-107 mmol/L CL Normal 105 LAB L501.6100 21.0-32.0 mmol/L Normal CO2 29.0 LAB L501.6200 5-15 Normal GAP 8 Performed By: #### L500.4050 #### [facility] [address] [place] [address]. [place], [address] CBC W/DIFF, AUTOMATED Collected: 12/27/2017 Status: F Source: [place] 12:47 PM [facility] REPOSITORY TYPE CODE TESTS RESULT OUT OF RANGE REFERENCE UNITS LAB L100.1000 4.4-11.0 K/mm3 Normal WBC 5.7 LAB L100.1200 4.2-5.4 M/mm3 Low RBC 4.06 LAB L100.1300 12.0-15.0 g/dl Normal HGB 14.1 LAB L100.1400 37-47 % Normal HCT 42.4 LAB L100.1500 81-99 fL High MCV 104.4 LAB L100.1600 27.0-32.0 pg High MCH 34.7 LAB L100.1700 32-36 g/gl Normal MCHC 33.3 LAB L100.1810 11.6-14.6 % Normal RDW CV 14.6 LAB L100.1820 35.1-43.9 fl High RDW SD 55.6 LAB L100.1900 150-450 K/mm3 Normal PLT 219 LAB L100.2000 6.2-12.0 fl Normal MPV 11.1 LAB L100.2100 47-70 % Normal NEUT% 63.5 LAB L100.2200 19-41 % Normal LY% 21.3 LAB L100.2300 0-10 % High MONO% 11.5 LAB L100.2400 0-5 % Normal EO% 2.8 LAB L100.2500 0-1 % Normal BASO% 0.7 LAB L100.2550 0.0-0.9 % Normal IM GRAN % 0.200 Result Comment: IG% - Immature Granulocytes (promyelocytes, myelocytes and metamyelocytes) > 1% indicates that a LEFT SHIFT is Present. LAB L100.2620 2.0-7.7 X10 3/uL Normal Absolute Neut 3.7 LAB L100.2720 0.83-4.51 X10 3/ul Normal Absolute Lymph 1.22 Performed By: #### L100.0100 #### [facility] [address] [place], [address] CBC W/DIFF, AUTOMATED Collected: 10/12/2017 Status: F Source: [place] 11:13 AM [facility] REPOSITORY TYPE CODE TESTS RESULT OUT OF RANGE REFERENCE UNITS LAB L100.1000 4.4-11.0 K/mm3 Normal WBC 4.9 LAB L100.1200 4.2-5.4 M/mm3 Low RBC 4.19 LAB L100.1300 12.0-15.0 g/dl Normal HGB 14.4 LAB L100.1400 37-47 % Normal HCT 42.9 LAB L100.1500 81-99 fL High MCV 102.4 LAB L100.1600 27.0-32.0 pg High MCH 34.4 LAB L100.1700 32-36 g/gl Normal MCHC 33.6 LAB L100.1810 11.6-14.6 % Normal RDW CV 14.5 LAB L100.1820 35.1-43.9 fl High RDW SD 53.6 LAB L100.1900 150-450 K/mm3 Normal PLT 234 LAB L100.2000 6.2-12.0 fl Normal MPV 11.2 LAB L100.2100 47-70 % Normal NEUT% 61.0 LAB L100.2200 19-41 % Normal LY% 24.7 LAB L100.2300 0-10 % High MONO% 10.5 LAB L100.2400 0-5 % Normal EO% 2.8 LAB L100.2500 0-1 % Normal BASO% 1.0 LAB L100.2550 0.0-0.9 % Normal IM GRAN % 0.000 Result Comment: IG% - Immature Granulocytes (promyelocytes, myelocytes and metamyelocytes) > 1% indicates that a LEFT SHIFT is Present. LAB L100.2620 2.0-7.7 X10 3/uL Normal Absolute Neut 3.0 LAB L100.2720 0.83-4.51 X10 3/ul Normal Absolute Lymph 1.22 Performed By: #### L100.0100 #### [facility] [address] [place], [address] COMPREHENSIVE METABOLIC Collected: 10/12/2017 Status: F Source: [facility] 11:13 AM [facility] REPOSITORY TYPE CODE TESTS RESULT OUT OF RANGE REFERENCE UNITS LAB L501.0100 74-106 mg/dL Normal GLU 90 Result Comment: Please note revised GLUCOSE reference range effective 2017. LAB L501.1000 7-18 mg/dL Normal BUN 15 LAB L501.1100 0.55-1.02 mg/dL Normal CREAT,SERUM 0.75 Result Comment: The validity of the calculated GFR AND GFRAA in patients over 70 years has not been determined. Clinical correlation is essential. LAB L501.1110 >60 mL/min Normal EST GFR 82 Result Comment: Non- GFR Calc LAB L501.1115 >60 mL/min Normal EST GFR - AA 99 Result Comment: GFR Calc LAB L501.1300 10-20 RATIO High BUN/CRE 20.1 LAB L501.1500 6.4-8.2 g/dL T Normal PROT 7.0 LAB L501.1800 3.2-5.0 g/dL Normal ALB 3.5 LAB L501.1950 2.2-4.2 g/dL Normal GLOB 3.5 LAB L501.2000 0.9-2.4 RATIO Normal A/G 1.0 LAB L501.2200 8.5-10.1 mg/dL CA Normal 8.7 LAB L501.4100 15-37 U/L Normal AST 18 LAB L501.4305 45-117 U/L Normal ALK P 55 LAB L501.4405 13-56 U/L Normal ALT 19 Result Comment: Please note revised ALT reference range effective 2017. LAB L501.4600 0.20-1.00 mg/dL Normal T BILI 0.70 LAB L501.5300 136-145 mmol/L Normal NA 142 LAB L501.5600 3.5-5.1 mmol/L Normal K 3.6 LAB L501.5900 98-107 mmol/L Normal CL 107 LAB L501.6100 21.0-32.0 mmol/L Normal CO2 28.0 LAB L501.6200 5-15 Normal GAP 7 Performed By: #### L500.4050 #### [facility] [address] [place], [address] ALLERGIES ALLERGIES DATE TYPE / CODE NAME / CODE REACTION SEVERITY SOURCE 07/07/2018 Drug No Known Unknown [facility] Allergy/416 Allergies/C29250 [facility] 957644(SNOM 0388(RXNORM) Repository ED CT) Drug NO KNOWN [facility] Class/27706 ALLERGIES Main [place] 1003(SNOMED Repository CT) ENCOUNTERS ENCOUNTERS ADMIT/DISCHARGE ACCOUNT ADMITTING ENCOUNTER LOCATION SOURCE NUMBER CLASS 07/19/2018 [id number] Ambulatory [facility] ing:MTLAB Repository 07/15/2018/07/15/20 [id number] Ambulatory BMSBuilding:Paulie Ramos 18 [facility] [place] 07/07/2018/07/07/20 [id number] Ambulatory BMSBuilding:Paulie Ramos 18 [facility] [place] 06/30/2018 [id number] Ambulatory BMSBuilding:Paulie Ramos MS.[facility] [place] 06/30/2018/06/30/20 [id number] Ambulatory [address] ing:SDCRoom: Repository AC15 06/29/2018 [id number] Ambulatory BMSBuilding:Paulie Ramos MS.CF[facility] [place] 06/21/2018/06/21/20 [id number] [address] [facility] ing:MTLAB Repository 06/01/2018/06/03/20 [id number] [place], Inpatient [facility] [address] RUSTildin [place] g:Ran5BRoom: Repository 5M196Mcv: 01 05/16/2018 [id number] Ambulatory [facility] [place] g:H.PAT Repository 05/04/2018/05/04/20 [id number] Ambulatory BMSBuilding:B Richard 18 MS.S [facility] Repository 04/19/2018 [id number] Ambulatory [facility] g:H.ELS Repository 04/13/2018 [id number] Ambulatory [facility] Repository 04/08/2018 [id number] Ambulatory [facility] g:H.ELS Repository 04/05/2018 [id number] Ambulatory BMSBuilding:B Arnett MS.W [facility] Hospital Repository 04/05/2018 [id number] Ambulatory [facility] g:H.PAT Repository 03/30/2018 [id number] Ambulatory BMSBuilding:B Richard MS.[facility] Hospital Repository 03/24/[id number] [facility] Hospital ing:MTLAB Repository 03/24/2018/03/28/20 [id number] Ambulatory [address] Repository 03/24/2018/03/29/20 [id number] Ambulatory [address] Repository 02/23/2018 [id number] [facility] Repository 02/21/2018/02/22/20 [id number] Ambulatory [address] Repository 02/21/2018/02/23/20 [id number] Ambulatory [address] Repository 12/27/[id number] [facility] Hospital ing:MTLAB Repository 10/12/[id number] [facility] Hospital ing:MTLAB Repository PAYERS PAYERS ENCOUNTER GUARANTOR PAYER SUBSCRIBER SOURCE 07/19/2018 DEVORA Claire Primary MAYRA F Arnett [id number] S Insurance:HUMANA FATZINGERDOB: Community [place] PPOPolicy [id number] Number: Repository [address]Kjo: 330 [id number] [phone] () Date:2623-24-32JJ [address]WP: 07/19/2018 Secondary NOT GIVENUNK Richard Insurance:SELF PAY [facility] Number: Effective Repository Date:2018-07-18 07/15/2018 DEVORA Claire Primary MAYRA F Richard [id number] S Insurance:HUMANA FATZINGERDOB: Community [place] MEDICARE PPOPolicy [id number] Number: Repository [address]Yre: 330 [id number] [phone] () Date:5598-12-95GM [address]4601WP: 07/15/2018 Secondary NOT GIVENUNK Richard Insurance:SELF PAY [facility] Number: Effective Repository Date:2018-07-15 07/07/2018 DEVORA Claire Primary MAYRA F Richard [id number] S Insurance:HUMANA FATZINGERDOB: Community [place] PPOPolicy [id number] [place] Number: Repository [address]Jdy: 330 [id number] [phone] (HP) Date:9397-82-86EG [address] [address]GP: 07/07/2018 Secondary NOT GIVENUNK Richard Insurance:SELF PAY [facility] Number: Effective Repository Date:2018-07-07 06/30/2018 DEVORA Claire Primary MAYRA F Richard [id number] S Insurance:HUMANA FATZINGERDOB: Community [place] PPOPolicy [id number] [place] Number: Repository [address]Fjq: (330 [id number] [phone] (HP) Date:9760-27-36FK [address] [address]AZ: 06/30/2018 Secondary NOT GIVENUNK Richard Insurance:SELF PAY [facility] Number: Effective Repository Date:2018-06-30 06/30/2018 DEVORA Claire Primary MAYRA F Arnett [id number] S Insurance:HUMANA FATZINGERDOB: Community [place] PPOPolicy [id number] [place] Number: Repository [address]Kiw: (330) [id number] [phone] () Date:4369-42-12RR [address] [address]UR: 06/30/2018 Secondary NOT GIVENUNK Richard Insurance:SELF PAY [facility] Number: Effective Repository Date:2018-06-06 06/29/2018 DEVORA Claire Primary MAYRA F Arnett [id number] S Insurance:HUMANA FATZINGERDOB: Community [place] PPOPolicy [id number] Springs Medical [facility] [place] Number: Repository [address]Mvi: (330) [id number] [phone] () Date:2244-07-81AY [address] [address]YA: 06/29/2018 Secondary NOT GIVENUNK Arnett Insurance:SELF PAY [facility] Number: Effective Repository Date:2018-06-29 06/21/2018 DEVORA Claire Primary MAYRA F Richard [id number] S Insurance:HUMANA FATZINGERDOB: Community [place] PPOPolicy [id number] Springs Medical [facility] [place] Number: Repository [address]Rdk: (330) [id number] [phone] () Date:1424-80-45LT [address] [address]AQ: 06/21/2018 Secondary NOT GIVENUNK Richard Insurance:SELF PAY [facility] Number: Effective Repository Date:2018-06-21 06/01/2018 MAYRA F Primary MAYRA F [facility] [id number] S Insurance:[facility]ERSt[facility] [place] Number: [address]Ior: (330 [id number] [phone] (HP) Date:2117-84-52YM [address] [address]WS: 06/01/2018 Secondary NOT GIVENUNK [facility] Insurance:MEDICARE [facility] [place] INDIRECT MED EDPolicy Repository Number: [id number] Date:[address]QGFQ CODE [id number], [place] [address]GX: 05/16/2018 MAYRA F Primary MAYRA F [facility] [id number] S Insurance:HUMANA FATZINGERJackson [facility] CenterO [facility] Repository [place], [place] Number: [address]Uem: (330) [id number] [phone] (HP) Date:1749-14-47OA [address] [address]FO: 05/04/2018 Devora A Primary MAYRA F Richard [id number] S Insurance:HUMANA FATZINGBANNER BAYWOOD MEDICAL CENTERB: Community [place] MEDICARE PPOPolicy [address] [place] Number: Repository [address]Ple: (330 [id number] [phone] (HP) Date:3284-97-54NG [address] [address]WQ: 05/04/2018 Secondary NOT GIVENUNK Richard Insurance:SELF PAY [facility] Number: Effective Repository Date:2018-05-04 04/19/2018 MAYRA F Primary MAYRA F [facility] [id number] S Insurance:HUMANA FATZINGERJackson North Medical CenterO [facility] [place] Number: [id number]: [phone]) [id number] [phone] (HP) Date:8490-16-63IN[place] 48[address]WP: 04/08/2018 MAYRA F Primary MAYRA F [facility] [id number] S Insurance:HUMANA FATZINGERUNK [facility] Repository [place], [place] Number: [address]Owi: 330 [id number] [phone] (HP) Date:5210-09[place]36[place] [address]WP: 04/05/2018 Devora A Primary MAYRA F Arnett [id number] S Insurance:HUMANA FATZINGERDOB: Community [place] MEDICARE PPOPolicy [id number] [place] Number: Repository [address]Mum: (330) [id number] [phone] (HP) Date:3839-71-31NX[address]4601WP: 04/05/2018 Secondary NOT GIVENUNK Arnett Insurance:SELF PAY [facility] Number: Effective Repository Date:2018-02-15 04/05/2018 MAYRA F Primary MAYRA F [facility] [id number] S Insurance:HUMANA FATZINGERUNK [facility] Repository [place], [place] Number: [id number]: (330 [id number] [phone] (HP) Date:6472-28-11ZMPatrick [place] 48[address]WP: 03/30/2018 Devora A Primary MAYRA F Arnett [id number] S Insurance:HUMANA FATZINGERDOB: Community [place] MEDICARE PPOPolicy [id number] [facility] [place] Number: Repository [address]Kei: [phone]) [id number] [phone]) Date:7828-51-20NZ [address] [address]SC: 03/30/2018 Secondary NOT GIVENUNK Richard Insurance:SELF PAY [facility] Number: Effective Repository Date:2018-03-30 03/24/2018 Devora A Primary MAYRA F Richard [id number] S Insurance:HUMANA FATZINGERDOB: Community [place] MEDICARE PPOPolicy [id number] [place] Number: Repository [address]Pvi: 330 [id number] [phone] () Date:3092-77-94[place] [address]WP: 03/24/2018 Secondary NOT GIVENUNK Arnett Insurance:SELF PAY [facility] Number: Effective Repository Date:2018-03-24 02/23/2018 Devora A Primary MAYRA F Richard [id number] S Insurance:HUMANA FATZINGERDOB: Community [place] MEDICARE PPOPolicy [id number] [place] Number: Repository [address]Epc: 330 [id number] [phone] (HP) Date:7335-97-32Q[place] [address]WP: 02/23/2018 Secondary NOT GIVENUNK Richard Insurance:SELF PAY [facility] Number: Effective Repository Date:2018-02-01 12/27/2017 Devora A Primary MAYRA F Richard [id number] S Insurance:HUMANA FATZINGERDOB: Community [place] MEDICARE PPOPolicy [id number] [place] Number: Repository [address]Xfb: (330 [id number] [phone] (HP) Date:6829-50-84YT [address] [address]LO: 12/27/2017 Secondary NOT GIVENUNK Richard Insurance:SELF PAY [facility] Number: Effective Repository Date:2017-12-27 10/12/2017 Devora A Primary MAYRA F Richard [id number] Insurance:HUMANA FATZINGERDOB: Community [place] MEDICARE PPOPolicy [id number] Number: Repository [address]Lnm: (330 [id number] [phone] () Date:7185-73-28GK [address] [address]YDXVRNQXM, [place] [address]RL: 10/12/2017 Secondary NOT GIVENUNK Richard Insurance:SELF PAY [facility]: Effective Repository Date:2017-10-12
== END 2018-06-30 10:51 | disposition home or self-care (01) ==
LOC: SDC 05:56 → AC 05:58
PROVIDERS: Referring Provider Surgery; Visit Provider Surgery
PROC: (CPT 11421; principal; 2018-06-30 07:45)
DX: L57.0 Actinic keratosis (principal); L85.9 Epidermal thickening, unspecified; L57.8 Other skin changes due to chronic exposure to nonionizing radiation; I10 Essential (primary) hypertension; E78.00 Pure hypercholesterolemia, unspecified; M06.9 Rheumatoid arthritis, unspecified; Z79.82 Long term (current) use of aspirin; Z87.891 Personal history of nicotine dependence; Z79.51 Long term (current) use of inhaled steroids; Z79.899 Other long term (current) drug therapy
CPT/HCPCS: 11421; 14020; 15240; 88305; J7120

== ENCOUNTER → 2018-09-29 10:14 | Outpatient (CLI) | payer MEDICARE, SELFPAY ==
[2018-07-15 11:10] VITALS: BMI 31.4
[2018-09-29 12:23] LABS: Absolute Lymphocyte Count 1.22 X10^3/ul (0.83-4.51); Absolute Neutrophil Count 2.9 X10^3/uL (2.0-7.7); Basophil# 0.04 X10^3/uL; Basophil% 0.8 % (0-1); Eosinophil# 0.15 X10^3/uL; Hematocrit 44.4 % (37-47); Lymphocyte # 1.22 X10^3/ul (4.0); Lymphocyte % 24.7 % (19-41); Mean Corp Hgb Conc 31.5 g/gl (32-36); Mean Corpuscular Hgb 31.9 pg (27.0-32.0); Mean Corpuscular Volume 101.1 fL (81-99); Monocyte# 0.66 X10^3/uL; Monocyte% 13.4 % (0-10); Neutrophil # 2.86 X10^3/uL (2.7-7.7); Neutrophil % 58.1 % (47-70); Platelet Count 256 K/mm3 (150-450); RBC Distribution Width CV 15.2 % (11.6-14.6); RBC Distribution Width SD 56.1 fl (35.1-43.9); Red Blood Count 4.39 M/mm3 (4.2-5.4); White Blood Count 4.9 K/mm3 (4.4-11.0)
[2018-09-29 12:27] LABS: POSITIVE COUNT NO; POSITIVE DIFFERENTIAL NO; POSITIVE MORPHOLOGY NO
[2018-09-29 12:37] LABS: ALB/GLOB Ratio 1.1 RATIO (0.9-2.4); AST(SGOT) 19 U/L (15-37); Alanine Aminotransfer ALT/SGPT 18 U/L (13-56); Albumin, Serum 3.7 g/dL (3.2-5.0); Alkaline Phosphatase 48 U/L (45-117); Anion Gap 6 (5-15); BUN 14 mg/dL (7-18); BUN/Creat Ratio 16.4 RATIO (10-20); Calcium,Total 9.5 mg/dL (8.5-10.1); Chloride 104 mmol/L (98-107); Creatinine, Serum 0.86 mg/dL (0.55-1.02); EST Glomerular Filtration Rate 70 mL/min (>60); Est Glom Filt Rate - Afr Amer 85 mL/min (>60); Globulin 3.5 g/dL (2.2-4.2); Glucose 93 mg/dL (74-106); Potassium 3.7 mmol/L (3.5-5.1); Protein, Total 7.2 g/dL (6.4-8.2); Sodium Level 137 mmol/L (136-145)
== END ==
PROVIDERS: Referring Provider Internal Medicine Rheumatology; Visit Provider Internal Medicine Rheumatology
DX: M06.9 Rheumatoid arthritis, unspecified (principal); M21.40 Flat foot [pes planus] (acquired), unspecified foot; I10 Essential (primary) hypertension; E78.5 Hyperlipidemia, unspecified; Z79.899 Other long term (current) drug therapy
CPT/HCPCS: 36415; 80053; 85025

== ENCOUNTER → 2018-12-27 | Outpatient (CLI) | payer MEDICARE, SELFPAY ==
[2018-10-13 13:52] VITALS: BMI 31.4
[2018-12-27 14:20] LABS: Absolute Lymphocyte Count 1.59 X10^3/ul (0.83-4.51); Absolute Neutrophil Count 5.7 X10^3/uL (2.0-7.7); Basophil# 0.04 X10^3/uL; Basophil% 0.5 % (0-1); Eosinophil# 0.16 X10^3/uL; Eosinophils% 1.9 % (0-5); Hematocrit 40.9 % (37-47); Hemoglobin 13.5 g/dl (12.0-15.0); Lymphocyte # 1.59 X10^3/ul (4.0); Lymphocyte % 18.8 % (19-41); Mean Corpuscular Hgb 32.5 pg (27.0-32.0); Mean Corpuscular Volume 98.3 fL (81-99); Mean Platelet Vol. 11.6 fl (6.2-12.0); Monocyte# 0.93 X10^3/uL; Neutrophil # 5.74 X10^3/uL (2.7-7.7); Neutrophil % 67.7 % (47-70); Platelet Count 270 K/mm3 (150-450); RBC Distribution Width CV 14.4 % (11.6-14.6); RBC Distribution Width SD 50.2 fl (35.1-43.9); Red Blood Count 4.16 M/mm3 (4.2-5.4); White Blood Count 8.5 K/mm3 (4.4-11.0)
[2018-12-27 14:21] LABS: POSITIVE COUNT NO; POSITIVE DIFFERENTIAL NO; POSITIVE MORPHOLOGY NO
[2018-12-27 14:33] LABS: ALB/GLOB Ratio 0.9 RATIO (0.9-2.4); AST(SGOT) 19 U/L (15-37); Alanine Aminotransfer ALT/SGPT 23 U/L (13-56); Albumin, Serum 3.4 g/dL (3.2-5.0); Alkaline Phosphatase 49 U/L (45-117); Anion Gap 8 (5-15); BUN 17 mg/dL (7-18); BUN/Creat Ratio 19.3 RATIO (10-20); Calcium,Total 9.6 mg/dL (8.5-10.1); Chloride 103 mmol/L (98-107); Creatinine, Serum 0.88 mg/dL (0.55-1.02); EST Glomerular Filtration Rate 68 mL/min (>60); Est Glom Filt Rate - Afr Amer 82 mL/min (>60); Globulin 3.7 g/dL (2.2-4.2); Glucose 82 mg/dL (74-106); Potassium 3.6 mmol/L (3.5-5.1); Protein, Total 7.1 g/dL (6.4-8.2); Sodium Level 140 mmol/L (136-145)
== END | disposition home or self-care (01) ==
LOC: MTLAB 11:51
PROVIDERS: Referring Provider Internal Medicine Rheumatology; Visit Provider Internal Medicine Rheumatology
DX: M05.70 Rheumatoid arthritis with rheumatoid factor of unspecified site without organ or systems involvement (principal); M21.40 Flat foot [pes planus] (acquired), unspecified foot; I10 Essential (primary) hypertension; E78.5 Hyperlipidemia, unspecified; Z79.899 Other long term (current) drug therapy
CPT/HCPCS: 36415; 80053; 85025

== ENCOUNTER → 2019-01-20 | Outpatient (CLI) | payer MEDICARE, SELFPAY ==
[2018-10-13 13:52] VITALS: BMI 31.4
--- NOTE | 2019-01-20 11:37 | BI_ITS ---
MAMMOGRAPHY - BILATERAL SCREENING REASON FOR EXAM: Female, 68 years old. Routine annual screening examination. PERTINENT HISTORY: Non-contributory. TECHNIQUE: Digital bilateral breast rafa (3D mammographic acquisition) in the CC and MLO projections. 2-D mediolateral oblique (MLO) and craniocaudad (CC) views of both breasts were obtained. CAD: Full Field Digital Mammography with Computer Added Detection was performed. COMPARISON: Comparison is made with prior study dated May 06, 2017 and October 10, 2015. FINDINGS: Breast Composition: There are scattered areas of fibroglandular density. There are no dominant masses or suspicious calcifications. No other significant abnormalities are identified. There has been no significant change since the prior study. BI/SCREEN MAMM (CAD) W/RAFA BILAT IMPRESSION: Stable bilateral screening mammogram. Yearly follow-up mammogram recommended. (A) ASSESSMENT CATEGORY: BIRADS Category 1: Negative. A letter regarding these results will be sent to the patient by the facility within 30 days. Approximately 10% of breast cancers are not detected by mammography. A normal mammogram should not delay biopsy of a clinically suspicious abnormality. [id number] Electronically Signed: Reji Jaramillo, at 13:17 EDT , Service support ,
== END | disposition home or self-care (01) ==
LOC: OPBI 11:35
PROVIDERS: Referring Provider Family Medicine; Visit Provider Family Medicine
DX: Z12.31 Encounter for screening mammogram for malignant neoplasm of breast (principal)
CPT/HCPCS: 77063; 77067

== ENCOUNTER → 2019-03-21 | Outpatient (CLI) | payer MEDICARE, SELFPAY ==
[2018-10-13 13:52] VITALS: BMI 31.4
[2019-03-21 15:26] LABS: Absolute Lymphocyte Count 1.34 X10^3/uL (0.83-4.51); Basophil# 0.06 X10^3/uL; Eosinophils% 3.3 % (0-5); Hematocrit 41.4 % (37-47); Hemoglobin 13.2 g/dL (12.0-15.0); Lymphocyte # 1.34 X10^3/ul (4.0); Lymphocyte % 21.8 % (19-41); Mean Corp Hgb Conc 31.9 g/dL (32-36); Mean Corpuscular Hgb 32.3 pg (27.0-32.0); Mean Corpuscular Volume 101.2 fL (81-99); Mean Platelet Vol. 11.4 fl (6.2-12.0); Monocyte# 0.55 X10^3/uL; Monocyte% 8.9 % (0-10); NRBC Flagged by Analyzer 0 % (0-5); Neutrophil # 3.98 X10^3/uL (2.7-7.7); Neutrophil % 64.7 % (47-70); Platelet Count 241 K/mm3 (150-450); RBC Distribution Width CV 14.8 % (11.6-14.6); RBC Distribution Width SD 55.7 fl (35.1-43.9); Red Blood Count 4.09 M/mm3 (4.2-5.4); White Blood Count 6.2 K/mm3 (4.4-11.0)
[2019-03-21 15:59] LABS: ALB/GLOB Ratio 1.1 RATIO (0.9-2.4); AST(SGOT) 19 U/L (15-37); Alanine Aminotransfer ALT/SGPT 21 U/L (13-56); Albumin, Serum 3.6 g/dL (3.2-5.0); Alkaline Phosphatase 46 U/L (45-117); Anion Gap 7 (5-15); BUN 15 mg/dL (7-18); BUN/Creat Ratio 15.8 RATIO (10-20); Calcium,Total 9.4 mg/dL (8.5-10.1); Chloride 104 mmol/L (98-107); Creatinine, Serum 0.95 mg/dL (0.55-1.02); EST Glomerular Filtration Rate 62 mL/min (>60); Est Glom Filt Rate - Afr Amer 75 mL/min (>60); Globulin 3.4 g/dL (2.2-4.2); Glucose 78 mg/dL (74-106); Potassium 3.3 mmol/L (3.5-5.1); Sodium Level 139 mmol/L (136-145)
== END | disposition home or self-care (01) ==
LOC: MTLAB 13:35
PROVIDERS: Referring Provider Internal Medicine Rheumatology; Visit Provider Internal Medicine Rheumatology
DX: M05.70 Rheumatoid arthritis with rheumatoid factor of unspecified site without organ or systems involvement (principal); M21.40 Flat foot [pes planus] (acquired), unspecified foot; I10 Essential (primary) hypertension; E78.5 Hyperlipidemia, unspecified; Z79.899 Other long term (current) drug therapy
CPT/HCPCS: 36415; 80053; 85025

== ENCOUNTER → 2019-05-18 | Outpatient (CLI) | payer MEDICARE, SELFPAY ==
[2018-10-13 13:52] VITALS: BMI 31.4
[2019-05-18 09:48] LABS: Absolute Lymphocyte Count 1.39 X10^3/uL (0.83-4.51); Absolute Neutrophil Count 3.7 X10^3/uL (2.0-7.7); Basophil# 0.03 X10^3/uL; Basophil% 0.5 % (0-1); Eosinophil# 0.13 X10^3/uL; Eosinophils% 2.3 % (0-5); Hemoglobin 13.7 g/dL (12.0-15.0); Lymphocyte # 1.39 X10^3/ul (4.0); Lymphocyte % 24.4 % (19-41); Mean Corp Hgb Conc 33.4 g/dL (32-36); Mean Corpuscular Hgb 33.7 pg (27.0-32.0); Monocyte# 0.43 X10^3/uL; Monocyte% 7.6 % (0-10); NRBC Flagged by Analyzer 0 % (0-5); Platelet Count 214 K/mm3 (150-450); RBC Distribution Width CV 15.2 % (11.6-14.6); RBC Distribution Width SD 57.5 fl (35.1-43.9); Red Blood Count 4.06 M/mm3 (4.2-5.4); White Blood Count 5.7 K/mm3 (4.4-11.0)
[2019-05-18 10:43] LABS: Vitamin B12 650 pg/mL (211-911)
[2019-05-18 11:06] LABS: AST(SGOT) 21 U/L (15-37); Alanine Aminotransfer ALT/SGPT 28 U/L (13-56); Albumin, Serum 3.6 g/dL (3.2-5.0); Alkaline Phosphatase 48 U/L (45-117); Anion Gap 10 (5-15); BUN 16 mg/dL (7-18); Calcium,Total 9.7 mg/dL (8.5-10.1); Chloride 106 mmol/L (98-107); Cholesterol 187 mg/dL (200); EST Glomerular Filtration Rate 76 mL/min (>60); Est Glom Filt Rate - Afr Amer 92 mL/min (>60); Globulin 3.7 g/dL (2.2-4.2); Glucose 94 mg/dL (74-106); High Density Lipoprotein 61 mg/dL; Potassium 3.3 mmol/L (3.5-5.1); Protein, Total 7.3 g/dL (6.4-8.2); Sodium Level 144 mmol/L (136-145); Triglycerides 88 mg/dL; Very Low Density Lipoprotein 18 mg/dL (5-40)
== END | disposition home or self-care (01) ==
LOC: MTLAB 08:29
DX: Z00.00 Encounter for general adult medical examination without abnormal findings (principal); I10 Essential (primary) hypertension; E78.00 Pure hypercholesterolemia, unspecified; D75.89 Other specified diseases of blood and blood-forming organs
CPT/HCPCS: 36415; 80053; 80061; 81002; 82607; 82746; 85025

== ENCOUNTER → 2019-06-20 10:29 | Outpatient (CLI) | payer MEDICARE, SELFPAY ==
[2018-10-13 13:52] VITALS: BMI 31.4
[2019-06-20 12:47] LABS: Absolute Lymphocyte Count 0.97 X10^3/uL (0.83-4.51); Basophil# 0.06 X10^3/uL; Eosinophil# 0.15 X10^3/uL; Eosinophils% 2.6 % (0-5); Hematocrit 41.4 % (37-47); Hemoglobin 13.7 g/dL (12.0-15.0); Lymphocyte # 0.97 X10^3/ul (4.0); Lymphocyte % 16.8 % (19-41); Mean Corp Hgb Conc 33.1 g/dL (32-36); Mean Corpuscular Hgb 34.3 pg (27.0-32.0); Mean Corpuscular Volume 103.8 fL (81-99); Mean Platelet Vol. 11.1 fl (6.2-12.0); Monocyte# 0.53 X10^3/uL; Monocyte% 9.2 % (0-10); NRBC Flagged by Analyzer 0 % (0-5); Neutrophil # 4.04 X10^3/uL (2.7-7.7); Neutrophil % 70.1 % (47-70); Platelet Count 241 K/mm3 (150-450); RBC Distribution Width SD 57.2 fl (35.1-43.9); Red Blood Count 3.99 M/mm3 (4.2-5.4); White Blood Count 5.8 K/mm3 (4.4-11.0)
[2019-06-20 13:15] LABS: ALB/GLOB Ratio 1.1 RATIO (0.9-2.4); AST(SGOT) 18 U/L (15-37); Alanine Aminotransfer ALT/SGPT 20 U/L (13-56); Albumin, Serum 3.7 g/dL (3.2-5.0); Alkaline Phosphatase 49 U/L (45-117); Anion Gap 8 (5-15); BUN 12 mg/dL (7-18); BUN/Creat Ratio 12.2 RATIO (10-20); Calcium,Total 9.7 mg/dL (8.5-10.1); Chloride 109 mmol/L (98-107); Creatinine, Serum 0.98 mg/dL (0.55-1.02); EST Glomerular Filtration Rate 60 mL/min (>60); Est Glom Filt Rate - Afr Amer 72 mL/min (>60); Globulin 3.5 g/dL (2.2-4.2); Glucose 95 mg/dL (74-106); Potassium 3.6 mmol/L (3.5-5.1); Protein, Total 7.2 g/dL (6.4-8.2); Sodium Level 140 mmol/L (136-145)
== END ==
PROVIDERS: Referring Provider Internal Medicine Rheumatology; Visit Provider Internal Medicine Rheumatology
DX: M05.70 Rheumatoid arthritis with rheumatoid factor of unspecified site without organ or systems involvement (principal); M47.897 Other spondylosis, lumbosacral region; M21.40 Flat foot [pes planus] (acquired), unspecified foot; I10 Essential (primary) hypertension; E78.5 Hyperlipidemia, unspecified; Z79.899 Other long term (current) drug therapy
CPT/HCPCS: 36415; 80053; 85025

== ENCOUNTER → 2019-11-03 | Outpatient (CLI) | payer MEDICARE, SELFPAY ==
[2019-09-13 10:01] VITALS: BMI 31.2
[2019-11-03 12:25] LABS: Absolute Lymphocyte Count 1.34 X10^3/uL (0.83-4.51); Absolute Neutrophil Count 3.4 X10^3/uL (2.0-7.7); Basophil# 0.05 X10^3/uL; Basophil% 0.9 % (0-1); Eosinophil# 0.15 X10^3/uL; Eosinophils% 2.7 % (0-5); Hematocrit 43.1 % (37-47); Lymphocyte # 1.34 X10^3/ul (4.0); Lymphocyte % 24.5 % (19-41); Mean Corp Hgb Conc 32.5 g/dL (32-36); Mean Corpuscular Hgb 33.6 pg (27.0-32.0); Mean Corpuscular Volume 103.4 fL (81-99); Mean Platelet Vol. 11.3 fl (6.2-12.0); Monocyte# 0.51 X10^3/uL; Monocyte% 9.3 % (0-10); NRBC Flagged by Analyzer 0 % (0-5); Neutrophil # 3.36 X10^3/uL (2.7-7.7); Neutrophil % 61.3 % (47-70); Platelet Count 251 K/mm3 (150-450); RBC Distribution Width CV 14.7 % (11.6-14.6); Red Blood Count 4.17 M/mm3 (4.2-5.4); White Blood Count 5.5 K/mm3 (4.4-11.0)
[2019-11-03 12:31] LABS: AST(SGOT) 25 U/L (15-37); Alanine Aminotransfer ALT/SGPT 26 U/L (13-56); Albumin, Serum 3.6 g/dL (3.2-5.0); Alkaline Phosphatase 51 U/L (45-117); Anion Gap 6 (5-15); BUN 17 mg/dL (7-18); BUN/Creat Ratio 18.5 RATIO (10-20); Calcium,Total 9.5 mg/dL (8.5-10.1); Chloride 105 mmol/L (98-107); Creatinine, Serum 0.92 mg/dL (0.55-1.02); EST Glomerular Filtration Rate 64 mL/min (>60); Est Glom Filt Rate - Afr Amer 78 mL/min (>60); Globulin 3.6 g/dL (2.2-4.2); Glucose 70 mg/dL (74-106); Potassium 3.6 mmol/L (3.5-5.1); Protein, Total 7.2 g/dL (6.4-8.2); Sodium Level 138 mmol/L (136-145)
== END | disposition home or self-care (01) ==
LOC: MTLAB 10:22
PROVIDERS: Referring Provider Internal Medicine Rheumatology; Visit Provider Internal Medicine Rheumatology
DX: M05.70 Rheumatoid arthritis with rheumatoid factor of unspecified site without organ or systems involvement (principal); M47.897 Other spondylosis, lumbosacral region; M21.40 Flat foot [pes planus] (acquired), unspecified foot; I10 Essential (primary) hypertension; E78.5 Hyperlipidemia, unspecified; Z79.899 Other long term (current) drug therapy
CPT/HCPCS: 36415; 80053; 85025

== ENCOUNTER → 2020-02-19 | Outpatient (CLI) | payer MEDICARE, SELFPAY ==
[2019-09-13 10:01] VITALS: BMI 31.2
[2020-02-19 12:12] LABS: Absolute Lymphocyte Count 1.03 X10^3/uL (0.83-4.51); Absolute Neutrophil Count 3.6 X10^3/uL (2.0-7.7); Basophil# 0.06 X10^3/uL; Basophil% 1.1 % (0-1); Eosinophil# 0.11 X10^3/uL; Hematocrit 43.7 % (37-47); Hemoglobin 14.3 g/dL (12.0-15.0); Lymphocyte # 1.03 X10^3/ul (4.0); Lymphocyte % 18.8 % (19-41); Mean Corp Hgb Conc 32.7 g/dL (32-36); Mean Corpuscular Hgb 33.8 pg (27.0-32.0); Mean Corpuscular Volume 103.3 fL (81-99); Mean Platelet Vol. 11.2 fl (6.2-12.0); Monocyte# 0.65 X10^3/uL; Monocyte% 11.9 % (0-10); NRBC Flagged by Analyzer 0 % (0-5); Neutrophil # 3.61 X10^3/uL (2.7-7.7); Neutrophil % 65.8 % (47-70); Platelet Count 212 K/mm3 (150-450); RBC Distribution Width SD 53.4 fl (35.1-43.9); Red Blood Count 4.23 M/mm3 (4.2-5.4); White Blood Count 5.5 K/mm3 (4.4-11.0)
[2020-02-19 12:40] LABS: AST(SGOT) 17 U/L (15-37); Alanine Aminotransfer ALT/SGPT 25 U/L (13-56); Albumin, Serum 3.7 g/dL (3.2-5.0); Alkaline Phosphatase 54 U/L (45-117); Anion Gap 4 (5-15); BUN 14 mg/dL (7-18); Calcium,Total 9.5 mg/dL (8.5-10.1); Chloride 104 mmol/L (98-107); Creatinine, Serum 0.78 mg/dL (0.55-1.02); EST Glomerular Filtration Rate 78 mL/min (>60); Est Glom Filt Rate - Afr Amer 94 mL/min (>60); Globulin 3.7 g/dL (2.2-4.2); Glucose 81 mg/dL (74-106); Potassium 3.3 mmol/L (3.5-5.1); Protein, Total 7.4 g/dL (6.4-8.2); Sodium Level 138 mmol/L (136-145)
== END | disposition home or self-care (01) ==
LOC: MTLAB 10:18
PROVIDERS: Referring Provider Internal Medicine Rheumatology; Visit Provider Internal Medicine Rheumatology
DX: M05.70 Rheumatoid arthritis with rheumatoid factor of unspecified site without organ or systems involvement (principal); M47.897 Other spondylosis, lumbosacral region; M21.40 Flat foot [pes planus] (acquired), unspecified foot; I10 Essential (primary) hypertension; E78.5 Hyperlipidemia, unspecified; Z79.899 Other long term (current) drug therapy
CPT/HCPCS: 36415; 80053; 85025

== ENCOUNTER → 2020-02-23 14:33 | Outpatient (CLI) | payer MEDICARE, SELFPAY ==
[2019-09-13 10:01] VITALS: BMI 31.2
--- NOTE | 2020-02-23 15:17 | BI_ITS ---
MAMMOGRAPHY - BILATERAL SCREENING REASON FOR EXAM: Female, 70 years old. Routine annual screening examination. PERTINENT HISTORY: Non-contributory. TECHNIQUE: Digital bilateral breast rafa (3D mammographic acquisition) in the CC and MLO projections. 2-D mediolateral oblique (MLO) and craniocaudad (CC) views of both breasts were obtained. CAD: Full Field Digital Mammography with Computer Added Detection was performed. COMPARISON: Comparison is made with prior study dated 01/20/2019 and 05/06/2014. FINDINGS: Breast Composition: There are scattered areas of fibroglandular density. There are no dominant masses or suspicious calcifications. Stable benign-appearing bilateral axillary lymph nodes. No other significant abnormalities are identified. There has been no significant change since the prior study. BI/SCREEN MAMM (CAD) W/RAFA BILAT IMPRESSION: Stable bilateral screening mammogram. Yearly follow-up mammogram recommended. (A) ASSESSMENT CATEGORY: BIRADS Category 2: Benign. A letter regarding these results will be sent to the patient by the facility within 30 days. Approximately 10% of breast cancers are not detected by mammography. A normal mammogram should not delay biopsy of a clinically suspicious abnormality. [id number] Electronically Signed: Reji Jaramillo, at 7:58 EDT , Service support ,
== END ==
PROVIDERS: Referring Provider Family Medicine; Visit Provider Family Medicine
DX: Z12.31 Encounter for screening mammogram for malignant neoplasm of breast (principal)
CPT/HCPCS: 77063; 77067

== ENCOUNTER → 2020-05-13 | Outpatient (CLI) | payer MEDICARE, SELFPAY ==
[2019-09-13 10:01] VITALS: BMI 31.2
[2020-05-13 15:20] LABS: AST(SGOT) 21 U/L (15-37); Alanine Aminotransfer ALT/SGPT 22 U/L (13-56); Albumin, Serum 3.6 g/dL (3.2-5.0); Alkaline Phosphatase 47 U/L (45-117); Anion Gap 7 (5-15); BUN 13 mg/dL (7-18); BUN/Creat Ratio 14.7 RATIO (10-20); Calcium,Total 9.6 mg/dL (8.5-10.1); Chloride 106 mmol/L (98-107); Creatinine, Serum 0.88 mg/dL (0.55-1.02); EST Glomerular Filtration Rate 67 mL/min (>60); Est Glom Filt Rate - Afr Amer 81 mL/min (>60); Globulin 3.7 g/dL (2.2-4.2); Glucose 96 mg/dL (74-106); Potassium 3.7 mmol/L (3.5-5.1); Protein, Total 7.3 g/dL (6.4-8.2); Sodium Level 140 mmol/L (136-145)
[2020-05-13 15:21] LABS: Absolute Lymphocyte Count 0.97 X10^3/uL (0.83-4.51); Absolute Neutrophil Count 2.6 X10^3/uL (2.0-7.7); Basophil# 0.06 X10^3/uL; Basophil% 1.4 % (0-1); Eosinophil# 0.15 X10^3/uL; Eosinophils% 3.5 % (0-5); Hematocrit 40.6 % (37-47); Hemoglobin 13.2 g/dL (12.0-15.0); Lymphocyte # 0.97 X10^3/ul (4.0); Lymphocyte % 22.4 % (19-41); Mean Corp Hgb Conc 32.5 g/dL (32-36); Mean Corpuscular Hgb 34.1 pg (27.0-32.0); Mean Corpuscular Volume 104.9 fL (81-99); Mean Platelet Vol. 11.6 fl (6.2-12.0); Monocyte# 0.54 X10^3/uL; Monocyte% 12.5 % (0-10); NRBC Flagged by Analyzer 0 % (0-5); Platelet Count 246 K/mm3 (150-450); RBC Distribution Width CV 14.6 % (11.6-14.6); RBC Distribution Width SD 56.9 fl (35.1-43.9); Red Blood Count 3.87 M/mm3 (4.2-5.4); White Blood Count 4.3 K/mm3 (4.4-11.0)
== END | disposition home or self-care (01) ==
LOC: MTLAB 12:13
PROVIDERS: Referring Provider Internal Medicine Rheumatology; Visit Provider Internal Medicine Rheumatology
DX: M05.70 Rheumatoid arthritis with rheumatoid factor of unspecified site without organ or systems involvement (principal); M47.897 Other spondylosis, lumbosacral region; M21.40 Flat foot [pes planus] (acquired), unspecified foot; I10 Essential (primary) hypertension; E78.5 Hyperlipidemia, unspecified; Z79.899 Other long term (current) drug therapy
CPT/HCPCS: 36415; 80053; 85025

== ENCOUNTER → 2020-07-31 11:42 | Outpatient (CLI) | payer MEDICARE, SELFPAY ==
[2019-09-13 10:01] VITALS: BMI 31.2
[2020-07-31 14:49] LABS: Absolute Neutrophil Count 3.6 X10^3/uL (2.0-7.7); Basophil# 0.06 X10^3/uL; Basophil% 1.2 % (0-1); Eosinophil# 0.19 X10^3/uL; Eosinophils% 3.7 % (0-5); Hematocrit 37.8 % (37-47); Hemoglobin 12.2 g/dL (12.0-15.0); Lymphocyte % 13.8 % (19-41); Mean Corp Hgb Conc 32.3 g/dL (32-36); Mean Corpuscular Hgb 33.3 pg (27.0-32.0); Mean Corpuscular Volume 103.3 fL (81-99); Mean Platelet Vol. 10.9 fl (6.2-12.0); Monocyte# 0.53 X10^3/uL; Monocyte% 10.5 % (0-10); NRBC Flagged by Analyzer 0 % (0-5); Neutrophil # 3.58 X10^3/uL (2.7-7.7); Neutrophil % 70.6 % (47-70); Platelet Count 322 K/mm3 (150-450); RBC Distribution Width CV 15.4 % (11.6-14.6); RBC Distribution Width SD 58.4 fl (35.1-43.9); Red Blood Count 3.66 M/mm3 (4.2-5.4); White Blood Count 5.1 K/mm3 (4.4-11.0)
[2020-07-31 15:06] LABS: ALB/GLOB Ratio 0.8 RATIO (0.9-2.4); AST(SGOT) 17 U/L (15-37); Alanine Aminotransfer ALT/SGPT 18 U/L (13-56); Albumin, Serum 3.1 g/dL (3.2-5.0); Alkaline Phosphatase 62 U/L (45-117); Anion Gap 4 (5-15); BUN 10 mg/dL (7-18); Calcium,Total 9.4 mg/dL (8.5-10.1); Chloride 106 mmol/L (98-107); Creatinine, Serum 0.71 mg/dL (0.55-1.02); EST Glomerular Filtration Rate 86 mL/min (>60); Est Glom Filt Rate - Afr Amer 104 mL/min (>60); Globulin 4.1 g/dL (2.2-4.2); Glucose 75 mg/dL (74-106); Protein, Total 7.2 g/dL (6.4-8.2); Sodium Level 138 mmol/L (136-145)
== END ==
PROVIDERS: Referring Provider Internal Medicine Rheumatology; Visit Provider Internal Medicine Rheumatology
DX: M05.70 Rheumatoid arthritis with rheumatoid factor of unspecified site without organ or systems involvement (principal); M47.897 Other spondylosis, lumbosacral region; M21.40 Flat foot [pes planus] (acquired), unspecified foot; I10 Essential (primary) hypertension; E78.5 Hyperlipidemia, unspecified; Z79.899 Other long term (current) drug therapy
CPT/HCPCS: 36415; 80053; 85025

== ENCOUNTER → 2020-08-05 12:50 | Outpatient (CLI) | payer MEDICARE, SELFPAY ==
[2019-09-13 10:01] VITALS: BMI 31.2
--- NOTE | 2020-08-05 12:51 | CT_ITS ---
STUDY: CT PELVIS WITHOUT CONTRAST REASON FOR EXAM: Female, 70 years old. HIP PAIN SINCE SEPTEMBER. RADIATION DOSAGE (If Supplied By Facility): CTDIvol = ( 25.74 ) mGy, DLP = ( 648.19 ) mGycm TECHNIQUE: Transaxial imaging of the pelvis was performed with oral contrast, and without intravenous administration of contrast material. Multiplanar coronal and sagittal images were reformatted. Individualized dose optimization techniques were used for this CT. COMPARISON: None. FINDINGS: Normal urinary bladder. Normal visualized small intestine. There is mild to moderate stool in the colon. There is no pelvic fluid. There is no pelvic mass lesion or lymphadenopathy. There is atrophy of the uterus. There is diffuse atherosclerotic calcification of the pelvic arteries. Normal abdominal wall. At L4-L5 there is a broad disc osteophyte with moderate neural foramina narrowing moderate central stenosis facet arthropathy. At L5-S1 there is a broad disc bulge and moderate neural foramina narrowing. There is degenerative change of the SI joints. There is [id number]-mj-[id number] degenerative change of the hip joints without visualized fracture. There is posterior osteophytosis. There is degenerative change in the SI joints. There is no definitive large joint effusion. CT/Pelvis without IV Contrast IMPRESSION: Degenerative change of the lumbar spine and both hips. If pain persists recommend consideration for follow-up MRI. Moderate constipation and atherosclerotic disease of the aorta. Electronically Signed: Karli Abarca MD at 2:00 EST Tel , Service support ,
== END ==
PROVIDERS: Referring Provider Orthopaedic Surgery; Visit Provider Orthopaedic Surgery
DX: M70.62 Trochanteric bursitis, left hip (principal); M16.12 Unilateral primary osteoarthritis, left hip; M25.552 Pain in left hip
CPT/HCPCS: 72192

== ENCOUNTER → 2020-10-14 11:47 | Outpatient (CLI) | payer MEDICARE, SELFPAY ==
[2019-09-13 10:01] VITALS: BMI 31.2
[2020-10-14 14:55] LABS: Absolute Lymphocyte Count 1.19 X10^3/uL (0.83-4.51); Absolute Neutrophil Count 3.7 X10^3/uL (2.0-7.7); Basophil# 0.05 X10^3/uL; Basophil% 0.9 % (0-1); Eosinophil# 0.13 X10^3/uL; Eosinophils% 2.3 % (0-5); Hematocrit 43.7 % (37-47); Hemoglobin 14.1 g/dL (12.0-15.0); Lymphocyte # 1.19 X10^3/ul (4.0); Lymphocyte % 20.6 % (19-41); Mean Corp Hgb Conc 32.3 g/dL (32-36); Mean Corpuscular Hgb 33.1 pg (27.0-32.0); Mean Corpuscular Volume 102.6 fL (81-99); Mean Platelet Vol. 10.9 fl (6.2-12.0); Monocyte# 0.65 X10^3/uL; Monocyte% 11.3 % (0-10); NRBC Flagged by Analyzer 0 % (0-5); Neutrophil # 3.74 X10^3/uL (2.7-7.7); Neutrophil % 64.7 % (47-70); Platelet Count 270 K/mm3 (150-450); RBC Distribution Width CV 14.3 % (11.6-14.6); RBC Distribution Width SD 54.2 fl (35.1-43.9); Red Blood Count 4.26 M/mm3 (4.2-5.4); White Blood Count 5.8 K/mm3 (4.4-11.0)
[2020-10-14 15:32] LABS: ALB/GLOB Ratio 0.9 RATIO (0.9-2.4); AST(SGOT) 20 U/L (15-37); Alanine Aminotransfer ALT/SGPT 22 U/L (13-56); Albumin, Serum 3.7 g/dL (3.2-5.0); Alkaline Phosphatase 57 U/L (45-117); Anion Gap 6 (5-15); BUN 15 mg/dL (7-18); BUN/Creat Ratio 17.3 RATIO (10-20); Calcium,Total 10.1 mg/dL (8.5-10.1); Chloride 103 mmol/L (98-107); Creatinine, Serum 0.87 mg/dL (0.55-1.02); EST Glomerular Filtration Rate 69 mL/min (>60); Est Glom Filt Rate - Afr Amer 83 mL/min (>60); Glucose 91 mg/dL (74-106); Potassium 3.5 mmol/L (3.5-5.1); Protein, Total 7.7 g/dL (6.4-8.2); Sodium Level 137 mmol/L (136-145)
== END ==
PROVIDERS: Referring Provider Internal Medicine Rheumatology; Visit Provider Internal Medicine Rheumatology
DX: M05.70 Rheumatoid arthritis with rheumatoid factor of unspecified site without organ or systems involvement (principal); M47.897 Other spondylosis, lumbosacral region; M21.40 Flat foot [pes planus] (acquired), unspecified foot; I10 Essential (primary) hypertension; E78.5 Hyperlipidemia, unspecified; Z79.899 Other long term (current) drug therapy
CPT/HCPCS: 36415; 80053; 85025

== ENCOUNTER → 2021-01-23 10:03 | Outpatient (CLI) | payer MEDICARE, SELFPAY ==
[2019-09-13 10:01] VITALS: BMI 31.2
[2021-01-23 12:25] LABS: Absolute Lymphocyte Count 1.43 X10^3/uL (0.83-4.51); Absolute Neutrophil Count 2.9 X10^3/uL (2.0-7.7); Basophil# 0.06 X10^3/uL; Basophil% 1.2 % (0-1); Eosinophil# 0.14 X10^3/uL; Eosinophils% 2.7 % (0-5); Hematocrit 41.3 % (37-47); Hemoglobin 13.7 g/dL (12.0-15.0); Lymphocyte # 1.43 X10^3/ul (0.83-4.51); Mean Corp Hgb Conc 33.2 g/dL (32-36); Mean Corpuscular Volume 102.5 fL (81-99); Mean Platelet Vol. 10.8 fl (6.2-12.0); Monocyte# 0.58 X10^3/uL; Monocyte% 11.4 % (0-10); NRBC Flagged by Analyzer 0 % (0-5); Neutrophil # 2.87 X10^3/uL (2.7-7.7); Neutrophil % 56.3 % (47-70); Platelet Count 271 K/mm3 (150-450); RBC Distribution Width CV 14.5 % (11.6-14.6); RBC Distribution Width SD 54.6 fl (35.1-43.9); Red Blood Count 4.03 M/mm3 (4.2-5.4); White Blood Count 5.1 K/mm3 (4.4-11.0)
[2021-01-23 13:06] LABS: ALB/GLOB Ratio 0.9 RATIO (0.9-2.4); AST(SGOT) 20 U/L (15-37); Alanine Aminotransfer ALT/SGPT 22 U/L (13-56); Albumin, Serum 3.5 g/dL (3.2-5.0); Alkaline Phosphatase 52 U/L (45-117); Anion Gap 8 (5-15); BUN 13 mg/dL (7-18); BUN/Creat Ratio 16.9 RATIO (10-20); Calcium,Total 9.4 mg/dL (8.5-10.1); Chloride 97 mmol/L (98-107); Creatinine, Serum 0.77 mg/dL (0.55-1.02); EST Glomerular Filtration Rate 78 mL/min (>60); Est Glom Filt Rate - Afr Amer 95 mL/min (>60); Globulin 3.7 g/dL (2.2-4.2); Glucose 79 mg/dL (74-106); Potassium 3.5 mmol/L (3.5-5.1); Protein, Total 7.2 g/dL (6.4-8.2); Sodium Level 135 mmol/L (136-145)
== END ==
PROVIDERS: Referring Provider Internal Medicine Rheumatology; Visit Provider Internal Medicine Rheumatology
DX: M05.70 Rheumatoid arthritis with rheumatoid factor of unspecified site without organ or systems involvement (principal); M47.897 Other spondylosis, lumbosacral region; M21.40 Flat foot [pes planus] (acquired), unspecified foot; I10 Essential (primary) hypertension; E78.5 Hyperlipidemia, unspecified; Z79.899 Other long term (current) drug therapy
CPT/HCPCS: 36415; 80053; 85025

== ENCOUNTER → 2021-04-21 | Outpatient (CLI) | payer MEDICARE, SELFPAY | END | disposition home or self-care (01) | LOC: LABSPEC 16:00 | PROVIDERS: Visit Provider Urology | DX: N30.01 Acute cystitis with hematuria (principal) | CPT/HCPCS: 87086; 87088; 87186 ==

== ENCOUNTER → 2021-04-22 10:55 | Outpatient (CLI) | payer MEDICARE, SELFPAY ==
[2021-04-22 11:59] LABS: Absolute Neutrophil Count 3.7 X10^3/uL (2.0-7.7); Basophil# 0.05 X10^3/uL; Basophil% 0.9 % (0-1); Eosinophil# 0.15 X10^3/uL; Eosinophils% 2.7 % (0-5); Hematocrit 41.1 % (37-47); Hemoglobin 13.4 g/dL (12.0-15.0); Lymphocyte % 20.1 % (19-41); Mean Corp Hgb Conc 32.6 g/dL (32-36); Mean Corpuscular Hgb 34.3 pg (27.0-32.0); Mean Corpuscular Volume 105.1 fL (81-99); Mean Platelet Vol. 10.4 fl (6.2-12.0); Monocyte# 0.46 X10^3/uL; Monocyte% 8.4 % (0-10); NRBC Flagged by Analyzer 0 % (0-5); Neutrophil # 3.71 X10^3/uL (2.7-7.7); Neutrophil % 67.7 % (47-70); Platelet Count 264 K/mm3 (150-450); RBC Distribution Width CV 13.5 % (11.6-14.6); RBC Distribution Width SD 52.8 fl (35.1-43.9); Red Blood Count 3.91 M/mm3 (4.2-5.4); White Blood Count 5.5 K/mm3 (4.4-11.0)
[2021-04-22 12:20] LABS: ALB/GLOB Ratio 0.8 RATIO (0.9-2.4); AST(SGOT) 18 U/L (15-37); Alanine Aminotransfer ALT/SGPT 20 U/L (13-56); Albumin, Serum 3.1 g/dL (3.2-5.0); Alkaline Phosphatase 51 U/L (45-117); Anion Gap 8 (5-15); BUN 17 mg/dL (7-18); BUN/Creat Ratio 18.7 RATIO (10-20); Calcium,Total 9.4 mg/dL (8.5-10.1); Chloride 103 mmol/L (98-107); Creatinine, Serum 0.91 mg/dL (0.55-1.02); EST Glomerular Filtration Rate 65 mL/min (>60); Est Glom Filt Rate - Afr Amer 79 mL/min (>60); Globulin 3.9 g/dL (2.2-4.2); Glucose 121 mg/dL (74-106); Potassium 3.7 mmol/L (3.5-5.1); Sodium Level 139 mmol/L (136-145)
== END ==
PROVIDERS: Referring Provider Internal Medicine Rheumatology; Visit Provider Internal Medicine Rheumatology
DX: M05.70 Rheumatoid arthritis with rheumatoid factor of unspecified site without organ or systems involvement (principal); M47.897 Other spondylosis, lumbosacral region; M21.40 Flat foot [pes planus] (acquired), unspecified foot; I10 Essential (primary) hypertension; E78.5 Hyperlipidemia, unspecified; Z79.899 Other long term (current) drug therapy
CPT/HCPCS: 36415; 80053; 85025

== ENCOUNTER 2021-08-26 13:37 | Outpatient (CLI) | payer MEDICARE, SELFPAY ==
[2021-08-26 15:24] LABS: Absolute Lymphocyte Count 1.18 X10^3/uL (0.83-4.51); Absolute Neutrophil Count 3.4 X10^3/uL (2.0-7.7); Basophil# 0.07 X10^3/uL; Basophil% 1.2 % (0-1); Eosinophil# 0.32 X10^3/uL; Eosinophils% 5.7 % (0-5); Hematocrit 39.8 % (37-47); Hemoglobin 13.1 g/dL (12.0-15.0); Lymphocyte # 1.18 X10^3/ul (0.83-4.51); Lymphocyte % 20.9 % (19-41); Mean Corp Hgb Conc 32.9 g/dL (32-36); Mean Corpuscular Hgb 33.9 pg (27.0-32.0); Mean Corpuscular Volume 102.8 fL (81-99); Mean Platelet Vol. 11.1 fl (6.2-12.0); Monocyte% 12.4 % (0-10); NRBC Flagged by Analyzer 0 % (0-5); Neutrophil # 3.36 X10^3/uL (2.7-7.7); Neutrophil % 59.6 % (47-70); Platelet Count 258 K/mm3 (150-450); RBC Distribution Width CV 14.6 % (11.6-14.6); RBC Distribution Width SD 55.5 fl (35.1-43.9); Red Blood Count 3.87 M/mm3 (4.2-5.4); White Blood Count 5.6 K/mm3 (4.4-11.0)
[2021-08-26 15:55] LABS: AST(SGOT) 21 U/L (15-37); Alanine Aminotransfer ALT/SGPT 21 U/L (13-56); Albumin, Serum 3.4 g/dL (3.2-5.0); Alkaline Phosphatase 53 U/L (45-117); Anion Gap 6 (5-15); BUN 18 mg/dL (7-18); Calcium,Total 9.2 mg/dL (8.5-10.1); Chloride 107 mmol/L (98-107); Creatinine, Serum 0.78 mg/dL (0.55-1.02); EST Glomerular Filtration Rate 77 mL/min (>60); Est Glom Filt Rate - Afr Amer 93 mL/min (>60); Globulin 3.3 g/dL (2.2-4.2); Glucose 89 mg/dL (74-106); Potassium 3.9 mmol/L (3.5-5.1); Protein, Total 6.7 g/dL (6.4-8.2); Sodium Level 140 mmol/L (136-145)
== END 2021-08-26 23:59 | disposition home or self-care (01) ==
LOC: MTLAB 13:40
PROVIDERS: Referring Provider Internal Medicine Rheumatology; Visit Provider Internal Medicine Rheumatology
DX: M05.70 Rheumatoid arthritis with rheumatoid factor of unspecified site without organ or systems involvement (principal); M47.897 Other spondylosis, lumbosacral region; M21.40 Flat foot [pes planus] (acquired), unspecified foot; I10 Essential (primary) hypertension; E78.5 Hyperlipidemia, unspecified; Z79.899 Other long term (current) drug therapy
CPT/HCPCS: 36415; 80053; 85025

== ENCOUNTER 2021-10-24 12:19 | Outpatient (CLI) | payer MEDICARE, SELFPAY ==
--- NOTE | 2021-10-24 12:21 | BI_ITS ---
MAMMOGRAPHY - BILATERAL SCREENING REASON FOR EXAM: Female, 71 years old. Routine annual screening examination. PERTINENT HISTORY: Non-contributory. TECHNIQUE: Digital bilateral breast rafa (3D mammographic acquisition) in the CC and MLO projections. 2-D mediolateral oblique (MLO) and craniocaudad (CC) views of both breasts were obtained. CAD: Full Field Digital Mammography with Computer Added Detection was performed. COMPARISON: Comparison is made with prior examination in 02/23/2020 and 01/20/2019. FINDINGS: Breast Composition: There are scattered areas of fibroglandular density. There are no dominant masses or suspicious calcifications. Stable benign-appearing bilateral axillary lymph nodes. No other significant abnormalities are identified. There has been no significant change since the prior study. BI/SCRN MAMM (CAD)W/RAFA BILAT IMPRESSION: Stable bilateral screening mammogram. Yearly follow-up mammogram recommended. (A) ASSESSMENT CATEGORY: BIRADS Category 2: Benign. A letter regarding these results will be sent to the patient by the facility within 30 days. Approximately 10% of breast cancers are not detected by mammography. A normal mammogram should not delay biopsy of a clinically suspicious abnormality. [id number] Electronically Signed: Reji Jaramillo MD at 13:40 EDT ,
== END 2021-10-24 23:59 | disposition home or self-care (01) ==
LOC: OPBI 12:20
PROVIDERS: Referring Provider Family Medicine; Visit Provider Family Medicine
DX: Z12.31 Encounter for screening mammogram for malignant neoplasm of breast (principal)
CPT/HCPCS: 77063; 77067

== ENCOUNTER → 2021-11-24 | Outpatient (CLI) | payer MEDICARE, SELFPAY ==
[2021-11-24 15:25] LABS: Absolute Lymphocyte Count 1.36 X10^3/uL (0.83-4.51); Absolute Neutrophil Count 4.2 X10^3/uL (2.0-7.7); Basophil# 0.08 X10^3/uL; Basophil% 1.2 % (0-1); Eosinophil# 0.25 X10^3/uL; Eosinophils% 3.8 % (0-5); Hematocrit 41.9 % (37-47); Hemoglobin 13.7 g/dL (12.0-15.0); Lymphocyte # 1.36 X10^3/ul (0.83-4.51); Lymphocyte % 20.8 % (19-41); Mean Corp Hgb Conc 32.7 g/dL (32-36); Mean Corpuscular Hgb 33.5 pg (27.0-32.0); Mean Corpuscular Volume 102.4 fL (81-99); Mean Platelet Vol. 11.5 fl (6.2-12.0); Monocyte# 0.68 X10^3/uL; Monocyte% 10.4 % (0-10); NRBC Flagged by Analyzer 0 % (0-5); Neutrophil # 4.15 X10^3/uL (2.7-7.7); Neutrophil % 63.6 % (47-70); Platelet Count 252 K/mm3 (150-450); RBC Distribution Width CV 14.3 % (11.6-14.6); RBC Distribution Width SD 54.2 fl (35.1-43.9); Red Blood Count 4.09 M/mm3 (4.2-5.4); White Blood Count 6.5 K/mm3 (4.4-11.0)
[2021-11-24 15:34] LABS: ALB/GLOB Ratio 0.9 RATIO (0.9-2.4); AST(SGOT) 29 U/L (15-37); Alanine Aminotransfer ALT/SGPT 25 U/L (13-56); Albumin, Serum 3.5 g/dL (3.2-5.0); Alkaline Phosphatase 51 U/L (45-117); Anion Gap 9 (5-15); BUN 13 mg/dL (7-18); BUN/Creat Ratio 14.7 RATIO (10-20); Calcium,Total 9.9 mg/dL (8.5-10.1); Chloride 103 mmol/L (98-107); Creatinine, Serum 0.88 mg/dL (0.55-1.02); EST Glomerular Filtration Rate 67 mL/min (>60); Est Glom Filt Rate - Afr Amer 81 mL/min (>60); Globulin 3.7 g/dL (2.2-4.2); Glucose 102 mg/dL (74-106); Potassium 3.9 mmol/L (3.5-5.1); Protein, Total 7.2 g/dL (6.4-8.2); Sodium Level 136 mmol/L (136-145)
== END | disposition home or self-care (01) ==
LOC: MTLAB 11:30
PROVIDERS: Referring Provider Internal Medicine Rheumatology; Visit Provider Internal Medicine Rheumatology
DX: M05.70 Rheumatoid arthritis with rheumatoid factor of unspecified site without organ or systems involvement (principal); M47.897 Other spondylosis, lumbosacral region; M21.40 Flat foot [pes planus] (acquired), unspecified foot; I10 Essential (primary) hypertension; E78.5 Hyperlipidemia, unspecified
CPT/HCPCS: 36415; 80053; 85025

== ENCOUNTER → 2021-12-12 | Outpatient (CLI) | payer MEDICARE, SELFPAY ==
[2021-12-12 10:19] LABS: Absolute Lymphocyte Count 0.55 X10^3/uL (0.83-4.51); Absolute Neutrophil Count 4.1 X10^3/uL (2.0-7.7); Basophil# 0.02 X10^3/uL; Basophil% 0.4 % (0-1); Hematocrit 39.2 % (37-47); Hemoglobin 12.9 g/dL (12.0-15.0); Lymphocyte # 0.55 X10^3/ul (0.83-4.51); Lymphocyte % 11.1 % (19-41); Mean Corp Hgb Conc 32.9 g/dL (32-36); Mean Corpuscular Hgb 33.2 pg (27.0-32.0); Mean Platelet Vol. 11.5 fl (6.2-12.0); Monocyte# 0.29 X10^3/uL; Monocyte% 5.9 % (0-10); NRBC Flagged by Analyzer 0 % (0-5); Neutrophil # 4.07 X10^3/uL (2.7-7.7); Neutrophil % 82.4 % (47-70); POSITIVE DIFFERENTIAL YES; Platelet Count 184 K/mm3 (150-450); RBC Distribution Width CV 14.5 % (11.6-14.6); RBC Distribution Width SD 54.2 fl (35.1-43.9); Red Blood Count 3.88 M/mm3 (4.2-5.4); White Blood Count 4.9 K/mm3 (4.4-11.0)
[2021-12-12 10:24] LABS: Differential Indicated SCAN CRITERIA MET
[2021-12-12 10:42] LABS: ALB/GLOB Ratio 0.9 RATIO (0.9-2.4); AST(SGOT) 26 U/L (15-37); Alanine Aminotransfer ALT/SGPT 23 U/L (13-56); Albumin, Serum 3.2 g/dL (3.2-5.0); Alkaline Phosphatase 45 U/L (45-117); Anion Gap 6 (5-15); BUN 14 mg/dL (7-18); BUN/Creat Ratio 16.4 RATIO (10-20); Calcium,Total 8.8 mg/dL (8.5-10.1); Chloride 104 mmol/L (98-107); Cholesterol 137 mg/dL (200); Creatinine, Serum 0.86 mg/dL (0.55-1.02); EST Glomerular Filtration Rate 69 mL/min (>60); Est Glom Filt Rate - Afr Amer 84 mL/min (>60); Globulin 3.4 g/dL (2.2-4.2); Glucose 104 mg/dL (74-106); High Density Lipoprotein 49 mg/dL; Potassium 3.3 mmol/L (3.5-5.1); Protein, Total 6.6 g/dL (6.4-8.2); Sodium Level 136 mmol/L (136-145); Triglycerides 91 mg/dL; Very Low Density Lipoprotein 18 mg/dL (5-40)
[2021-12-12 10:58] LABS: Platelet Estimate ADEQUATE (ADEQ); Red Cell Morphology NORM C+C NORMAL (NORM C&C)
== END | disposition home or self-care (01) ==
LOC: MTLAB 07:42
PROVIDERS: PCP Family Medicine; Referring Provider Family Medicine; Visit Provider Family Medicine
DX: I10 Essential (primary) hypertension (principal); K21.9 Gastro-esophageal reflux disease without esophagitis; E78.5 Hyperlipidemia, unspecified
CPT/HCPCS: 36415; 80053; 80061; 85025

== ENCOUNTER → 2022-02-23 | Outpatient (CLI) | payer MEDICARE, SELFPAY ==
[2022-02-23 15:29] LABS: Absolute Lymphocyte Count 0.95 X10^3/uL (0.83-4.51); Absolute Neutrophil Count 3.1 X10^3/uL (2.0-7.7); Basophil# 0.05 X10^3/uL; Eosinophil# 0.22 X10^3/uL; Eosinophils% 4.4 % (0-5); Hematocrit 38.9 % (37-47); Hemoglobin 13.4 g/dL (12.0-15.0); Lymphocyte # 0.95 X10^3/ul (0.83-4.51); Mean Corp Hgb Conc 34.4 g/dL (32-36); Mean Corpuscular Hgb 34.8 pg (27.0-32.0); Mean Platelet Vol. 11.2 fl (6.2-12.0); Monocyte# 0.66 X10^3/uL; Monocyte% 13.2 % (0-10); NRBC Flagged by Analyzer 0 % (0-5); Neutrophil # 3.13 X10^3/uL (2.7-7.7); Neutrophil % 62.4 % (47-70); Platelet Count 228 K/mm3 (150-450); RBC Distribution Width CV 14.5 % (11.6-14.6); RBC Distribution Width SD 53.9 fl (35.1-43.9); Red Blood Count 3.85 M/mm3 (4.2-5.4)
[2022-02-23 15:55] LABS: AST(SGOT) 23 U/L (15-37); Alanine Aminotransfer ALT/SGPT 24 U/L (13-56); Albumin, Serum 3.5 g/dL (3.2-5.0); Alkaline Phosphatase 51 U/L (45-117); Anion Gap 6 (5-15); BUN 11 mg/dL (7-18); BUN/Creat Ratio 13.4 RATIO (10-20); Calcium,Total 9.4 mg/dL (8.5-10.1); Chloride 100 mmol/L (98-107); Creatinine, Serum 0.82 mg/dL (0.55-1.02); EST Glomerular Filtration Rate 73 mL/min (>60); Est Glom Filt Rate - Afr Amer 88 mL/min (>60); Globulin 3.5 g/dL (2.2-4.2); Glucose 95 mg/dL (74-106); Potassium 3.9 mmol/L (3.5-5.1); Sodium Level 134 mmol/L (136-145)
== END | disposition home or self-care (01) ==
LOC: MTLAB 11:09
PROVIDERS: PCP Family Medicine; Referring Provider Internal Medicine Rheumatology; Visit Provider Internal Medicine Rheumatology
DX: M05.70 Rheumatoid arthritis with rheumatoid factor of unspecified site without organ or systems involvement (principal); M47.897 Other spondylosis, lumbosacral region; M21.40 Flat foot [pes planus] (acquired), unspecified foot; I10 Essential (primary) hypertension; E78.5 Hyperlipidemia, unspecified; Z79.899 Other long term (current) drug therapy
CPT/HCPCS: 36415; 80053; 85025

== ENCOUNTER → 2022-05-18 | Outpatient (CLI) | payer MEDICARE, SELFPAY ==
[2022-05-18 12:42] LABS: Absolute Lymphocyte Count 1.05 X10^3/uL (0.83-4.51); Absolute Neutrophil Count 3.6 X10^3/uL (2.0-7.7); Basophil# 0.05 X10^3/uL; Basophil% 0.9 % (0-1); Eosinophil# 0.17 X10^3/uL; Eosinophils% 3.2 % (0-5); Hematocrit 41.3 % (37-47); Hemoglobin 14.1 g/dL (12.0-15.0); Lymphocyte # 1.05 X10^3/ul (0.83-4.51); Lymphocyte % 19.7 % (19-41); Mean Corp Hgb Conc 34.1 g/dL (32-36); Mean Corpuscular Hgb 34.4 pg (27.0-32.0); Mean Corpuscular Volume 100.7 fL (81-99); Mean Platelet Vol. 11.7 fl (6.2-12.0); Monocyte# 0.43 X10^3/uL; Monocyte% 8.1 % (0-10); NRBC Flagged by Analyzer 0 % (0-5); Neutrophil # 3.61 X10^3/uL (2.7-7.7); Neutrophil % 67.9 % (47-70); Platelet Count 259 K/mm3 (150-450); RBC Distribution Width SD 51.6 fl (35.1-43.9); White Blood Count 5.3 K/mm3 (4.4-11.0)
[2022-05-18 12:51] LABS: ALB/GLOB Ratio 0.9 RATIO (0.9-2.4); AST(SGOT) 22 U/L (15-37); Alanine Aminotransfer ALT/SGPT 20 U/L (13-56); Albumin, Serum 3.7 g/dL (3.2-5.0); Alkaline Phosphatase 53 U/L (45-117); Anion Gap 7 (5-15); BUN 16 mg/dL (7-18); BUN/Creat Ratio 18.2 RATIO (10-20); Calcium,Total 10.2 mg/dL (8.5-10.1); Chloride 106 mmol/L (98-107); Creatinine, Serum 0.88 mg/dL (0.55-1.02); EST Glomerular Filtration Rate 67 mL/min (>60); Est Glom Filt Rate - Afr Amer 82 mL/min (>60); Globulin 3.9 g/dL (2.2-4.2); Glucose 106 mg/dL (74-106); Potassium 3.5 mmol/L (3.5-5.1); Protein, Total 7.6 g/dL (6.4-8.2); Sodium Level 140 mmol/L (136-145)
== END | disposition home or self-care (01) ==
LOC: MTLAB 09:38
PROVIDERS: PCP Family Medicine; Referring Provider Internal Medicine Rheumatology; Visit Provider Internal Medicine Rheumatology
DX: M05.70 Rheumatoid arthritis with rheumatoid factor of unspecified site without organ or systems involvement (principal); M47.897 Other spondylosis, lumbosacral region; M21.40 Flat foot [pes planus] (acquired), unspecified foot; I10 Essential (primary) hypertension; E78.5 Hyperlipidemia, unspecified; Z79.899 Other long term (current) drug therapy
CPT/HCPCS: 36415; 80053; 85025

== ENCOUNTER → 2022-07-30 | Outpatient (CLI) | payer MEDICARE, SELFPAY ==
--- NOTE | 2022-07-30 13:50 | BD_ITS ---
STUDY: DUAL ENERGY X-RAY ABSORPTIOMETRY / DXA REASON FOR EXAM: Female, 72 years old. M810 TECHNIQUE: Bone Mineral Density (BMD) measurements of lumbar spine and bilateral hips were obtained. COMPARISON: Comparison is made with prior study dated 12/04/2015. FINDINGS: Lumbar Spine (L1-L4): g/cm2 (0.907) / T-score (-0.7) / Z-score (1.5) Findings are suggestive of normal bone density with a low fracture risk. Left Femur Total: g/cm2 (0.873) / T-score (-0.6) / Z-score (1.1) Left Femoral Neck: g/cm2 (0.658) / T-score (-1.7) / Z-score (0.2) Right Femur Total: g/cm2 (0.871) / T-score (-0.6) / Z-score (1.1) Right Femoral Neck: g/cm2 (0.692) / T-score (-1.4) / Z-score (0.5) The T-Scores on the most recent prior examination were: Lumbar Spine (L1-L4): There has been worsening of bone density since the previous examination. Left Femur Total: which represents a worsening of 12.4%. Right Femur Total: which represents a worsening of 14.2%. BD/Dexa Bone Density Study IMPRESSION: The patient is considered osteopenic as outlined below according to World Javan Organization (WHO) criteria with a moderate fracture risk. There has been worsening of bone density since the previous examination. Reference Information: The T-score is the number of standard deviations above or below the standard which is normal for young adults at their peak bone mineral density. The World Health Organization (WHO) interprets the T-scores as follows: Above -1 Normal bone density Between -1 and -2.5 Osteopenia Equal to / or below -2.5 Osteoporosis As a practical clinical guideline, osteopenia may be graded as follows: Mild -1 through -1.5 Moderate -1.6 through -2.0 Severe -2.1 through -2.4 The Z-score is the number of standard deviations above or below age-matched controls. A Z-score of less than -1.5 would be considered abnormal. References: 1. NIH Osteoporosis and Related Bone Diseases www osteo.org 2. International Society for Clinical Densitometry www iscd.org 3. National Osteoporosis Foundation www nof.org Electronically Signed: Reji Jaramillo MD at 15:14 EST ,
== END | disposition home or self-care (01) ==
LOC: OPBD 13:43
PROVIDERS: PCP Family Medicine
DX: M81.0 Age-related osteoporosis without current pathological fracture (principal)
CPT/HCPCS: 77080

== ENCOUNTER 2022-08-12 12:43 | Inpatient (IN) | payer MEDICARE, SELFPAY ==
[2022-08-12 12:58] VITALS: BP 129/68; BP 136/73; PULSE 80; PULSE 88; RESP 17; TEMP 36.6; O2SAT 98; O2SAT 99; BMI 33.8
[2022-08-12 13:30] VITALS: RESP 16; O2SAT 97
[2022-08-12] MEDS: oxyCODONE 5 MG Tablet PO ×2 (14:26→20:39)
--- NOTE | 2022-08-12 14:53 | HP.PCM_ITS ---
HPI - General General Date of Admission: 08/12/22 Date of Service: 08/12/22 Chief Complaint: Here for rehabilitation. HPI Ree BLAS, is a 72 Female who presents with followin08/04/2022 Admit to [facility]. Dr. Hamilton, Dr. Conner performed lumbar spine surgery. Large output from surgical drain required intermittent clamping. Hemoglobin and Hematocrit monitored closely postoperatively. Tachycardic. 08/10/2022 Echo showed LVEF 50%. Urinary retention after hook removal. Urology stopped Oxybutynin, started Tamsulosin. PT/OT recommended SNF. 08/12/2022 Admit to TCU with debility, here for rehabilitation, strengthening, prior to discharge home with . [facility] Medical History (Updated 08/12/22 @ 14:[address] 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 Home Medications methotrexate sodium 2.5 mg tablet 15 mg PO QWEEK arthritis 02/04/14 [History Last Taken 06/02/18] triamterene 75 mg-hydrochlorothiazide 50 mg tablet 0.5 tab PO DAILY BP 02/04/14 [History Last Taken Unknown] lisinopril 10 mg tablet 10 mg PO DAILY BP 01/06/16 [History Last Taken 06/30/18] hydroxychloroquine 200 mg tablet (Plaquenil) 200 mg PO DAILY 03/30/18 [History Last Taken Unknown] metoprolol tartrate 100 mg tablet (Lopressor) 100 mg PO DAILY BP 03/30/18 [History Last Taken 06/30/18] omeprazole 40 mg capsule,delayed release 40 mg PO DAILY GERD 03/30/18 [History Last Taken Unknown] oxybutynin chloride 5 mg tablet 5 mg PO BID bladder 06/23/18 [History Last Taken Unknown] Lactobacillus acidophilus 1 ea PO BID #20 caps 06/30/18 [Rx Last Taken Unknown] imiquimod 5 % topical cream packet 1 applic topical 5XW #30 ea 09/15/19 [Rx Last Taken Unknown] aluminum-mag hydroxide-simethicone 200 mg-200 mg-20 mg/5 mL oral susp 30 ml PO Q6H PRN PRN Constipation 08/12/22 [History Last Taken Unknown] bisacodyl 5 mg OTHER DAILY PRN PRN Constipation 08/12/22 [History Last Taken Unknown] cyclobenzaprine 10 mg PO/SL Q8H PRN PRN muscle spasms 08/12/22 [History Last Taken Unknown] cyclobenzaprine muscle relaxer 08/12/22 [History Last Taken Unknown] diphenhydramine citrate 25 mg sleep 08/12/22 [History Last Taken Unknown] docusate sodium 100 mg PO/SL constipation 08/12/22 [History Last Taken Unknown] ferrous sulfate 325 mg PO/SL BID supplement 08/12/22 [History Last Taken Unknown] ferrous sulfate supplement 08/12/22 [History Last Taken Unknown] leucovorin calcium 10 mg PO/SL QWEEK w/ methotrexate 08/12/22 [History Last Taken Unknown] ondansetron 4 mg PO/SL Q6H PRN PRN Nausea 08/12/22 [History Last Taken Unknown] oxycodone 5 mg PO/SL Q4H PRN PRN Pain 08/12/22 [History Last Taken Unknown] polyethylene glycol 3350 17 g PO/SL DAILY constipation 08/12/22 [History Last Taken Unknown] tamsulosin 0.4 mg PO/SL QHS bladder 08/12/22 [History Last Taken Unknown] Allergy/AdvReac Type Severity Reaction Status Date / Time No Known Allergies Allergy Verified 09/13/19 10:03 Family History Son Hypertension Surgical History brain aneurysm repair d & c History of left knee replacement History of squamous cell carcinoma in situ (SCCIS) of skin Hx of cataract surgery S/P left rotator cuff repair Status post right knee replacement Social History (Updated 08/12/22 @ 14:[address] Zane Rosenberg MD) household members: spouse Smoking Status: Former smoker quit date: 07/19/90 pack-years: 30 second hand exposure: No alcohol intake: current alcohol intake frequency: holidays/special occasions only substance use type: does not use ROS Constitutional Constitutional: Denies chills, fever(s) or weight gain ENT HEENT: Denies headache(s), nasal congestion or nasal discharge Cardiovascular Cardiovascular: Denies chest pain or palpitations Respiratory/Chest Respiratory/Chest: Denies cough, excessive phlegm production or shortness of breath with exertion Gastrointestinal Gastrointestinal: Denies abdominal pain, nausea or vomiting Genitourinary Genitourinary: Denies dysuria Musculoskeletal Musculoskeletal: Reports back pain; Denies joint pain or joint swelling Integumentary Integumentary: Denies rash or wounds Neurologic Neurologic: Denies focal weakness, numbness or tingling Psychiatric Psychiatric: Denies anxiety, auditory hallucinations, depression, homicidal ideation or suicidal ideation Vital Signs Vital Signs Vital Signs: 08/12/22 12:58 Temperature 97.9 F Temperature Source Oral Pulse Rate 88 Respiratory Rate 17 Blood Pressure 136/73 H Blood Pressure Mean 94 Blood Pressure Source Monitor Blood Pressure Position Sitting Blood Pressure Location Left Arm Pulse Ox 99 Oxygen Delivery Method Room Air Physical Exam Const alert General Appearance: cooperative HEENT normocephalic Eyes PERRL and EOMs intact bilaterally Neck supple, no JVD and no carotid bruits Resp normal respiratory effort, normal air movement and clear to auscultation bilaterally Cardio regular rate and regular rhythm GI normal to inspection, nondistended, normoactive bowel sounds, non-tender and non-distended Back/Spine Back/Spine Narrative: Drain present. Extremity normal capillary refill General Extremity: Negative for edema Skin no rashes or lesions noted General Skin Exam: no breakdown Psych affect normal Appearance: appropriate Assessment & Plan Assessment/Plan (1) Debility: (2) Lumbar spinal stenosis: (3) Postoperative anemia: (4) Urinary retention: (5) Hypertension: (6) Hyperlipidemia: (7) GERD (gastroesophageal reflux disease): (8) Rheumatoid arthritis: PLAN: Plan 72 year old female with below past medical history hospitalized for lumbar spine surgery 08/04/2022, complicated by postoperative anemia, urinary retention, admitted to TCU with debility, here for rehabilitation, strengthening, prior to discharge home with . * Debility - PT/OT. * Pain - Tylenol 1000mg q6h prn pain (1-5), Oxycodone 5mg q4h prn pain (6-10). * Bowel - Miralax 17gm daily, senna/colace 2 tablets bid, Dulcolax 10mg daily prn, MOM 30ml po x 1 prn. * Adult immunization - Administer pneumonia vaccine, covid19 vaccine, flu vaccine as appropriately. * DVT prophylaxis - Hold, monitor. * Muscle spasm - Flexeril 10mg tid prn. * Iron deficiency anemia - Ferrous sulfate 325mg bid. * Rheumatoid Arthritis - MTX 15mg per week, Leucovorin 10mg per week. * Hypertension - Metoprolol 100mg daily, Lisinopril 10mg daily, Maxzide 75/50mg 1/2 tablet daily. * Nausea - Zofran ODT 4mg q6h prn. * GERD - Pantoprazole 40mg daily. * Urinary retention - Tamsulosin 0.4mg qhs. * Insomnia - Melatonin 10mg qhs prn.
--- NOTE | 2022-08-12 15:48 | CASEMGMT ---
Social Work Met with patient to complete initial assessment. Introduced self and role. Verified/updated contacts. Discussed code status and MOLST form. Pt confirms full code. MOLST placed in Dr folder. Educated to [facility] [place] insurance and continued stay is not guaranteed with each review. Pt's goal is to return home with at [facility]. Two son's are local and another son lives out of state. Pt is agreeable to contact bobbin fixer to get advanced directives brought in. SW to continue to follow for DC planning. DARRYL CrewsW
[2022-08-12] MEDS: Senna/Docusate Sodium 1 Tablet 2 TABLET PO (17:39)
[2022-08-12] MEDS: Ferrous Sulfate 325 MG Tablet PO (17:39)
--- NOTE | 2022-08-12 20:30 | NURSING ---
Addendum entered by Sobeida Henry 08/13/22 05:58: Approached pt again regarding soap suds enema; pt refused. Pt educated about risks of bowel obstruction if she does not have a bowel movement. Pt voiced understanding and says it is too early right now. Warm prune juice and butter given along with scheduled senokot and miralax. RN aware. Note left for Dr. Rosenberg. Original Note: Pt refused soap suds enema at this time, stating she was tired and wanted to go to sleep.
[2022-08-12] MEDS: Tamsulosin HCl 0.4 MG Capsule PO (20:38)
[2022-08-12] MEDS: cycloBENZAPRine HCl 10 MG Tablet PO (20:38)
--- NOTE | 2022-08-13 01:54 | NURSING ---
Pt heard calling out. Upon entering the room, pt asked if we could see the lady by the window. Reassured pt that there is no lady by the window. Pt states oh, I'm hallucinating again. Pt reoriented and transferred to recline via x2 assist, as she was uncomfortable in the bed.
[2022-08-13] MEDS: Acetaminophen 500 MG Tablet 1000 MG PO ×2 (04:14→17:22)
[2022-08-13] MEDS: Senna/Docusate Sodium 1 Tablet 2 TABLET PO ×2 (04:15→17:16)
[2022-08-13] MEDS: Triamterene 75MG/Hctz 50MG Tablet 0.5 TABLET PO (04:16)
[2022-08-13 04:17] VITALS: BP 136/72; PULSE 92
[2022-08-13] MEDS: Lisinopril 10 MG Tablet PO (04:17)
[2022-08-13] MEDS: Pantoprazole Sodium 40 MG Tablet PO (04:17)
[2022-08-13] MEDS: Metoprolol Tartrate 100 MG Tablet PO (04:17)
[2022-08-13] MEDS: Polyethylene Glycol 3350 17 GM PACKET PO (04:18)
[2022-08-13 06:14] LABS: Absolute Lymphocyte Count 0.86 X10^3/uL (0.83-4.51); Basophil# 0.04 X10^3/uL; Basophil% 0.4 % (0-1); Eosinophil# 0.17 X10^3/uL; Eosinophils% 1.6 % (0-5); Hematocrit 27.5 % (37-47); Hemoglobin 9.3 g/dL (12.0-15.0); Lymphocyte # 0.86 X10^3/ul (0.83-4.51); Lymphocyte % 8.3 % (19-41); Mean Corp Hgb Conc 33.8 g/dL (32-36); Mean Corpuscular Volume 97.5 fL (81-99); Mean Platelet Vol. 10.2 fl (6.2-12.0); Monocyte# 1.19 X10^3/uL; Monocyte% 11.5 % (0-10); NRBC Flagged by Analyzer 0 % (0-5); Neutrophil # 8.03 X10^3/uL (2.7-7.7); Neutrophil % 77.2 % (47-70); Platelet Count 306 K/mm3 (150-450); RBC Distribution Width CV 15.2 % (11.6-14.6); RBC Distribution Width SD 53.6 fl (35.1-43.9); Red Blood Count 2.82 M/mm3 (4.2-5.4); White Blood Count 10.4 K/mm3 (4.4-11.0)
[2022-08-13 06:47] LABS: Anion Gap 11 (5-15); BUN 7 mg/dL (7-18); BUN/Creat Ratio 12.7 RATIO (10-20); Calcium,Total 8.3 mg/dL (8.5-10.1); Chloride 99 mmol/L (98-107); Creatinine, Serum 0.55 mg/dL (0.55-1.02); EST Glomerular Filtration Rate 115 mL/min (>60); Est Glom Filt Rate - Afr Amer 139 mL/min (>60); Glucose 116 mg/dL (74-106); Potassium 3.1 mmol/L (3.5-5.1); Sodium Level 133 mmol/L (136-145)
[2022-08-13 10:00] VITALS: PULSE 114; RESP 18; O2SAT 96
--- NOTE | 2022-08-13 10:00 | NURSING ---
Tipple Engineer Note; Activity Asset: Karsten Nunez is independent in her choice of daily activities. She has her smartphone she will use for games and talking w/family along with a book from home and watching tv. Mayra has some confusion but stated she prefers to do activities in her room at this time due to her surgery. Her family will visit her daily.
[2022-08-13] MEDS: Potassium Chloride Oral Tablet 20 MEQ 40 MEQ PO (10:16)
[2022-08-13] MEDS: Lactulose 20 GM/30 ML UDC PO (10:16)
[2022-08-13] MEDS: Tuberculin,Purif.prot.deriv. 50 TU/ML Vial 0.1 ML ID (10:17)
[2022-08-13] MEDS: cycloBENZAPRine HCl 10 MG Tablet PO ×3 (10:20→23:55)
[2022-08-13] MEDS: Ferrous Sulfate 325 MG Tablet PO ×2 (13:05→17:16)
[2022-08-13 13:58] VITALS: BP 127/77; PULSE 117; RESP 16; TEMP 36.3; O2SAT 99
--- NOTE | 2022-08-13 15:28 | PHA.CONS_ITS ---
TCU RX Drug Regimen Review Subjective: 72 YOF admitted from outside facility S/P Lumbar spine surgery. Admitted to TCU for strengthening and rehabilitation prior to discharge home where she reside with her . Objective: Allergies No Known Allergies Allergy (Verified 09/13/19 10:03) Current Medications Generic Name Dose Route Start Last Admin Trade Name Freq PRN Reason Stop Dose Admin Acetaminophen 1,000 mg 08/12/22 15:07 08/13/22 04:14 Acetaminophen 500 Mg Tablet PO 1,000 mg Q6H PRN PRN Administration Pain Score 1-5 Bisacodyl 10 mg 08/12/22 13:37 Bisacodyl 5 Mg Tablet PO DAILY PRN PRN Constipation Cyclobenzaprine HCl 10 mg 08/12/22 13:37 08/13/22 10:20 Cyclobenzaprine Hcl 10 Mg Tablet PO 10 mg TID PRN Administration MUSCLE SPASM Ferrous Sulfate 325 mg 08/12/22 17:00 08/13/22 13:05 Ferrous Sulfate 325 Mg Tablet PO 325 mg 1200,1700 LINSEY Administration Lisinopril 10 mg 08/13/22 06:00 08/13/22 04:17 Lisinopril 10 Mg Tablet PO 10 mg DAILY LINSEY Administration Magnesium Hydroxide 30 ml 08/12/22 15:07 Magnesium Hydroxide 30 Ml Udc PO X1 PRN Constipation Melatonin 10 mg 08/12/22 15:10 Melatonin 10 Mg Tablet PO QHS PRN INSOMNIA Methotrexate 15 mg 08/12/22 13:30 Methotrexate 2.5 Mg Tablet PO QWEEK LINSEY Metoprolol Tartrate 100 mg 08/13/22 06:00 08/13/22 04:17 Metoprolol Tartrate 100 Mg Tablet PO 100 mg DAILY LINSEY Administration Non-Formulary Medication 10 mg 08/12/22 13:30 Leucovorin Calcium SL/PO QWEEK LINSEY Ondansetron HCl 4 mg 08/12/22 13:47 Ondansetron Odt 4 Mg Tablet PO Q6H PRN PRN Nausea Oxycodone HCl 5 mg 08/12/22 13:49 08/12/22 20:39 Oxycodone 5 Mg Tablet PO 5 mg Q4H PRN PRN Administration PAIN 1-10 Pantoprazole Sodium 40 mg 08/13/22 06:00 08/13/22 04:17 Pantoprazole Sodium 40 Mg Tablet PO 40 mg DAILY LINSEY Administration Polyethylene Glycol 17 gm 08/13/22 06:00 08/13/22 04:18 Polyethylene Glycol 3350 17 Gm Packet PO 17 gm DAILY LINSEY Administration Potassium Chloride 20 meq 08/14/22 08:00 Potassium Chloride Oral Tablet 20 Meq PO DAILYCM LINSEY Senna/Docusate Sodium 2 tablet 08/12/22 18:00 08/13/22 04:15 Senna/Docusate Sodium 1 Tablet PO 2 tablet BID LINSEY Administration Tamsulosin HCl 0.4 mg 08/12/22 22:00 08/12/22 20:38 Tamsulosin Hcl 0.4 Mg Capsule PO 0.4 mg QHS LINSEY Administration Triamterene/Hydrochlorothiazide 0.5 tablet 08/13/22 06:00 08/13/22 04:16 Triamterene 75mg/Hctz 50mg Tablet PO 0.5 tablet DAILY LINSEY Administration Tuberculin PPD 0.1 ml 08/20/22 10:00 Tuberculin,Purif.Prot.Deriv. 50 Tu/Ml Vial ID 08/20/22 10:01 X1 ONE Problem List (Last Reviewed 08/12/22 @ 14:[address] Zane Rosenberg MD) Rheumatoid arthritis (Acute) GERD (gastroesophageal reflux disease) (Acute) Hyperlipidemia (Acute) Hypertension (Chronic) Urinary retention (Acute) Postoperative anemia (Acute) Lumbar spinal stenosis (Acute) Debility (Acute) Vital Signs Temp Pulse Resp BP Pulse Ox O2 Del Method 97.4 F L 117 H 16 127/77 H 99 Room Air 08/13/22 13:58 08/13/22 13:58 08/13/22 13:58 08/13/22 13:58 08/13/22 13:58 08/13/22 13:58 Oxygen Delivery Method Room Air Weight: 95.118 kg Body Mass Index (BMI) 33.8 Sodium 133 mmol/L (136-145) L 08/13/22 05:15 Potassium 3.1 mmol/L (3.5-5.1) L 08/13/22 05:15 Chloride 99 mmol/L (98-107) 08/13/22 05:15 Carbon Dioxide 23.0 mmol/L (21.0-32.0) 08/13/22 05:15 Anion Gap 11 (5-15) 08/13/22 05:15 BUN 7 mg/dL (7-18) 08/13/22 05:15 Creatinine 0.55 mg/dL (0.55-1.02) 08/13/22 05:15 Est GFR (MDRD) Af Amer 139 mL/min (>60) 08/13/22 05:15 Est GFR (MDRD) Non-Af 115 mL/min (>60) 08/13/22 05:15 BUN/Creatinine Ratio 12.7 RATIO (10-20) 08/13/22 05:15 Glucose 116 mg/dL (74-106) H 08/13/22 05:15 Assessment/Plan: 1. Pain: Tylenol 1000mg PO Q6h PRN Pain 1-5, Oxycodone 5mg PO Q4h PRN Pain 1-10. Please continue to monitor for increased/decreased S/S pain, PRN medication usage, oversedation, constipation and hallucinations with narcotic use. - The patient has used 1 dose each of both Tylenol and oxycodone. The patient's pain scores have ranged from 5-10 in the back area, with post- medication scores ranging from 0-5. It appears that the patient is still quite painful d/t surgery. Please continue to monitor closely. - Per nursing documentation, it appears the patient is having some hallucinations. It appears at this time she is easily redirected and is acknowledging that she is hallucinating. Please continue to monitor closely and change therapy if clinically indicated. 2. HTN: Lisinopril 10mg PO Daily, Lopressor 100mg PO Daily, Maxzide 75/50mg 1/2 tab PO Daily. Please continue to monitor BP (range 127-136/68-77), Pulse (range 88-117), renal function, K+ (3.1 on 08/13) 3. Rheumatoid Arthritis: Methotrexate 15mg PO once weekly, Leucovorin 10mg PO once weekly. Please continue to monitor CBC (last 08/13/22), LFT (WNL 04/2022), N/V. 4. Muscle Spasms: Cyclobenzaprine 10mg PO TID PRN. Please continue to monitor for PRN medication use. This is a Beer's Criteria which can increase the risk of falls, oversedation. Flexeril also has the potential to cause hallucinations, which the patient is currently experiencing. The patient has only used 1 dose, please continue to monitor closely, thank you. 5. GERD:Protonix 40mg PO Daily. Please continue to monitor for headache, GI upset, bloating. May also encourage the patient to use non-pharmacologic treatments to help minimize GERD flare-ups as well. 6. Urinary Retention: Flomax 0.4mg PO QHS. Please continue to monitor for medication effectiveness, increased urinary retention, S/S UTI. 7. Nausea: Zofran 4mg PO Q6h PRN. Please continue to monitor for PRN medication usage, headache, medication effectiveness. To date, the patient has not used any doses of this medication, nausea appears to be well controlled at this time. 8. Hypokalemia:K-Dur 20mEq PO DailyCM. Please continue to monitor potassium levels (last 3.1 on 08/13), nausea, GI upset. 9. Iron Deficiency Anemia: Ferrous sulfate 325mg PO BIDCM. Please continue to monitor for GI upset, N/V, iron studies as clinically indicated, H/H (last 08/13). 10. Insomnia: Melatonin 10mg PO QHS PRN. Please continue to monitor for oversedation, medication effectiveness. If medication appears ineffective, may administer 2 hours prior to bedtime to help medication be more effective. 11. Bowel: Miralax 17g PO Daily, Senna/Docusate 2 tab PO BID, Dulcolax 10mg PO Daily PRN, MOM 30mL PO x1 PRN. Please continue to monitor for increased/decreased constipation and/or diarrhea. The patient is on opioid narcotics which can cause constipation, monitor closely. Assessment/Plan for indications treated with psychotropic medications: The patient is not currently on any psychotropic medications. Medical chart and medication regimen reviewed. The following medication irregularities or issues were identified: 1. Hallucinations: Per nursing documentation, it appears the patient is having some hallucinations. It appears at this time she is easily redirected and is acknowledging that she is hallucinating. Please continue to monitor closely and change therapy if clinically indicated. The patient is currently on oxycodone and Flexeril, which can cause hallucinations. She has only had 1 dose of each medication since admission at this time. Date of Note:: 08/13/22
[2022-08-13] MEDS: oxyCODONE 5 MG Tablet PO (19:38)
[2022-08-13] MEDS: MELATONIN 10 MG TABLET PO (19:38)
[2022-08-13] MEDS: Tamsulosin HCl 0.4 MG Capsule PO (19:38)
--- NOTE | 2022-08-14 02:00 | NURSING ---
Wound vac removed and silver drsg applied per order.
[2022-08-14] MEDS: Acetaminophen 500 MG Tablet 1000 MG PO ×3 (02:36→21:07)
[2022-08-14] MEDS: oxyCODONE 5 MG Tablet PO ×3 (03:39→18:15)
--- NOTE | 2022-08-14 04:57 | NURSING ---
Administered soap suds enema per order @ 0445. Patient held 1,000ml. Will monitor for results.
[2022-08-14] MEDS: Lisinopril 10 MG Tablet PO (05:19)
[2022-08-14] MEDS: Triamterene 75MG/Hctz 50MG Tablet 0.5 TABLET PO (05:20)
[2022-08-14] MEDS: Senna/Docusate Sodium 1 Tablet 2 TABLET PO ×2 (05:20→18:16)
[2022-08-14] MEDS: Polyethylene Glycol 3350 17 GM PACKET PO (05:20)
[2022-08-14] MEDS: Pantoprazole Sodium 40 MG Tablet PO (05:21)
[2022-08-14 05:25] VITALS: BP 116/75; PULSE 114
[2022-08-14] MEDS: Metoprolol Tartrate 100 MG Tablet PO (05:25)
[2022-08-14 06:02] LABS: Hemoglobin 8.8 g/dL (12.0-15.0)
[2022-08-14 06:22] LABS: Anion Gap 9 (5-15); BUN 5 mg/dL (7-18); Calcium,Total 8.3 mg/dL (8.5-10.1); Chloride 101 mmol/L (98-107); EST Glomerular Filtration Rate 129 mL/min (>60); Est Glom Filt Rate - Afr Amer 156 mL/min (>60); Glucose 100 mg/dL (74-106); Potassium 3.4 mmol/L (3.5-5.1); Sodium Level 132 mmol/L (136-145)
[2022-08-14] MEDS: Potassium Chloride Oral Tablet 20 MEQ PO ×2 (09:18→18:16)
[2022-08-14] MEDS: Ferrous Sulfate 325 MG Tablet PO ×2 (11:47→18:15)
[2022-08-14] MEDS: cycloBENZAPRine HCl 10 MG Tablet PO ×2 (11:51→21:07)
[2022-08-14 14:00] VITALS: BP 124/71; PULSE 92; RESP 18; TEMP 36.3; O2SAT 99
[2022-08-14 20:00] VITALS: PULSE 100; RESP 16; O2SAT 99
[2022-08-14] MEDS: MELATONIN 10 MG TABLET PO (21:07)
[2022-08-14] MEDS: Tamsulosin HCl 0.4 MG Capsule PO (21:08)
[2022-08-15] MEDS: oxyCODONE 5 MG Tablet PO (01:14)
[2022-08-15] MEDS: Acetaminophen 500 MG Tablet 1000 MG PO ×3 (04:07→20:47)
[2022-08-15 04:21] VITALS: BP 142/61; PULSE 97
[2022-08-15] MEDS: Triamterene 75MG/Hctz 50MG Tablet 0.5 TABLET PO (05:46)
[2022-08-15] MEDS: Senna/Docusate Sodium 1 Tablet 2 TABLET PO ×2 (05:46→17:49)
[2022-08-15 05:47] VITALS: BP 142/61; PULSE 97
[2022-08-15] MEDS: Lisinopril 10 MG Tablet PO (05:47)
[2022-08-15] MEDS: Metoprolol Tartrate 100 MG Tablet PO (05:47)
[2022-08-15] MEDS: Pantoprazole Sodium 40 MG Tablet PO (05:47)
[2022-08-15 07:45] LABS: Hematocrit 26.7 % (37-47); Hemoglobin 8.6 g/dL (12.0-15.0)
[2022-08-15] MEDS: Potassium Chloride Oral Tablet 20 MEQ PO ×2 (08:03→17:49)
[2022-08-15] MEDS: Ascorbic Acid 500 MG Tablet PO (08:04)
[2022-08-15 08:50] VITALS: PULSE 81; RESP 18; O2SAT 98
[2022-08-15] MEDS: Ferrous Sulfate 325 MG Tablet PO ×2 (11:30→17:49)
[2022-08-15 15:37] VITALS: BP 132/70; PULSE 96; RESP 16; TEMP 36.3; O2SAT 97
[2022-08-15] MEDS: cycloBENZAPRine HCl 10 MG Tablet PO (17:53)
[2022-08-15] MEDS: Tamsulosin HCl 0.4 MG Capsule PO (20:49)
[2022-08-16] MEDS: cycloBENZAPRine HCl 10 MG Tablet PO ×2 (03:45→11:28)
[2022-08-16] MEDS: Acetaminophen 500 MG Tablet 1000 MG PO (03:45)
[2022-08-16] MEDS: Pantoprazole Sodium 40 MG Tablet PO (06:11)
[2022-08-16] MEDS: Triamterene 75MG/Hctz 50MG Tablet 0.5 TABLET PO (06:11)
[2022-08-16 06:12] VITALS: BP 166/74; PULSE 103
[2022-08-16] MEDS: Lisinopril 10 MG Tablet PO (06:12)
[2022-08-16] MEDS: Metoprolol Tartrate 100 MG Tablet PO (06:12)
[2022-08-16 08:11] LABS: BUN 8 mg/dL (7-18); Creatinine, Serum 0.64 mg/dL (0.55-1.02); Glucose 105 mg/dL (74-106)
[2022-08-16 08:12] LABS: Anion Gap 8 (5-15); BUN/Creat Ratio 12.6 RATIO (10-20); Calcium,Total 8.9 mg/dL (8.5-10.1); Chloride 100 mmol/L (98-107); EST Glomerular Filtration Rate 98 mL/min (>60); Est Glom Filt Rate - Afr Amer 118 mL/min (>60); Potassium 3.9 mmol/L (3.5-5.1); Sodium Level 134 mmol/L (136-145)
[2022-08-16] MEDS: Potassium Chloride Oral Tablet 20 MEQ PO ×2 (08:40→17:43)
[2022-08-16] MEDS: Ascorbic Acid 500 MG Tablet PO (08:40)
[2022-08-16] MEDS: Ferrous Sulfate 325 MG Tablet PO ×2 (11:27→17:43)
[2022-08-16] MEDS: LORazepam 0.5 MG Tablet PO ×2 (13:25→20:03)
[2022-08-16 14:00] VITALS: BP 125/73; PULSE 86; RESP 16; TEMP 36.8; O2SAT 100
--- NOTE | 2022-08-16 14:08 | NURSING ---
PT STILL VERY RESTLESS TODAY. DID NOT SLEEP WELL LAST NIGHT AGAIN. TALKED TO PT ABOUT ANXIETY. PT AND FELT SHE MAY HAVE SOME ANXIETY. RN Dakotah OHARA AND CALLED TO . NEW ORDERS FOR PRN ATIVAN AND PRN ULTRAM GIVEN FOR PAIN.
[2022-08-16] MEDS: Senna/Docusate Sodium 1 Tablet 2 TABLET PO (17:43)
[2022-08-16 20:00] VITALS: PULSE 98; RESP 16; O2SAT 99
[2022-08-16] MEDS: Tamsulosin HCl 0.4 MG Capsule PO (20:04)
[2022-08-16] MEDS: MELATONIN 10 MG TABLET PO (20:04)
[2022-08-17] MEDS: LORazepam 0.5 MG Tablet PO (02:52)
--- NOTE | 2022-08-17 03:35 | NURSING ---
Anxiety continues frequently despite PRN Ativan, patient does voice PRN Ativan as effective. Awake throughout the night despite PRN Melatonin, written communication left for Dr. Rosenberg.
[2022-08-17] MEDS: Methotrexate 2.5 MG Tablet 15 MG PO (05:23)
[2022-08-17 05:32] VITALS: BP 155/71; PULSE 111
[2022-08-17] MEDS: Metoprolol Tartrate 100 MG Tablet PO (05:32)
[2022-08-17] MEDS: Lisinopril 10 MG Tablet PO (05:33)
[2022-08-17] MEDS: Pantoprazole Sodium 40 MG Tablet PO (05:33)
[2022-08-17] MEDS: Polyethylene Glycol 3350 17 GM PACKET PO (05:35)
[2022-08-17] MEDS: Senna/Docusate Sodium 1 Tablet 2 TABLET PO ×2 (05:36→17:14)
[2022-08-17] MEDS: Triamterene 75MG/Hctz 50MG Tablet 0.5 TABLET PO (05:36)
[2022-08-17 05:42] LABS: Hematocrit 28.7 % (37-47); Hemoglobin 9.3 g/dL (12.0-15.0)
[2022-08-17 07:30] VITALS: PULSE 99; RESP 16
[2022-08-17] MEDS: cycloBENZAPRine HCl 10 MG Tablet PO (07:52)
[2022-08-17] MEDS: Potassium Chloride Oral Tablet 20 MEQ PO ×2 (07:52→17:14)
[2022-08-17] MEDS: Ascorbic Acid 500 MG Tablet PO (07:53)
[2022-08-17] MEDS: Acetaminophen 500 MG Tablet 1000 MG PO (11:26)
--- NOTE | 2022-08-17 11:42 | NURSING ---
Speech therapy consulted for cognitive assessment.
[2022-08-17] MEDS: Ferrous Sulfate 325 MG Tablet PO ×2 (12:17→17:14)
[2022-08-17 14:00] VITALS: BP 130/69; PULSE 98; RESP 18; TEMP 36.1; O2SAT 99
--- NOTE | 2022-08-17 14:53 | NURSING ---
Patient refused to get covid booster. Educated on the vaccine and educational pamphlet given to patient.
[2022-08-17] MEDS: Magnesium Hydroxide 30 ML UDC PO (18:43)
[2022-08-17] MEDS: Tamsulosin HCl 0.4 MG Capsule PO (20:17)
[2022-08-17] MEDS: LORazepam 1 MG Tablet PO (20:17)
[2022-08-18 06:05] LABS: Anion Gap 9 (5-15); BUN 8 mg/dL (7-18); BUN/Creat Ratio 12.5 RATIO (10-20); Calcium,Total 8.6 mg/dL (8.5-10.1); Chloride 97 mmol/L (98-107); Creatinine, Serum 0.64 mg/dL (0.55-1.02); EST Glomerular Filtration Rate 97 mL/min (>60); Est Glom Filt Rate - Afr Amer 117 mL/min (>60); Glucose 105 mg/dL (74-106); Potassium 4.4 mmol/L (3.5-5.1); Sodium Level 129 mmol/L (136-145)
[2022-08-18] MEDS: Triamterene 75MG/Hctz 50MG Tablet 0.5 TABLET PO (06:41)
[2022-08-18] MEDS: Senna/Docusate Sodium 1 Tablet 2 TABLET PO (06:41)
[2022-08-18 06:42] VITALS: BP 136/70; PULSE 82
[2022-08-18] MEDS: Pantoprazole Sodium 40 MG Tablet PO (06:42)
[2022-08-18] MEDS: Metoprolol Tartrate 100 MG Tablet PO (06:42)
[2022-08-18] MEDS: Lisinopril 10 MG Tablet PO (06:53)
[2022-08-18] MEDS: Potassium Chloride Oral Tablet 20 MEQ PO ×2 (08:42→17:00)
[2022-08-18] MEDS: Ascorbic Acid 500 MG Tablet PO (08:42)
[2022-08-18 09:23] LABS: Osmolality, Serum 263 mOsm/KG (280-301)
[2022-08-18 09:23] LABS: Osmolality, Urine 353 mOsm/KG
[2022-08-18 09:30] LABS: Urine Sodium 66 mmol/L (Not Establ.)
[2022-08-18] MEDS: Acetaminophen 500 MG Tablet 1000 MG PO ×2 (10:29→22:24)
[2022-08-18] MEDS: Ferrous Sulfate 325 MG Tablet PO ×2 (11:39→17:00)
[2022-08-18 14:00] VITALS: BP 132/71; PULSE 91; RESP 18; TEMP 36.1; O2SAT 99
--- NOTE | 2022-08-18 14:09 | CASEMGMT ---
Social Work BIMS and PHQ9 interviews completed on this date for MDS assessment. BIMS score 9/13. Pt unable to correctly identify year and can only recall 1 of three word with cueing. PHQ9 score /. SW explored feelings of depression and pt states mood has declined since the time her back problems began in Sep 09 due to limitations with normal activity. Pt states interactions with her grandchildren are helpful to her in coping with feelings. Pt confirms she talks to grandchildren on phone while she is in the TCU. AUBREY Albarado
--- NOTE | 2022-08-18 14:14 | NURSING ---
NEW ORDER,PT ON 1500 FLUID RESTRICTION DUE TO LOW SODIUM. PT AND AWARE.
--- NOTE | 2022-08-18 14:50 | NURSING ---
THIS NURSE IN PT ROOM TO SHOP WORKER PT FLUIDS DUE TO FLUID RESTRICTION. THIS NURSE LOOKED DOWN AT OPEN DRAW WHILE PICKING UP POP CAN AND FOUND A PILL ORGANIZER FULL OF PILLS FROM WEDNESDAY -WEDNESDAY. MADE RN AWARE AND THIS NURSE AND RN ASKED PT WITH PRESENT IF SHE HAS BEEN TAKING ANY OF THE PILLS. PT STATED NO I HAVE NOT. DID TEACHING TO PT AND ABOUT TAKING MEDS THAT WE WERE NOT AWARE OF AND IS NOT ALLOWED UNLESS OKED BY AND PHARMACY. PT STILL STATED NO AND TOOK PILLS AND STATED HE WOULD TAKE THEM HOME.
--- NOTE | 2022-08-18 17:40 | NURSING ---
PT SON CALLED IN TO ASK THIS NURSE QUESTIONS ABOUT PT CONFUSION AND IF SHE WAS STILL GETTING HER PRN MED MELATONIN AND ATIVAN. THIS NURSE UPDATED SON ON MEDS AND THAT PT SODIUM WAS LOW AND WAS PUT ON A FLUID RESTRICTION. OTHER QUESTIONS WAS ASKED AND THIS NURSE STATED HE WOULD HAVE TO ASK THOSE QUESTIONS AT THE PLAN OF CARE MEETING TOMORROW. SON THANKED THIS NURSE.
[2022-08-18 22:00] VITALS: PULSE 109; RESP 16; O2SAT 98
[2022-08-18] MEDS: Tamsulosin HCl 0.4 MG Capsule PO (22:25)
[2022-08-19] MEDS: LORazepam 1 MG Tablet PO ×2 (04:53→20:28)
[2022-08-19 04:54] VITALS: BP 133/67; PULSE 105
[2022-08-19] MEDS: Senna/Docusate Sodium 1 Tablet 2 TABLET PO ×2 (04:54→18:14)
[2022-08-19] MEDS: Polyethylene Glycol 3350 17 GM PACKET PO (04:54)
[2022-08-19] MEDS: Triamterene 75MG/Hctz 50MG Tablet 0.5 TABLET PO (04:54)
[2022-08-19] MEDS: Metoprolol Tartrate 100 MG Tablet PO (04:54)
[2022-08-19] MEDS: Lisinopril 10 MG Tablet PO (04:54)
[2022-08-19] MEDS: Pantoprazole Sodium 40 MG Tablet PO (04:55)
[2022-08-19] MEDS: Acetaminophen 500 MG Tablet 1000 MG PO ×3 (04:56→20:29)
--- NOTE | 2022-08-19 08:15 | NURSING ---
Cardiology Associate Note; MDS Complete
[2022-08-19] MEDS: Potassium Chloride Oral Tablet 20 MEQ PO ×2 (08:24→18:14)
[2022-08-19] MEDS: Ascorbic Acid 500 MG Tablet PO (08:24)
[2022-08-19 10:10] VITALS: PULSE 72; RESP 18; O2SAT 95
--- NOTE | 2022-08-19 10:31 | NURSING ---
DRESSINGS REMOVED FROM PT ABDOMINAL AND BACK PER ORDER. INCISIONS GLUED, PLACED STRI STRIPS ON BACK AND DRESSING TO DRAIN SITE AFTER CLEANING. NO S/S OF INFECTION OR SWELLING AT THIS TIME. WILL CONTINUE TO MONITOR. PT TOLERATED WELL.
[2022-08-19] MEDS: Ferrous Sulfate 325 MG Tablet PO ×2 (11:36→18:14)
--- NOTE | 2022-08-19 13:05 | CASEMGMT ---
Social Work Plan of care meeting held. Patient present as well as patient spouse, Yeyo and patient two sons. This social services manager educating patient and patient family that insurance update is due on 08/25/2022 with anticipated discharge date to be 08/28/2022 per insurance. Patient and patient family aware that continued stay approval is not guaranteed. Patient plans to discharge to home with spouse when patient does discharge from facility. Spouse interested in completing family training and plans to start family training this week. Patient to continue with further care and treatment on the Transitional Care Unit. Social Work to continue to follow. Ivonne ANDREWS, [id number]
[2022-08-19 18:32] VITALS: BP 100/64; PULSE 106
[2022-08-19 20:11] VITALS: BP 99/50; PULSE 88; RESP 19; TEMP 36.2; O2SAT 99
[2022-08-19] MEDS: Tamsulosin HCl 0.4 MG Capsule PO (20:29)
[2022-08-20] MEDS: cycloBENZAPRine HCl 10 MG Tablet PO ×3 (02:21→20:07)
[2022-08-20] MEDS: MELATONIN 10 MG TABLET PO (02:21)
[2022-08-20] MEDS: traMADol 50 MG Tablet PO ×2 (02:21→11:01)
[2022-08-20] MEDS: Lisinopril 10 MG Tablet PO (05:21)
[2022-08-20] MEDS: Acetaminophen 500 MG Tablet 1000 MG PO ×2 (05:21→15:24)
[2022-08-20] MEDS: Pantoprazole Sodium 40 MG Tablet PO (05:22)
[2022-08-20] MEDS: Triamterene 75MG/Hctz 50MG Tablet 0.5 TABLET PO (05:22)
[2022-08-20] MEDS: Senna/Docusate Sodium 1 Tablet 2 TABLET PO (05:22)
[2022-08-20 05:23] VITALS: BP 127/67; PULSE 109
[2022-08-20] MEDS: Metoprolol Tartrate 100 MG Tablet PO (05:23)
[2022-08-20] MEDS: Polyethylene Glycol 3350 17 GM PACKET PO (05:25)
[2022-08-20 05:38] LABS: Absolute Lymphocyte Count 0.89 X10^3/uL (0.83-4.51); Absolute Neutrophil Count 4.3 X10^3/uL (2.0-7.7); Basophil# 0.04 X10^3/uL; Basophil% 0.7 % (0-1); Eosinophil# 0.13 X10^3/uL; Eosinophils% 2.1 % (0-5); Hematocrit 29.6 % (37-47); Hemoglobin 9.4 g/dL (12.0-15.0); Lymphocyte # 0.89 X10^3/ul (0.83-4.51); Lymphocyte % 14.6 % (19-41); Mean Corp Hgb Conc 31.8 g/dL (32-36); Mean Corpuscular Hgb 32.3 pg (27.0-32.0); Mean Corpuscular Volume 101.7 fL (81-99); Mean Platelet Vol. 9.2 fl (6.2-12.0); Monocyte# 0.68 X10^3/uL; Monocyte% 11.1 % (0-10); NRBC Flagged by Analyzer 0 % (0-5); Neutrophil # 4.32 X10^3/uL (2.7-7.7); Neutrophil % 70.8 % (47-70); Platelet Count 439 K/mm3 (150-450); RBC Distribution Width CV 15.9 % (11.6-14.6); RBC Distribution Width SD 58.6 fl (35.1-43.9); Red Blood Count 2.91 M/mm3 (4.2-5.4); White Blood Count 6.1 K/mm3 (4.4-11.0)
[2022-08-20 06:08] LABS: Anion Gap 8 (5-15); BUN 12 mg/dL (7-18); Calcium,Total 8.8 mg/dL (8.5-10.1); Chloride 104 mmol/L (98-107); Creatinine, Serum 0.67 mg/dL (0.55-1.02); EST Glomerular Filtration Rate 92 mL/min (>60); Est Glom Filt Rate - Afr Amer 112 mL/min (>60); Glucose 112 mg/dL (74-106); Sodium Level 134 mmol/L (136-145)
[2022-08-20] MEDS: Tuberculin,Purif.prot.deriv. 50 TU/ML Vial 0.1 ML ID (10:56)
[2022-08-20] MEDS: Ascorbic Acid 500 MG Tablet PO (11:01)
[2022-08-20] MEDS: Ferrous Sulfate 325 MG Tablet PO ×2 (11:01→18:00)
[2022-08-20] MEDS: Potassium Chloride Oral Tablet 20 MEQ PO ×2 (11:02→18:00)
[2022-08-20 13:59] VITALS: BP 100/54; PULSE 97; RESP 18; TEMP 36.2; O2SAT 100
[2022-08-21] MEDS: traMADol 50 MG Tablet PO (01:56)
[2022-08-21 06:41] VITALS: BP 116/49; PULSE 116
[2022-08-21 06:44] VITALS: PULSE 116
[2022-08-21] MEDS: Acetaminophen 500 MG Tablet 1000 MG PO ×3 (06:44→21:42)
[2022-08-21] MEDS: Metoprolol Tartrate 100 MG Tablet PO (06:44)
[2022-08-21] MEDS: cycloBENZAPRine HCl 10 MG Tablet PO ×2 (06:44→16:45)
[2022-08-21 07:54] VITALS: BP 120/48; PULSE 79
[2022-08-21] MEDS: Triamterene 75MG/Hctz 50MG Tablet 0.5 TABLET PO (07:56)
[2022-08-21] MEDS: Pantoprazole Sodium 40 MG Tablet PO (07:57)
[2022-08-21] MEDS: Ascorbic Acid 500 MG Tablet PO (07:57)
[2022-08-21] MEDS: Potassium Chloride Oral Tablet 20 MEQ PO ×2 (07:57→16:44)
[2022-08-21] MEDS: Lisinopril 10 MG Tablet PO (07:57)
--- NOTE | 2022-08-21 10:06 | NURSING ---
CALLED DR MARIE OFFICE TO SCHEDULE APPT. OFFICE IS ONLY OPEN WED-. STAFF WILL NEED TO CALL WEDNESDAY TO SCHEDULE.
[2022-08-21] MEDS: Ferrous Sulfate 325 MG Tablet PO ×2 (11:55→16:44)
[2022-08-21 14:00] VITALS: BP 125/63; PULSE 85; RESP 18; TEMP 36.6; O2SAT 98
[2022-08-21] MEDS: Tamsulosin HCl 0.4 MG Capsule PO (21:42)
[2022-08-22] MEDS: cycloBENZAPRine HCl 10 MG Tablet PO ×2 (00:46→21:17)
[2022-08-22 04:29] VITALS: BP 116/67; PULSE 88
[2022-08-22] MEDS: Metoprolol Tartrate 100 MG Tablet PO (04:29)
[2022-08-22] MEDS: Senna/Docusate Sodium 1 Tablet 2 TABLET PO (04:30)
[2022-08-22] MEDS: Pantoprazole Sodium 40 MG Tablet PO (04:30)
[2022-08-22] MEDS: Triamterene 75MG/Hctz 50MG Tablet 0.5 TABLET PO (04:31)
[2022-08-22] MEDS: Acetaminophen 500 MG Tablet 1000 MG PO ×3 (04:31→20:26)
[2022-08-22] MEDS: Polyethylene Glycol 3350 17 GM PACKET PO (04:32)
[2022-08-22] MEDS: Lisinopril 10 MG Tablet PO (04:33)
[2022-08-22] MEDS: Potassium Chloride Oral Tablet 20 MEQ PO ×2 (08:05→16:29)
[2022-08-22] MEDS: Ascorbic Acid 500 MG Tablet PO (08:05)
[2022-08-22] MEDS: LORazepam 1 MG Tablet PO (08:09)
[2022-08-22] MEDS: Ferrous Sulfate 325 MG Tablet PO ×2 (11:09→16:29)
[2022-08-22 14:00] VITALS: BP 109/60; PULSE 98; RESP 16; TEMP 36.8; O2SAT 93
[2022-08-22 20:15] VITALS: O2SAT 96
[2022-08-22] MEDS: Tamsulosin HCl 0.4 MG Capsule PO (20:26)
[2022-08-22] MEDS: MELATONIN 10 MG TABLET PO (21:17)
[2022-08-23] MEDS: traMADol 50 MG Tablet PO (03:04)
[2022-08-23] MEDS: Polyethylene Glycol 3350 17 GM PACKET PO (06:08)
[2022-08-23] MEDS: Acetaminophen 500 MG Tablet 1000 MG PO ×3 (06:09→21:04)
[2022-08-23 06:10] VITALS: BP 150/66; PULSE 103
[2022-08-23] MEDS: Senna/Docusate Sodium 1 Tablet 2 TABLET PO ×2 (06:10→17:19)
[2022-08-23] MEDS: Metoprolol Tartrate 100 MG Tablet PO (06:10)
[2022-08-23] MEDS: Triamterene 75MG/Hctz 50MG Tablet 0.5 TABLET PO (06:10)
[2022-08-23] MEDS: Lisinopril 10 MG Tablet PO (06:10)
[2022-08-23] MEDS: Pantoprazole Sodium 40 MG Tablet PO (06:10)
[2022-08-23] MEDS: Potassium Chloride Oral Tablet 20 MEQ PO ×2 (07:45→17:19)
[2022-08-23] MEDS: Ascorbic Acid 500 MG Tablet PO (07:46)
[2022-08-23] MEDS: Ferrous Sulfate 325 MG Tablet PO ×2 (10:59→17:19)
[2022-08-23 14:00] VITALS: BP 100/56; PULSE 84; RESP 16; TEMP 36.6; O2SAT 98
[2022-08-23] MEDS: MELATONIN 10 MG TABLET PO (21:04)
[2022-08-23] MEDS: Tamsulosin HCl 0.4 MG Capsule PO (21:04)
[2022-08-23] MEDS: cycloBENZAPRine HCl 10 MG Tablet PO (21:04)
[2022-08-24] MEDS: LORazepam 1 MG Tablet PO ×2 (01:27→09:42)
[2022-08-24] MEDS: Methotrexate 2.5 MG Tablet 15 MG PO (04:28)
[2022-08-24] MEDS: Lisinopril 10 MG Tablet PO (04:29)
[2022-08-24] MEDS: Triamterene 75MG/Hctz 50MG Tablet 0.5 TABLET PO (04:31)
[2022-08-24 04:32] VITALS: BP 105/64; PULSE 109
[2022-08-24] MEDS: Metoprolol Tartrate 100 MG Tablet PO (04:32)
[2022-08-24] MEDS: Pantoprazole Sodium 40 MG Tablet PO (04:32)
[2022-08-24] MEDS: Acetaminophen 500 MG Tablet 1000 MG PO ×3 (04:35→20:57)
[2022-08-24] MEDS: Potassium Chloride Oral Tablet 20 MEQ PO ×2 (08:37→17:58)
[2022-08-24] MEDS: Ascorbic Acid 500 MG Tablet PO (08:37)
--- NOTE | 2022-08-24 10:06 | NURSING ---
Addendum entered by Gutierrez iPchardo 08/24/22 14:53: OFFICE CALLED BACK AND PT HAS A APPOINTMENT SET UP FOR 10/21/22. OFFICE WILL SEND OUT PAPER WORK TO FAMILY. HERE AND UPDATED. Original Note: CALLED MADE TO DR. MARIE OFFICE TO SET UP APPOINTMENT PER ORDER OF . MESSAGE LEFT.
[2022-08-24] MEDS: Ferrous Sulfate 325 MG Tablet PO ×2 (11:45→17:58)
[2022-08-24] MEDS: traMADol 50 MG Tablet PO (14:44)
[2022-08-24] MEDS: Tamsulosin HCl 0.4 MG Capsule PO (20:57)
[2022-08-24] MEDS: cycloBENZAPRine HCl 10 MG Tablet PO (21:04)
[2022-08-24] MEDS: MELATONIN 10 MG TABLET PO (21:04)
[2022-08-24 21:19] VITALS: O2SAT 94
[2022-08-25 04:39] VITALS: BP 107/53; PULSE 105
[2022-08-25] MEDS: Acetaminophen 500 MG Tablet 1000 MG PO ×3 (04:39→20:02)
[2022-08-25] MEDS: Pantoprazole Sodium 40 MG Tablet PO (04:39)
[2022-08-25] MEDS: Metoprolol Tartrate 100 MG Tablet PO (04:39)
[2022-08-25] MEDS: Triamterene 75MG/Hctz 50MG Tablet 0.5 TABLET PO (04:39)
[2022-08-25] MEDS: Lisinopril 10 MG Tablet PO (04:40)
--- NOTE | 2022-08-25 08:08 | MDS.RN ---
Information for the mds was obtained from review of the clinical record, interview of resident, staff, and direct observation of resident's care.
[2022-08-25] MEDS: Potassium Chloride Oral Tablet 20 MEQ PO ×2 (08:51→17:47)
[2022-08-25] MEDS: Ascorbic Acid 500 MG Tablet PO (08:52)
[2022-08-25] MEDS: Ferrous Sulfate 325 MG Tablet PO ×2 (11:29→17:46)
--- NOTE | 2022-08-25 13:27 | NURSING ---
PT HAS APPOINTMENT 08/26/22 AT IN [place] AT 11:45 AM. IS TAKING AND WILL H[employer]CHO[employer] MUSIC DIRECTOR AT 10:30 AM.
--- NOTE | 2022-08-25 13:36 | CASEMGMT ---
Social Work Insurance issued last covered day of 08/27/22. ADAN met with pt and spouse and updated on this information and that discharge scheduled for 08/28. Pt has a physician appointment tomorrow 08/26 at 1145 and pt and spouse requesting pt be discharged from TCU tomorrow morning and will go to appointment and then home. SW updated team and they are agreeable with discharge plan. Therapy is recommending continued PT/OT at discharge and pt is requesting outpatient therapy at [facility]. SW will make referral to [facility] when order is completed by physician. Pt made aware [facility] will call pt at home to set up appointment for evaluations. Pt states she has all needed DME. Pt spouse to transport with pick up driver time of 1030 on 08/26. Nursing updated. Discharge Date: 08/26/22 Discharge Disposition: Home with spouse. Outpt PT/OT at [facility] AUBREY Albarado
[2022-08-25 14:00] VITALS: BP 114/66; PULSE 88; RESP 16; TEMP 36.4; O2SAT 97
--- NOTE | 2022-08-25 19:11 | DS.PCM_ITS ---
Providers Date of Admission: 08/12/22 Primary Care Physician: Dr. Mary Robles MD Reason For Visit: LUMBAR DISC HERNIATION Diagnosis Discharge Diagnosis (1) Debility: Status: Acute Code(s): R53.81 - Other malaise (2) Lumbar spinal stenosis: Status: Acute Code(s): M48.061 - Spinal stenosis, lumbar region without neurogenic claudication (3) Postoperative anemia: Status: Acute Code(s): D64.9 - Anemia, unspecified (4) Urinary retention: Status: Acute Code(s): R33.9 - Retention of urine, unspecified (5) Hypertension: Status: Chronic Code(s): I10 - Essential (primary) hypertension (6) Hyperlipidemia: Status: Acute Code(s): E78.5 - Hyperlipidemia, unspecified (7) GERD (gastroesophageal reflux disease): Status: Acute Code(s): K21.9 - Gastro-esophageal reflux disease without esophagitis (8) Rheumatoid arthritis: Status: Acute Code(s): M06.9 - Rheumatoid arthritis, unspecified Plan 72 year old female with below past medical history hospitalized for lumbar spine surgery 08/04/2022, complicated by postoperative anemia, urinary retention, admitted to TCU with debility, here for rehabilitation, strengthening, prior to discharge home with . * Debility - PT/OT. * Pain - Tylenol 1000mg q6h prn pain (1-5), Oxycodone 5mg q4h prn pain (6-10). * Bowel - Miralax 17gm daily, senna/colace 2 tablets bid, Dulcolax 10mg daily prn, MOM 30ml po x 1 prn. * Adult immunization - Administer pneumonia vaccine, covid19 vaccine, flu vacc ine as appropriately. * DVT prophylaxis - Hold, monitor. * Muscle spasm - Flexeril 10mg tid prn. * Iron deficiency anemia - Ferrous sulfate 325mg bid. * Rheumatoid Arthritis - MTX 15mg per week, Leucovorin 10mg per week. * Hypertension - Metoprolol 100mg daily, Lisinopril 10mg daily, Maxzide 75/50mg 1/2 tablet daily. * Nausea - Zofran ODT 4mg q6h prn. * GERD - Pantoprazole 40mg daily. * Urinary retention - Tamsulosin 0.4mg qhs. * Insomnia - Melatonin 10mg qhs prn. Medications at Discharge Home Medications methotrexate sodium 2.5 mg tablet 15 mg PO QWEEK arthritis 02/04/14 triamterene 75 mg-hydrochlorothiazide 50 mg tablet 0.5 tab PO DAILY BP 02/04/14 lisinopril 10 mg tablet 10 mg PO DAILY BP 01/06/16 metoprolol tartrate 100 mg tablet (Lopressor) 100 mg PO DAILY BP 03/30/18 omeprazole 40 mg capsule,delayed release 40 mg PO DAILY GERD 03/30/18 leucovorin calcium 10 mg PO/SL QWEEK w/ methotrexate 08/12/22 polyethylene glycol 3350 17 g PO/SL DAILY constipation 08/12/22 acetaminophen 500 mg tablet 1,000 mg PO Q8 #0 tabs 08/25/22 ascorbic acid (vitamin C) 500 mg tablet 500 mg PO BREAKFAST #0 tabs 08/25/22 cyclobenzaprine 10 mg tablet 10 mg PO QHS 30 days #30 tabs 08/25/22 cyclobenzaprine 10 mg tablet 10 mg PO TID PRN Muscle Spasm 30 days #90 tabs 08/25/22 ferrous sulfate 325 mg (65 mg iron) tablet (FeroSul) 325 mg PO 1200,1700 30 days #60 tabs 08/25/22 lorazepam 1 mg tablet 1 mg PO Q6H PRN PRN Anxiety/Restlessness/Sleep 7 days #28 tabs 08/25/22 melatonin 10 mg sublingual tablet 10 mg PO QHS PRN Insomnia #0 tabs 08/25/22 potassium chloride 20 mEq tablet,extended release(part/cryst) (Klor-Con M) 20 meq PO BIDCM 30 days #60 tabs 08/25/22 sennosides 8.6 mg-docusate sodium 50 mg tablet (Stool Softener-Stimulant Laxative) 2 tab PO BID #0 tabs 08/25/22 tamsulosin 0.4 mg capsule 0.4 mg PO QHS 30 days #30 caps 08/25/22 tramadol 50 mg tablet 50 mg PO Q6H PRN PRN Pain Score 1-10 7 days #28 tabs 08/25/22 Hospital Course Operations - (Lumbar spine surgery.) Procedures None Summary of Care Provided Minutes Spent on Discharge: 35 Hospital Course: 72 year old female with below past medical history hospitalized for lumbar spine surgery 08/04/2022, complicated by postoperative anemia, urinary retention, admitted to TCU with debility, here for rehabilitation, strengthening, prior to discharge home with . Discharge home with 08/26/2022, [facility] PT/OT. Physical Exam Const alert General Appearance: cooperative HEENT normocephalic Eyes PERRL and EOMs intact bilaterally Neck supple, no JVD and no carotid bruits Resp normal respiratory effort, normal air movement and clear to auscultation bilaterally Cardio regular rate and regular rhythm GI normal to inspection, nondistended, normoactive bowel sounds, non-tender and non-distended Extremity normal capillary refill General Extremity: Negative for edema Skin no rashes or lesions noted General Skin Exam: no breakdown Psych affect normal Appearance: appropriate Weight / BMI Weight Weight: 81.284 kg Body Mass Index (BMI) 33.8 ABG / Lab / Microbiology Data Result Diagrams: 08/20/22 05:16 08/20/22 05:16 Microbiology: Microbiology 08/16/22 03:46 Nasal Secretion SARS-CoV-2 Antigen (Rapid) - Final 08/14/22 12:00 Nasal Secretion SARS-CoV-2 Antigen (Rapid) - Final 08/12/22 16:25 Nasal Secretion SARS-CoV-2 Antigen (Rapid) - Final D/C Instructions Discharge Diet: No restrictions Discharge Activity: Return to Normal Activity, May Shower and Use Walker Weight Bearing Status: Weight bearing as tolerated Call your doctor if you observe: Fever of 101 or Higher, Inability to urinate, Inability to have a bowel movement, Shortness of breath, Dizziness, Fainting spells, Swelling in the ankles, Chest pain and Uncontrolled pain Additional Instructions: Discharge home with 08/26/2022, [facility] PT/OT. Please Follow Up With: [facility] When: As scheduled. Meaningful Use Info Meaningful Use Diagnoses (Choose all that apply): None applicable Discharge Plan Admission Admit Date/Time: 08/12/22 12:43 Primary Reason for Your Visit: Debility. Attending Provider: Zane Rosenberg Chi Primary Care Provider: Mary Robles Instructions Additional Instructions / Restrictions: Discharge home with 08/26/2022, [facility] PT/OT. Discharge Orders/Prescriptions Prescriptions: New acetaminophen 500 mg Tablet 1,000 mg PO Q8 Qty: 0 0RF tamsulosin 0.4 mg Capsule 0.4 mg PO QHS 30 Days Qty: 30 0RF ascorbic acid (vitamin C) 500 mg Tablet 500 mg PO BREAKFAST Qty: 0 0RF cyclobenzaprine 10 mg Tablet 10 mg PO TID PRN (Reason: Muscle Spasm) 30 Days Qty: 90 0RF cyclobenzaprine 10 mg Tablet 10 mg PO QHS 30 Days Qty: 30 0RF ferrous sulfate [FeroSul] 325 mg (65 mg iron) Tablet 325 mg PO 1200,1700 30 Days Qty: 60 0RF sennosides-docusate sodium [Stool Softener-Stimulant Laxat] 8.6-50 mg Tablet 2 tab PO BID Qty: 0 0RF potassium chloride [Klor-Con M20] 20 mEq Tablet,Er Particles/Crystals 20 meq PO BIDCM 30 Days Qty: 60 0RF lorazepam 1 mg Tablet 1 mg PO Q6H PRN PRN (Reason: Anxiety/Restlessness/Sleep) 7 Days Qty: 28 0RF melatonin 10 mg Tablet, Sublingual 10 mg PO QHS PRN (Reason: Insomnia) Qty: 0 0RF tramadol 50 mg Tablet 50 mg PO Q6H PRN PRN (Reason: Pain Score 1-10) 7 Days Qty: 28 0RF Continued metoprolol tartrate [Lopressor] 100 mg tablet 100 mg PO DAILY omeprazole 40 mg capsule,delayed release(DR/EC) 40 mg PO DAILY triamterene-hydrochlorothiazid 1 TABLET tablet 0.5 tab PO DAILY methotrexate sodium 2.5 MG tablet 15 mg PO QWEEK Label Comments: ON MONDAYS lisinopril 10 MG tablet 10 mg PO DAILY leucovorin calcium 10 mg PO/SL QWEEK Rx Instructions: on Tuesdays polyethylene glycol 3350 17 g PO/SL DAILY Discontinued hydroxychloroquine [Plaquenil] 200 mg tablet 200 mg PO DAILY imiquimod 5 % cream in packet 1 applic TOPICAL 5XW Qty: 30 0RF Rx Instructions: apply to areas daily at night 5 days per week for 6 weeks oxybutynin chloride 5 MG tablet 5 mg PO BID Lactobacillus acidophilus 1 EACH capsule 1 ea PO BID Qty: 20 0RF alum-mag hydroxide-simeth [Mylanta] 200-200-20 mg/5 mL Suspension 30 ml PO Q6H PRN PRN (Reason: Constipation) bisacodyl 5 mg OTHER DAILY PRN PRN (Reason: Constipation) cyclobenzaprine 10 mg PO/SL Q8H PRN PRN (Reason: muscle spasms) cyclobenzaprine diphenhydramine citrate 25 mg docusate sodium 100 mg PO/SL ferrous sulfate ferrous sulfate 325 mg PO/SL BID ondansetron 4 mg PO/SL Q6H PRN PRN (Reason: Nausea) oxycodone 5 mg PO/SL Q4H PRN PRN (Reason: Pain) tamsulosin 0.4 mg PO/SL QHS Referrals / Follow Up: Mary Robles MD [Primary Care Provider] - 09/03/22 12:50 pm Disposition Disposition (needs filled in before D/C Order can be placed): Home, Self Care
[2022-08-25] MEDS: cycloBENZAPRine HCl 10 MG Tablet PO (20:02)
[2022-08-25] MEDS: Tamsulosin HCl 0.4 MG Capsule PO (20:03)
[2022-08-25 20:15] VITALS: PULSE 84; RESP 16; O2SAT 96
[2022-08-25] MEDS: LORazepam 1 MG Tablet PO (23:55)
[2022-08-25] MEDS: MELATONIN 10 MG TABLET PO (23:56)
[2022-08-26 05:16] VITALS: BP 107/55; PULSE 94
[2022-08-26] MEDS: Senna/Docusate Sodium 1 Tablet 2 TABLET PO (05:16)
[2022-08-26] MEDS: Polyethylene Glycol 3350 17 GM PACKET PO (05:16)
[2022-08-26] MEDS: Metoprolol Tartrate 100 MG Tablet PO (05:16)
[2022-08-26] MEDS: Triamterene 75MG/Hctz 50MG Tablet 0.5 TABLET PO (05:20)
[2022-08-26] MEDS: Lisinopril 10 MG Tablet PO (05:20)
[2022-08-26] MEDS: Pantoprazole Sodium 40 MG Tablet PO (05:20)
[2022-08-26] MEDS: Acetaminophen 500 MG Tablet 1000 MG PO (05:21)
[2022-08-26] MEDS: Potassium Chloride Oral Tablet 20 MEQ PO (07:45)
[2022-08-26] MEDS: Ascorbic Acid 500 MG Tablet PO (07:45)
[2022-08-26] MEDS: Pneumococcal Vaccine 20 Valent 0.5 ML Syringe IM (09:04)
[2022-08-26] MEDS: traMADol 50 MG Tablet PO (09:15)
--- NOTE | 2022-08-26 09:17 | CASEMGMT ---
Social Work BIMS () and PHQ-9 (01/12) completed MDS assessment. Yuko Garsia MSW [employer] MANAGER
[2022-08-26 10:20] VITALS: BP 97/63; PULSE 88; RESP 18; TEMP 36.7; O2SAT 100
== END 2022-08-26 10:15 | disposition home or self-care (01) | DRG 561 ==
PROVIDERS: Admitting Provider Family Medicine Geriatric Medicine; PCP Family Medicine; Visit Provider Family Medicine Geriatric Medicine
DX: Z47.89 Encounter for other orthopedic aftercare (principal); D50.9 Iron deficiency anemia, unspecified; M06.9 Rheumatoid arthritis, unspecified; K21.9 Gastro-esophageal reflux disease without esophagitis; I10 Essential (primary) hypertension; M48.061 Spinal stenosis, lumbar region without neurogenic claudication; E78.00 Pure hypercholesterolemia, unspecified; R33.9 Retention of urine, unspecified; Z87.891 Personal history of nicotine dependence; Z79.899 Other long term (current) drug therapy; Z23 Encounter for immunization
CPT/HCPCS: 36415; 80048; 83930; 83935; 84300; 85014; 85018; 85025; 87426; 87811; 90677; 92507; 92523; 97110; 97116; 97140; 97162; 97166; 97530; 97535; G0009; J8610

== ENCOUNTER → 2022-09-03 | Outpatient (CLI) | payer MEDICARE, SELFPAY ==
[2022-09-03 15:19] LABS: Absolute Lymphocyte Count 1.09 X10^3/uL (0.83-4.51); Absolute Neutrophil Count 6.6 X10^3/uL (2.0-7.7); Basophil# 0.05 X10^3/uL; Basophil% 0.6 % (0-1); Eosinophil# 0.13 X10^3/uL; Eosinophils% 1.5 % (0-5); Hematocrit 31.4 % (37-47); Hemoglobin 9.9 g/dL (12.0-15.0); Lymphocyte # 1.09 X10^3/ul (0.83-4.51); Lymphocyte % 12.4 % (19-41); Mean Corp Hgb Conc 31.5 g/dL (32-36); Mean Corpuscular Volume 101.6 fL (81-99); Mean Platelet Vol. 10.4 fl (6.2-12.0); Monocyte# 0.88 X10^3/uL; NRBC Flagged by Analyzer 0 % (0-5); Neutrophil # 6.59 X10^3/uL (2.7-7.7); Platelet Count 405 K/mm3 (150-450); RBC Distribution Width CV 16.1 % (11.6-14.6); RBC Distribution Width SD 60.3 fl (35.1-43.9); Red Blood Count 3.09 M/mm3 (4.2-5.4); White Blood Count 8.8 K/mm3 (4.4-11.0)
[2022-09-03 16:02] LABS: Anion Gap 8 (5-15); BUN 16 mg/dL (7-18); Calcium,Total 9.6 mg/dL (8.5-10.1); Chloride 98 mmol/L (98-107); EST Glomerular Filtration Rate 58 mL/min (>60); Est Glom Filt Rate - Afr Amer 70 mL/min (>60); Glucose 90 mg/dL (74-106); Magnesium 1.6 mg/dL (1.6-2.6); Potassium 3.2 mmol/L (3.5-5.1); Sodium Level 133 mmol/L (136-145)
== END | disposition home or self-care (01) ==
LOC: BFHLAB 13:45
PROVIDERS: PCP Family Medicine; Visit Provider Family Medicine
DX: I10 Essential (primary) hypertension (principal); D64.9 Anemia, unspecified
CPT/HCPCS: 36415; 80048; 83735; 85025

== ENCOUNTER → 2022-09-04 | Outpatient (CLI) | payer MEDICARE, SELFPAY ==
[2022-09-04 19:04] LABS: AST(SGOT) 20 U/L (15-37); Alanine Aminotransfer ALT/SGPT 13 U/L (13-56); Alkaline Phosphatase 108 U/L (45-117); Bilirubin, Direct 0.23 mg/dL (0.00-0.30); Globulin 4.1 g/dL (2.2-4.2); Protein, Total 7.1 g/dL (6.4-8.2)
== END | disposition home or self-care (01) ==
LOC: MTLAB 16:35
PROVIDERS: PCP Family Medicine; Referring Provider Internal Medicine Rheumatology; Visit Provider Internal Medicine Rheumatology
DX: M05.70 Rheumatoid arthritis with rheumatoid factor of unspecified site without organ or systems involvement (principal); Z79.899 Other long term (current) drug therapy
CPT/HCPCS: 36415; 80076

== ENCOUNTER 2022-09-14 09:08 | Inpatient (IN) | payer MEDICARE, SELFPAY ==
[2022-09-14] VITALS (7 sets, daily range): BP systolic 102–125; BP diastolic 54–79; PULSE 64–117; RESP 10–18; TEMP 35.7–37.1; O2SAT 96–100; BMI 30.7; BMI 30.4
--- NOTE | 2022-09-14 09:39 | EKG12_ITS ---
Test Reason : Blood Pressure : / mmHG Vent. Rate : 066 BPM Atrial Rate : 066 BPM P-R Int : 148 ms QRS Dur : 088 ms QT Int : 390 ms P-R-T Axes : 029 029 040 degrees QTc Int : 408 ms Normal sinus rhythm Normal ECG Confirmed by JUN VÁZQUEZ, ANEUDY ([id number]), society editor MAXIM DANILES ([id number]) on 09/15/2022 9:52:25 AM Referred By: ABDIRASHID Confirmed By:ANEUDY BARAHONA MD
--- NOTE | 2022-09-14 09:39 | CT_ITS ---
STUDY: CT BRAIN WITHOUT CONTRAST REASON FOR EXAM: Female, 72 years old. Head injury. Recent falls. Recent brain surgery. RADIATION DOSAGE (If Supplied By Facility): CTDIvol = ( 44.99 ) mGy, DLP = ( 812.98 ) mGycm TECHNIQUE: Transaxial CT imaging of the brain was performed without administration of intravenous contrast material. Individualized dose optimization techniques were used for this CT. COMPARISON: No relevant priors. FINDINGS: Normal soft tissue structures. The patient is status post right frontoparietal craniotomy. There is evidence of encephalomalacia in the right temporal lobe as well as in the right basal ganglion. Surgical clips are seen at the operative site. Normal brainstem. Normal cerebellum. There is no intracranial hemorrhage. There are no findings of an acute ischemic infarction. Normal visualized paranasal sinuses. CT/Brain/Head without Contrast IMPRESSION: Status post right frontoparietal craniotomy with evidence of 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 No evidence of intracranial hemorrhage. No evidence of edema. Electronically Signed: Reji Jaramillo MD at 10:30 EST ,
--- NOTE | 2022-09-14 09:41 | EDS_ITS ---
HPI HPI - Fall History of Present Illness Chief Complaint: Fall Detail of Chief Complaint: Twice in the last 20 Informant: patient, spouse/S.O. and family Occured/Mechanism Occurred: Today and Yesterday Mechanism/Context: Yes same level fall Usually ambulates: Walker Pain/Injury Pain Location: head and back Quality of Pain: Dull and Aching Current Severity: Mild Maximum Severity: Mild Associated Symptoms Associated Symptoms: Negative for Parasthesias, Weakness, Loss of function, Inability to ambulate, Loss of consciousness or Amnesia Narrative Narrative: 72-year-old female 5 to 6 weeks ago had surgery done at [facility] on her lumbar spine. She was hospitalized lysed there for several days then came and did recovery at her transitional care unit here. She has now been home for several weeks. In the last 24 hours has fallen twice. Once in her kitchen and once going to her bathroom. She has been using a walker. She did hit her head. No LOC. She is not on blood thinners. She is also complaining of lower back pain since the falls. She denies recent illness. No fever. No dysuria. Prior similar symptoms: No Recent Illness/Hospitalization: Yes [facility] Medical History (Updated 09/14/22 @ 11:[address] 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 Home Medications methotrexate sodium 2.5 mg tablet 15 mg PO QWEEK arthritis 02/04/14 [History Last Taken 06/02/18] triamterene 75 mg-hydrochlorothiazide 50 mg tablet 0.5 tab PO DAILY BP 02/04/14 [History Last Taken Unknown] lisinopril 10 mg tablet 10 mg PO DAILY BP 01/06/16 [History Last Taken 06/30/18] metoprolol tartrate 100 mg tablet (Lopressor) 100 mg PO DAILY BP 03/30/18 [History Last Taken 06/30/18] omeprazole 40 mg capsule,delayed release 40 mg PO DAILY GERD 03/30/18 [History Last Taken Unknown] leucovorin calcium 10 mg PO/SL QWEEK w/ methotrexate 08/12/22 [History Last Taken Unknown] acetaminophen 500 mg tablet 1,000 mg PO Q8 #0 tabs 08/25/22 [Rx Last Taken Unknown] ascorbic acid (vitamin C) 500 mg tablet 500 mg PO BREAKFAST #0 tabs 08/25/22 [Rx Last Taken Unknown] ferrous sulfate 325 mg (65 mg iron) tablet (FeroSul) 325 mg PO 1200,1700 30 days #60 tabs 08/25/22 [Rx Last Taken Unknown] potassium chloride 20 mEq tablet,extended release(part/cryst) (Klor-Con M) 20 meq PO BIDCM 30 days #60 tabs 08/25/22 [Rx Last Taken Unknown] sennosides 8.6 mg-docusate sodium 50 mg tablet (Stool Softener-Stimulant Laxative) 2 tab PO BID #0 tabs 08/25/22 [Rx Last Taken Unknown] folic acid 1 mg tablet 2 mg PO DAILY . 09/14/22 [History Last Taken 09/13/22] gabapentin 100 mg capsule 100 - 300 mg PO DAILY SEIZURE 09/14/22 [History Last Taken 09/13/22] hydroxychloroquine 200 mg tablet 200 mg PO BID . 09/14/22 [History Last Taken 09/14/22] oxybutynin chloride 10 mg tablet,extended release 24 hr 10 mg PO DAILY . 09/14/22 [History Last Taken 09/13/22] pregabalin 75 mg capsule 75 mg PO BID PAIN 09/14/22 [History Last Taken 09/13/22] Allergy/AdvReac Type Severity Reaction Status Date / Time No Known Allergies Allergy Verified 09/13/19 10:03 Family History Son Hypertension Surgical History (Updated 09/14/22 @ 11:[address] Zachary Pugh MD) brain aneurysm repair d & c History of left knee replacement History of squamous cell carcinoma in situ (SCCIS) of skin Hx of cataract surgery S/P left rotator cuff repair Status post right knee replacement Social History household members: spouse Smoking Status: Never smoker second hand exposure: No alcohol intake: current alcohol intake frequency: holidays/special occasions only substance use type: does not use ROS ROS ED ROS Narrative Lower back pain. Review of Systems ROS Unobtainable: Denies due to encephalopathy Constitutional Constitutional ED: Denies chills or fever(s) Eyes Eyes: Denies blurry vision ENT ENT ED: Denies ear pain Cardiovascular Cardiovascular: Denies chest pain Respiratory/Chest Respiratory/Chest: Denies cough or dyspnea Gastrointestinal Gastrointestinal: Denies abdominal pain Genitourinary Genitourinary ED: Denies dysuria or hematuria Musculoskeletal Musculoskeletal: Reports back pain; Denies arthralgias, myalgias or neck pain Integumentary Denies abscess or Abrasions Neurologic Neurologic: Denies headache(s) Psychiatric Psychiatric: Denies anxiety Endocrine Endocrinology: Denies polydipsia Hematologic/Lymphatic Hematologic/Lymphatic: Denies easy bleeding Allergic/Immunologic Allergic/Immunologic ED: Denies mouth swelling or tongue swelling EXAM Physical Exam Narrative Exam Narrative: 70-year-old female no acute distress. Vital signs are stable afebrile. She does not look septic or toxic. No distress. Lying in bed. 2 sons and in the room. Pulse ox 100% on room air no signs hypoxia. H EENT exam unremarkable atraumatic. Nontender. No hematomas. No lacerations. C-spine nontender. Trachea midline. Lungs clear to auscultation bilaterally. Heart regular rate and rhythm rate about 85 no murmur. Chest wall and ribs nontender. Abdomen soft nontender. Pelvic girdle intact. Hips are nontender. No shortening or rotation. Normal flexion extension both upper and lower extremities. 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 Dorsi plantarflexion. Currently she is unable to roll when the nurse becomes available all evaluate her back. Neurologically she is awake and alert. Moving all 4 extremities. Answering questions and following commands. Const Vital Signs: 09/14/22 09:12 09/14/22 11:09 Temperature 96.3 F L Temperature Source Temporal Pulse Rate 87 64 Respiratory Rate 16 18 Blood Pressure 125/79 H 104/78 Blood Pressure Mean 94 86 Pulse Ox 100 96 Oxygen Delivery Method Room Air Room Air Positive well nourished and well developed; Negative for cachectic, contractures or unkempt General Appearance ED: well developed and NAD; Negative for unkempt, cachectic or contractures Nutritional Appearance: Negative for cachectic HEENT Reports normocephalic atraumatic; Negative for contusion, hematoma or tenderness Eyes PERRL and EOMs intact bilaterally General Eye ED: Negative for pale conjunctiva or scleral icterus Neck full ROM, no lymphadenopathy and supple General: Negative for tenderness Chest Wall inspection of chest normal and palpation of chest normal Chest: Negative for other Resp normal respiratory effort, no retractions and clear to auscultation bilaterally Effort and Inspection: Negative for pain with movement Auscultation: Negative for rales, rhonchi, wheezes or diminished lung sounds Cardio regular rate, regular rhythm, S1 normal heart sound, S2 normal heart sound and no murmurs Rate: Negative for bradycardia or tachycardic Rhythm: Negative for abnormal rhythm Bruits: Negative for other GI non-tender, non-distended and no masses Inspection: Negative for abdominal distention Auscultation: normoactive bowel sounds Palpation: soft; Negative for guarding Back/Spine no CVA tenderness General Back: Negative for CVA tenderness, erythema or ecchymosis Cervical Spine: Negative for cervical spine tenderness Thoracic Spine / Upper Back: Negative for ROM limited Neuro oriented x3, CN's II-XII intact bilaterally, moves all extremities and no focal motor deficits Sensorium / Orientation: alert, oriented to person, oriented to place and oriented to time; Negative for orientation impaired, confused, lethargic or stuporous Motor Exam: strength 5/5 throughout Psych mental status grossly normal and thought process normal Appearance: Negative for unkempt Attitude: No agitated Mood & Affect: Negative for depressed, anxious or tearful Skin General Skin Exam: Negative for other Lesions: no lesions Rashes: no rashes Trauma: Negative for abrasion MDM MDM MDM Narrative Medical decision making narrative: 72-year-old female is fallen twice in the last 24 hours at home. Had recent back surgery done in [place]. She denies any recent illness. Labs to be obtained. CAT scan of her head due to her hitting her head. And x-rays of her spine. We will attempt to ambulate her with a walker and see how she does. Nursing tried to ambulate the patient she was having too much back pain even stand. Patient will be admitted to the hospital. I did roll the patient in bed with family she has some minor wound separation of her extensive lumbar and lower thoracic surgery but there is no signs of infection. There is no bruising. She will be given fentanyl for pain. I did speak to the hospitalist about admission. Lab Data Attestation: I reviewed the patient's lab results. Lab results narrative: CBC shows a white count of 5.1. H&H of 9 and 28 patient has a baseline anemia. Platelets 268. Electrolytes show a gap of 7 normal BUN of 8 creatinine of 0.6. Liver enzymes are unremarkable. Glucose of 118. Urinalysis shows 10-25 white cells 2+ bacteria. No nitrites. Will be sent for culture for possible UTI. Current is not having any tract symptoms CAT scan of the brain, chest x-ray and lumbar films show no acute processes. Chronic changes. Labs: Laboratory Results - last 24 hr 09/14/22 09/14/22 09/14/22 09:15 09:15 10:07 WBC 5.1 RBC 2.71 L Hgb 9.0 L Hct 28.0 L MCV 103.3 H MCH 33.2 H MCHC 32.1 RDW Std Deviation 60.7 H RDW Coeff of Javier 16.0 H Plt Count 268 MPV 9.8 Immature Gran % (Auto) 0.200 Neut % (Auto) 67.0 Lymph % (Auto) 14.0 L [place] % (Auto) 15.2 H Eos % (Auto) 3.0 Baso % (Auto) 0.6 Absolute Neuts (auto) 3.4 Absolute Lymphs (auto) 0.71 L Nucleated RBC % 0 Sodium 135 L Potassium 3.6 Chloride 102 Carbon Dioxide 26.0 Anion Gap 7 BUN 8 Creatinine 0.66 Estim Creat Clear Calc 47.60 Est GFR (MDRD) Af Amer 113 Est GFR (MDRD) Non-Af 93 BUN/Creatinine Ratio 12.1 Glucose 118 H Calcium 9.9 Total Bilirubin 0.70 AST 18 ALT 10 L Alkaline Phosphatase 79 Total Protein 6.2 L Albumin 2.6 L Globulin 3.6 Albumin/Globulin Ratio 0.7 L Urine Color Yellow Urine Clarity Clear Urine pH 6.5 Ur Specific [place] 1.005 Urine Protein Negative Urine Glucose (UA) Normal Urine Ketones Negative Urine Occult Blood Negative Urine Nitrite Negative Urine Bilirubin Negative Urine Urobilinogen Normal Ur Leukocyte Esterase 100 H Urine RBC 0 SEEN Urine WBC 10-25 SEEN Ur Squamous Epith Cells 0-5 SEEN Urine Bacteria 2+ Urine Mucus 0 SEEN Radiography Diagnostic Testing: Clinical Impression(s) from Imaging Studies Brain CT 09/14/22 09:39 IMPRESSION: Status post right frontoparietal craniotomy with evidence of 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 No evidence of intracranial hemorrhage. No evidence of edema. Electronically Signed: Reji Jaramillo MD at 10:30 EST , Chest X-Ray 09/14/22 10:00 IMPRESSION: No acute abnormality is seen. Electronically Signed: Reji Jaramillo MD at 10:33 EST , Lumbar Spine X-Ray 09/14/22 10:00 IMPRESSION: Status post multilevel fusion and laminectomy as described. Electronically Signed: Reji Jaramillo MD at 10:32 EST , Rhythm Strip Rhythm Strip: Sinus Rhythm Rate: 66 Ectopy: None EKG Initial EKG: Attestation: I personally reviewed and interpreted this EKG as follows: Interpretation: Sinus Rhythm and No Acute Injury Pattern Comments: Sinus rhythm rate of 66 no acute signs of NH or ischemia. No significant change from prior EKG from 2009. Discharge Plan Dx/Rx/DC Orders Clinical Impression: Fall, Back pain, Unable to ambulate, Adult failure to thrive, History of back surgery Disposition Disposition: Acute Care Hospital [facility]
[2022-09-14 09:52] LABS: Absolute Lymphocyte Count 0.71 X10^3/uL (0.83-4.51); Absolute Neutrophil Count 3.4 X10^3/uL (2.0-7.7); Basophil# 0.03 X10^3/uL; Basophil% 0.6 % (0-1); Eosinophil# 0.15 X10^3/uL; Lymphocyte # 0.71 X10^3/ul (0.83-4.51); Mean Corp Hgb Conc 32.1 g/dL (32-36); Mean Corpuscular Hgb 33.2 pg (27.0-32.0); Mean Corpuscular Volume 103.3 fL (81-99); Mean Platelet Vol. 9.8 fl (6.2-12.0); Monocyte# 0.77 X10^3/uL; Monocyte% 15.2 % (0-10); NRBC Flagged by Analyzer 0 % (0-5); Platelet Count 268 K/mm3 (150-450); RBC Distribution Width SD 60.7 fl (35.1-43.9); Red Blood Count 2.71 M/mm3 (4.2-5.4); White Blood Count 5.1 K/mm3 (4.4-11.0)
--- NOTE | 2022-09-14 10:00 | RAD_ITS ---
STUDY: X-RAY - LUMBAR SPINE REASON FOR EXAM: Female, 72 years old. Pain following a fall. TECHNIQUE: 3 view(s) of the lumbar spine were obtained. COMPARISON: None FINDINGS: Normal lumbar lordosis. There is no substantial scoliosis. There is a normal alignment of the vertebrae. The patient is status post laminectomy and fusion with interpedicular screw fixation device at the T10 level down to the S1 level with prosthetic disc placement at the L2-L3, L3-L4 and L4-L5 levels. 2 metallic screws are seen through the sacral iliac joints. There is atherosclerotic calcification of the abdominal aorta without a demonstrated aneurysm. Large amount of fecal material is seen in the colon. RAD/Lumbar Spine 2 or 3 Views IMPRESSION: Status post multilevel fusion and laminectomy as described. Electronically Signed: Reji Jaramillo MD at 10:32 EST ,
--- NOTE | 2022-09-14 10:00 | RAD_ITS ---
STUDY: X-RAY CHEST REASON FOR EXAM: Female, 72 years old. Weakness TECHNIQUE: Single AP portable view of the chest. COMPARISON: Comparison is made with prior chest radiograph dated 02/17/2010. FINDINGS: EKG electrodes are seen. The lungs are clear and expanded. There is no demonstrated pleural abnormality. Normal size heart. Normal mediastinum and osei. Normal visualized pulmonary arteries. There is atherosclerotic calcification of the aortic arch with tortuosity. There are diffuse degenerative changes of the visualized thoracic spine. Spinal fusion is seen in the lower thoracic spine. Status post right reverse shoulder replacement. There is no demonstrated abnormality of the visualized soft tissue structures of the upper abdomen. RAD/Chest 1 View (Portable) IMPRESSION: No acute abnormality is seen. Electronically Signed: Reji Jaramillo MD at 10:33 [facility] ,
[2022-09-14 10:11] LABS: ALB/GLOB Ratio 0.7 RATIO (0.9-2.4); AST(SGOT) 18 U/L (15-37); Alanine Aminotransfer ALT/SGPT 10 U/L (13-56); Albumin, Serum 2.6 g/dL (3.2-5.0); Alkaline Phosphatase 79 U/L (45-117); Anion Gap 7 (5-15); BUN 8 mg/dL (7-18); BUN/Creat Ratio 12.1 RATIO (10-20); Calcium,Total 9.9 mg/dL (8.5-10.1); Chloride 102 mmol/L (98-107); Creatinine, Serum 0.66 mg/dL (0.55-1.02); EST Glomerular Filtration Rate 93 mL/min (>60); Est Glom Filt Rate - Afr Amer 113 mL/min (>60); Globulin 3.6 g/dL (2.2-4.2); Glucose 118 mg/dL (74-106); Potassium 3.6 mmol/L (3.5-5.1); Protein, Total 6.2 g/dL (6.4-8.2); Sodium Level 135 mmol/L (136-145)
[2022-09-14 10:15] LABS: Mucous, Urine 0 SEEN /hpf (<or=2+); Red Blood Cells-Urine 0 SEEN /hpf (0-5)
[2022-09-14 10:17] LABS: Color, Urine Yellow (Yellow); Glucose, Dipstick Normal (Normal); Ketone-Dipstick Negative (Negative); Leukocyte Esterase-Dipstick 100 /ul (Negative); Nitrite-Dipstick Negative (Negative); Occult Blood-Urine Negative /ul (Negative); Protein-Dipstick Negative (Negative); Specific Gravity, Urine 1.005 (1.002-1.030); Urine Bilirubin Dipstick Negative (Negative); Urine Clarity Clear (Clear); Urine Urobilinogen Normal (Normal); Urine pH 6.5 (5.0 - 8.0)
[2022-09-14 10:33] LABS: Bacteria 2+ /hpf (None Seen); Squamous Epithelial Cells - UA 0-5 SEEN /hpf (5-10); White Blood Cells 10-25 SEEN /hpf (0-5)
[2022-09-14] MEDS: fentaNYL 100 MCG/2 ML Ampul 50 MCG IV (11:53)
--- NOTE | 2022-09-14 13:21 | PCM.HP.STD ---
HPI - General General Date of Admission: 09/14/22 Date of Service: 09/14/22 Chief Complaint: Back pain HPI Narrative GEE BLAS, is a 72 F with history of rheumatoid arthritis, GERD, extensive back surgery roughly 4 weeks ago in [place] with 3 prosthetic disks as well as rods and screws who presented to [facility] 09/14 with worsening back pain after falling twice in the past 24 hours and given intractable pain hospitalist consulted for admission after CT head and back x-ray unremarkable. She did not have pain while lying flat but when moving different positions she is having increasing pain. She reports that she has fallen several times since she had her back surgery in these past 2 have been more significant. Denies changes in her bowel or bladder, has had some weakness in both of her legs right greater than left which is not necessarily worse. Falls sound to be mechanical that she had a hard time describing them but denied loss of consciousness. Did hit her head with one of them but CT head unremarkable. Pain is in lower back centrally and radiates slightly to both sides. Denied other complaints at this time. 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 Wears hearing aid in both ears Home Medications methotrexate sodium 2.5 mg tablet 15 mg PO QWEEK arthritis 02/04/14 [History Last Taken 09/14/22] triamterene 75 mg-hydrochlorothiazide 50 mg tablet 0.5 tab PO DAILY BP 02/04/14 [History Last Taken 09/14/22] lisinopril 10 mg tablet 10 mg PO DAILY BP 01/06/16 [History Last Taken 09/14/22] metoprolol tartrate 100 mg tablet (Lopressor) 100 mg PO DAILY BP 03/30/18 [History Last Taken 09/14/22] omeprazole 40 mg capsule,delayed release 40 mg PO DAILY GERD 03/30/18 [History Last Taken 09/14/22] leucovorin calcium 10 mg PO/SL QWEEK w/ methotrexate 08/12/22 [History Last Taken 09/08/22] acetaminophen 500 mg tablet 1,000 mg PO Q8 #0 tabs 08/25/22 [Rx Last Taken Unknown] ascorbic acid (vitamin C) 500 mg tablet 500 mg PO BREAKFAST #0 tabs 08/25/22 [Rx Last Taken Unknown] ferrous sulfate 325 mg (65 mg iron) tablet (FeroSul) 325 mg PO 1200,1700 30 days #60 tabs 08/25/22 [Rx Last Taken 09/13/22] potassium chloride 20 mEq tablet,extended release(part/cryst) (Klor-Con M) 20 meq PO BIDCM 30 days #60 tabs 08/25/22 [Rx Last Taken 09/13/22] sennosides 8.6 mg-docusate sodium 50 mg tablet (Stool Softener-Stimulant Laxative) 2 tab PO BID #0 tabs 08/25/22 [Rx Last Taken 09/13/22] folic acid 1 mg tablet 2 mg PO DAILY . 09/14/22 [History Last Taken 09/13/22] gabapentin 100 mg capsule 100 - 300 mg PO DAILY SEIZURE 09/14/22 [History Last Taken 09/13/22] hydroxychloroquine 200 mg tablet 200 mg PO BID . 09/14/22 [History Last Taken 09/14/22] oxybutynin chloride 10 mg tablet,extended release 24 hr 10 mg PO DAILY . 09/14/22 [History Last Taken 09/13/22] pregabalin 75 mg capsule 75 mg PO BID PAIN 09/14/22 [History Last Taken 09/13/22] Allergy/AdvReac Type Severity Reaction Status Date / Time No Known Allergies Allergy Verified 09/13/19 10:03 Family History Son Hypertension Surgical History (Updated 09/14/22 @ 11:[address] Zachary Pugh MD) brain aneurysm repair d & c History of left knee replacement History of squamous cell carcinoma in situ (SCCIS) of skin Hx of cataract surgery S/P left rotator cuff repair Status post right knee replacement Social History household members: spouse Smoking Status: Never smoker second hand exposure: No alcohol intake: current alcohol intake frequency: holidays/special occasions only substance use type: does not use ROS ROS Narrative General: Denies fever or chills HENT: Denies headache, denies stuffy nose, denies sore throat EYES: Denies changes in vision Resp: Denies cough, denies shortness of breath Cardiac: Denies chest pain GI: Denies abdominal pain, denies changes in bowel, denies nausea, denies vomiting : Denies changes in urination Extremity: Denies swelling MSK: Has some weakness in both legs right greater than left which is not new, primarily complains of lower back pain when moving Neuro: Denies any numbness, denies tingling Heme: Denies any bleeding or bruising Skin: Denies rashes Psychiatric: No complaints voiced Vital Signs Vital Signs Vital Signs: 09/14/22 09:12 09/14/22 11:09 09/14/22 12:00 Temperature 96.3 F L 97.8 F Temperature Source Temporal Temporal Pulse Rate 87 64 78 Respiratory Rate 16 18 16 Blood Pressure 125/79 H 104/78 104/78 Blood Pressure Mean 94 86 86 Pulse Ox 100 96 100 Oxygen Delivery Method Room Air Room Air Room Air 09/14/22 13:13 Temperature Temperature Source Pulse Rate 70 Respiratory Rate 10 L Blood Pressure Blood Pressure Mean Pulse Ox Oxygen Delivery Method Room Air Weight Weight: 86.3 kg Body Mass Index (BMI) 30.7 Physical Exam Narrative General: Alert, oriented, no apparent distress HEENT: Atraumatic, normocephalic Eyes: Anicteric, normal conjunctiva, extraocular movements grossly intact Neck: Supple Respiratory: Clear to auscultation bilaterally, normal respiratory effort Cardiovascular: Regular rate and rhythm GI: Soft, nontender, nondistended Extremities: No edema Musculoskeletal: Moving all extremities, when pushing legs down against resistance when testing strength had pain so was only able to assess strength bilaterally at 4 out of 5 though feel this was limited secondary to that pain. Has some slight tenderness across very lower back without point tenderness Neuro: No overt focal neurological deficits Skin: No rashes appreciated Psych: Cooperative Results Lab / Micro Data Result Diagrams: 09/14/22 09:15 09/14/22 09:15 Labs: Laboratory Results - last 24 hr 09/14/22 09:15: WBC 5.1, RBC 2.71 L, Hgb 9.0 L, Hct 28.0 L, MCV 103.3 H, MCH 33.2 H, MCHC 32.1, RDW Std Deviation 60.7 H, RDW Coeff of Javier 16.0 H, Plt Count 268, MPV 9.8, Immature Gran % (Auto) 0.200, Neut % (Auto) 67.0, Lymph % (Auto) 14.0 L, [place] % (Auto) 15.2 H, Eos % (Auto) 3.0, Baso % (Auto) 0.6, Absolute Neuts (auto) 3.4, Absolute Lymphs (auto) 0.71 L, Nucleated RBC % 0 09/14/22 09:15: Sodium 135 L, Potassium 3.6, Chloride 102, Carbon Dioxide 26.0, Anion Gap 7, BUN 8, Creatinine 0.66, Estim Creat Clear Calc 47.60, Est GFR (MDRD) Af Amer 113, Est GFR (MDRD) Non-Af 93, BUN/Creatinine Ratio 12.1, Glucose 118 H, Calcium 9.9, Total Bilirubin 0.70, AST 18, ALT 10 L, Alkaline Phosphatase 79, Total Protein 6.2 L, Albumin 2.6 L, Globulin 3.6, Albumin/Globulin Ratio 0.7 L 09/14/22 10:07: Urine Color Yellow, Urine Clarity Clear, Urine pH 6.5, Ur Specific [place] 1.005, Urine Protein Negative, Urine Glucose (UA) Normal, Urine Ketones Negative, Urine Occult Blood Negative, Urine Nitrite Negative, Urine Bilirubin Negative, Urine Urobilinogen Normal, Ur Leukocyte Esterase 100 H, Urine RBC 0 SEEN, Urine WBC 10-25 SEEN, Ur Squamous Epith Cells 0-5 SEEN, Urine Bacteria 2+, Urine Mucus 0 SEEN Rhythm Strip Rhythm Strip: Sinus Rhythm Rate: 66 Ectopy: None Radiology Impression Brain CT 09/14/22 09:39 IMPRESSION: Status post right frontoparietal craniotomy with evidence of 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 No evidence of intracranial hemorrhage. No evidence of edema. Electronically Signed: Reji Jaramillo MD at 10:30 EST , Chest X-Ray 09/14/22 10:00 IMPRESSION: No acute abnormality is seen. Electronically Signed: Reji Jaramillo MD at 10:33 EST , Lumbar Spine X-Ray 09/14/22 10:00 IMPRESSION: Status post multilevel fusion and laminectomy as described. Electronically Signed: Reji Jaramillo MD at 10:32 EST , Assessment & Plan Assessment/Plan (1) Debility: (2) Rheumatoid arthritis: PLAN: Plan #Lower back pain in setting of recent surgery with inability to ambulate secondary to pain -Lumbar x-ray unremarkable -Has been to aneurysm clips with most recent in 1990 and cannot get MRI -We will obtain CT of lower back -Pain control and PT/OT -Low threshold for Spine involvement #Rheumatoid arthritis -Continue methotrexate, leucovorin, folic acid #DVT ppx: Germán Oakley MD Time spent in the patient's overall evaluation,decision-making process, review of diagnostic data, adjustment of management, discussion with other providers, nursing nursing and ancillary staff involved in patient's care documentation, 60 minutes Charges/Coding Visit Charges Inpatient E&M: 16711 Init Hosp L2
--- NOTE | 2022-09-14 14:35 | CASEMGMT ---
TOYA STEVENS Assessment: Face to Face with pt for initial transition planning/care coordination assessment. TOYA STEVENS introduced self and role at [facility], pt voices understanding and consents to assessment. Pt is A/O x4 and answers all questions appropriately at this time. Pt lying in bed in no distress. Care providers, pharmacy, and demographics verified/updated. Admitting Dx: back pain, Fall, FTT PCP:[facility] Specialists:[facility] Preferred Pharmacy: [facility] Insurance: [employer] [facility] Prescription Benefit: yes LNOK: Yeyo Mcnally, ; Vinay Mcnally, son Living Arrangements: Pt lives in a single story home with 1 step to enter with a grab bar. Pt reports she has needed assistance with ADL's since her back surgery on Aug 04. Pt denies concerns at home. Transportation: Pt drives self and denies concerns with transportation. She has not driven yet since surgery, states her is transporting her to medical appts. DME/HHC/SNF: Pt has a WW, toilet riser, grab bars in the shower. Pt denies hx of HHC or SNF stays. Pt states no concerns with going home at time of dc. She reports she was going to [facility] for outpt PT and she would like to resume. Pt states she did not know what caused her falls. Pt states no further concerns/needs. CM to follow. Advised pt to ask CM if any further question/concerns/needs arise, voices understanding. Pt Goal: Home with resuming therapy at [facility] Plan: TBD, pending therapy evals.
[2022-09-14] MEDS: Ferrous Sulfate 325 MG Tablet PO (17:48)
--- NOTE | 2022-09-14 19:40 | CT_ITS ---
INDICATION: Fall twice today, recent back surgery, intractable back pain EXAMINATION: CT LUMBAR SPINE - CT Spine Lumbar W/O Contrast Injection TECHNIQUE: Helically acquired images were obtained of the lumbar spine. 2D reformats were reviewed. A radiation dose optimization technique was used for this scan. IV Contrast dosage and agent: None. COMPARISON: None received. FINDINGS: Posterior lumbar spinal fusion hardware spanning from T9 to S1 and bilateral sacroiliac joints, with discectomy hardware L3-4 through L5-S1. Patient is also status post laminectomy decompression L1-L5. No acute fracture identified. Vertebral body heights are preserved. Mild dextroscoliotic curvature of lumbar spine. Chronic-appearing grade 1 anterolisthesis of L5 over S1. Multilevel degenerative facet arthropathy. No high-grade osseous spinal canal stenosis, evaluation limited secondary to metallic streak artifact. Edematous soft tissue and ill-defined fluid within posterior lumbar paraspinous surgical bed. Mild lower lumbar prevertebral soft tissue swelling. No prevertebral fluid collection or adenopathy. Atherosclerotic calcifications with no abdominal aortic aneurysm. There are few low-attenuation bilateral renal cysts, no additional follow-up recommended at this time. CT/Spine Lumbar without Contrast IMPRESSION: 1. Postop and degenerative changes of spine as described above with no evidence of acute osseous injury. 2. Likely residual postsurgical hematoma or seroma at lumbar paraspinal surgical bed. Follow-up as clinically warranted if concern for postsurgical infection. 3. Mild lumbar dextroscoliosis with chronic appearing grade 1 spondylolisthesis L5 over S1. Electronically Signed: Jovi Ferguson MD at 0:36 EST ,
[2022-09-14] MEDS: Pregabalin 75 MG Capsule PO (23:36)
[2022-09-14] MEDS: Metoprolol Tartrate 50 MG Tablet PO (23:37)
[2022-09-15] VITALS (9 sets, daily range): BP systolic 102–114; BP diastolic 52–71; PULSE 71–91; RESP 14–18; TEMP 36.7–36.9; O2SAT 95–100
[2022-09-15] MEDS: oxyCODONE 5 MG Tablet PO ×2 (03:08→22:37)
[2022-09-15 06:48] LABS: Absolute Lymphocyte Count 0.82 X10^3/uL (0.83-4.51); Absolute Neutrophil Count 3.2 X10^3/uL (2.0-7.7); Basophil# 0.03 X10^3/uL; Basophil% 0.6 % (0-1); Eosinophil# 0.16 X10^3/uL; Eosinophils% 3.3 % (0-5); Hematocrit 25.9 % (37-47); Hemoglobin 8.3 g/dL (12.0-15.0); Lymphocyte # 0.82 X10^3/ul (0.83-4.51); Lymphocyte % 16.9 % (19-41); Mean Corpuscular Hgb 32.5 pg (27.0-32.0); Mean Corpuscular Volume 101.6 fL (81-99); Mean Platelet Vol. 10.5 fl (6.2-12.0); Monocyte# 0.61 X10^3/uL; Monocyte% 12.6 % (0-10); NRBC Flagged by Analyzer 0 % (0-5); Neutrophil # 3.23 X10^3/uL (2.7-7.7); Neutrophil % 66.4 % (47-70); Platelet Count 252 K/mm3 (150-450); RBC Distribution Width CV 15.6 % (11.6-14.6); RBC Distribution Width SD 58.4 fl (35.1-43.9); Red Blood Count 2.55 M/mm3 (4.2-5.4); White Blood Count 4.9 K/mm3 (4.4-11.0)
[2022-09-15 07:25] LABS: Anion Gap 9 (5-15); BUN 8 mg/dL (7-18); BUN/Creat Ratio 12.4 RATIO (10-20); Calcium,Total 9.2 mg/dL (8.5-10.1); Chloride 101 mmol/L (98-107); Creatinine, Serum 0.64 mg/dL (0.55-1.02); EST Glomerular Filtration Rate 96 mL/min (>60); Est Glom Filt Rate - Afr Amer 116 mL/min (>60); Estimated Creatinine Clearance 45.76 ml/min; Glucose 94 mg/dL (74-106); Potassium 3.6 mmol/L (3.5-5.1); Sodium Level 133 mmol/L (136-145); Thyroid Stim Hormone (TSH) 1.22 uIU/mL (0.358-3.74)
[2022-09-15] MEDS: Folic Acid 1 MG Tablet 2 MG PO (07:55)
[2022-09-15] MEDS: Metoprolol Tartrate 50 MG Tablet PO ×2 (07:55→21:19)
[2022-09-15] MEDS: Pregabalin 75 MG Capsule PO ×2 (07:55→21:19)
[2022-09-15] MEDS: Pantoprazole Sodium 40 MG Tablet PO (07:56)
[2022-09-15] MEDS: Enoxaparin 40 MG/0.4 ML Syringe SC (07:56)
[2022-09-15] MEDS: leucovorin 5 MG Tablet 10 MG PO (07:56)
[2022-09-15 09:09] LABS: Erythrocyte Sedimentation Rate 26 mm/hr (0-30)
[2022-09-15] MEDS: Ferrous Sulfate 325 MG Tablet PO ×2 (11:37→16:22)
--- NOTE | 2022-09-15 12:16 | PCM.PN.HOSP ---
Reason for Visit Reason for Visit: Diagnoses Rheumatoid arthritis, unspecified (09/14/22) Other malaise (09/14/22) Subjective Subjective Continues to have significant back pain more so when moving some feelings 1 balance. Seen with at bedside today who reports that at least one of her falls was due to her legs becoming numb and giving out from under her and that initially she had been getting better and always but recently had slowly been worsening Objective Data Objective Data Vital Signs: Vital Signs Temp Pulse Resp BP Pulse Ox O2 Del Method 98.5 F 84 14 102/54 L 95 Room Air 09/15/22 07:47 09/15/22 07:55 09/15/22 07:47 09/15/22 07:47 09/15/22 09:15 09/15/22 07:47 Oxygen Delivery Method Room Air Weight: 83.007 kg Body Mass Index (BMI) 30.4 Intake & Output: Intake and Output for Last 24 Hours 09/13/22 09/14/22 09/15/22 23:59 23:59 23:59 Intake Total 400 / 400 1100 / 1100 Output Total 500 / 500 700 / 700 Balance -100 / -100 400 / 400 Lab / Micro Data Result Diagrams: 09/15/22 05:30 09/15/22 05:30 Labs: Laboratory Results - last 24 hr 09/15/22 05:30: WBC 4.9, RBC 2.55 L, Hgb 8.3 L, Hct 25.9 L, MCV 101.6 H, MCH 32.5 H, MCHC 32.0, RDW Std Deviation 58.4 H, RDW Coeff of Javier 15.6 H, Plt Count 252, MPV 10.5, Immature Gran % (Auto) 0.200, Neut % (Auto) 66.4, Lymph % (Auto) 16.9 L, [place] % (Auto) 12.6 H, Eos % (Auto) 3.3, Baso % (Auto) 0.6, Absolute Neuts (auto) 3.2, Absolute Lymphs (auto) 0.82 L, Nucleated RBC % 0 09/15/22 05:30: Sodium 133 L, Potassium 3.6, Chloride 101, Carbon Dioxide 23.0, Anion Gap 9, BUN 8, Creatinine 0.64, Estim Creat Clear Calc 45.76, Est GFR (MDRD) Af Amer 116, Est GFR (MDRD) Non-Af 96, BUN/Creatinine Ratio 12.4, Glucose 94, Calcium 9.2, TSH 1.22 09/15/22 05:30: ESR 26 09/15/22 05:30: C-React Prot Ext Range 97.00 H Micro: Microbiology 09/14/22 10:07 Urine, Clean Catch Urine Culture - 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 Postop and degenerative changes of spine as described above with no evidence of acute osseous injury. 2. Likely residual postsurgical hematoma or seroma at lumbar paraspinal surgical bed. Follow-up as clinically warranted if concern for postsurgical infection. 3. Mild lumbar dextroscoliosis with chronic appearing grade 1 spondylolisthesis L5 over S1. Electronically Signed: Jovi Ferguson MD at 0:36 EST , Rhythm Strip Rhythm Strip: Sinus Rhythm Rate: 66 Ectopy: None Physical Exam Narrative General: Alert, oriented, no apparent distress HEENT: Atraumatic, normocephalic Eyes: Anicteric, normal conjunctiva, extraocular movements grossly intact Neck: Supple Respiratory: Clear to auscultation bilaterally, normal respiratory effort Cardiovascular: Regular rate and rhythm GI: Soft, nontender, nondistended Extremities: No edema Musculoskeletal: Moving all extremities, seems to have a slightly easier time doing so today Neuro: No overt focal neurological deficits Skin: No rashes appreciated, midline incision noted lumbar area with several small areas of dehiscence without active drainage, no erythema surrounding incision Psych: Cooperative Assessment & Plan Assessment/Plan (1) Debility: (2) Rheumatoid arthritis: PLAN: Plan #Lower back pain in setting of recent surgery with inability to ambulate secondary to pain -Lumbar x-ray unremarkable -Has been to aneurysm clips with most recent in 1990 and cannot get MRI -We will obtain CT of lower back -Pain control and PT/OT -Low threshold for Spine involvement -09/15: Has been refusing the scheduled Tylenol so we will make this as needed, received 1 dose of oxycodone. This a.m. had been complaining of continued pain and at bedside had endorsed one of her falls in the past 24 hours was secondary to her legs going numb. Ortho was consulted but when she was evaluated she was somewhat confused and had given a different rendition of her pain and fall history. Did not have any neurological warning signs that would warrant acute treatment and intervention however. It appears she has waxed and waned with confusion during the day and given that with recent increase falls and bacteria in urine on admission with E. coli growing will treat with Rocephin. Initially had seemed to be asymptomatic bacteriuria however clinical picture now concerning for UTI. Discussed with Dr. Bui. #Urinary tract infection -Started on Rocephin, urine culture growing E. coli, sensitivities pending #Rheumatoid arthritis -Continue methotrexate, leucovorin, folic acid #DVT ppx: Germán Oakley MD Time spent in the patient's overall evaluation,decision-making process, review of diagnostic data, adjustment of management, discussion with other providers, nursing nursing and ancillary staff involved in patient's care documentation, 30 minutes Charges/Coding Visit Charges Inpatient E&M: 31731 Subs Hosp L2
--- NOTE | 2022-09-15 14:51 | PCM.CONS.B ---
Consult Date of Consult: 09/15/22 Mrs. Mcnally is a pleasant 72-year-old lady seen at the request of Dr. Oakley. The patient was a bit disoriented while I talk to her. She states that she really does not have that much pain. She was admitted through the emergency room yesterday probably in an abundance of caution. I suspect also that it was because of a possible closed head injury. Specially after having had a craniotomy. According to the patient she has surgery either in November or December apparently of last year even though she said it was this year. She states that the surgery did in fact help her. She apparently has fallen several times since the surgery. She fell yesterday at home because she was not using her walker and that is when she was seen in the emergency room. A CT scan and plain x-rays were done and then she was admitted. She denies any lower extremity numbness pain or tingling. She denies any bowel or bladder dysfunction. On examination she is neurologically intact. She has good motor strength of all the major muscle groups of both lower extremities. She has no long tract signs. Clonus is absent and Babinski's are downgoing. She has no specific muscle atrophy. Patellar reflexes and Achilles reflexes are barely perceptible but equal. I reviewed plain x-rays of her lumbar spine that demonstrated that she had pedicle fixation from T10 all the way to S1. The construct seems to be intact. I also reviewed the CT scan that was done and again the construct seems to be intact. She does have intervertebral cages at L5-S1, L4-5, and L3-4. These were placed in the spaces from the retroperitoneal space. Note that the patient at some point in her life had a craniotomy with some encephalopathic changes seen. This may account for her mild disorientation or confusion. There was no evidence of a subdural hematoma. She related to me that she has an appointment to see her spine surgeon on the eighth of next month. This is the end of consultation on Mayra Mcnally. This is Dr. Bui dictating. Just as I finish this dictation I received a call from her hospitalist Dr. Oakley. She apparently gave Dr. Oakley a different story as to the amount of pain that she is in. Perhaps the disorientation differing history given to me and Dr. Oakley may be a result of the encephalomalacia of the right temporal lobe in the right basal ganglia. In other words the history that she gave Dr. Oakley in the history that she gave me may be different however they are both accurate as to what the patient said at the time. Dr. Oakley did relate to me that the patient apparently has an E. coli UTI and is being treated for that now.
[2022-09-15] MEDS: Ceftriaxone 1 GM/50 ML BAG IV (16:21)
[2022-09-15] MEDS: 0.9% Saline Lock 10 ML Syringe IV (16:22)
[2022-09-15 17:31] LABS: Procalcitonin 0.12 ng/mL (0.00-0.09)
[2022-09-15] MEDS: MELATONIN 3 MG TABLET PO (22:37)
[2022-09-16 02:27] VITALS: BP 103/53; PULSE 78; RESP 18; TEMP 37.3; O2SAT 98
[2022-09-16 06:18] LABS: Absolute Lymphocyte Count 0.88 X10^3/uL (0.83-4.51); Absolute Neutrophil Count 2.9 X10^3/uL (2.0-7.7); Basophil# 0.02 X10^3/uL; Basophil% 0.4 % (0-1); Eosinophil# 0.14 X10^3/uL; Hematocrit 26.3 % (37-47); Hemoglobin 8.2 g/dL (12.0-15.0); Lymphocyte # 0.88 X10^3/ul (0.83-4.51); Mean Corp Hgb Conc 31.2 g/dL (32-36); Mean Corpuscular Volume 102.7 fL (81-99); Mean Platelet Vol. 10.1 fl (6.2-12.0); Monocyte# 0.72 X10^3/uL; Monocyte% 15.5 % (0-10); NRBC Flagged by Analyzer 0 % (0-5); Neutrophil # 2.86 X10^3/uL (2.7-7.7); Neutrophil % 61.7 % (47-70); Platelet Count 254 K/mm3 (150-450); RBC Distribution Width CV 15.6 % (11.6-14.6); RBC Distribution Width SD 58.5 fl (35.1-43.9); Red Blood Count 2.56 M/mm3 (4.2-5.4); White Blood Count 4.6 K/mm3 (4.4-11.0)
[2022-09-16 06:52] LABS: Anion Gap 8 (5-15); BUN 11 mg/dL (7-18); BUN/Creat Ratio 17.6 RATIO (10-20); Chloride 103 mmol/L (98-107); Creatinine, Serum 0.62 mg/dL (0.55-1.02); EST Glomerular Filtration Rate 100 mL/min (>60); Est Glom Filt Rate - Afr Amer 120 mL/min (>60); Estimated Creatinine Clearance 45.76 ml/min; Glucose 104 mg/dL (74-106); Potassium 3.4 mmol/L (3.5-5.1); Sodium Level 136 mmol/L (136-145)
[2022-09-16 07:20] VITALS: BP 105/52; PULSE 72; RESP 16; TEMP 36.8; O2SAT 96
[2022-09-16 08:27] VITALS: BP 98/58; PULSE 85; RESP 18; TEMP 37.2; O2SAT 96
[2022-09-16] MEDS: Potassium Chloride Oral Tablet 20 MEQ 40 MEQ PO (08:52)
[2022-09-16] MEDS: Folic Acid 1 MG Tablet 2 MG PO (08:52)
--- NOTE | 2022-09-16 09:42 | CASEMGMT ---
TOYA STEVENS in to pt room, pt sitting up in chair. Pt states she is going home. She wants to continue with [facility]. TC to Mayra at [facility], she states pt is being seen twice a week on Tuesdays and and she still has 2 weeks scheduled out. She states they can make up the appts she missed as well. States pt does not need a new order. Pt is aware of this.
[2022-09-16] MEDS: Pregabalin 75 MG Capsule PO (10:13)
[2022-09-16] MEDS: Ceftriaxone 1 GM/50 ML BAG IV (10:13)
[2022-09-16] MEDS: Enoxaparin 40 MG/0.4 ML Syringe SC (10:13)
[2022-09-16 10:14] VITALS: BP 105/52; PULSE 72
[2022-09-16] MEDS: Metoprolol Tartrate 50 MG Tablet PO (10:14)
[2022-09-16] MEDS: Pantoprazole Sodium 40 MG Tablet PO (10:14)
--- NOTE | 2022-09-16 12:52 | DCINST_ITS ---
Discharge Instructions Diet Discharge Diet: No restrictions Activity Discharge Activity: - (Return to normal activity as tolerated, use walker as indicated) Follow Up Care Test Results: Test results from this visit will be discussed in further detail at your follow- up appointment, if applicable. Discharge Plan Admission Admit Date/Time: 09/14/22 13:22 Primary Reason for Your Visit: Back Pain Attending Provider: Amanda Oakley Primary Care Provider: Mray Robles Consulting Providers: Arash Bui Instructions Patient Instructions: ED Fall Prevention Additional Instructions / Restrictions: DISCHARGE INSTRUCTIONS PLEASE READ *Please take this with you to your next doctors appointment* -Please continue to follow with physical therapy as an outpatient and please follow with your spine surgeon Dr. Hamilton upon discharge -- Would recommend lab work (CRP) to check your levels of inflammation in 3 to 5 days through your primary care physician's office. Please call their office upon discharge to obtain order for lab work. -You are found to have a urinary tract infection during this admission and you will need to complete 6 more days of antibiotics (cefixime 400 mg) with your first dose being this evening. You will then continue to take this daily. A prescription for this has been sent into preferred pharmacy on file -Your blood pressure medication triamterene?hydrochlorothiazide and lisinopril been held due to your blood pressure being slightly low, please discuss with your primary care physician regarding need for resumption of this medication -Your lisinopril has been continued but it is recommended to check your blood pressure daily and do not take this medication if your systolic blood pressure (top number) is less than 100 -Continue taking your metoprolol but would recommend taking one half tab twice daily (50 mg twice daily) instead of 100 mg in the morning, please discuss this with your primary care physician -Continue other home medications as prescribed -Please call your primary care provider's office upon discharge to schedule a hospital follow up within 1 week. -For any concerning signs or symptoms please call 911 or proceed to the nearest emergency department Discharge Orders/Prescriptions Prescriptions: New cefixime 400 mg capsule 400 mg PO DAILY 6 Days Qty: 6 0RF Continued metoprolol tartrate [Lopressor] 100 mg tablet 100 mg PO DAILY omeprazole 40 mg capsule,delayed release(DR/EC) 40 mg PO DAILY methotrexate sodium 2.5 MG tablet 15 mg PO QWEEK Label Comments: ON MONDAYS leucovorin calcium 10 mg PO/SL QWEEK Rx Instructions: on Tuesdays ascorbic acid (vitamin C) 500 mg Tablet 500 mg PO BREAKFAST Qty: 0 0RF ferrous sulfate [FeroSul] 325 mg (65 mg iron) Tablet 325 mg PO 1200,1700 30 Days Qty: 60 0RF sennosides-docusate sodium [Stool Softener-Stimulant Laxat] 8.6-50 mg Tablet 2 tab PO BID Qty: 0 0RF potassium chloride [Klor-Con M20] 20 mEq Tablet,Er Particles/Crystals 20 meq PO BIDCM 30 Days Qty: 60 0RF oxybutynin chloride 10 mg tablet extended release 24hr 10 mg PO DAILY folic acid 1 mg tablet 2 mg PO DAILY gabapentin 100 mg capsule 100 - 300 mg PO DAILY Label Comments: TAKE 1 TO 3 CAPSULES BY MOUTH THREE TIMES DAILY hydroxychloroquine 200 mg tablet 200 mg PO BID pregabalin 75 mg capsule 75 mg PO BID Label Comments: TAKE 1 CAPSULE BY MOUTH TWICE DAILY FOR PAIN lisinopril 10 MG tablet 10 mg PO DAILY Qty: 30 0RF Rx Instructions: do not take this medication if your systolic blood pressure (top number) is less than 100 Changed acetaminophen 500 mg Tablet 1,000 mg PO Q8 PRN (Reason: Acne) Qty: 0 0RF Discontinued triamterene-hydrochlorothiazid 1 TABLET tablet 0.5 tab PO DAILY Referrals / Follow Up: Mary Robles MD [Primary Care Provider] - Within 1 Week Disposition Disposition (needs filled in before D/C Order can be placed): Home, Self Care
[2022-09-16 13:08] VITALS: BP 112/55; PULSE 70; RESP 18; TEMP 36.7; O2SAT 98
--- NOTE | 2022-09-16 13:08 | DS.PCM_ITS ---
Providers Date of Admission: 09/14/22 Date of Discharge: 09/16/22 Primary Care Physician: Dr. Mary Robles MD Consultations 09/15/22 11:43 Consult: Orthopedics Routine Consulting Provider: Arash Bui Reason for Consult: recent spinal surgery, increased pain and falls, CT w/ inflammation ?infxn EMERGENT Consult: No MD Notified: Yes Date Notified: 09/15/22 Time Notified: 13:23 Method of Notification: Verbal Reason For Visit: BACK PAIN, FALL FTT Diagnosis Discharge Diagnosis (1) Debility: Status: Acute Code(s): R53.81 - Other malaise (2) Rheumatoid arthritis: Status: Acute Code(s): M06.9 - Rheumatoid arthritis, unspecified Plan #Lower back pain in setting of recent surgery with inability to ambulate secondary to pain #Urinary tract infection #Rheumatoid arthritis Medications at Discharge Home Medications methotrexate sodium 2.5 mg tablet 15 mg PO QWEEK arthritis 02/04/14 metoprolol tartrate 100 mg tablet (Lopressor) 100 mg PO DAILY BP 03/30/18 omeprazole 40 mg capsule,delayed release 40 mg PO DAILY GERD 03/30/18 leucovorin calcium 10 mg PO/SL QWEEK w/ methotrexate 08/12/22 ascorbic acid (vitamin C) 500 mg tablet 500 mg PO BREAKFAST #0 tabs 08/25/22 ferrous sulfate 325 mg (65 mg iron) tablet (FeroSul) 325 mg PO 1200,1700 30 days #60 tabs 08/25/22 potassium chloride 20 mEq tablet,extended release(part/cryst) (Klor-Con M) 20 meq PO BIDCM 30 days #60 tabs 08/25/22 sennosides 8.6 mg-docusate sodium 50 mg tablet (Stool Softener-Stimulant Laxative) 2 tab PO BID #0 tabs 08/25/22 folic acid 1 mg tablet 2 mg PO DAILY . 09/14/22 gabapentin 100 mg capsule 100 - 300 mg PO DAILY SEIZURE 09/14/22 hydroxychloroquine 200 mg tablet 200 mg PO BID . 09/14/22 oxybutynin chloride 10 mg tablet,extended release 24 hr 10 mg PO DAILY . 09/14/22 pregabalin 75 mg capsule 75 mg PO BID PAIN 09/14/22 acetaminophen 500 mg tablet 1,000 mg PO Q8 PRN Acne #0 tabs 09/16/22 cefixime 400 mg capsule 400 mg PO DAILY 6 days #6 caps 09/16/22 lisinopril 10 mg tablet 10 mg PO DAILY BP #30 tabs 09/16/22 Hospital Course Procedures - (ct back) Summary of Care Provided Minutes Spent on Discharge: 36 Hospital Course: GEE BLAS, is a 72 F with history of rheumatoid arthritis, GERD, extensive back surgery roughly 4 weeks ago in [place] with 3 prosthetic disks as well as rods and screws who presented to [facility] 09/14 with worsening back pain after falling twice in the past 24 hours and given intractable pain hospitalist consulted for admission after CT head and back x- ray unremarkable.? She did not have pain while lying flat but when moving different positions she is having increasing pain.? She reports that she has fallen several times since she had her back surgery in these past 2 have been more significant. She was admitted and physical therapy was consulted and CT of the back obtained. Lumbar CT showed postop and degenerative changes as well as a likely residual postsurgical hematoma or seroma at the lumbar paraspinal surgical bed and advise follow-up as clinically warranted if concern for postsurgical infection. She continued to complain of pain and described her falls further so Ortho consulted but she did endorsed pain was much improved and Dr. Bui reviewed films and did not feel any further work-up or intervention needed at this time on an acute basis. She did have some waxing and waning in mental status and urine culture grew Raoultella planticola and she was started on Rocephin. She did work well with physical therapy and reported feeling better overall. On day of discharge reported feeling better with no new complaints. Discharge instructions as followed: -Please continue to follow with physical therapy as an outpatient and please follow with your spine surgeon Dr. Hamilton upon discharge -- Would recommend lab work (CRP) to check your levels of inflammation in 3 to 5 days through your primary care physician's office.? Please call their office upon discharge to obtain order for lab work. -You are found to have a urinary tract infection during this admission and you will need to complete 6 more days of antibiotics (cefixime 400 mg) with your first dose being this evening.? You will then continue to take this daily. A prescription for this has been sent [facility] pharmacy on file -Your blood pressure medication triamterene?hydrochlorothiazide and lisinopril been held due to your blood pressure being slightly low, please discuss with your primary care physician regarding need for resumption of this medication -Your lisinopril has been continued but it is recommended to check your blood pressure daily and do not take this medication if your systolic blood pressure ( top number) is less than 100 -Continue taking your metoprolol but would recommend taking one half tab twice daily (50 mg twice daily) instead of 100 mg in the morning, please discuss this with your primary care physician -Continue other home medications as prescribed -Please call your primary care provider's office upon discharge to schedule a hospital follow up within 1 week. -For any concerning signs or symptoms please call 911 or proceed to the nearest emergency department Physical Exam Narrative General: Alert, oriented, no apparent distress HEENT: Atraumatic, normocephalic Eyes: Anicteric, normal conjunctiva, extraocular movements grossly intact Neck: Supple Respiratory: Clear to auscultation bilaterally, normal respiratory effort Cardiovascular: Regular rate and rhythm GI: Soft, nontender, nondistended Extremities: No edema Musculoskeletal: Moving all extremities Neuro: No overt focal neurological deficits Skin: No rashes appreciated, midline incision noted lumbar area with several small areas of dehiscence without active drainage, no erythema surrounding incision Psych: Cooperative Weight / BMI Weight Weight: 83.007 kg Body Mass Index (BMI) 30.4 ABG / Lab / Microbiology Data Result Diagrams: 09/16/22 05:35 09/16/22 05:35 Laboratory: Laboratory Results - last 24 hr 09/15/22 15:08: Procalcitonin 0.12 H 09/16/22 05:35: WBC 4.6, RBC 2.56 L, Hgb 8.2 L, Hct 26.3 L, MCV 102.7 H, MCH 32.0, MCHC 31.2 L, RDW Std Deviation 58.5 H, RDW Coeff of Javier 15.6 H, Plt Count 254, MPV 10.1, Immature Gran % (Auto) 0.400, Neut % (Auto) 61.7, Lymph % (Auto) 19.0, [place] % (Auto) 15.5 H, Eos % (Auto) 3.0, Baso % (Auto) 0.4, Absolute Neuts (auto) 2.9, Absolute Lymphs (auto) 0.88, Nucleated RBC % 0 09/16/22 05:35: Sodium 136, Potassium 3.4 L, Chloride 103, Carbon Dioxide 25.0, Anion Gap 8, BUN 11, Creatinine 0.62, Estim Creat Clear Calc 45.76, Est GFR (MDRD) Af Amer 120, Est GFR (MDRD) Non-Af 100, BUN/Creatinine Ratio 17.6, Glucose 104, Calcium 9.0, C-React Prot Ext Range 84.90 H Microbiology: Microbiology 09/14/22 10:07 Urine, Clean Catch Urine Culture - Final Raoultella planticola D/C Instructions Discharge Diet: No restrictions Meaningful Use Info Meaningful Use Diagnoses (Choose all that apply): None applicable Discharge Plan Admission Admit Date/Time: 09/14/22 13:22 Primary Reason for Your Visit: Back Pain Attending Provider: Amanda Oakley Primary Care Provider: Mary Robles Consulting Providers: Arash Bui Instructions Patient Instructions: ED Fall Prevention Additional Instructions / Restrictions: DISCHARGE INSTRUCTIONS PLEASE READ *Please take this with you to your next doctors appointment* -Please continue to follow with physical therapy as an outpatient and please follow with your spine surgeon Dr. Hamilton upon discharge -- Would recommend lab work (CRP) to check your levels of inflammation in 3 to 5 days through your primary care physician's office. Please call their office upon discharge to obtain order for lab work. -You are found to have a urinary tract infection during this admission and you will need to complete 6 more days of antibiotics (cefixime 400 mg) with your first dose being this evening. You will then continue to take this daily. A prescription for this has been sent into preferred pharmacy on file -Your blood pressure medication triamterene?hydrochlorothiazide and lisinopril been held due to your blood pressure being slightly low, please discuss with your primary care physician regarding need for resumption of this medication -Your lisinopril has been continued but it is recommended to check your blood pressure daily and do not take this medication if your systolic blood pressure (top number) is less than 100 -Continue taking your metoprolol but would recommend taking one half tab twice d aily (50 mg twice daily) instead of 100 mg in the morning, please discuss this with your primary care physician -Continue other home medications as prescribed -Please call your primary care provider's office upon discharge to schedule a hospital follow up within 1 week. -For any concerning signs or symptoms please call 911 or proceed to the nearest emergency department Discharge Orders/Prescriptions Prescriptions: New cefixime 400 mg capsule 400 mg PO DAILY 6 Days Qty: 6 0RF Continued metoprolol tartrate [Lopressor] 100 mg tablet 100 mg PO DAILY omeprazole 40 mg capsule,delayed release(DR/EC) 40 mg PO DAILY methotrexate sodium 2.5 MG tablet 15 mg PO QWEEK Label Comments: ON MONDAYS leucovorin calcium 10 mg PO/SL QWEEK Rx Instructions: on Tuesdays ascorbic acid (vitamin C) 500 mg Tablet 500 mg PO BREAKFAST Qty: 0 0RF ferrous sulfate [FeroSul] 325 mg (65 mg iron) Tablet 325 mg PO 1200,1700 30 Days Qty: 60 0RF sennosides-docusate sodium [Stool Softener-Stimulant Laxat] 8.6-50 mg Tablet 2 tab PO BID Qty: 0 0RF potassium chloride [Klor-Con M20] 20 mEq Tablet,Er Particles/Crystals 20 meq PO BIDCM 30 Days Qty: 60 0RF oxybutynin chloride 10 mg tablet extended release 24hr 10 mg PO DAILY folic acid 1 mg tablet 2 mg PO DAILY gabapentin 100 mg capsule 100 - 300 mg PO DAILY Label Comments: TAKE 1 TO 3 CAPSULES BY MOUTH THREE TIMES DAILY hydroxychloroquine 200 mg tablet 200 mg PO BID pregabalin 75 mg capsule 75 mg PO BID Label Comments: TAKE 1 CAPSULE BY MOUTH TWICE DAILY FOR PAIN lisinopril 10 MG tablet 10 mg PO DAILY Qty: 30 0RF Rx Instructions: do not take this medication if your systolic blood pressure (top number) is less than 100 Changed acetaminophen 500 mg Tablet 1,000 mg PO Q8 PRN (Reason: Acne) Qty: 0 0RF Discontinued triamterene-hydrochlorothiazid 1 TABLET tablet 0.5 tab PO DAILY Referrals / Follow Up: Mary Robles MD [Primary Care Provider] - Within 1 Week Disposition Disposition (needs filled in before D/C Order can be placed): Home, Self Care Charges/Coding Visit Charges Inpatient E&M: 78310 Disch Hosp >30min
== END 2022-09-16 13:35 | disposition home or self-care (01) | DRG 92 ==
LOC: ED 11:39 → MS3 12:13
PROVIDERS: Admitting Provider Internal Medicine; Emergency Provider Emergency Medicine; PCP Family Medicine; Visit Provider Internal Medicine
DX: G89.28 Other chronic postprocedural pain (principal); L76.32 Postprocedural hematoma of skin and subcutaneous tissue following other procedure; N39.0 Urinary tract infection, site not specified; S09.90XA Unspecified injury of head, initial encounter; M06.9 Rheumatoid arthritis, unspecified; E78.00 Pure hypercholesterolemia, unspecified; I10 Essential (primary) hypertension; W18.30XA Fall on same level, unspecified, initial encounter; M54.50 Low back pain, unspecified; R62.7 Adult failure to thrive; B96.20 Unspecified Escherichia coli [E. coli] as the cause of diseases classified elsewhere; Z79.899 Other long term (current) drug therapy; Z96.653 Presence of artificial knee joint, bilateral; R29.6 Repeated falls; Z68.30 Body mass index [BMI] 30.0-30.9, adult; Y83.8 Other surgical procedures as the cause of abnormal reaction of the patient, or of later complication, without mention of misadventure at the time of the procedure
CPT/HCPCS: 36415; 70450; 71045; 72100; 72131; 80048; 80053; 81001; 84145; 84443; 85025; 85652; 86140; 87077; 87086; 87088; 87186; 93005; 97162; 97166; 97530; 97535; 99285; A4216

== ENCOUNTER → 2022-10-23 | Outpatient (CLI) | payer MEDICARE, SELFPAY ==
[2022-10-23 10:24] LABS: Absolute Lymphocyte Count 0.85 X10^3/uL (0.83-4.51); Absolute Neutrophil Count 3.3 X10^3/uL (2.0-7.7); Basophil# 0.05 X10^3/uL; Eosinophil# 0.14 X10^3/uL; Eosinophils% 2.9 % (0-5); Hematocrit 33.9 % (37-47); Hemoglobin 10.6 g/dL (12.0-15.0); Lymphocyte # 0.85 X10^3/ul (0.83-4.51); Lymphocyte % 17.5 % (19-41); Mean Corp Hgb Conc 31.3 g/dL (32-36); Mean Corpuscular Hgb 31.6 pg (27.0-32.0); Mean Corpuscular Volume 101.2 fL (81-99); Mean Platelet Vol. 10.4 fl (6.2-12.0); Monocyte# 0.53 X10^3/uL; Monocyte% 10.9 % (0-10); NRBC Flagged by Analyzer 0 % (0-5); Neutrophil # 3.27 X10^3/uL (2.7-7.7); Neutrophil % 67.5 % (47-70); Platelet Count 311 K/mm3 (150-450); RBC Distribution Width CV 15.3 % (11.6-14.6); RBC Distribution Width SD 56.9 fl (35.1-43.9); Red Blood Count 3.35 M/mm3 (4.2-5.4); White Blood Count 4.9 K/mm3 (4.4-11.0)
[2022-10-23 10:55] LABS: Anion Gap 9 (5-15); BUN 13 mg/dL (7-18); BUN/Creat Ratio 20.3 RATIO (10-20); Calcium,Total 9.8 mg/dL (8.5-10.1); Chloride 103 mmol/L (98-107); Creatinine, Serum 0.64 mg/dL (0.55-1.02); EST Glomerular Filtration Rate 97 mL/min (>60); Est Glom Filt Rate - Afr Amer 117 mL/min (>60); Glucose 93 mg/dL (74-106); Potassium 3.5 mmol/L (3.5-5.1); Sodium Level 137 mmol/L (136-145)
== END | disposition home or self-care (01) ==
LOC: MTLAB 09:26
PROVIDERS: PCP Family Medicine
DX: M51.16 Intervertebral disc disorders with radiculopathy, lumbar region (principal); M48.062 Spinal stenosis, lumbar region with neurogenic claudication; M47.26 Other spondylosis with radiculopathy, lumbar region; M41.26 Other idiopathic scoliosis, lumbar region; M43.17 Spondylolisthesis, lumbosacral region; M81.0 Age-related osteoporosis without current pathological fracture
CPT/HCPCS: 36415; 80048; 85025

== ENCOUNTER → 2022-11-16 | Outpatient (CLI) | payer MEDICARE, SELFPAY ==
[2022-11-16 10:14] LABS: Absolute Lymphocyte Count 0.96 X10^3/uL (0.83-4.51); Absolute Neutrophil Count 4.6 X10^3/uL (2.0-7.7); Basophil# 0.07 X10^3/uL; Basophil% 1.1 % (0-1); Eosinophils% 3.1 % (0-5); Hemoglobin 11.4 g/dL (12.0-15.0); Lymphocyte # 0.96 X10^3/ul (0.83-4.51); Lymphocyte % 14.8 % (19-41); Mean Corp Hgb Conc 30.8 g/dL (32-36); Mean Corpuscular Hgb 30.6 pg (27.0-32.0); Mean Corpuscular Volume 99.2 fL (81-99); Mean Platelet Vol. 10.4 fl (6.2-12.0); Monocyte# 0.66 X10^3/uL; Monocyte% 10.2 % (0-10); NRBC Flagged by Analyzer 0 % (0-5); Neutrophil # 4.57 X10^3/uL (2.7-7.7); Neutrophil % 70.6 % (47-70); Platelet Count 346 K/mm3 (150-450); RBC Distribution Width CV 14.6 % (11.6-14.6); RBC Distribution Width SD 53.1 fl (35.1-43.9); Red Blood Count 3.73 M/mm3 (4.2-5.4); White Blood Count 6.5 K/mm3 (4.4-11.0)
[2022-11-16 10:52] LABS: ALB/GLOB Ratio 0.7 RATIO (0.9-2.4); AST(SGOT) 13 U/L (15-37); Alanine Aminotransfer ALT/SGPT 13 U/L (13-56); Albumin, Serum 3.2 g/dL (3.2-5.0); Alkaline Phosphatase 85 U/L (45-117); Anion Gap 7 (5-15); BUN 18 mg/dL (7-18); BUN/Creat Ratio 19.8 RATIO (10-20); Calcium,Total 10.3 mg/dL (8.5-10.1); Chloride 101 mmol/L (98-107); Creatinine, Serum 0.91 mg/dL (0.55-1.02); EST Glomerular Filtration Rate 65 mL/min (>60); Est Glom Filt Rate - Afr Amer 78 mL/min (>60); Globulin 4.3 g/dL (2.2-4.2); Glucose 101 mg/dL (74-106); Potassium 3.7 mmol/L (3.5-5.1); Protein, Total 7.5 g/dL (6.4-8.2); Sodium Level 133 mmol/L (136-145)
== END | disposition home or self-care (01) ==
PROVIDERS: PCP Family Medicine; Referring Provider Internal Medicine Rheumatology; Visit Provider Internal Medicine Rheumatology
DX: M05.70 Rheumatoid arthritis with rheumatoid factor of unspecified site without organ or systems involvement (principal); Z79.899 Other long term (current) drug therapy
CPT/HCPCS: 36415; 80053; 85025

== ENCOUNTER → 2022-12-07 | Outpatient (CLI) | payer MEDICARE, SELFPAY ==
--- NOTE | 2022-12-07 14:44 | BI_ITS ---
MAMMOGRAPHY - BILATERAL SCREENING REASON FOR EXAM: Female, 72 years old. Routine annual screening examination. PERTINENT HISTORY: Non-contributory. TECHNIQUE: Digital bilateral breast rafa (3D mammographic acquisition) in the CC and MLO projections. 2-D mediolateral oblique (MLO) and craniocaudad (CC) views of both breasts were obtained. CAD: Full Field Digital Mammography with Computer Added Detection was performed. COMPARISON: Mammogram from 10/24/2021, 02/23/2020. FINDINGS: Breast Composition: There are scattered areas of fibroglandular density. There are no dominant masses or suspicious calcifications. No other significant abnormalities are identified. There has been no significant change since the prior study. BI/SCRN MAMM (CAD)W/RAFA BILAT IMPRESSION: Stable bilateral screening mammogram. Yearly follow-up mammogram recommended. (A) ASSESSMENT CATEGORY: BIRADS Category 1: Negative. A letter regarding these results will be sent to the patient by the facility within 30 days. Approximately 10% of breast cancers are not detected by mammography. A normal mammogram should not delay biopsy of a clinically suspicious abnormality. Electronically Signed: Jhonny Holbrook MD at 17:13 EDT ,
== END | disposition home or self-care (01) ==
LOC: OPBI 14:42
PROVIDERS: PCP Family Medicine; Referring Provider Family Medicine; Visit Provider Family Medicine
DX: Z12.31 Encounter for screening mammogram for malignant neoplasm of breast (principal)
CPT/HCPCS: 77063; 77067

== ENCOUNTER → 2023-01-12 | Outpatient (CLI) | payer MEDICARE, SELFPAY | END | disposition home or self-care (01) | LOC: LABSPEC 16:34 | PROVIDERS: PCP Family Medicine; Referring Provider Urology; Visit Provider Urology | DX: R10.9 Unspecified abdominal pain (principal) | CPT/HCPCS: 87086; 87088; 87186 ==

== ENCOUNTER 2023-01-15 12:30 | Outpatient (RCR) | payer MEDICARE, SELFPAY ==
--- NOTE | 2022-09-01 08:37 | HP.PTEVAL ---
Patient's Visit Information GEE BLAS is a 72 year old F referred to Physical Therapy by Dr. Zane Rosenberg MD with a diagnosis of See above for back surgery. Date of Evaluation: 08/31/22 Physical Therapist: Hanane Da Silva DPT - Visit Plan Frequency: 2x /Week Duration: 4 Weeks Plan: Significant back surgery- brace when up with all activities- focus on LE and core strength/stabilization, ambulation, proprioception and stairs. HEP Reviewed from [facility] - Subjective 08/04: [facility] (DR CORDOBA/DR REAGAN)-S/P L3-4, L5-S1 ALIF. 08/06: T9-S1 W/ INSTRUMENTATION, BILATERAL ILIAC BOLTS, L1-5 DECOMPRESSION; BONE MARROW ASPIRATIONS--ALL COMPLETED D/T DEGENERATIVE SCOLIOSIS, SPINAL STENOSIS W/ NEUROGENIC CLAUDICATION. She had therapy at the hospital at [facility] and just got out of there last week. She is now home with her . They went back to the MD last week and everything looks good. She wears a brace when she is up- but she is now allowed go to the bathroom without it and sleeps without it. No bending! Worst: 03/28 Agg: movement Eases: laying down flat on her back feels like it takes the pressure off. Best: 10. The pain is located in the back and radiates to the knees- radiates to the shoulder blades. She describes the pain as dull and achy- burning if she is on it too long. No N/T in the toes. Lives in a single story with one step to enter. Before surgery she was doing all of her own ADL's and driving. 50% back to normal. She is not very active. Prior to surgery no AD but was more furniture walking- she was not able to get into the hospital until after the first of the year. Sleep: not disturbed due to her back- but she has restless leg syndrome. She does have exercises from [facility] that she continues to do. Poor historian- present PMHx/Meds: no changes since [facility]. - Objective Posture: fair due to Farzaneh Brace and bone stimulator. Gait: severely antalgic- uses rollator- increased pes planus Left>Right, valgus at the knees, shortened stride and could only amb 150 feet then had to take a rest break. HR/TR: can do sitting. Weight shifting only for balance. ROM: WFL in all planes. Strength: Core: poor, Hip: 4/5 Knee: 4/5, Ankle: 4/5 throughout. Flex: HS: moderate Gastroc: moderate - Balance/Special Test Scores Oswestry Low Back Score: 27 Lower Extremity Functional Score: 0 TUG Test Time Seconds: 27.5 30 Second Chair Rise Test Seconds: 9 - Goals Goal 1:: Patient will be I with HEP and progression Goal Time Frame: 4-6 Weeks Goal 2:: Patient will ambulate >300 feet without stopping with LRD Goal Time Frame: 4-6 Weeks Goal 3:: Patient will sit to stand x5 without UE A Goal Time Frame: 4-6 Weeks Goal 4:: Patient will improve TUG to under 10 sec with LRD Goal Time Frame: 4-6 Weeks - Rehabilitation Potential Physical Therapy Diagnosis: Patient presents s/p back surgery- she has decreased LE and core strength/stabilization, proprioception, and muscular endurance leading to abnormal gait and dec ability to participate in ADL's. Rehabilitation Potential: Good - Anticipated Interventions Patient/Client Instruction: Educate patient on: Benefits of Fitness Program Therapeutic Exercise to Include: Strength training, Power training, Balance training, Coordination, Agility training, Body mechanics, Postural training, Flexibilty training, Gait and locomotor training, Neuromotor development, Dynamic Lumbar Stabilization, Scapular Strength/Stabilization Thank you for the opportunity to evaluate your patient. For Medicare and Medicare HMO plans, please review the plan of care and approve it. It will need to be FAXED BACK to us at [phone] for Medicare purposes. For Medicare only, by signing this I certify the plan of care. Please let me know if there are questions or concerns regarding this plan of care. Physician Signature: Date:
--- NOTE | 2022-09-02 11:17 | HP.OTEVAL ---
Patient's Visit Information GEE BLAS is a 72 year old F, referred to Occupational Therapy by Dr. Mary Robles MD, with a diagnosis of lumbar spinal stenosis/ debility. Date of Evaluation: 09/02/22 Occupational Therapist: Eli Lima, OTR/Leoncio, CHT - Subjective This 72 year old female was seen for OT eval with dx of lumbar spinal stenosis and debility. pt states she had surgery Aug 04, 2021. pt states she started to have pain over a year ago. pt states she went to [facility] on TCU for therapy for two weeks and d/c home on Aug.26. pt states she is having difficulty standing/walking- pt states pain in sciatic nerve does get more painful with walking. pt states she has restrictions of not bending and no lifting or twisting. Pts spouse is with pt today and states he is helping with all ADLs and IADls as needed. - ADLs Comments: pt currently limited with bathing/dressing and home mtg tasks due to recent lumbar surgery and precautions. pt is using grabber to get dressed. pt has grab bars and a shower chair. pt has long handled sponge. spouse is doing cooking, cleaning and laundry at this time. pt and pts spouse do not report new needs for ad. eq. - Pain back 9 Pain Intensity Range: 5, 9 - ROM ROM Comments: pt demo BUE ROM WNL - Strength Strength Comments: MMT not tested due to recent back sx and precautions - Quick DASH-Disab of Arm,Shoulder& Hand Quick DASH Score: 32.5000 - Rehabilitation General Assessment: pt currently limited with ADLs and home mtg. from recent lumbar sx. pt and pts spouse report they have all the ad. equipment that they need at this time. pt and spouse have more concerns with pts ambulation and standing tolerance that will be addressed during Physical therapy. Based on pt and spouse report and clinical reasoning pt does not demo need for skilled OT services at this time. This therapist spoke in length on pts back precautions and ed. pt on why she continues to need ad. eq. while she is performing her ADLs. pt and pts spouse demo understanding and agree to POC. Rehabilitation Potential: Good - Visit Plan General Plan: pt to continue with Physical therapy to address concerns with ambulation, standing and precautions following lumbar sx. TEXT: Thank you for the opportunity to evaluate your patient. For Medicare and Medicare HMO plans, please review the plan of care and approve it. It will need to be FAXED BACK to us at [phone] for Medicare purposes. Please let me know if there are questions or concerns regarding this plan of care. Physician Signature: Date:
--- NOTE | 2022-11-03 12:54 | HP.PTREVAL ---
Dr. Mary Robles MD, It has been my pleasure to treat GEE BLAS over the last 12 visits for See above for back surgery. Please see the progress note below for an update on the physical therapy plan of care! Subjective: Patient had surgery debridement and closer of anterior hip. Walking better and doing stairs. Objective/Function: Posture: mild forward posture Farzaneh Brace. INSCION: well approximate anterior hip left Gait: Ambulates reciprocal pattern mild forward posture with fww slow deonte with Nelson brace . ROM BLE: WFL in all planes. Strength: Hip FLEXION: 4/5 QUADS/HAMS: 4/5, Ankle: 4/5 throughout. Flex: HS: moderate Gastroc: min/moderate. NEURO: denies paresthesia/tingling. STAIRS: alternating with rails. Patient has shown progression with gait with improved quality at community distances Plan Plan: Requesting 10 more visits. Significant back surgery- brace when up with all activities- focus on LE and core strength/stabilization, ambulation, proprioception and stairs. Balance/Gait/Functional tests - Balance/Special Test Scores Oswestry Low Back Score: 22 Lower Extremity Functional Score: 0 TUG Test Time Seconds: 19.8 Tug Test: <20 sec.=mostly independent 30 Second Chair Rise Test Seconds: 9 Goals Goal 1:: Patient will be I with HEP and progression Goal Time Frame: 4-6 Weeks Goal Progress: Progressing Goal 2:: Patient will ambulate >300 feet without stopping with LRD Goal Time Frame: 4-6 Weeks Goal Progress: Progressing Goal 3:: Patient will sit to stand x5 without UE A Goal Time Frame: 4-6 Weeks Goal Progress: Progressing Goal 4:: Patient will improve TUG to under 10 sec with LRD Goal Time Frame: 4-6 Weeks Goal Progress: Progressing Anticipated Interventions Patient/Client Instruction: Educate patient on: Benefits of Fitness Program Therapeutic Exercise to Include: Strength training, Power training, Balance training, Coordination, Agility training, Body mechanics, Postural training, Flexibilty training, Gait and locomotor training, Neuromotor development, Dynamic Lumbar Stabilization, Scapular Strength/Stabilization Please do not hesitate to contact me at [phone] by phone or if you have questions or concerns regarding this new plan of care! Sincerely, Shaun Androsik, PT, Cert MDT, OCS
--- NOTE | 2022-12-17 13:06 | HP.PTREVAL ---
TOPHER ESTES, It has been my pleasure to treat GEE Ling FATZINGER over the last 22 visits for See above for back surgery. Please see the progress note below for an update on the physical therapy plan of care! Subjective: Not ready to be done. Still hjaving back and leg pain. Has not seen surgeon lately and no f/u until January. Pain just like it was 6 weeks ago. 04/27 in B quads with walking at store over 150 feet. Using wh walker because of that pain and balance. Does not use it at home but furniture surfs. LB bothers her often up and moving. HEP, sink exercises 3x15 daily 2x/day. No back stretches. Avoids lifting greater than 25#. No pain sitting. Sleeping well but tosses and turns. Cannot do cleaning at home and robert has to do it. Objective/Function: Max tightness in HS and quads B. -45 90/90 test and barely to 90 degree knee ROM hanging off edge of table due to quad pain similar to what she gets walking after about 150 feet. Needs wh walker for safety. Overall mobility is better but leg pain persists and is the main frustrating part for patient and is not improving. Plan Plan: 2x/week x 4 week therapy to focus on... 1. rollout and STR to trigger points in B quads. 2. Stretch quads and ensure stretching at home. 3. Same to HS. pt to cotninue sink exercises at home. Hold on gym strength which patient will not commit to and has not been helping her main complaint of leg pain. New goal and fair prognosis. Back to doctor if leg pain not improving. Balance/Gait/Functional tests - Balance/Special Test Scores Oswestry Low Back Score: 14 Lower Extremity Functional Score: 0 TUG Test Time Seconds: 13 Tug Test: <20 sec.=mostly independent 30 Second Chair Rise Test Seconds: 9 Goals Goal 1:: Patient will be I with HEP and progression Goal Time Frame: 4-6 Weeks Goal Progress: sink exercises Goal 2:: Patient will ambulate >300 feet without stopping with LRD Goal Time Frame: 4-6 Weeks Goal Progress: 150-200 feet Goal 3:: Patient will sit to stand x5 without UE A Goal Time Frame: 4-6 Weeks Goal Progress: Goal Met Goal 4:: Patient will improve TUG to under 10 sec with LRD Goal Time Frame: 4-6 Weeks Goal Progress: 13 seconds. Goal 5:: Pain in legs will be 50% better adn 3/10 at worst and able to walk 300 feet without pain Goal Time Frame: 2-4 Weeks Goal Progress: NEW GOAL Anticipated Interventions Patient/Client Instruction: Educate patient on: Benefits of Fitness Program Therapeutic Exercise to Include: Strength training, Power training, Balance training, Coordination, Agility training, Body mechanics, Postural training, Flexibilty training, Gait and locomotor training, Neuromotor development, Dynamic Lumbar Stabilization, Scapular Strength/Stabilization Please do not hesitate to contact me at [phone] by phone or if you have questions or concerns regarding this new plan of care! Sincerely, Godfrey Spencer, DPT, OCS, CSCS
--- NOTE | 2023-01-15 13:19 | HP.PTDCSUM ---
Discharge Summary D/C summary: It has been my pleasure to treat GEE Ling FATZINGER referred by TOPHER ESTES, with the diagnosis of See above for back surgery for a total of 29 visit(s). Discharge Date: 01/15/23 Please see the following information for a summary of their discharge status. Subjective Subjective: Not progressing or getting any better. quads still hurt with standing and walking at [place] this am 9/10 and gone when sits. Doing home stretches, rollotu to quads and strengthening without improvement. F/U with spine doctor February 16. Pain Bilateral Back: Pain Intensity (Out of 10): 0 Right Hip: Pain Intensity (Out of 10): 0 Overall Improvement % Improvement: 0 Objective Objective/Function: Walks slowly without AD and L trendelenberg, quads hurt after 80 feet Walks about 120 feet with wh walker bfore quad pain kicks in. This is her main problem and is not improving despite stretch, rollout and strength. Goals Goal 1:: Patient will be I with HEP and progression Goal Progress: sink exercises Goal 2:: Patient will ambulate >300 feet without stopping with LRD Goal Progress: Not Progressing Goal 3:: Patient will sit to stand x5 without UE A Goal Progress: Goal Met Goal 4:: Patient will improve TUG to under 10 sec with LRD Goal Progress: Not Progressing Goal 5:: Pain in legs will be 50% better adn 3/10 at worst and able to walk 300 feet without pain Goal Progress: Not Progressing Plan Plan: d/c, Pt to call spine doctor for next recommendation if quasd pain could be coming from back or possibly circulation. Therapy not helping. D/C Information Discharge Comments: Pt not improving and recommend return to doctor for next medical step...quad pain presents as possible back or circulatory causes possibly. d/c sentence: If there are questions or concerns regarding this patient's physical therapy, please feel free to call me at [phone]. Thank you for the referral of this patient. Sincerely, Godfrey Spencer, DPT, OCS, CSCS Balance/Gait/Functional tests Balance/Special Test Scores Oswestry Low Back Score: 25 Lower Extremity Functional Score: 0 TUG Test Time Seconds: 13 Tug Test: <20 sec.=mostly independent 30 Second Chair Rise Test Seconds: 9
== END 2023-01-15 19:00 | disposition home or self-care (01) ==
LOC: PT 12:30
PROVIDERS: PCP Family Medicine; Referring Provider Family Medicine Geriatric Medicine
DX: M48.061 Spinal stenosis, lumbar region without neurogenic claudication (principal); R53.81 Other malaise
CPT/HCPCS: 97110; 97140; 97162; 97164; 97166

== ENCOUNTER → 2023-02-02 | Outpatient (CLI) | payer MEDICARE, SELFPAY ==
[2023-02-02 13:00] LABS: ALB/GLOB Ratio 0.8 RATIO (0.9-2.4); AST(SGOT) 16 U/L (15-37); Alanine Aminotransfer ALT/SGPT 11 U/L (13-56); Albumin, Serum 3.1 g/dL (3.2-5.0); Alkaline Phosphatase 74 U/L (45-117); Anion Gap 4 (5-15); BUN 13 mg/dL (7-18); Calcium,Total 9.4 mg/dL (8.5-10.1); Chloride 104 mmol/L (98-107); Creatinine, Serum 0.87 mg/dL (0.55-1.02); EST Glomerular Filtration Rate 68 mL/min (>60); Est Glom Filt Rate - Afr Amer 82 mL/min (>60); Globulin 3.9 g/dL (2.2-4.2); Glucose 97 mg/dL (74-106); Potassium 3.8 mmol/L (3.5-5.1); Sodium Level 135 mmol/L (136-145)
[2023-02-02 14:17] LABS: Absolute Lymphocyte Count 0.88 X10^3/uL (0.83-4.51); Absolute Neutrophil Count 3.9 X10^3/uL (2.0-7.7); Basophil# 0.05 X10^3/uL; Basophil% 0.9 % (0-1); Eosinophil# 0.16 X10^3/uL; Eosinophils% 2.8 % (0-5); Hematocrit 36.3 % (37-47); Hemoglobin 11.7 g/dL (12.0-15.0); Lymphocyte # 0.88 X10^3/ul (0.83-4.51); Lymphocyte % 15.6 % (19-41); Mean Corp Hgb Conc 32.2 g/dL (32-36); Mean Corpuscular Hgb 31.6 pg (27.0-32.0); Mean Corpuscular Volume 98.1 fL (81-99); Mean Platelet Vol. 10.6 fl (6.2-12.0); Monocyte% 10.6 % (0-10); NRBC Flagged by Analyzer 0 % (0-5); Neutrophil # 3.94 X10^3/uL (2.7-7.7); Neutrophil % 69.9 % (47-70); Platelet Count 304 K/mm3 (150-450); RBC Distribution Width CV 15.9 % (11.6-14.6); White Blood Count 5.6 K/mm3 (4.4-11.0)
== END | disposition home or self-care (01) ==
LOC: MTLAB 10:08
PROVIDERS: PCP Family Medicine; Referring Provider Internal Medicine Rheumatology; Visit Provider Internal Medicine Rheumatology
DX: M05.70 Rheumatoid arthritis with rheumatoid factor of unspecified site without organ or systems involvement (principal); Z79.899 Other long term (current) drug therapy
CPT/HCPCS: 36415; 80053; 85025

== ENCOUNTER → 2023-03-17 | Outpatient (CLI) | payer MEDICARE, SELFPAY ==
[2023-03-08 14:05] LABS: BUN 9 mg/dL (7-18); Creatinine, Serum 0.72 mg/dL (0.55-1.02); EST Glomerular Filtration Rate 85 mL/min (>60); Est Glom Filt Rate - Afr Amer 102 mL/min (>60)
--- NOTE | 2023-03-17 12:58 | CT_ITS ---
CT angiogram of the abdominal aorta with bilateral lower extremity runoff with 3-dimensional reconstructions, with MIP reconstructions Clinical history: STRICTURE OF ARTERY Technique: Multiple helical CT images were obtained from the domes the diaphragms to level of feet after intravenous administration of iodinated contrast with transaxial, coronal and sagittal multiplanar reconstructions. On a separate workstation, 3-dimensional reconstructions were obtained of the arterial vasculature using volume rendering technique and maximal intensity projection technique as per departmental protocol. This CT exam has been performed using low dose vendor recommended protocols to limit radiation exposure to As Low As Reasonably Achievable. RADIATION DOSAGE (If Supplied By Facility): CTDIvol = ( 6.71 ) mGy, DLP = ( 1438.27 ) mGycm COMPARISON: None. FINDINGS: ABDOMEN / PELVIS: Mild bilateral lower lobe atelectasis. Normal cardiac size. The visualized portions of the spleen and pancreas appear to be within normal limits. The gallbladder is unremarkable. Multiple low-attenuation structures identified within the bilateral kidneys, largest seen at the level of the right upper renal pole measuring 4.6 cm compatible with simple renal cysts. Otherwise normal bilateral kidneys. Abundant fecal debris within the right and transverse colon which may indicate mild constipation. Remainder of the visualized bowel is unremarkable. Retroflexed uterus with mild atrophy. Unremarkable urinary bladder. There is mild stranding involving the subcutaneous fat at the level of the left anterior lower abdominal wall which may indicate sequela of prior injection or trauma versus nonspecific inflammation. VASCULAR STRUCTURES: Atherosclerosis throughout the aorta with no signs of dissection or aneurysm. No severe stenosis There appears to be good opacification and patency of the celiac trunk, superior mesenteric artery. There appears to be good opacification and patency noted of the RIGHT and LEFT renal arteries. There appears to be good opacification and patency noted of the inferior mesenteric artery. ARTERIAL STRUCTURES OF THE RIGHT LOWER EXTREMITY: Common iliac artery: Calcified atherosclerosis throughout the right common iliac artery with no aneurysm, dissection or severe stenosis. External iliac artery: Severe calcified sclerosis throughout the right external iliac arteries with areas of high-grade stenosis versus short segment occlusions. Internal iliac arteries: Calcified atherosclerosis with areas of moderate to severe stenosis.. Common femoral artery: Calcified atherosclerosis involving the common femoral artery with approximately 50% diameter narrowing. Superficial femoral arteries: Calcified atherosclerotic disease involving the superficial femoral artery, more severe in the proximal bilateral superficial femoral artery and distal superficial femoral artery, no occlusion or high-grade stenosis seen. Popliteal artery: Suboptimally seen bilaterally popliteal artery at the level of the knee due to beam hardening artifact related to the knee prosthesis. The visualized portion of the popliteal artery is normal with no severe stenosis or occlusion Anterior tibial artery: Appears patent with good opacification. Posterior tibial artery: Appears patent with good opacification. Peroneal artery: Appears patent with opacification. ARTERIAL STRUCTURES OF THE LEFT LOWER EXTREMITY: Common iliac artery: Severe calcified atherosclerotic disease of the proximal left common iliac artery with proximal high-grade stenosis or occlusion. External iliac artery: Severe calcified atherosclerotic disease throughout the left external iliac artery with diffuse severe narrowing, cannot exclude areas of occlusion. . Internal iliac arteries: Calcified atherosclerosis with areas of moderate to severe stenosis.. Common femoral artery: Calcified atherosclerosis involving the common femoral artery with approximately 50% diameter narrowing. Superficial femoral arteries: Calcified atherosclerotic disease involving the superficial femoral artery, more severe in the proximal bilateral superficial femoral artery and distal superficial femoral artery, no occlusion or high-grade stenosis seen. Popliteal artery: Suboptimally seen bilaterally popliteal artery at the level of the knee due to beam hardening artifact related to the knee prosthesis. The visualized portion of the popliteal artery is normal with no severe stenosis or occlusion Anterior tibial artery: Appears patent with good opacification. Posterior tibial artery: Appears patent with good opacification. Peroneal artery: Appears patent with opacification. CT/CTA Abd w/Runoff W/WO Contrast IMPRESSION: Calcified atherosclerosis involving the aorta with no severe stenosis, occlusion or dissection. No aneurysm. There is significant inflow stenosis related to bilateral common and external iliac arteries, more severe on the left compared to the right with areas suggestive of high-grade stenosis and occlusions. Moderate disease in the bilateral common femoral arteries and proximal superficial femoral arteries with areas of moderate stenosis. No severe stenosis throughout the bilateral superficial femoral and visualized popliteal arteries. There is three-vessel runoff below the knee as described below. Electronically Signed: Christina Blake MD at 22:43 EDT ,
== END | disposition home or self-care (01) ==
LOC: CT 12:55
PROVIDERS: PCP Family Medicine; Referring Provider Surgery Vascular Surgery; Visit Provider Surgery Vascular Surgery
DX: I77.1 Stricture of artery (principal); I70.213 Atherosclerosis of native arteries of extremities with intermittent claudication, bilateral legs; I10 Essential (primary) hypertension
CPT/HCPCS: 36415; 75635; 82565; 84520; Q9967

== ENCOUNTER → 2023-04-07 | Outpatient (CLI) | payer MEDICARE, SELFPAY ==
[2023-04-07 10:38] LABS: Absolute Lymphocyte Count 0.86 X10^3/uL (0.83-4.51); Absolute Neutrophil Count 4.5 X10^3/uL (2.0-7.7); Basophil# 0.05 X10^3/uL; Basophil% 0.8 % (0-1); Eosinophil# 0.17 X10^3/uL; Eosinophils% 2.9 % (0-5); Hematocrit 36.5 % (37-47); Hemoglobin 11.7 g/dL (12.0-15.0); Lymphocyte # 0.86 X10^3/ul (0.83-4.51); Lymphocyte % 14.5 % (19-41); Mean Corp Hgb Conc 32.1 g/dL (32-36); Mean Corpuscular Hgb 32.3 pg (27.0-32.0); Mean Corpuscular Volume 100.8 fL (81-99); Mean Platelet Vol. 10.5 fl (6.2-12.0); Monocyte# 0.37 X10^3/uL; Monocyte% 6.3 % (0-10); NRBC Flagged by Analyzer 0 % (0-5); Neutrophil # 4.45 X10^3/uL (2.7-7.7); Neutrophil % 75.2 % (47-70); Platelet Count 292 K/mm3 (150-450); RBC Distribution Width CV 16.2 % (11.6-14.6); RBC Distribution Width SD 59.7 fl (35.1-43.9); Red Blood Count 3.62 M/mm3 (4.2-5.4); White Blood Count 5.9 K/mm3 (4.4-11.0)
[2023-04-07 11:28] LABS: ALB/GLOB Ratio 0.8 RATIO (0.9-2.4); AST(SGOT) 20 U/L (15-37); Alanine Aminotransfer ALT/SGPT 17 U/L (13-56); Albumin, Serum 3.3 g/dL (3.2-5.0); Alkaline Phosphatase 75 U/L (45-117); Anion Gap 7 (5-15); BUN 13 mg/dL (7-18); BUN/Creat Ratio 17.2 RATIO (10-20); Calcium,Total 9.5 mg/dL (8.5-10.1); Chloride 104 mmol/L (98-107); Creatinine, Serum 0.76 mg/dL (0.55-1.02); EST Glomerular Filtration Rate 80 mL/min (>60); Est Glom Filt Rate - Afr Amer 97 mL/min (>60); Globulin 3.9 g/dL (2.2-4.2); Glucose 96 mg/dL (74-106); Potassium 3.8 mmol/L (3.5-5.1); Protein, Total 7.2 g/dL (6.4-8.2); Sodium Level 136 mmol/L (136-145)
== END | disposition home or self-care (01) ==
PROVIDERS: PCP Family Medicine; Referring Provider Internal Medicine Rheumatology; Visit Provider Internal Medicine Rheumatology
DX: M05.70 Rheumatoid arthritis with rheumatoid factor of unspecified site without organ or systems involvement (principal); Z79.899 Other long term (current) drug therapy
CPT/HCPCS: 36415; 80053; 85025

== ENCOUNTER → 2023-06-24 | Outpatient (CLI) | payer MEDICARE, SELFPAY ==
[2023-06-24 08:25] LABS: Cholesterol 151 mg/dL (200); High Density Lipoprotein 59 mg/dL; Triglycerides 111 mg/dL; Very Low Density Lipoprotein 22 mg/dL (5-40)
--- NOTE | 2023-06-24 17:50 | STRESSREP_ITS ---
Stress Test Report Date: 06/24/2023 Procedure: Pharmacologic stress nuclear imaging study Indications: Preop Consent: Per the patient Procedure: The patient underwent pharmacologic (Regadenoson 0.4mg ) evaluation with a peak heart rate of 82 beats per minute (55%predicted maximal heart rate) and a peak blood pressure of 134/78 mmHg. The baseline ECG demonstrated sinus rhythm. The peak pharmacologic ECG demonstrated no ischemic changes. There were no cardiac dysrhythmias pretest, during pharmacologic infusion, or recovery. There was no complaint of chest discomfort during pharmacologic infusion or recovery. The patient was injected with 12.0 millicuries of technetium 99m Cardiolite and subsequently rest SPECT Cardiolite nuclear imaging was obtained in the horizontal long, vertical long, and short axis views. The patient underwent pharmacologic (Regadenoson) evaluation. The patient was injected with 34.3 millicuries of technetium 99m Cardiolite and subsequently stress SPECT Cardiolite nuclear imaging was obtained in the horizontal long, vertical long, and short axis views. A gated Cardiolite study at peak stress was obtained. The examination was stopped secondary to completion of protocol. Rest and stress SPECT Cardiolite nuclear imaging status post realignment, and normalization demonstrate no fixed or reversible perfusion defects. There is end systolic thickening and brightening. The gated Cardiolite study demonstrates myocardial thickening and inward wall motion. The reported LVEF is 63%. Impression: 1. Pharmacologic (Regadenoson) evaluation 2. Peak pharmacologic ECG with no ischemic changes. 3. There were no cardiac dysrhythmias pretest, during pharmacologic infusion, or recovery. 5. Rest and stress SPECT Cardiolite nuclear imaging demonstrate relative uniform tracer uptake and myocardial perfusion appearing within normal limits. 6. The gated Cardiolite study reports an LVEF of 63%. This note was generated with Enlightedation software. It may contain incorrect words, spelling, and punctuation that were not noted in checking the note before signing.
== END | disposition home or self-care (01) ==
LOC: CVS 06:17
PROVIDERS: PCP Family Medicine; Referring Provider Internal Medicine Cardiovascular Disease; Visit Provider Internal Medicine Cardiovascular Disease
DX: Z01.810 Encounter for preprocedural cardiovascular examination (principal); I73.9 Peripheral vascular disease, unspecified; R94.31 Abnormal electrocardiogram [ECG] [EKG]; I07.1 Rheumatic tricuspid insufficiency; I10 Essential (primary) hypertension; E78.5 Hyperlipidemia, unspecified
CPT/HCPCS: 36415; 78452; 80061; 93017; 93306; A9500; A4216; J2785

== ENCOUNTER → 2023-07-01 | Outpatient (CLI) | payer MEDICARE, SELFPAY ==
[2023-07-01 10:14] LABS: Absolute Neutrophil Count 3.6 X10^3/uL (2.0-7.7); Basophil# 0.06 X10^3/uL; Basophil% 1.1 % (0-1); Eosinophil# 0.13 X10^3/uL; Eosinophils% 2.4 % (0-5); Hematocrit 37.5 % (37-47); Hemoglobin 11.6 g/dL (12.0-15.0); Lymphocyte % 16.8 % (19-41); Mean Corp Hgb Conc 30.9 g/dL (32-36); Mean Corpuscular Hgb 31.2 pg (27.0-32.0); Mean Corpuscular Volume 100.8 fL (81-99); Mean Platelet Vol. 10.7 fl (6.2-12.0); Monocyte# 0.62 X10^3/uL; Monocyte% 11.6 % (0-10); NRBC Flagged by Analyzer 0 % (0-5); Neutrophil # 3.62 X10^3/uL (2.7-7.7); Neutrophil % 67.7 % (47-70); Platelet Count 339 K/mm3 (150-450); RBC Distribution Width SD 59.4 fl (35.1-43.9); Red Blood Count 3.72 M/mm3 (4.2-5.4); White Blood Count 5.4 K/mm3 (4.4-11.0)
[2023-07-01 11:38] LABS: ALB/GLOB Ratio 0.9 RATIO (0.9-2.4); AST(SGOT) 21 U/L (15-37); Alanine Aminotransfer ALT/SGPT 18 U/L (13-56); Albumin, Serum 3.4 g/dL (3.2-5.0); Alkaline Phosphatase 62 U/L (45-117); Anion Gap 6 (5-15); BUN 21 mg/dL (7-18); Calcium,Total 9.9 mg/dL (8.5-10.1); Chloride 105 mmol/L (98-107); EST Glomerular Filtration Rate 58 mL/min (>60); Est Glom Filt Rate - Afr Amer 70 mL/min (>60); Globulin 3.9 g/dL (2.2-4.2); Glucose 100 mg/dL (74-106); Potassium 4.3 mmol/L (3.5-5.1); Protein, Total 7.3 g/dL (6.4-8.2); Sodium Level 137 mmol/L (136-145)
== END | disposition home or self-care (01) ==
LOC: MTLAB 09:03
PROVIDERS: PCP Family Medicine; Referring Provider Internal Medicine Rheumatology; Visit Provider Internal Medicine Rheumatology
DX: M05.79 Rheumatoid arthritis with rheumatoid factor of multiple sites without organ or systems involvement (principal); Z79.899 Other long term (current) drug therapy
CPT/HCPCS: 36415; 80053; 85025

== ENCOUNTER → 2023-10-01 | Outpatient (CLI) | payer MEDICARE, SELFPAY ==
[2023-10-01 16:44] LABS: Absolute Lymphocyte Count 1.05 X10^3/uL (0.83-4.51); Absolute Neutrophil Count 5.2 X10^3/uL (2.0-7.7); Basophil# 0.06 X10^3/uL; Basophil% 0.8 % (0-1); Eosinophil# 0.33 X10^3/uL; Eosinophils% 4.7 % (0-5); Hematocrit 34.7 % (37-47); Hemoglobin 10.9 g/dL (12.0-15.0); Lymphocyte # 1.05 X10^3/ul (0.83-4.51); Lymphocyte % 14.8 % (19-41); Mean Corp Hgb Conc 31.4 g/dL (32-36); Mean Corpuscular Volume 98.6 fL (81-99); Mean Platelet Vol. 10.8 fl (6.2-12.0); Monocyte# 0.48 X10^3/uL; Monocyte% 6.8 % (0-10); NRBC Flagged by Analyzer 0 % (0-5); Neutrophil # 5.15 X10^3/uL (2.7-7.7); Neutrophil % 72.6 % (47-70); Platelet Count 345 K/mm3 (150-450); RBC Distribution Width CV 15.8 % (11.6-14.6); RBC Distribution Width SD 56.7 fl (35.1-43.9); Red Blood Count 3.52 M/mm3 (4.2-5.4); White Blood Count 7.1 K/mm3 (4.4-11.0)
[2023-10-01 17:08] LABS: ALB/GLOB Ratio 0.9 RATIO (0.9-2.4); AST(SGOT) 21 U/L (15-37); Alanine Aminotransfer ALT/SGPT 19 U/L (13-56); Albumin, Serum 3.5 g/dL (3.2-5.0); Alkaline Phosphatase 69 U/L (45-117); Anion Gap 7 (5-15); BUN 14 mg/dL (7-18); BUN/Creat Ratio 13.9 RATIO (10-20); Calcium,Total 9.6 mg/dL (8.5-10.1); Chloride 102 mmol/L (98-107); Creatinine, Serum 1.01 mg/dL (0.55-1.02); EST Glomerular Filtration Rate 57 mL/min (>60); Est Glom Filt Rate - Afr Amer 69 mL/min (>60); Globulin 3.7 g/dL (2.2-4.2); Glucose 119 mg/dL (74-106); Potassium 3.5 mmol/L (3.5-5.1); Protein, Total 7.2 g/dL (6.4-8.2); Sodium Level 135 mmol/L (136-145)
== END | disposition home or self-care (01) ==
LOC: MTLAB 12:36
PROVIDERS: PCP Family Medicine; Referring Provider Internal Medicine Rheumatology; Visit Provider Internal Medicine Rheumatology
DX: M05.79 Rheumatoid arthritis with rheumatoid factor of multiple sites without organ or systems involvement (principal); Z79.899 Other long term (current) drug therapy
CPT/HCPCS: 36415; 80053; 85025

== ENCOUNTER 2023-10-21 11:00 | Outpatient (RCR) | payer MEDICARE, SELFPAY ==
--- NOTE | 2023-09-14 12:14 | HP.PTEVAL ---
Patient's Visit Information Visit Information Visit Information: GEE BLAS is a 73 year old F referred to Physical Therapy by LAURI CORDOBA with a diagnosis of IDD Lumbar. Date of Evaluation: 09/14/23 Physical Therapist: Godfrey Spencer, DPT, OCS, CSCS Visit Plan Frequency: 2x /Week Duration: 4-6 Weeks Plan: 2x/week for 6 weeks for 1. teach home baased hip and core [id number] exercises, postural ex and general health ex for LE/posture and progress with list/pics to HEP. 2. gait training for pelvic control. Asked patient to use wh walker to increase her activity level and help with pelvic control adn increasing activity level. Subjective Subjective: Veery tired adn R leg pain from back. had back surgery 13 months ago anchors and screws in back. That did not help the leg pain. Had nuclear stress test and blood flow and has poor circulation in legs. Had stents which helped the pain. Now just gets fatigued in R leg and aches at 4/10 when walking up to 6/10. Comfortable at rest. L leg is good. Has kanwal little back ache much of time described as burning since before surgery. Standing > 1 hour is very burny but gone with sitting. Sleeping is OK, comfy lying down. Basic ADLS, are getting done slowly. Not employed. Activities are limited as she wants to walk into [employer] without achiness. Wants to go to [employer] games. Leans on cart when get to grocery store. Has wh walker and tries not to use it. No falls. No exercises Pain R leg: Pain Intensity (Out of 10): 2 Pain Intensity Range: 0 and 6 Objective Objective: Walks slowly into PT with L trendelnberg gait and pelvis collapsing to R in L WB, hunched FW, Needs to sit after 200 feet without AD. using walker is much better adn can go without a problem for longer distances. Transfer chair I with UE. Steps reciprocally but needs to pull with B UE. Sensation LE to gross light touch is good B. strength hips abd and rotations and ext 3/5 R and 3- L. flexion 3+ B. knee flexion and extension 4-. ankles 4- B. HS max tight at -45 90/90 test B. LB AROM is mod limted in flexiona dn SB and max in extension. reflexes 1/3 patella and achilles B. coordination to reciprocal toe and heel tap is fair. heel to craven test is good. Balance/Special Test Scores Functional Gait Assessment Score: 22 % Disability: 26.6700 Oswestry Low Back Score: 16 Goals Goal 1:: I appropriate HEP for hip and LE adn posture strengthening. Goal Time Frame: 4-6 Weeks Goal 2:: Walk in [employer] games comfortably without avoidance Goal Time Frame: 4-6 Weeks Goal 3:: Pt feel 505 better in overall mobility and able to get in to [employer] comfortably Goal Time Frame: 4-6 Weeks Goal 4:: Back oswestry 10 or less Goal Time Frame: 4-6 Weeks Rehabilitation Potential Physical Therapy Diagnosis: weakness and stiffness and ROM loss casuing funcitonal deficits in ambulation and QOL loss. Rehabilitation Potential: Fair Anticipated Interventions Patient/Client Instruction: Educate patient on: Condition and Risk Factors For the Purpose of:: To decrease pain, To improve nutrient delivery to tissue, To improve muscle performance and motor function and To increase tolerance to activity/condition/position Therapeutic Exercise to Include: Strength training, Flexibilty training, Gait and locomotor training, Passive ROM, Active ROM and Dynamic Lumbar Stabilization For the Purpose of:: To decrease pain, To increase ROM, To improve nutrient delivery to tissue, To improve muscle performance and motor function, To increase tolerance to activity/condition/position and To improve gait and locomotor functions Text: Thank you for the opportunity to evaluate your patient. For Medicare and Medicare HMO plans, please review the plan of care and approve it. It will need to be FAXED BACK to us at [phone] for Medicare purposes. For Medicare only, by signing this I certify the plan of care. Please let me know if there are questions or concerns regarding this plan of care. Physician Signature: Date:
--- NOTE | 2023-10-21 11:46 | HP.PTREVAL ---
Re-Evaluation Intro: LAURI CORDOBA, It has been my pleasure to treat GEE BLAS over the last 10 visits for IDD Lumbar. Please see the progress note below for an update on the physical therapy plan of care! Subjective Subjective: Not much pain but gets tired easily, no real pain. Activities: sweeping and dusting and housework are limited and when she stops she feels OK, frequent breaks. HEP daily. December 07 to doctor. Wants to try on her own and f/u in 3 weeks for d/c, or progression. derik to [employer] games and just has to take frequent breaks. Objective Objective/Function: walking mod I with wh walker today. Comfortable continuing in gym on her own via [employer]. Plan Plan Plan: f/u 3 weeks to check maintenance of improvement with I program. Fair prognosis with compliance. May teach back ext, ab and pull down. Balance/Gait/Functional tests Balance/Special Test Scores Functional Gait Assessment Score: 22 % Disability: 26.6700 Oswestry Low Back Score: 17 Goals Goals Goal 1:: I appropriate HEP for hip and LE adn posture strengthening. Goal Time Frame: 4-6 Weeks Goal Progress: Goal Met Goal 2:: Walk in [employer] games comfortably without avoidance Goal Time Frame: 4-6 Weeks Goal Progress: Goal Met, tired. Goal 3:: Pt feel 505 better in overall mobility and able to get in to [employer] comfortably Goal Time Frame: 4-6 Weeks Goal Progress: Goal Met Goal 4:: Back oswestry 10 or less Goal Time Frame: 4-6 Weeks Goal Progress: Progressing Goal 5:: Maintain improvement on oswestry and 80% with just I workout. Goal Time Frame: 2-4 Weeks Goal Progress: NEW GOAL Anticipated Interventions Anticipated Interventions Patient/Client Instruction: Educate patient on: Condition and Risk Factors For the Purpose of:: To decrease pain, To improve nutrient delivery to tissue, To improve muscle performance and motor function and To increase tolerance to activity/condition/position Therapeutic Exercise to Include: Strength training, Flexibilty training, Gait and locomotor training, Passive ROM, Active ROM and Dynamic Lumbar Stabilization For the Purpose of:: To decrease pain, To increase ROM, To improve nutrient delivery to tissue, To improve muscle performance and motor function, To increase tolerance to activity/condition/position and To improve gait and locomotor functions Re-Evaluation Ending Re-evaluation ending: Please do not hesitate to contact me at [phone] by phone or if you have questions or concerns regarding this new plan of care! Sincerely, Godfrey Spencer, DPT, OCS, CSCS
--- NOTE | 2024-01-04 18:17 | HP.PT.NRP ---
Patient Information Patient Information: GEE BLAS was seen in my office for initial evaluation on 09/14/23. The following Plan of Care was established for this patient: POC Established Initial Frequency: 2x /Week Initial Duration: 4-6 Weeks Anticipated Interventions Patient/Client Instruction: Educate patient on: Condition and Risk Factors For the Purpose of:: To decrease pain, To improve nutrient delivery to tissue, To improve muscle performance and motor function and To increase tolerance to activity/condition/position Therapeutic Exercise to Include: Strength training, Flexibilty training, Gait and locomotor training, Passive ROM, Active ROM and Dynamic Lumbar Stabilization For the Purpose of:: To decrease pain, To increase ROM, To improve nutrient delivery to tissue, To improve muscle performance and motor function, To increase tolerance to activity/condition/position and To improve gait and locomotor functions Last Seen Last Seen: This patient was last seen in our office 10/21/23. Pertinent comments regarding their Physical therapy will appear below: Pt seen 10 visits of POC and was 80% improved. She was to f/u to ensure progress but did not schedule or attend. at this point, it has been over 2 months and i will discontinue from my care. At this point I will be discontinuing this patient from physical therapy. I would be happy to see this patient again in the future if found appropriate by the physician. Thank you! Godfrey Spencer, DPT, OCS, CSCS Balance/Gait/Functional tests Balance/Special Test Scores Functional Gait Assessment Score: 22 % Disability: 26.6700 Oswestry Low Back Score: 17
== END 2023-10-21 19:00 | disposition home or self-care (01) ==
LOC: PT 11:00
PROVIDERS: PCP Family Medicine
DX: M51.36 Other intervertebral disc degeneration, lumbar region (principal)
CPT/HCPCS: 97110; 97116; 97162; 97530

== ENCOUNTER → 2023-12-07 | Outpatient (CLI) | payer MEDICARE, SELFPAY ==
[2023-12-07 15:51] LABS: Absolute Lymphocyte Count 0.66 X10^3/uL (0.83-4.51); Basophil# 0.06 X10^3/uL; Basophil% 1.1 % (0-1); Eosinophil# 0.15 X10^3/uL; Eosinophils% 2.8 % (0-5); Hematocrit 35.7 % (37-47); Hemoglobin 10.9 g/dL (12.0-15.0); Lymphocyte # 0.66 X10^3/ul (0.83-4.51); Lymphocyte % 12.4 % (19-41); Mean Corp Hgb Conc 30.5 g/dL (32-36); Mean Corpuscular Hgb 29.9 pg (27.0-32.0); Mean Corpuscular Volume 98.1 fL (81-99); Mean Platelet Vol. 10.7 fl (6.2-12.0); Monocyte# 0.46 X10^3/uL; Monocyte% 8.7 % (0-10); NRBC Flagged by Analyzer 0 % (0-5); Neutrophil # 3.96 X10^3/uL (2.7-7.7); Neutrophil % 74.6 % (47-70); Platelet Count 289 K/mm3 (150-450); RBC Distribution Width CV 15.5 % (11.6-14.6); RBC Distribution Width SD 55.6 fl (35.1-43.9); Red Blood Count 3.64 M/mm3 (4.2-5.4); White Blood Count 5.3 K/mm3 (4.4-11.0)
[2023-12-07 16:00] LABS: Vitamin B12 336 pg/mL (211-911)
[2023-12-07 16:09] LABS: ALB/GLOB Ratio 0.8 RATIO (0.9-2.4); AST(SGOT) 20 U/L (15-37); Alanine Aminotransfer ALT/SGPT 15 U/L (13-56); Albumin, Serum 3.3 g/dL (3.2-5.0); Alkaline Phosphatase 62 U/L (45-117); Anion Gap 8 (5-15); BUN 12 mg/dL (7-18); BUN/Creat Ratio 14.7 RATIO (10-20); Calcium,Total 9.6 mg/dL (8.5-10.1); Chloride 105 mmol/L (98-107); Creatinine, Serum 0.82 mg/dL (0.55-1.02); EST Glomerular Filtration Rate 73 mL/min (>60); Est Glom Filt Rate - Afr Amer 88 mL/min (>60); Ferritin 23 ng/mL (8-252); Globulin 3.9 g/dL (2.2-4.2); Glucose 76 mg/dL (74-106); Potassium 3.1 mmol/L (3.5-5.1); Protein, Total 7.2 g/dL (6.4-8.2); Sodium Level 138 mmol/L (136-145); Thyroid Stim Hormone (TSH) 1.81 uIU/mL (0.358-3.74)
== END | disposition home or self-care (01) ==
LOC: BFHLAB 13:43
PROVIDERS: PCP Family Medicine; Referring Provider Family Medicine; Visit Provider Family Medicine
DX: I10 Essential (primary) hypertension (principal); K21.9 Gastro-esophageal reflux disease without esophagitis; I73.9 Peripheral vascular disease, unspecified
CPT/HCPCS: 36415; 80053; 82607; 82728; 84443; 85025

== ENCOUNTER → 2023-12-09 | Outpatient (CLI) | payer MEDICARE, SELFPAY ==
--- NOTE | 2023-12-09 10:43 | BI_ITS ---
MAMMOGRAPHY - BILATERAL SCREENING 3-D TOMOSYNTHESIS REASON FOR EXAM: Female, 73 years old. SCREENING PERTINENT HISTORY: No significant family history. TECHNIQUE: 2-D mammograms and 3-D Tomosynthesis of the breast (s) were performed. CAD was performed. COMPARISON: 12/07/2022 FINDINGS: The breast composition is composed of scattered fibroglandular density. Scattered benign calcifications are seen. No dense spiculated masses or suspicious microcalcifications are identified. No architectural distortion is identified. There is no skin thickening or retraction. There has been no significant change since the prior study. BI/SCRN MAMM (CAD)W/RAFA BILAT IMPRESSION: No mammographic signs of malignancy. Routine yearly mammograms recommended. ASSESSMENT CATEGORY: BIRADS Category 1: Negative. A letter regarding these results will be sent to the patient by the facility within 30 days. FOLLOW UP RECOMMENDATION: Yearly follow up mammogram recommended. (A) Approximately 10% of breast cancers are not detected by mammography. A normal mammogram should not delay biopsy of a clinically suspicious abnormality. Electronically Signed: Chris Benítez MD at 17:32 EDT ,
== END | disposition home or self-care (01) ==
LOC: OPBI 10:42
PROVIDERS: PCP Family Medicine; Referring Provider Family Medicine; Visit Provider Family Medicine
DX: Z12.31 Encounter for screening mammogram for malignant neoplasm of breast (principal)
CPT/HCPCS: 77063; 77067

== ENCOUNTER → 2023-12-24 | Outpatient (CLI) | payer MEDICARE, SELFPAY ==
[2023-12-24 10:18] LABS: Absolute Lymphocyte Count 0.97 X10^3/uL (0.83-4.51); Absolute Neutrophil Count 4.3 X10^3/uL (2.0-7.7); Basophil# 0.07 X10^3/uL; Basophil% 1.1 % (0-1); Eosinophil# 0.28 X10^3/uL; Eosinophils% 4.5 % (0-5); Lymphocyte # 0.97 X10^3/ul (0.83-4.51); Lymphocyte % 15.6 % (19-41); Mean Corp Hgb Conc 31.4 g/dL (32-36); Mean Corpuscular Hgb 30.6 pg (27.0-32.0); Mean Corpuscular Volume 97.5 fL (81-99); Mean Platelet Vol. 10.7 fl (6.2-12.0); Monocyte# 0.57 X10^3/uL; Monocyte% 9.1 % (0-10); NRBC Flagged by Analyzer 0 % (0-5); Neutrophil # 4.32 X10^3/uL (2.7-7.7); Neutrophil % 69.4 % (47-70); Platelet Count 276 K/mm3 (150-450); RBC Distribution Width CV 15.9 % (11.6-14.6); RBC Distribution Width SD 56.9 fl (35.1-43.9); Red Blood Count 3.59 M/mm3 (4.2-5.4); White Blood Count 6.2 K/mm3 (4.4-11.0)
[2023-12-24 11:13] LABS: ALB/GLOB Ratio 0.9 RATIO (0.9-2.4); AST(SGOT) 18 U/L (15-37); Alanine Aminotransfer ALT/SGPT 15 U/L (13-56); Albumin, Serum 3.4 g/dL (3.2-5.0); Alkaline Phosphatase 69 U/L (45-117); Anion Gap 7 (5-15); BUN 14 mg/dL (7-18); BUN/Creat Ratio 16.1 RATIO (10-20); Calcium,Total 9.8 mg/dL (8.5-10.1); Chloride 100 mmol/L (98-107); Creatinine, Serum 0.87 mg/dL (0.55-1.02); EST Glomerular Filtration Rate 68 mL/min (>60); Est Glom Filt Rate - Afr Amer 82 mL/min (>60); Globulin 3.8 g/dL (2.2-4.2); Glucose 92 mg/dL (74-106); Potassium 3.9 mmol/L (3.5-5.1); Protein, Total 7.2 g/dL (6.4-8.2); Sodium Level 132 mmol/L (136-145)
== END | disposition home or self-care (01) ==
LOC: MTLAB 09:30
PROVIDERS: PCP Family Medicine; Referring Provider Internal Medicine Rheumatology; Visit Provider Internal Medicine Rheumatology
DX: M05.79 Rheumatoid arthritis with rheumatoid factor of multiple sites without organ or systems involvement (principal); Z79.899 Other long term (current) drug therapy
CPT/HCPCS: 36415; 80053; 85025

== ENCOUNTER → 2024-03-22 | Outpatient (CLI) | payer MEDICARE, SELFPAY ==
[2024-03-22 15:20] LABS: Absolute Neutrophil Count 4.1 X10^3/uL (2.0-7.7); Basophil# 0.07 X10^3/uL; Basophil% 1.1 % (0-1); Eosinophil# 0.37 X10^3/uL; Eosinophils% 5.7 % (0-5); Hematocrit 41.2 % (37-47); Hemoglobin 13.2 g/dL (12.0-15.0); Lymphocyte % 16.8 % (19-41); Mean Corpuscular Hgb 31.7 pg (27.0-32.0); Mean Platelet Vol. 10.8 fl (6.2-12.0); Monocyte# 0.89 X10^3/uL; Monocyte% 13.6 % (0-10); NRBC Flagged by Analyzer 0 % (0-5); Neutrophil # 4.09 X10^3/uL (2.7-7.7); Neutrophil % 62.6 % (47-70); Platelet Count 289 K/mm3 (150-450); RBC Distribution Width CV 14.7 % (11.6-14.6); RBC Distribution Width SD 53.8 fl (35.1-43.9); Red Blood Count 4.16 M/mm3 (4.2-5.4); White Blood Count 6.5 K/mm3 (4.4-11.0)
[2024-03-22 15:57] LABS: ALB/GLOB Ratio 0.8 RATIO (0.9-2.4); AST(SGOT) 17 U/L (15-37); Alanine Aminotransfer ALT/SGPT 15 U/L (13-56); Albumin, Serum 3.4 g/dL (3.2-5.0); Alkaline Phosphatase 72 U/L (45-117); Anion Gap 7 (5-15); BUN 14 mg/dL (7-18); BUN/Creat Ratio 17.3 RATIO (10-20); Calcium,Total 10.2 mg/dL (8.5-10.1); Chloride 101 mmol/L (98-107); Creatinine, Serum 0.81 mg/dL (0.55-1.02); EST Glomerular Filtration Rate 74 mL/min (>60); Est Glom Filt Rate - Afr Amer 89 mL/min (>60); Glucose 91 mg/dL (74-106); Protein, Total 7.4 g/dL (6.4-8.2); Sodium Level 133 mmol/L (136-145)
== END | disposition home or self-care (01) ==
LOC: MTLAB 12:43
PROVIDERS: PCP Family Medicine; Referring Provider Internal Medicine Rheumatology; Visit Provider Internal Medicine Rheumatology
DX: M05.79 Rheumatoid arthritis with rheumatoid factor of multiple sites without organ or systems involvement (principal); M47.897 Other spondylosis, lumbosacral region; M21.40 Flat foot [pes planus] (acquired), unspecified foot; I10 Essential (primary) hypertension; E78.5 Hyperlipidemia, unspecified; Z79.899 Other long term (current) drug therapy
CPT/HCPCS: 36415; 80053; 85025

== ENCOUNTER → 2024-05-11 | Outpatient (CLI) | payer MEDICARE, SELFPAY ==
--- NOTE | 2024-05-11 10:56 | RAD_ITS ---
STUDY: X-RAY - CERVICAL SPINE REASON FOR EXAM: Female, 74 years old. RIGHT ARM RADICULOPATHY TECHNIQUE: 5 view(s) of the cervical spine were obtained. COMPARISON: None FINDINGS: Normal anterior atlantoaxial articulation. Normal odontoid process. There is reversal of the normal cervical lordosis. Severe disc space narrowing at C4-C5. Moderate disc space narrowing at C5-C6 and C6-C7. Mild to moderate anterior endplate spurring at the same levels. Moderate bilateral foraminal stenosis at the same levels. No visualized fracture or compression deformity. Anterolisthesis of C3 on C4 of 2 to 3 mm. The soft tissue structures are unremarkable. RAD/Cerv Spine 4 or 5 Views IMPRESSION: 1. Multilevel degenerative changes of the cervical spine. Electronically Signed: Valentin Barksdale MD at 13:11 EDT ,
== END | disposition home or self-care (01) ==
PROVIDERS: PCP Family Medicine; Referring Provider Nurse Practitioner Family; Visit Provider Nurse Practitioner Family
DX: R20.0 Anesthesia of skin (principal); R20.2 Paresthesia of skin
CPT/HCPCS: 72050

== ENCOUNTER → 2024-05-22 | Outpatient (CLI) | payer MEDICARE, SELFPAY ==
--- NOTE | 2024-05-22 09:24 | ADUUE_ITS ---
Reason For Study: Anesthesia of skin RUE RIGHT Right Subclavian velocity = 133 cm/sec. Right Axillary velocity = 59 cm/sec. Right Brachial velocity = 111 cm/sec. Right Brachial artery waveform is triphasic . Right Radial velocity = 76 cm/sec. Proximal Radial artery waveform is triphasic . Right Ulnar velocity = 55 cm/sec. Proximal Ulnar artery waveform is triphasic . VL/US Art Duplex Unilat UP Extrem Interpretation Summary Normal, pulsatile arterial flow and triphasic Doppler waveforms are noted at al l levels in the right upper extremity. Peak systolic velocities are also relatively normal. There is no evidence of arterial occlusive disease in the right upper extremity. Ordering Physician: Dina Ramsey Referring Physician: Mary Robles Performed By: Dina Cao, RDCS, RVT
== END | disposition home or self-care (01) ==
LOC: CVS 09:22
PROVIDERS: PCP Family Medicine; Referring Provider Nurse Practitioner Family; Visit Provider Nurse Practitioner Family
DX: R20.0 Anesthesia of skin (principal); R20.2 Paresthesia of skin; I73.9 Peripheral vascular disease, unspecified
CPT/HCPCS: 93931

== ENCOUNTER → 2024-06-05 | Outpatient (CLI) | payer MEDICARE, SELFPAY ==
[2024-06-05 13:09] LABS: AST(SGOT) 14 U/L (15-37); Alanine Aminotransfer ALT/SGPT 17 U/L (13-56); Albumin, Serum 3.5 g/dL (3.2-5.0); Alkaline Phosphatase 62 U/L (45-117); Bilirubin, Direct 0.19 mg/dL (0.00-0.30); Cholesterol 157 mg/dL (200); Globulin 3.4 g/dL (2.2-4.2); High Density Lipoprotein 67 mg/dL; Protein, Total 6.9 g/dL (6.4-8.2); Triglycerides 60 mg/dL; Very Low Density Lipoprotein 12 mg/dL (5-40)
== END | disposition home or self-care (01) ==
PROVIDERS: PCP Family Medicine; Referring Provider Internal Medicine Cardiovascular Disease; Visit Provider Internal Medicine Cardiovascular Disease
DX: E78.00 Pure hypercholesterolemia, unspecified (principal)
CPT/HCPCS: 36415; 80061; 80076

== ENCOUNTER → 2024-06-19 | Outpatient (CLI) | payer MEDICARE, SELFPAY ==
[2024-06-19 12:28] LABS: ALB/GLOB Ratio 0.9 RATIO (0.9-2.4); AST(SGOT) 14 U/L (15-37); Alanine Aminotransfer ALT/SGPT 17 U/L (13-56); Albumin, Serum 3.4 g/dL (3.2-5.0); Alkaline Phosphatase 68 U/L (45-117); Anion Gap 8 (5-15); BUN 13 mg/dL (7-18); Calcium,Total 9.7 mg/dL (8.5-10.1); Chloride 102 mmol/L (98-107); Creatinine, Serum 0.81 mg/dL (0.55-1.02); EST Glomerular Filtration Rate 73 mL/min (>60); Est Glom Filt Rate - Afr Amer 88 mL/min (>60); Globulin 3.7 g/dL (2.2-4.2); Glucose 97 mg/dL (74-106); Potassium 3.5 mmol/L (3.5-5.1); Protein, Total 7.1 g/dL (6.4-8.2); Sodium Level 134 mmol/L (136-145)
[2024-06-19 12:35] LABS: Absolute Lymphocyte Count 0.81 X10^3/uL (0.83-4.51); Absolute Neutrophil Count 3.9 X10^3/uL (2.0-7.7); Basophil# 0.07 X10^3/uL; Basophil% 1.2 % (0-1); Eosinophil# 0.23 X10^3/uL; Hematocrit 42.2 % (37-47); Hemoglobin 14.3 g/dL (12.0-15.0); Lymphocyte # 0.81 X10^3/ul (0.83-4.51); Lymphocyte % 14.1 % (19-41); Mean Corp Hgb Conc 33.9 g/dL (32-36); Mean Corpuscular Hgb 33.7 pg (27.0-32.0); Mean Corpuscular Volume 99.5 fL (81-99); Mean Platelet Vol. 10.7 fl (6.2-12.0); Monocyte# 0.68 X10^3/uL; Monocyte% 11.8 % (0-10); NRBC Flagged by Analyzer 0 % (0-5); Neutrophil # 3.93 X10^3/uL (2.7-7.7); Neutrophil % 68.6 % (47-70); Platelet Count 257 K/mm3 (150-450); RBC Distribution Width CV 14.4 % (11.6-14.6); RBC Distribution Width SD 52.2 fl (35.1-43.9); Red Blood Count 4.24 M/mm3 (4.2-5.4); White Blood Count 5.7 K/mm3 (4.4-11.0)
== END | disposition home or self-care (01) ==
PROVIDERS: PCP Family Medicine; Referring Provider Internal Medicine Rheumatology; Visit Provider Internal Medicine Rheumatology
DX: M05.79 Rheumatoid arthritis with rheumatoid factor of multiple sites without organ or systems involvement (principal); Z79.899 Other long term (current) drug therapy
CPT/HCPCS: 36415; 80053; 85025

== ENCOUNTER → 2024-09-19 | Outpatient (CLI) | payer MEDICARE, SELFPAY ==
[2024-09-19 12:26] LABS: Absolute Lymphocyte Count 0.87 X10^3/uL (0.83-4.51); Absolute Neutrophil Count 4.6 X10^3/uL (2.0-7.7); Basophil# 0.07 X10^3/uL; Basophil% 1.1 % (0-1); Eosinophil# 0.19 X10^3/uL; Eosinophils% 2.9 % (0-5); Hematocrit 43.4 % (37-47); Hemoglobin 14.6 g/dL (12.0-15.0); Lymphocyte # 0.87 X10^3/ul (0.83-4.51); Lymphocyte % 13.5 % (19-41); Mean Corp Hgb Conc 33.6 g/dL (32-36); Mean Corpuscular Hgb 34.4 pg (27.0-32.0); Mean Corpuscular Volume 102.4 fL (81-99); Mean Platelet Vol. 10.6 fl (6.2-12.0); Monocyte# 0.73 X10^3/uL; Monocyte% 11.3 % (0-10); NRBC Flagged by Analyzer 0 % (0-5); Neutrophil # 4.58 X10^3/uL (2.7-7.7); Neutrophil % 70.9 % (47-70); Platelet Count 210 K/mm3 (150-450); RBC Distribution Width CV 14.5 % (11.6-14.6); RBC Distribution Width SD 54.3 fl (35.1-43.9); Red Blood Count 4.24 M/mm3 (4.2-5.4); White Blood Count 6.5 K/mm3 (4.4-11.0)
[2024-09-19 12:53] LABS: ALB/GLOB Ratio 1.3 RATIO (0.9-2.4); AST(SGOT) 25 U/L (<=31); Alanine Aminotransfer ALT/SGPT 13 U/L (<=34); Albumin, Serum 3.9 g/dL (3.4-4.8); Alkaline Phosphatase 59 U/L (35-104); Anion Gap 12 (5-15); BUN 15 mg/dL (4-19); BUN/Creat Ratio 17.2 RATIO (10-20); Carbon Dioxide 23.4 mmol/L (21.0-32.0); Chloride 98 mmol/L (98-108); Creatinine, Serum 0.84 mg/dL (0.70-1.20); EST Glomerular Filtration Rate 72 (>60); Globulin 3.1 g/dL (2.2-4.2); Glucose 79 mg/dL (70-99); Potassium 3.9 mmol/L (3.3-5.1); Sodium Level 133 mmol/L (133-145); Total Bilirubin 0.63 mg/dL (0.00-1.30)
== END | disposition home or self-care (01) ==
LOC: MTLAB 09:58
PROVIDERS: PCP Family Medicine; Referring Provider Internal Medicine Rheumatology; Visit Provider Internal Medicine Rheumatology
DX: M05.79 Rheumatoid arthritis with rheumatoid factor of multiple sites without organ or systems involvement (principal); Z79.899 Other long term (current) drug therapy
CPT/HCPCS: 36415; 80053; 85025

== ENCOUNTER → 2024-11-06 | Outpatient (CLI) | payer MEDICARE, SELFPAY ==
--- NOTE | 2024-11-06 11:35 | RAD_ITS ---
PROCEDURE: FOOT MIN 3 VIEWS 11/06/2024 REASON FOR EXAM: PAIN AND SWELLING TECHNIQUE: 3 views of the left foot. COMPARISON: None. FINDINGS: Bones: Acute, mildly displaced spiral fracture of the left 5th metatarsal shaft. Joints: No obvious intra-articular fracture extension. Moderate to severe degenerative changes throughout the left foot and ankle. Soft tissues: Soft tissue swelling. No radiopaque foreign body. RAD/Foot min 3 Views IMPRESSION: Acute fracture of the left 5th metatarsal shaft. Reading Location: [id number]
== END | disposition home or self-care (01) ==
LOC: MTRAD 11:30
PROVIDERS: PCP Family Medicine; Referring Provider Family Medicine; Visit Provider Family Medicine
DX: M79.89 Other specified soft tissue disorders (principal); M79.672 Pain in left foot
CPT/HCPCS: 73630

== ENCOUNTER → 2024-11-27 | Outpatient (CLI) | payer MEDICARE, SELFPAY ==
[2024-11-27 12:35] LABS: Absolute Lymphocyte Count 0.64 X10^3/uL (0.83-4.51); Absolute Neutrophil Count 4.4 X10^3/uL (2.0-7.7); Basophil# 0.06 X10^3/uL; Eosinophil# 0.21 X10^3/uL; Eosinophils% 3.5 % (0-5); Hemoglobin 12.6 g/dL (12.0-15.0); Lymphocyte # 0.64 X10^3/ul (0.83-4.51); Lymphocyte % 10.8 % (19-41); Mean Corp Hgb Conc 33.2 g/dL (32-36); Mean Corpuscular Hgb 34.3 pg (27.0-32.0); Mean Corpuscular Volume 103.5 fL (81-99); Mean Platelet Vol. 10.9 fl (6.2-12.0); Monocyte# 0.65 X10^3/uL; Monocyte% 10.9 % (0-10); NRBC Flagged by Analyzer 0 % (0-5); Neutrophil # 4.36 X10^3/uL (2.7-7.7); Neutrophil % 73.5 % (47-70); Platelet Count 207 K/mm3 (150-450); RBC Distribution Width SD 56.7 fl (35.1-43.9); Red Blood Count 3.67 M/mm3 (4.2-5.4); White Blood Count 5.9 K/mm3 (4.4-11.0)
[2024-11-27 12:49] LABS: ALB/GLOB Ratio 1.4 RATIO (0.9-2.4); AST(SGOT) 19 U/L (<=31); Alanine Aminotransfer ALT/SGPT 14 U/L (<=34); Albumin, Serum 3.8 g/dL (3.4-4.8); Alkaline Phosphatase 60 U/L (35-104); Anion Gap 11 (5-15); BUN 11 mg/dL (4-19); BUN/Creat Ratio 15.4 RATIO (10-20); Calcium,Total 9.6 mg/dL (7.6-11.0); Carbon Dioxide 21.8 mmol/L (21.0-32.0); Chloride 106 mmol/L (98-108); Creatinine, Serum 0.74 mg/dL (0.70-1.20); EST Glomerular Filtration Rate 85 (>60); Globulin 2.7 g/dL (2.2-4.2); Glucose 90 mg/dL (70-99); Potassium 3.6 mmol/L (3.3-5.1); Protein, Total 6.5 g/dL (5.9-8.4); Sodium Level 139 mmol/L (133-145); Total Bilirubin 0.58 mg/dL (0.00-1.30)
== END | disposition home or self-care (01) ==
PROVIDERS: PCP Family Medicine; Referring Provider Internal Medicine Rheumatology; Visit Provider Internal Medicine Rheumatology
DX: M05.79 Rheumatoid arthritis with rheumatoid factor of multiple sites without organ or systems involvement (principal); Z79.899 Other long term (current) drug therapy
CPT/HCPCS: 36415; 80053; 85025

== ENCOUNTER → 2024-12-07 | Outpatient (CLI) | payer MEDICARE, SELFPAY ==
--- NOTE | 2024-12-07 14:06 | RAD_ITS ---
PROCEDURE: CHEST PA AND LATERAL 12/07/2024 REASON FOR EXAM: COUGH, DECREASED BREATH SOUNDS AT BASES TECHNIQUE: Frontal and lateral views of the chest. COMPARISON: None FINDINGS: No large focal consolidations. 7 mm radiodensity about the right upper thorax may reflect a pulmonary nodule versus osseous etiology. No pneumothorax. Trace bibasilar pleural effusions. Borderline enlarged cardiac silhouette. Posterior lower thoracic fixation hardware is noted. Atherosclerotic aortic arch. Total right shoulder arthroplasty. RAD/Chest PA and Lateral IMPRESSION: Mild pulmonary vascular congestion. Borderline enlarged cardiac silhouette. T race bibasilar pleural effusions. No large focal consolidations. 7 mm radiodensity about the right upper thorax may reflect a pulmonary nodule versus osseous etiology. Reading Location: [id number]
== END | disposition home or self-care (01) ==
LOC: MTRAD 14:04
PROVIDERS: PCP Family Medicine; Referring Provider Family Medicine; Visit Provider Family Medicine
DX: R05.9 Cough, unspecified (principal)
CPT/HCPCS: 71046

== ENCOUNTER → 2024-12-19 | Outpatient (CLI) | payer MEDICARE, SELFPAY ==
--- NOTE | 2024-12-19 07:53 | ADU_ITS ---
Reason For Study Reason For Study: HX BLE Iliac A stents Right Velocities Left Velocities Ext. Iliac Artery, dist = 142.5 cm./sec. Ext Iliac Artery, mid = 97.7 cm./sec. Common Femoral Artery, mid = 133.7 cm./sec. Common Femoral Artery, mid = 172.5 cm./sec. Supf Femoral Artery, prox = 160.0 cm./sec. Supf. Femoral Artery, prox = 123.5 cm./sec. Supf Femoral Artery, mid = 72.2 cm./sec. Supf. Femoral Artery, mid = 58.3 cm./sec. Supf Femoral Artery, dist. = 81.0 cm./sec. Supf. Femoral Artery, dist = 52.8 cm./sec. Profunda Femoral Artery = 83.2 cm./sec. Profunda Femoral Artery = 65.5 cm./sec. Popliteal Artery, mid = 94.2 cm./sec. Popliteal Artery, mid = 49.1 cm./sec. Post. Tibial Artery, prox = 53.7 cm./sec. Post. Tibial Artery, prox = 78.4 cm./sec. Post. Tibial Artery, mid = 73.5 cm./sec. Post Tibial Artery, mid = 71.1 cm./sec. Post. Tibial Artery, dist = 48.3 cm./sec. Post Tibial Artery, dist. = 67.4 cm./sec. Peroneal Artery, prox = 40.6 cm./sec. Peroneal Artery, prox = 32.0 cm./sec. Peroneal Artery, mid = 26.3 cm./sec. Peroneal Artery, mid = 33.9 cm./sec. Peroneal Artery,dist = 43.9 cm./sec. Peroneal Artery,dist. = 26.4 cm./sec. Ant. Tibial Artery, prox = 83.4 cm./sec. Ant.Tibial Artery, prox = 45.3 cm./sec. Ant. Tibial Artery, mid = 55.9 cm./sec. Ant Tibial Artery, mid = 44.3 cm./sec. Ant. Tibial Artery, dist = 54.8 cm./sec. Ant. Tibial Artery, distal = 46.2 cm./sec. Procedure The exam was diagnostic. BLE Arterial Duplex. Exam performed in department. /US Art Duplex Bilat Lower Ext Interpretation Summary The lower extremity arterial duplex is normal bilaterally. Ordering Physician: Son Conner Referring Physician: Mary Robles Performed By: Terry Guadarrama RVT
--- NOTE | 2024-12-19 07:53 | ART_ITS ---
Reason For Study Reason For Study: HX BLE ILiac A Stents Procedure A bilateral lower extremity continuous wave Doppler with analog waveform analysis and ankle brachial indexes. Left Segmental Pressures Left brachial= 169mmHg. Left posterior tibial artery = 176mmHg. Left dorsalis pedis artery = 160mmHg. The left posterior tibial artery waveforms are biphasic. The left dorsalis pedis waveforms are biphasic. Right Segmental Pressures Right brachial= 185mmHg. Right posterior tibial artery = 194mmHg. Right dorsalis pedis artery = 193mmHg. Right digit = 123 mmHg. The right posterior tibial artery waveforms are triphasic. The right dorsalis pedis waveforms are triphasic. Indices The right ankle brachial index by the posterior tibial artery is 1.05. The right ankle brachial index by the dorsalis pedis is 1.04. The right digital-brachial index is 0.66. The left ankle brachial index by the posterior tibial artery is 0.95. The left ankle brachial index by the dorsalis pedis is 0.86. VL/Ankle Brachial Index Interpretation Summary Resting ankle-brachial indices appear bilaterally normal. Ordering Physician: Son Conner Referring Physician: Mary Robles Performed By: Terry Guadarrama, RVGifty
--- NOTE | 2024-12-19 07:53 | AAVD_ITS ---
Reason For Study Reason For Study: HX BLE Iliac Stents Aorta Measurements Aorta Doppler Measurements Proximal aorta measures2.52 x 2.42cm. in cross-sectional Peak systolic flow velocities within the proximal aorta axis. measure 54.7 cm/sec. Proximal aorta measures2.51cm. in longitudinal axis. Peak systolic flow velocities within the mid aorta measure Mid aorta measures2.19 x 2.15cm. in cross-sectional axis. 54.6 cm/sec. Mid aorta measures2.13cm. in longitudinal axis. Peak systolic flow velocities within the distal aorta Distal aorta measures2.44 x 2.73cm. in cross-sectional axis.measure 80.5 cm/sec. Distal aorta measures2.62cm. in longitudinal axis. Left Iliac Artery Left iliac artery measures 0.94 x 0.84 cm. in the cross-sectional axis. Left iliac artery measures 0.85 cm. in the longitudinal axis. Peak systolic velocity in the left iliac artery measures 268.7 cm/sec. Right Iliac Artery Right iliac artery measures 1.10 x 1.16 cm. in the cross-sectional axis. Right iliac artery measures 1.21 cm. in the longitudinal axis. Peak systolic velocity in the right iliac artery measures 259.4 cm/sec. Procedure Aorta IVC Iliac vasculature or bypass grafts 27772. The exam was diagnostic. Exam performed in department. VL/Abd Aortic/IVC Duplex scan Interpretation Summary Bilateral common iliac moderate stenosis. Ordering Physician: Son Conner Referring Physician: Mary Robles Performed By: Terry Guadarrama, RVT
== END | disposition home or self-care (01) ==
LOC: CVS 07:52
PROVIDERS: PCP Family Medicine; Referring Provider Surgery Vascular Surgery; Visit Provider Surgery Vascular Surgery
DX: Z48.812 Encounter for surgical aftercare following surgery on the circulatory system (principal); I70.213 Atherosclerosis of native arteries of extremities with intermittent claudication, bilateral legs; I77.1 Stricture of artery
CPT/HCPCS: 93922; 93925; 93978

== ENCOUNTER → 2024-12-21 | Outpatient (CLI) | payer MEDICARE, SELFPAY ==
[2024-12-21 18:10] LABS: Pro- Brain NATRIURETIC PEPTIDE 1247 pg/mL (<=900)
== END | disposition home or self-care (01) ==
PROVIDERS: PCP Family Medicine; Referring Provider Family Medicine; Visit Provider Family Medicine
DX: I50.9 Heart failure, unspecified (principal)
CPT/HCPCS: 36415; 83880

== ENCOUNTER → 2025-01-04 | Outpatient (CLI) | payer MEDICARE, SELFPAY ==
--- NOTE | 2025-01-04 12:54 | ECHOD_ITS ---
Reason For Study Reason For Study: HEART FAILURE Procedure This was a 2D Doppler, Color Flow transthoracic echocardiogram. Exam performed in department. Left Ventricle Normal LV size. Mild concentric left ventricular hypertrophy. The LV ejection fraction is 65 %. Stage 1 diastolic dysfunction. Right Ventricle Normal right ventricle. Atria The left atrium is mildly enlarged. Normal right atrium. Mitral Valve Mild mitral annular calcification. Trivial mitral valve insufficiency. Tricuspid Valve Normal tricuspid valve. Aortic Valve Mild focal aortic valve calcification. Aortic sclerosis, no stenosis. Trivial aortic valve insufficiency. Pulmonic Valve Trivial pulmonic valve insufficiency. Great Vessels Normal sized aortic root. Pericardium/Pleural Trivial pericardial effusion. MMode/2D Measurements & Calculations LVIDd: 4.4 cm IVSd: 1.2 cm Ao root diam: 3.3 cm LVIDs: 3.0 cm LVPWd: 1.0 cm RVDd: 3.4 cm FS: 31.3 % LAV(MOD-bp): 72.2 ml LVAd ap4: 28.4 cm2 SV(MOD-sp4): 53.2 ml LAV(MOD-bp) Indexed: 37.7 ml/m2 LVLd ap4: 7.1 cm SI(MOD-sp4): 27.7 ml/m2 LAV(MOD-sp2): 67.2 ml EDV(MOD-sp4): 94.1 ml LAV(MOD-sp4): 73.0 ml EDV(sp4-el): 95.7 ml LVAs ap4: 16.8 cm2 LVLs ap4: 6.0 cm ESV(MOD-sp4): 40.9 ml ESV(sp4-el): 40.1 ml EF(MOD-sp4): 56.5 % EF(sp4-el): 58.1 % SV(sp4-el): 55.6 ml LA A4 area: 23.2 cm2 LA dimension(2D): 4.3 cm RA A4 area: 17.9 cm2 TAPSE: 2.2 cm Time Measurements MV dec time: 0.19 sec Doppler Measurements & Calculations MV E max lenin: 76.3 cm/sec Lat Peak E' Lenin: 5.3 cm/sec Med Peak E' Lenin: 5.7 cm/sec MV A max lenin: 80.6 cm/sec E/E' lat: 14.4 E/E' med: 13.3 MV E/A: 0.95 Ao V2 max: 144.5 cm/sec LV V1 max: 91.8 cm/sec PA V2 max: 94.2 cm/sec Ao max P.4 mmHg LV V1 max P.4 mmHg ECHO/Echo Complete Interpretation Summary Mild concentric left ventricular hypertrophy. The LV ejection fraction is 65 %. Stage 1 diastolic dysfunction. The left atrium is mildly enlarged. Mild mitral annular calcification. Aortic sclerosis, no stenosis. Trivial pericardial effusion. Ordering Physician: Yolanda Bravo MD Referring Physician: Mary Robles Performed By: Kourtney Torres RDCS
== END | disposition home or self-care (01) ==
LOC: CVS 12:53
PROVIDERS: PCP Family Medicine; Referring Provider Family Medicine; Visit Provider Family Medicine
DX: I50.9 Heart failure, unspecified (principal); I34.0 Nonrheumatic mitral (valve) insufficiency
CPT/HCPCS: 93306

== ENCOUNTER → 2025-01-12 | Outpatient (CLI) | payer MEDICARE, SELFPAY ==
[2025-01-12 15:39] LABS: Anion Gap 12 (5-15); BUN 11 mg/dL (4-19); BUN/Creat Ratio 14.4 RATIO (10-20); Calcium,Total 9.7 mg/dL (7.6-11.0); Carbon Dioxide 21.5 mmol/L (21.0-32.0); Chloride 105 mmol/L (98-108); Creatinine, Serum 0.78 mg/dL (0.70-1.20); EST Glomerular Filtration Rate 79 (>60); Glucose 98 mg/dL (70-99); Potassium 3.9 mmol/L (3.3-5.1); Pro- Brain NATRIURETIC PEPTIDE 1087 pg/mL (<=900); Sodium Level 139 mmol/L (133-145)
== END | disposition home or self-care (01) ==
LOC: BFHLAB 13:54
PROVIDERS: PCP Family Medicine; Visit Provider Family Medicine
DX: I11.0 Hypertensive heart disease with heart failure (principal); I50.9 Heart failure, unspecified
CPT/HCPCS: 36415; 80048; 83880

== ENCOUNTER → 2025-02-22 | Outpatient (CLI) | payer MEDICARE, SELFPAY ==
--- NOTE | 2025-02-22 13:46 | VDLE_ITS ---
Reason For Study Reason For Study: Varicose veins RIGHT LEFT CFV is compressible, spontaneous, phasic, competent CFV is compressible, spontaneous, phasic, competent, and demonstrates normal augmentation. and demonstrates normal augmentation. FV is compressible, spontaneous, phasic, competent FV is compressible, spontaneous, phasic, competent and demonstrates normal augmentation. and demonstrates normal augmentation. POP V is compressible, spontaneous, phasic, competent POP V is compressible, spontaneous, phasic, competent and demonstrates normal augmentation. and demonstrates normal augmentation. T/P Trunk is compressible. T/P Trunk is compressible. PTV is compressible. PTV is compressible. RT PerV is compressible. LT PerV is compressible. SFJ is competent and measures 0.78 cm. SFJ is competent and measures 0.65 cm. GSV proximal thigh measures 0.35 x 0.34 cm. GSV proximal thigh measures 0.48 x 0.49 cm. GSV at knee measures 0.22 x 0.22 cm. GSV at knee measures 0.44 x 0.41 cm. GSV is competent throughout. GSV is competent throughout. SSV mid calf is competent and measures 0.22 cm. SSV mid calf is competent and measures 0.15 x 0.17 Procedure cm. This is a venous duplex using B-mode, color flow and spectral Doppler. Exam performed in department. Patient was scanned in reverse Trendelenburg position during reflux assessment. VL/Venous Duplex US - Perfecto Extrem Interpretation Summary No DVT, SVT or deep or superficial reflux. Ordering Physician: Son Conner Referring Physician: Mary Robles Performed By: Keri Liu RVT
== END | disposition home or self-care (01) ==
LOC: CVS 13:45
PROVIDERS: PCP Family Medicine; Referring Provider Surgery Vascular Surgery; Visit Provider Surgery Vascular Surgery
DX: I83.893 Varicose veins of bilateral lower extremities with other complications (principal); I10 Essential (primary) hypertension
CPT/HCPCS: 93970

== ENCOUNTER → 2025-02-27 | Outpatient (CLI) | payer MEDICARE, SELFPAY ==
[2025-02-27 16:04] LABS: Hematocrit 39.2 % (37-47); Hemoglobin 12.8 g/dL (12.0-15.0); Immature Granulocytes Count 0.020 X10^3/uL (0.0-0.0); Mean Corp Hgb Conc 32.7 g/dL (32-36); Mean Corpuscular Volume 102.6 fL (81-99); Mean Platelet Vol. 11.9 fl (6.2-12.0); NRBC Flagged by Analyzer 0 % (0-5); Platelet Count 217 K/mm3 (150-450); RBC Distribution Width CV 14.5 % (11.6-14.6); RBC Distribution Width SD 54.5 fl (35.1-43.9); Red Blood Count 3.82 M/mm3 (4.2-5.4); White Blood Count 6.6 K/mm3 (4.4-11.0)
[2025-02-27 16:05] LABS: AST(SGOT) 20 U/L (<=31); Alanine Aminotransfer ALT/SGPT 7 U/L (<=34); Albumin, Serum 3.9 g/dL (3.4-4.8); Alkaline Phosphatase 62 U/L (35-104); Anion Gap 12 (5-15); BUN 13 mg/dL (4-19); BUN/Creat Ratio 15.9 RATIO (10-20); Calcium,Total 9.7 mg/dL (7.6-11.0); Carbon Dioxide 22.5 mmol/L (21.0-32.0); Chloride 105 mmol/L (98-108); Globulin 2.8 g/dL (2.2-4.2); Glucose 81 mg/dL (70-99); Potassium 3.6 mmol/L (3.3-5.1)
== END | disposition home or self-care (01) ==
LOC: MTLAB 12:53
PROVIDERS: PCP Family Medicine; Referring Provider Internal Medicine Rheumatology; Visit Provider Internal Medicine Rheumatology
DX: M05.79 Rheumatoid arthritis with rheumatoid factor of multiple sites without organ or systems involvement (principal); M47.897 Other spondylosis, lumbosacral region; Z79.899 Other long term (current) drug therapy
CPT/HCPCS: 36415; 80053; 85025

== ENCOUNTER → 2025-05-31 | Outpatient (CLI) | payer MEDICARE, SELFPAY ==
[2025-05-31 18:04] LABS: Hematocrit 40.7 % (37-47); Hemoglobin 13.3 g/dL (12.0-15.0); Immature Granulocytes Count 0.020 X10^3/uL (0.0-0.0); Mean Corp Hgb Conc 32.7 g/dL (32-36); Mean Corpuscular Volume 103.8 fL (81-99); Mean Platelet Vol. 10.8 fl (6.2-12.0); NRBC Flagged by Analyzer 0 % (0-5); Platelet Count 217 K/mm3 (150-450); RBC Distribution Width CV 14.1 % (11.6-14.6); RBC Distribution Width SD 53.4 fl (35.1-43.9); Red Blood Count 3.92 M/mm3 (4.2-5.4); White Blood Count 6.3 K/mm3 (4.4-11.0)
[2025-05-31 18:30] LABS: AST(SGOT) 20 U/L (<=31); Alanine Aminotransfer ALT/SGPT 11 U/L (<=34); Albumin, Serum 3.9 g/dL (3.4-4.8); Alkaline Phosphatase 58 U/L (35-104); Anion Gap 10 (5-15); BUN 11 mg/dL (4-19); BUN/Creat Ratio 14.4 RATIO (10-20); Calcium,Total 9.8 mg/dL (7.6-11.0); Carbon Dioxide 24.1 mmol/L (21.0-32.0); Chloride 105 mmol/L (98-108); Globulin 2.8 g/dL (2.2-4.2); Glucose 106 mg/dL (70-99); Potassium 3.7 mmol/L (3.3-5.1)
== END | disposition home or self-care (01) ==
LOC: MTLAB 15:00
PROVIDERS: PCP Family Medicine; Referring Provider Internal Medicine Rheumatology; Visit Provider Internal Medicine Rheumatology
DX: M05.79 Rheumatoid arthritis with rheumatoid factor of multiple sites without organ or systems involvement (principal); Z79.899 Other long term (current) drug therapy
CPT/HCPCS: 36415; 80053; 85025